=== PATIENT | female | born 1970 | race Caucasian/White ===

== ENCOUNTER 2019-10-11 07:09 | Emergency (ER) | payer SELFPAY ==
[2019-10-11] VITALS (10 sets, daily range): BP systolic 188–243; BP diastolic 110–125; PULSE 65–109; RESP 12–22; TEMP 36.7; O2SAT 92–98; BMI 23.4
--- NOTE | 2019-10-11 07:21 | ECG_ITS ---
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 Measurements Intervals [place] Rate: 66 P: 69 NH: 137 QRS: 63 QRSD: 80 T: 73 QT: 417 QTc: 437 Interpretive Statements SINUS RHYTHM POSSIBLE LEFT ATRIAL ENLARGEMENT [-0.1mV P WAVE IN V1/V2] Compared to ECG 12/30/2018 17:20:07 Sinus tachycardia no longer present ST (T wave) deviation no longer present Electronically Signed On 10-12-2019 19:43:28 CDT by Jaswinder Dick M.D. [id number]
--- NOTE | 2019-10-11 07:21 | XR_ITS ---
WS: [id number] PORTABLE CHEST HISTORY: dyspnea/cough COMPARISON: 12/30/2018 Mild pulmonary hyperinflation is probably due to emphysema. No pneumonia. Normal vasculature. No pleu ral effusion or pneumothorax. Cardiac size: Normal. Mediastinum/Aorta: Normal mediastinum. No osseous abnormality seen. XR/XR chest 1V portable [id number] IMPRESSION: Mild emphysema. No pneumonia.
--- NOTE | 2019-10-11 07:25 | ED_ITS ---
HPI - Extremity Problem General: Chief complaint: Extremity Problem,Nontraumatic Stated complaint: SHOULDER/ ARM PAIN Time Seen by Provider: 10/11/19 07:10 History of Present Illness: HPI Narrative: 48-year-old female presents emergency room with complaint of right upper chest states pain began suddenly this morning she states the pain is in the upper chest initially she states in her shoulder but she moves her arm around in a full range of motion without e xacerbating the pain back during exam I can put her into abduction with external rotation with no significant pain whatsoever. She denies fever. She has had increased cough recently. Onset (ago): hour(s) Pain Consistency: constant Location: right Quality: sharp Radiation: none Relieving factors: nothing Exacerbating factors: nothing Associated symptoms: Reports no associated symptoms; Deny chest pain, fever(s) or rash Review of Systems Const: Denies: fever(s), chills, body aches, change in appetite, fatigue or malaise ENMT: Denies: throat pain, ear or mastoid pain, nasal discharge or nasal congestion Card: Denies: chest pain, edema, dyspnea on exertion or orthopnea Resp: Denies: dyspnea, productive cough or non-productive cough GI: Denies: abdominal pain, nausea, vomiting, hematemesis, coffee ground emesis, diarrhea, constipation, bloating, hematochezia or melena : Denies: flank pain, difficulty voiding, dysuria, urinary frequency or urinary urgency Skin/Breast: Denies: rash or pruritus PFSH ED PFSH: Surgical History (Updated 03/14/19 @ 15:20 by Tray Garcia LPN) History of cholecystectomy Social History (Updated 03/15/19 @ 13:58 by Tray Garcia LPN) Smoking and tobacco status: current every day smoker cigarettes Packs smoked per day: 0.5 Years cigarettes smoked: 13 Quit status (tobacco): has tried quititng Number of times tried to quit tobacco: 1 Second hand smoke exposure: Yes Smoking risk assessment/counseling performed?: Yes Tobacco counseling given: counseling >3 minutes Physical Exam Const: COMMON NORMALS: no acute distress GENERAL APPEARANCE: cooperative and comfortable ORIENTATION/CONSCIOUSNESS: Yes awake, Yes oriented to person, Yes oriented to place and Yes oriented to time HENMT: COMMON NORMALS: normocephalic, atraumatic, hearing grossly normal b ilaterally, external ears normal, EAC's normal, TM's normal bilaterally, Normal nasal mucous membranes and turbinates present, moist oral mucous membranes and oropharynx normal HEAD & SCALP: normocephalic and atraumatic NOSE: Normal nasal mucous membranes and turbinates present EXTERNAL EAR: Yes external ears normal EXTERNAL AUDITORY CANAL: EAC's normal TYMPANIC MEMBRANE: TM's normal bilaterally Eye: COMMON NORMALS: Equal, round and reactive pupils present, EOMs intact bilaterally, conjunctivae normal and no scleral icterus CONJUNCTIVA: Yes conjunctivae normal PUPIL: Yes Equal, round and reactive pupils present Neck/C-Spine: COMMON NORMALS: full ROM, no lymphadenopathy, supple and no JVD Lymph: LYMPHATIC: no lymphadenopathy noted and no lymphedema noted Resp: COMMON NORMALS: normal respiratory effort, No retractions, No use of accessory muscles and clear to auscultation bilaterally AUSCULTATION: clear to auscultation bilaterally Cardio: COMMON NORMALS: no JVD, regular rate, regular rhythm and No murmurs present (Cardio) RATE: regular rate RHYTHM: regular rhythm GI: COMMON NORMALS: Soft to palpation and No hepatosplenomegaly present AUSCULTATION: Yes normoactive bowel sounds PALPATION: Yes Soft to palpation, No Tenderness to palpation present (GI), No Guarding due to palpation present (GI) and Yes No hepatosplenomegaly present Extremity: COMMON NORMALS: normal to inspection, capillary refill normal, no clubbing, cyanosis or edema, no calf tenderness and no pedal edema Neuro: SENSORIUM/ORIENTATION: Yes oriented to person, Yes oriented to place and Yes oriented to time Skin: COMMON NORMALS: no rashes or lesions noted GENERAL SKIN EXAM: no rashes or lesions noted Course Vital Signs: Vital signs: Vital Signs Temperature 98.0 F 10/11/19 07:10 Pulse Rate 77 10/11/19 10:30 Respiratory Rate 17 10/11/19 10:30 Blood Pressure 188/125 10/11/19 10:30 Pulse Oximetry 96 10/11/19 10:30 MDM - Extremity (Nontraumatic) MDM Narrative: Medical decision making narrative: Patient complaining of positional right upper chest pain is affected by deep inspiration as well. At various times through the ER stay both myself and the nurse would check on the patient in her room she would need to be resting quietly or even sleeping but then when she realized someone is in the room she would start crying out in pain very loudly. She was given morphine and Toradol which did seem to have good result relief of pain. CT of the chest does not show pneumothorax pneumonia mass or pulmonary emboli. EKG show normal sinus rhythm labs are normal. Suspect this is more pleuritic in nature I cannot find any objective findings beyond just the clinical history will discharge home have her stop using any ibuprofen and instead use diclofenac. There is an incidental finding of an area of concern on the left breast the radiologist noted per radiology recommendations we will have case management get a mammogram set up. Lab Data: Labs: Lab Results 10/11/19 10/11/19 Range/Units 07:37 07:37 WBC 9.3 (4.0-10.0) 10^3/ uL RBC 4.72 (4.1-5.3) 10^6/u L Hgb 12.5 (11.5-15.3) g/dL Hct 40.6 (37.0-47.0) % MCV 86.0 (81-99) fL MCH 26.5 L (28.0-34.0) pg MCHC 30.8 (30.0-36.0) g/dL RDW 15.2 H (12.1-15.1) % Plt Count 312 (130-400) 10^3/c mm MPV 10.2 (7.4-10.4) fL Neut % (Auto) 70.8 % Lymph % (Auto) 22.3 % Powell % (Auto) 5.1 % Eos % (Auto) 1.4 % Baso % (Auto) 0.2 % Neut # (Auto) 6.55 (1.8-7.7) 10^3/u L Lymph # (Auto) 2.1 (0.8-4.8) 10^3/u L Powell # (Auto) 0.5 (0.2-0.9) 10^3/u L Eos # (Auto) 0.1 (0.0-0.8) 10^3/u L Baso # (Auto) 0.0 (0.0-0.1) 10^3/u L Nucleated RBC % (a uto) 0 % Nucleated RBCs # 0.0 /100WBC Sodium 139 (136-145) mmol/L Potassium 4.0 (3.5-5.1) mmol/L Chloride 106 (98-107) mmol/L Carbon Dioxide 25 (22-29) mmol/L Anion Gap 12.0 (5-19) BUN 11 (6-20) mg/dL Creatinine 0.8 (0.5-0.9) mg/dL GFR Calculation 76.9 L (90-130) mL/min Glucose 108 (65-115) mg/dL Calculated Osmolal ity 285 (285-295) mOsm/k g Calcium 9.4 (8.5-10.5) mg/dL Total Bilirubin 0.2 (0.15-1.2) mg/dL AST 21 (0-32) U/L ALT 17 (0-33) U/L Alkaline Phosphata se 107 H (35-105) IU/L Total Protein 7.4 (6.6-8.7) g/dL Albumin 4.3 (3.5-5.2) g/dL Globulin 3.1 (1.3-4.6) g/dL Discharge Plan Discharge Patient Disposition: Home Clinical Impression: Chest pain, pleuritic, Mass of breast, left Condition: Stable Prescriptions: New diclofenac sodium 75 mg tablet,delayed release (DR/EC) 75 mg PO Q12H PRN (Reason: pain) Qty: 20 RF: 0 Discontinued ibuprofen 200 mg Tablet 400 mg PO PRN RF: 0 No Action ProAir HFA 90 mcg/actuation Hfa Aerosol Inhaler 2 puff INHALATION Q4H PRN (Reason: Shortness Of Breath) RF: 0 Discharge Orders: Discharge Order (Routine); Ordered 10/11/19 Ordered By: Mook Peng Referrals: Yesica Zuniga MD [Primary Care Provider] - Discharge Diet: Advance as tolerated Discharge Activity: Resume usual activity Activity Restrictions/Additional Instructions: Case management will call to get mammogram scheduled Coding Level of Care Code ED Policy Issue Clerk for Chg Fwd Exam Comprehensive
[2019-10-11 07:44] LABS: Basophils % 0.2 %; Eosinophils # 0.1 10^3/uL (0.0-0.8); Eosinophils % 1.4 %; Hematocrit 40.6 % (37.0-47.0); Hemoglobin 12.5 g/dL (11.5-15.3); Lymphocytes # 2.1 10^3/uL (0.8-4.8); Lymphocytes % 22.3 %; Mean Corpuscular HGB Conc 30.8 g/dL (30.0-36.0); Mean Corpuscular Hemoglobin 26.5 pg (28.0-34.0); Mean Platelet Volume 10.2 fL (7.4-10.4); Monocytes # 0.5 10^3/uL (0.2-0.9); Monocytes % 5.1 %; Neutrophils # 6.55 10^3/uL (1.8-7.7); Neutrophils % 70.8 %; Nucleated Red Blood Cells % 0 %; Platelet Count 312 10^3/cmm (130-400); Red Blood Count 4.72 10^6/uL (4.1-5.3); Red Cell Distribution Width 15.2 % (12.1-15.1); White Blood Count 9.3 10^3/uL (4.0-10.0)
[2019-10-11] MEDS: ondansetron 2 mg/ML SDV 2 mL 4 MG IVP (07:45)
[2019-10-11] MEDS: morphine 4 mg/mL SDV 1 mL IVP (07:45)
[2019-10-11] MEDS: sodium chlor 0.9% + KCl 20 mEq 20 MEQ/1,000 ML BAG 125 MEQ IV (07:53)
[2019-10-11 08:06] LABS: Alanine Aminotransferase 17 U/L (0-33); Albumin Level 4.3 g/dL (3.5-5.2); Alkaline Phosphatase 107 IU/L (35-105); Aspartate Amino Transferase 21 U/L (0-32); Blood Urea Nitrogen 11 mg/dL (6-20); Calcium 9.4 mg/dL (8.5-10.5); Carbon Dioxide 25 mmol/L (22-29); Chloride 106 mmol/L (98-107); Globulin 3.1 g/dL (1.3-4.6); Glomerular Filtration Rate 76.9 mL/min (90-130); Glucose 108 mg/dL (65-115); Osmolality Calculated 285 mOsm/kg (285-295); Sodium 139 mmol/L (136-145); Total Bilirubin 0.2 mg/dL (0.15-1.2); Total Protein 7.4 g/dL (6.6-8.7)
--- NOTE | 2019-10-11 08:07 | CT_ITS ---
WS: [id number] CT CHEST ANGIOGRAPHY WITH REFORMATS HISTORY: chest pain/dyspnea TECHNIQUE: Contiguous axial images are obtained through the chest during arterial injection of intrav enous contrast. Images are reconstructed to evaluate the pulmonary arteries. MIP imaging also reviewe d. All CT scans at [facility] use at least one of these dose optimization techniques: aut omated exposure control; mA and/or kV adjustment per patient size (includes targeted exams where dose is matched to clinical indication); or iterative reconstruction. CONTRAST: Omnipaque 300; 95 mL IV. DLP: 550.96 mGy.cm COMPARISON: None available. Good opacification of the pulmonary arteries. No filling defects or pulmonary embolism. Normal-sized pulmonary artery and aorta. Very mild enlargement of the LEFT heart chambers. No mediastinal or hilar adenopathy. Lungs are clear. No mass or pneumonia. No pleural effusion. LEFT vertebral artery arises destructive from the arch. 2.0 cm asymmetry with calcification in the posterior LEFT breast. No prior mammograms is available fo r review. Prior cholecystectomy. No bile duct dilatation. RIGHT adrenal adenoma measures 2.0 cm. Degenerative disc disease with osteophytes at the thoracolumbar junction. No osteoblastic or osteolyt ic disease. CT/CT angio chest PE protcl [id number] IMPRESSION: 1. No pulmonary embolism. 2. Indeterminate LEFT breast mass. No prior mammograms for comparison. Recomme nd diagnostic mammogram evaluation. 3. Prior cholecystectomy. 4. Benign RIGHT adrenal adenoma.
[2019-10-11] MEDS: LORazepam 2 mg/mL INJ 1 mL 0.5 MG IVP (08:44)
[2019-10-11] MEDS: iohexol 350 mg/mL 100 mL Btl IV (10:08)
[2019-10-11] MEDS: ketorolac 60 mg/2 mL INJ IM (10:32)
--- NOTE | 2019-10-11 13:02 | DCPLANNER ---
department store general manager had message to schedule an outpatient mammogram for patient. department store general manager faxed order to centralized scheduling. department store general manager will call for appointment information.
--- NOTE | 2019-10-22 15:28 | DCPLANNER ---
Patient has a mammogram scheduled for Tuesday, October 29, 2019 at 8:00. Centralized scheduling will call patient with appointment information.
--- NOTE | 2019-11-14 08:17 | DCPLANNER ---
Patient had a outpatient mammogram scheduled for 10.28.20 - patient did attend.
== END 2019-10-11 10:52 | disposition home or self-care (01) ==
PROVIDERS: Emergency Provider Family Medicine; PCP Family Medicine
DX: R09.1 Pleurisy (principal); N63.20 Unspecified lump in the left breast, unspecified quadrant; F17.210 Nicotine dependence, cigarettes, uncomplicated
CPT/HCPCS: 12345; 71045; 71275; 80053; 85025; 93005; 96365; 96366; 96372; 96375; 99283; 99284; J1885; J2060; J2270; J2405; Q9967

== ENCOUNTER 2019-10-13 19:46 | Emergency (ER) | payer SELFPAY ==
[2019-10-13 20:47] VITALS: BP 188/104; PULSE 110; RESP 18; TEMP 36.8; O2SAT 97; BMI 23.4
[2019-10-13 22:24] VITALS: PULSE 74
--- NOTE | 2019-10-13 22:29 | ED_ITS ---
HPI - Extremity Problem General: Chief complaint: Extremity Injury, Upper Stated complaint: right arm pain Time Seen by Provider: 10/13/19 22:24 History of Present Illness: HPI Narrative: Patient history of right shoulder pain and right wrist pain she is got lidocaine patches on. Hurts with range of motion and she has some numbness in her left 3 fingers for the last few hours. MD Complaint: extremity pain and joint pain Onset (ago): day(s) Pain Consistency: intermittent Location: right and upper extremity Severity scale (1-10): 4 Quality: aching Radiation: proximal and distal Relieving factors: immobilization Exacerbating factors: range of motion Associated symptoms: Reports no associated symptoms; Deny chest pain, fever(s) or rash Review of Systems Const: Denies: fever(s), chills or body aches Eyes: Denies: change in vision or blurry vision ENMT: Denies: throat pain or nasal congestion Card: Denies: chest pain or dyspnea on exertion Resp: Denies: dyspnea, productive cough or non-productive cough GI: Denies: abdominal pain, nausea or vomiting Musc: Reports: extremity pain and joint pain (Right hand right shoulder) Skin/Breast: Denies: rash Neuro: Denies: headache(s) Psych: Denies: anxiety or depression Yrn/Lymph: Denies: easy bruising PFSH ED PFSH: Surgical History (Updated 03/14/19 @ 15:20 by Tray Garcia LPN) History of cholecystectomy Social History (Updated 03/15/19 @ 13:58 by Tray Garcia LPN) Smoking and tobacco status: current every day smoker cigarettes Packs smoked per day: 0.5 Years cigarettes smoked: 13 Quit status (tobacco): has tried quititng Number of times tried to quit tobacco: 1 Second hand smoke exposure: Yes Smoking risk assessment/counseling performed?: Yes Tobacco counseling given: counseling >3 minutes Physical Exam Const: COMMON NORMALS: no acute distress, average body habitus and patient oriented x3 HENMT: COMMON NORMALS: normocephalic HEAD & SCALP: normal to inspection and normocephalic FACE & SINUS: normal facial exam Eye: COMMON NORMALS: conjunctivae normal GENERAL EYE: appearance normal, both eyes and all related structures CONJUNCTIVA: Yes conjunctivae normal Neck/C-Spine: COMMON NORMALS: no JVD Chest: COMMONS NORMALS: normal inspection of the chest Resp: COMMON NORMALS: normal respiratory effort and clear to auscultation bilaterally AUSCULTATION: clear to auscultation bilaterally Cardio: COMMON NORMALS: no JVD, regular rate and regular rhythm RATE: regular rate RHYTHM: regular rhythm GI: COMMON NORMALS: Normal to inspection, nondistended, normoactive bowel sounds present Extremity: COMMON NORMALS: normal to inspection and full ROM NARRATIVE EXTREMITY EXAM: She has full range of motion does have some tenderness in right shoulder with palpation and able to move that shoulder through all planes. Right wrist able to move that has no tenderness does have positive Tinel sign Neuro: COMMON NORMALS: patient oriented x3 Course Vital Signs: Vital signs: Vital Signs Temperature 98.3 F 10/13/19 20:47 Pulse Rate 74 10/13/19 22:24 Respiratory Rate 18 10/13/19 20:47 Blood Pressure 188/104 10/13/19 20:47 Pulse Oximetry 97 10/13/19 20:47 Discharge Plan Discharge Patient Disposition: Home Clinical Impression: Carpal tunnel syndrome Qualifiers: Laterality: right Qualified Code(s): G56.01 - Carpal tunnel syndrome, right upper limb Arthralgia of shoulder Qualifiers: Laterality: right Qualified Code(s): M25.511 - Pain in right shoulder Condition: Stable Prescriptions: New Medrol (Yonny) 4 mg tablets,dose pack See Rx Instructions .ROUTE .COMPLEX Qty: 21 RF: 0 No Action ProAir HFA 90 mcg/actuation Hfa Aerosol Inhaler 2 puff INHALATION Q4H PRN (Reason: Shortness Of Breath) RF: 0 diclofenac sodium 75 mg tablet,delayed release (DR/EC) 75 mg PO Q12H PRN (Reason: pain) Qty: 20 RF: 0 Discharge Orders: Discharge Order (Routine); Ordered 10/13/19 Ordered By: Arya Webster Discharge Diet: Advance as tolerated Discharge Activity: Increase activity as tolerated Patient Instructions: Carpal Tunnel Syndrome (ED), Arthralgia (ED) Activity Restrictions/Additional Instructions: Follow-up with medical provider as directed. Take medications as prescribed. Return to the ER or your medical provider if condition worsens. Please read and understand discharge instructions. If any questions ask please. By ice to areas that are to have discomfort. Coding Level of Care Code ED Medical Doctor for Andrey Kang
[2019-10-13] MEDS: predniSONE 20 mg Tablet 60 MG PO (22:57)
[2019-10-13 22:59] VITALS: PULSE 86; RESP 18; O2SAT 98
== END 2019-10-13 23:03 | disposition home or self-care (01) ==
PROVIDERS: Emergency Provider Nurse Practitioner Family
DX: G56.01 Carpal tunnel syndrome, right upper limb (principal); M25.511 Pain in right shoulder; F17.210 Nicotine dependence, cigarettes, uncomplicated
CPT/HCPCS: 12345; 99282; 99283; J7512

== ENCOUNTER 2019-10-29 07:47 | Outpatient (CLI) | payer SELFPAY ==
--- NOTE | 2019-10-29 08:00 | MM_ITS ---
WS: [id number] DIAGNOSTIC BILATERAL DIGITAL MAMMOGRAM WITH CAD LEFT breast ultrasound, limited HISTORY: breast mass left, mass seen on recent chest CT 10/11/2019. COMPARISON: 10/11/2019 TECHNIQUE: Bilateral craniocaudad, mediolateral oblique, and mediolateral views are submitted. Spot c ompression LEFT CC Computer aided detection utilized. Breast composition: There are scattered areas of fibroglandular density. Palpable marker corresponds to a partially calcified mass in the upper outer quadrant of the LEFT breast at a middle depth measur ing approximately 1.2 cm in diameter. Margins are partially obscured. No additional suspicious findin gs. LEFT breast ultrasound, limited. Ultrasound directed to the upper outer quadrant. At 1:00, 3 cm from the nipple, there is a hypoechoic mass with partially calcified periphery measuring 1.4 x 0.6 x 1.0 cm. No significant increased vascu larity. MM/[place] [id number] IMPRESSION: BI-RADS: 4-Suspicious Finding-Biopsy Should Be Considered FOLLOW UP: Biopsy Recommended Ultrasound-guided biopsy recommended of the partially calcified mass 1:00 LEFT breast. 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 Biopsy recommended to con firm diagnosis. Notified BAILEY Leos at 10/29/2019 9:41 AM.
--- NOTE | 2019-10-29 08:29 | US_ITS ---
WS: [id number] DIAGNOSTIC BILATERAL DIGITAL MAMMOGRAM WITH CAD LEFT breast ultrasound, limited HISTORY: breast mass left, mass seen on recent chest CT 10/11/2019. COMPARISON: 10/11/2019 TECHNIQUE: Bilateral craniocaudad, mediolateral oblique, and mediolateral views are submitted. Spot c ompression LEFT CC Computer aided detection utilized. Breast composition: There are scattered areas of fibroglandular density. Palpable marker corresponds to a partially calcified mass in the upper outer quadrant of the LEFT breast at a middle depth measur ing approximately 1.2 cm in diameter. Margins are partially obscured. No additional suspicious findin gs. LEFT breast ultrasound, limited. Ultrasound directed to the upper outer quadrant. At 1:00, 3 cm from the nipple, there is a hypoechoic mass with partially calcified periphery measuring 1.4 x 0.6 x 1.0 cm. No significant increased vascu larity. US/US breast LT limited* [id number] IMPRESSION: BI-RADS: 4-Suspicious Finding-Biopsy Should Be Considered FOLLOW UP: Biopsy Recommended Ultrasound-guided biopsy recommended of the partially calcified mass 1:00 LEFT breast. 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 Biopsy recommended to con firm diagnosis. Notified BAILEY Leos at 10/29/2019 9:41 AM.
== END 2019-10-29 07:48 | disposition home or self-care (01) ==
LOC: RADSHAW 07:49
PROVIDERS: PCP Nurse Practitioner; Visit Provider Nurse Practitioner
DX: N63.21 Unspecified lump in the left breast, upper outer quadrant (principal)
CPT/HCPCS: 76642; 77066

== ENCOUNTER → 2019-11-22 13:00 | Outpatient (BNVA) | payer OTHER, SELFPAY | PROVIDERS: PCP Nurse Practitioner; Visit Provider Surgery | DX: Z11.59 Encounter for screening for other viral diseases (principal) | CPT/HCPCS: 87635 ==

== ENCOUNTER 2019-11-28 07:31 | Day surgery (SDC) | payer MEDICAID, SELFPAY ==
[2019-11-27 10:35] VITALS: BMI 24.2
[2019-11-28 07:45] VITALS: BP 158/98; PULSE 96; RESP 18; TEMP 36.3; O2SAT 99
--- NOTE | 2019-11-28 07:57 | US_ITS ---
WS: [id number] ULTRASOUND-GUIDED LEFT BREAST WIRE LOCALIZATION INDICATION: Left breast nodule TECHNIQUE: The procedure including risks benefits and complications were discussed with the patient w ho agreed to proceed. Using sterile technique patient was prepped and draped in usual sterile fashion . After 1% lidocaine, using ultrasound guidance, a 7 cm Kopan's needle was advanced through the left breast nodule at the 1:00 position 3 cm from the nipple. Wire was deployed. No immediate complication s. Surgical specimen demonstrates gross total resection of the left breast nodule with intact wire. US/[place] [id number] IMPRESSION: 1. Uncomplicated wire localization of the left breast nodule at the 1:00 posit ion. 2. Surgical specimen demonstrates gross total resection of the left breast nod ule with intact wire.
--- NOTE | 2019-11-28 07:58 | US_ITS ---
WS: [id number] ULTRASOUND-GUIDED LEFT BREAST WIRE LOCALIZATION INDICATION: Left breast nodule TECHNIQUE: The procedure including risks benefits and complications were discussed with the patient w ho agreed to proceed. Using sterile technique patient was prepped and draped in usual sterile fashion . After 1% lidocaine, using ultrasound guidance, a 7 cm Kopan's needle was advanced through the left breast nodule at the 1:00 position 3 cm from the nipple. Wire was deployed. No immediate complication s. Surgical specimen demonstrates gross total resection of the left breast nodule with intact wire. US/US breast surgical specimen IMPRESSION: 1. Uncomplicated wire localization of the left breast nodule at the 1:00 posit ion. 2. Surgical specimen demonstrates gross total resection of the left breast nod ule with intact wire.
--- NOTE | 2019-11-28 08:02 | ANES.PREANE2 ---
Pre-Anesthetic Assessment Pre-Anesthetic Assessment: Height/Weight: Height 1.5 m Weight 54.431 kg Temp Pulse Resp BP Pulse Ox 97.3 F L 96 18 158/98 99 11/28/19 07:45 11/28/19 07:45 11/28/19 07:45 11/28/19 07:45 11/28/19 07:45 Preop Diagnosis: breast lump Proposed Procedure: Operation Date: 11/28/19 10:00 Proposed Procedures p Left Breast Biopsy Needle Localization(Left) - Jaime Jiménez MD s Left breast Lumpectomy(Left) - Jaime Jiménez MD Familial anesthetic complications: none Was Beta Jenn taken within 24 hours: N/A Last intake: Intake Last Liquid Date 11/27/19 Last Liquid Time 21:00 Last Solid Date 11/27/19 Last Solid Time 17:00 Social: Social History: Tobacco and No alcohol Exam: Pre-Anes Outpt Exam: alert, oriented x 3, clear to auscultation bilaterally and regular rate & rhythm Airway: Cervical ROM: WNL MP: 2 Dentition: Other Pulmonary: Pulmonary: Cough (sometimes gets bronchitis in fall and spring ) Anesthetic Plan: ASA status: 1 Anesthesia: MAC Risk of > 500 ml blood loss (7ml/kg in children): No PFSH Anesthesia PFSH: Medical History (Updated 10/21/19 @ 00:01 by ) Asthma Bipolar disorder, unspecified Migraine Surgical History (Updated 03/14/19 @ 15:20 by Tray Garcia LPN) History of cholecystectomy Family History Other Cancer Diabetes Hypertension Denies family history of Chronic kidney disease (CKD) Stroke Social History Smoking and tobacco status: current every day smoker cigarettes Packs smoked per day: 0.5 Years cigarettes smoked: 13 Quit status (tobacco): has tried quititng Number of times tried to quit tobacco: 1 Second hand smoke exposure: Yes Smoking risk assessment/counseling performed?: Yes Tobacco counseling given: counseling >3 minutes Alcohol intake: never Desire information about alcohol rehabilitation?: No Counseling given: No Desire information about substance/drug rehabilitation?: No Counseling given: No Adopted: No Caregiver/support person: Yes Lives independently: No Household members: friend(s) Housing: House Marital status: Single Number of children: 0 service: No Current occupational status: unemployed History of recent travel: No Current gender identity: Female Data Anesthesia Cardiac Studies: No Data to Display
[2019-11-28] MEDS: sodium chloride 0.9% 1,000 ML 30 ML IV (09:12)
--- NOTE | 2019-11-28 09:32 | W.PM.OPSUD ---
Surgery/Procedure H&P Update DATE OF PROCEDURE: November 28, 2019 DATE H&P PERFORMED: 11/11/18 H&P UPDATE INFORMATION: No changes to prior documentation PREOP DIAGNOSIS: breast lump PLANNED PROCEDURE: Operation Date: 11/28/19 10:00 Proposed Procedures p Left Breast Biopsy Needle Localization(Left) - Jaime Jiménez MD s Left breast Lumpectomy(Left) - Jaime Jiménez MD
--- NOTE | 2019-11-28 09:33 | P.OP_ITS ---
Operative Report Date of procedure: November 28, 2019 Pre-op Diagnosis: Left breast mass/imaging abnormality. Post-op diagnosis: same Procedure Done: Left breast biopsy/lumpectomy following preoperative needle localization. Specimens removed/disposition: 1. Left breast mass with localization wire. Long suture anteriorly, short suture medially. 2. Upper outer edge of biopsy cavity. Pathology: As above. Surgeon: Jaime Jiménez Anesthesia: MAC Estimated blood loss (mL): 5 Complications: None. Condition: stable Disposition: same day Procedure: The patient was brought to the operating room and was placed in a supine position on the operating room table. A monitored anesthetic was induced. The left breast was prepped and draped in a sterile fashion, taking care not to disturb the localization wire which had been placed in radiology preoperatively. A combination of 1% lidocaine and 0.5% bupivacaine with 1- 200,000 parts epinephrine was used for local anesthesia throughout the procedure. A curvilinear incision was carried out in the upper outer aspect of the left breast. Cautery was used to undermine the skin towards the insertion point of the localization wire laterally and the wire was brought into the incision. Dissection was carried out along the wire until some fibrocystic appearing tissue was seen. The hub of the needle was still not visible but dissection was carried out all the way around the fibrocystic appearing tissue using cautery. At the medial edge of the specimen the very tip of the wire could be seen. A firm mass was present in the specimen just medial to this and almost certainly was the lesion in question. The specimen was marked for pathologic orientation with a long suture anteriorly and a short suture medially at the tip of the wire. Palpation of the wound revealed a little bit more firm fibrocystic feeling tissue in the upper outer edge of the biopsy cavity and so another small piece of tissue was taken and sent with the lumpectomy specimen containing the wire. No other abnormalities were seen or felt in the wound. The wound was irrigated with saline. No bleeding was encountered. The skin was reapproximated using a running subcuticular suture of 4-0 Vicryl. Benzoin and Steri-Strips were placed over the incision and a sterile bandage followed. The patient was taken to the recovery area in stable condition postoperatively.
[2019-11-28 10:32] VITALS: BP 83/58; PULSE 59; RESP 12; TEMP 36.7; O2SAT 98
[2019-11-28 10:51] VITALS: BP 125/78; PULSE 61; RESP 16; TEMP 36.7; O2SAT 98
--- NOTE | 2019-11-28 11:00 | ANE.PACU2 ---
Inpatient post-anesthesia follow up: Vital signs: Temperature 98.0 F Pulse Rate 61 Respiratory Rate 16 Blood Pressure 125/78 Pulse Oximetry 98 Oxygen Delivery Me thod Room Air Oxygen Flow Rate Fraction of Inspir ed Oxygen Hydration adequate: Yes Nausea and vomiting: No Pain level: 1 Mental status: Baseline
== END 2019-11-28 11:04 | disposition home or self-care (01) ==
PROVIDERS: PCP Nurse Practitioner; Visit Provider Surgery
PROC: (CPT 19120; principal; 2019-11-28 10:00)
PROC: (CPT 19120; 2019-11-28 10:00)
DX: N63.20 Unspecified lump in the left breast, unspecified quadrant (principal); J45.909 Unspecified asthma, uncomplicated; F17.210 Nicotine dependence, cigarettes, uncomplicated; I10 Essential (primary) hypertension
CPT/HCPCS: 19120; 12345; 19285; J0690; J2704; J3010; J3490; J7030

== ENCOUNTER 2020-04-21 07:08 | Emergency (ER) | payer SELFPAY ==
[2020-04-21] VITALS (7 sets, daily range): BP systolic 115–137; BP diastolic 78–92; PULSE 78–91; RESP 16–20; TEMP 37.3–39.4; O2SAT 94–98; BMI 24.2
--- NOTE | 2020-04-21 07:28 | XRR_ITS ---
PROCEDURE INFORMATION: Exam: XR Chest Exam date and time: 04/21/2020 7:30 AM Age: 49 years old Clinical indication: Cough and fever and shortness of breath TECHNIQUE: Imaging protocol: XR of the chest Views: 1 view. COMPARISON: CR XR chest 1V portable [id number] 10/11/2019 7:42 AM FINDINGS: Lungs: Hyperinflation, without acute airspace disease. Pleural spaces: No pleural effusion. Heart/Mediastinum: No cardiomegaly. Bones/joints: Mild degenerative change. XR/XR chest 1V portable [id number] IMPRESSION: Hyperinflation, without acute airspace or pleural disease.
--- NOTE | 2020-04-21 07:30 | CT_ITS ---
WS: [id number] CT HEAD NONCONTRAST HISTORY: severe headache TECHNIQUE: Contiguous axial imaging performed through the brain in 2.5 mm imaging. Bone and soft tiss ue windows. Sagittal and coronal reformats reviewed. All CT scans at [facility] use at ast one of these dose optimization techniques: automated exposure control; mA and/or kV adjustment pe r patient size (includes targeted exams where dose is matched to clinical indication); or iterative r econstruction. DLP: 1468.6 mGy.cm COMPARISON: 07/13/2016 No acute intracranial hemorrhage, midline shift or mass effect. Mild atrophy and mild chronic microvascular ischemic disease. Ventricles: Normal size with no hydrocephalus. Paranasal sinuses: As visualized are clear. Mastoid air cells: Well pneumatized. Calvarium and scalp: Skull is intact with no soft tissue edema or swelling. CT/CT head wo con* [id number] IMPRESSION: 1. No acute intracranial hemorrhage or edema. 2. Stable mild atrophy and chronic microvascular ischemic disease.
--- NOTE | 2020-04-21 07:30 | ED_ITS ---
HPI - General Adult General: Chief complaint: Abdominal Pain Stated complaint: headache, abd pain Time Seen by Provider: 04/21/20 07:09 History of Present Illness: HPI narrative: Patient is a 49-year-old female who comes to the ED via EMS with fever, headache and abdominal pain. Patient says symptoms started 2 days ago. Symptoms started with a severe headache. She did develop some nausea and has lost her appetite. Endorses photophobia. Headache is located at the top of her head and radiates down into the back of the head. She then started developing some abdominal pain that is centrally located on the abdomen. She also reports having a cough and congestion as well. Today she felt horrible and was hot and diaphoretic. Patient also reports some dysuria and some bilateral flank pain. Associated symptoms: Reports headache(s) and nausea; Deny chest pain, dyspnea, rash, palpitations or vomiting Review of Systems Const: Reports: fever(s); Denies: chills or fatigue Eyes: Denies: change in vision or eye discomfort ENMT: Denies: throat pain, odynophagia, nasal discharge or nasal congestion Card: Denies: chest pain, palpitations, edema, swelling of feet/ankles, dyspnea on exertion or orthopnea Resp: Denies: dyspnea, productive cough or non-productive cough GI: Reports: abdominal pain and nausea; Denies: vomiting, diarrhea, constipation or hematochezia : Reports: flank pain and dysuria; Denies: hematuria Musc: Denies: neck pain, back pain or extremity swelling Skin/Breast: Denies: rash or new lesions Neuro: Reports: headache(s); Denies: numbness in extremities or weakness in extremities [facility] ED PFSH: Medical History Asthma Bipolar disorder, unspecified Migraine Surgical History History of cholecystectomy Family History Other Cancer Diabetes Hypertension Denies family history of Chronic kidney disease (CKD) Stroke Social History Smoking and tobacco status: current every day smoker cigarettes Packs smoked per day: 0.5 Years cigarettes smoked: 13 Quit status (tobacco): has tried quititng Number of times tried to quit tobacco: 1 Second hand smoke exposure: Yes Smoking risk assessment/counseling performed?: Yes Tobacco counseling given: co unseling >3 minutes Alcohol intake: never Desire information about alcohol rehabilitation?: No Counseling given: No Desire information about substance/drug rehabilitation?: No Counseling given: No Adopted: No Caregiver/support person: Yes Lives independently: No Household members: friend(s) Housing: House Marital status: Single Number of children: 0 service: No Current occupational status: unemployed History of recent travel: No Current gender identity: Female Physical Exam Const: COMMON NORMALS: patient oriented x3 and alert GENERAL APPEARANCE: cooperative, comfortable and diaphoretic HENMT: COMMON NORMALS: normocephalic HEAD & SCALP: normocephalic MOUTH: Normal oral and palatal mucosa present THROAT: posterior oropharynx normal and uvula midline Eye: COMMON NORMALS: Equal, round and reactive pupils present and EOMs intact bilaterally PUPIL: Yes Equal, round and reactive pupils present Neck/C-Spine: COMMON NORMALS: supple and no meningeal signs GENERAL: Yes normal visual inspection Resp: COMMON NORMALS: normal respiratory effort, No retractions and No use of accessory muscles AUSCULTATION: wheezes (mild) expiratory wheezes, inspiratory wheezes and throughout Cardio: COMMON NORMALS: regular rate, regular rhythm, S1 normal heart sound present, S2 normal heart sound present, No gallops present (Cardio), No clicks present (Cardio), No murmurs present (Cardio) and Peripheral pulses 2+ throug hout RATE: regular rate RHYTHM: regular rhythm HEART SOUNDS: S1 normal heart sound present and S2 normal heart sound present PERIPHERAL PULSES: Peripheral pulses 2+ throughout GI: COMMON NORMALS: Normal to inspection, nondistended, normoactive bowel sounds present, Soft to palpation, non-tender and no masses PALPATION: Yes Soft to palpation OTHER: Patient has no abdominal tenderness upon palpation in all 4 quadrants. Negative Madrid's point negative McBurney sign and negative Rovsing sign. Back/Pelvis: GENERAL BACK: Yes CVA tenderness CVA tenderness: left Extremity: COMMON NORMALS: normal to inspection Neuro: COMMON NORMALS: patient oriented x3, CN's II-XII intact bilaterally, moves all extremities, no focal motor deficits and no sensory deficits noted SENSORIUM/ORIENTATION: Yes alert MENINGEAL SIGNS: Yes no meningeal signs and No Brudzinski's sign present COORDINATION/BALANCE: sennwk-[id number]-vedr test normal SPEECH: speech normal COORDINATION: [id number] test normal Skin: GENERAL SKIN EXAM: dry skin Course 2 Reevaluation(s): Reevaluation #1: Patient's fever has improved and is now down to 99.1. Patient says she is feeling a lot better. Time: 10:27 Vital Signs: Vital signs: Vital Signs Temperature 99.1 F 04/21/20 10:13 Pulse Rate 78 04/21/20 11:04 Respiratory Rate 16 04/21/20 11:04 Blood Pressure 115/78 04/21/20 11:04 Pulse Oximetry 98 04/21/20 11:04 MDM - General Adult MDM Narrative: Medical decision making narrative: Patient is here headache 49-year-old female comes to the ED with abdominal pain, fever, headache, flank pain and dysuria. Symptoms started 2 days ago. Temp on arrival 103 ?F, BP 128/92, pulse 91, respirations 20, O2 sat 94% on room air. Patient appears in some discomfort and diaphoretic upon exam. She has some left CVA tenderness, but no abdominal tenderness in all 4 quadrants. Lungs had some mild wheezing throughout bilaterally. No meningeal signs and negative Brudzinski sign. White blood cell count 11.3 and the rest of CBC was unremarkable. Sodium 131 and creatinine 1.0 and the rest of CMP was unremarkable. Lactic 0.7, urinalysis showed a UTI. CT of head was ordered because of patient's severe headache. CT of head showed no acute findings. Chest x-ray showed hyperinflation but no other acute findings. CT of the abdomen showed pyelonephritis of left kidney. After patient received 2 L of fluids, Tylenol and Rocephin. Temp went down to 99.1. Patient's symptoms greatly improved and she was feeling a lot better and ready for discharge. Patient was also given a DuoNeb treatment and wheezing improved. Patient stable to go home and diagnosed with pyelonephritis. Patient was discharged on levofloxacin and some Zofran for nausea. Return to ED precautions given, such as no improvement in symptoms after 48 hours of being on antibiotic or if she has any increasing abdominal pain she can return to the ED. She was told to follow-up with her PCP in 5 to 7 days for reevaluation. Patient understood and agreed with plan. Lab Data: Attestation: I reviewed the patient's lab results. Labs: Lab Results 04/21/20 04/21/20 04/21/20 Range/Units 07:50 07:50 07:50 WBC 11.3 H (4.0-10.0) 10^3/ uL RBC 4.07 L (4.1-5.3) 10^6/u L Hgb 11.2 L (11.5-15.3) g/dL Hct 34.9 L (37.0-47.0) % MCV 85.7 (81-99) fL MCH 27.5 L (28.0-34.0) pg MCHC 32.1 (30.0-36.0) g/dL RDW 14.1 (12.1-15.1) % Plt Count 242 (130-400) 10^3/c mm MPV 9.9 (7.4-10.4) fL Neut % (Auto) 84.3 % Lymph % (Auto) 7.7 % [place] % (Auto) 7.5 % Eos % (Auto) 0.1 % Baso % (Auto) 0.1 % Neut # (Auto) 9.49 H (1.8-7.7) 10^3/u L Lymph # (Auto) 0.9 (0.8-4.8) 10^3/u L [place] # (Auto) 0.8 (0.2-0.9) 10^3/u L Eos # (Auto) 0.0 (0.0-0.8) 10^3/u L Baso # (Auto) 0.0 (0.0-0.1) 10^3/u L Nucleated RBC % (a uto) 0 % Nucleated RBCs # 0.0 /100WBC Sodium 131 L (136-145) mmol/L Potassium 3.8 (3.5-5.1) mmol/L Chloride 97 L (98-107) mmol/L Carbon Dioxide 23 (22-29) mmol/L Anion Gap 14.8 (5-19) BUN 10 (6-20) mg/dL Creatinine 1.0 H (0.5-0.9) mg/dL GFR Calculation 59.2 L (90-130) mL/min Glucose 108 (65-115) mg/dL Calculated Osmolal ity 272 L (285-295) mOsm/k g Lactic Acid (0.5-2.2) mmol/L Calcium 8.2 L (8.5-10.5) mg/dL Total Bilirubin 0.3 (0.15-1.2) mg/dL AST 47 H (0-32) U/L ALT 28 (0-33) U/L Alkaline Phosphata se 98 (35-105) IU/L Total Protein 6.4 L (6.6-8.7) g/dL Albumin 3.8 (3.5-5.2) g/dL Globulin 2.6 (1.3-4.6) g/dL Lipase 30 (13-60) U/L HCG, Qual Negative (Negative) Urine Color (Yellow) Urine Appearance (CLEAR) Urine pH (5-7) Ur Specific Gravit y (1.005-1.030) Urine Protein (Negative) Urine Glucose (UA) (Normal) Urine Ketones (Negative) Urine Blood (Negative) Urine Nitrate (Negative) Urine Bilirubin (Negative) Urine Urobilinogen (Negative) mg/dL Ur Leukocyte Ninoska ase (Negative) Urine RBC (0-2) /hpf Urine WBC (0-5) /hpf Ur Squamous Epith Cells (0-5) /hpf Amorphous Sediment Urine Bacteria (NONE) /hpf Hyaline Casts /lpf Other Casts /lpf 04/21/20 04/21/20 Range/Units 07:50 08:23 WBC (4.0-10.0) 10^3/ uL RBC (4.1-5.3) 10^6/u L Hgb (11.5-15.3) g/dL Hct (37.0-47.0) % MCV (81-99) fL MCH (28.0-34.0) pg MCHC (30.0-36.0) g/dL RDW (12.1-15.1) % Plt Count (130-400) 10^3/c mm MPV (7.4-10.4) fL Neut % (Auto) % Lymph % (Auto) % [place] % (Auto) % Eos % (Auto) % Baso % (Auto) % Neut # (Auto) (1.8-7.7) 10^3/u L Lymph # (Auto) (0.8-4.8) 10^3/u L [place] # (Auto) (0.2-0.9) 10^3/u L Eos # (Auto) (0.0-0.8) 10^3/u L Baso # (Auto) (0.0-0.1) 10^3/u L Nucleated RBC % (a uto) % Nucleated RBCs # /100WBC Sodium (136-145) mmol/L Potassium (3.5-5.1) mmol/L Chloride (98-107) mmol/L Carbon Dioxide (22-29) mmol/L Anion Gap (5-19) BUN (6-20) mg/dL Creatinine (0.5-0.9) mg/dL GFR Calculation (90-130) mL/min Glucose (65-115) mg/dL Calculated Osmolal ity (285-295) mOsm/k g Lactic Acid 0.7 (0.5-2.2) mmol/L Calcium (8.5-10.5) mg/dL Total Bilirubin (0.15-1.2) mg/dL AST (0-32) U/L ALT (0-33) U/L Alkaline Phosphata se (35-105) IU/L Total Protein (6.6-8.7) g/dL Albumin (3.5-5.2) g/dL Globulin (1.3-4.6) g/dL Lipase (13-60) U/L HCG, Qual (Negative) Urine Color Yellow (Yellow) Urine Appearance Cloudy (CLEAR) Urine pH 5 (5-7) Ur Specific Gravit y 1.015 (1.005-1.030) Urine Protein 1+ H (Negative) Urine Glucose (UA) Norm (Normal) Urine Ketones Negative (Negative) Urine Blood 2+ H (Negative) Urine Nitrate Positive H (Negative) Urine Bilirubin Neg (Negative) Urine Urobilinogen Norm (Negative) mg/dL Ur Leukocyte Ninoska ase 2+ H (Negative) Urine RBC 10-15 H (0-2) /hpf Urine WBC Too numerous to c nt H (0-5) /hpf Ur Squamous Epith Cells 10-15 H (0-5) /hpf Amorphous Sediment Not Reportable Urine Bacteria 4+ H (NONE) /hpf Hyaline Casts 5-10 H /lpf Other Casts Wbc cast /lpf Imaging Data^: CXR: Attestation: I personally reviewed and interpreted this imaging study as follows: Radiologist's impression: [employer] [place] [address] XRay Report Signed Patient: Trudi Wesley Unit #: [id number] : 1970 Age/Sex: 49 / F ADM Date: 04/21/20 Loc: ER Room/Bed: Attending Dr: Ordering Provider/Ordering MD: Carlton Reyes Date of Service: 04/21/20 Procedure(s): XR chest 1V portable [id number] Accession Number(s): [id number] Report Number: [id number] PROCEDURE INFORMATION: Exam: XR Chest Exam date and time: 04/21/2020 7:30 AM Age: 49 years old Clinical indication: Cough and fever and shortness of breath TECHNIQUE: Imaging protocol: XR of the chest Views: 1 view. COMPARISON: CR XR chest 1V portable [id number] 10/11/2019 7:42 AM FINDINGS: Lungs: Hyperinflation, without acute airspace disease. Pleural spaces: No pleural effusion. Heart/Mediastinum: No cardiomegaly. Bones/joints: Mild degenerative change. XR/XR chest 1V portable [id number] IMPRESSION: Hyperinflation, without acute airspace or pleural disease. Dictated By: Reno Arreguin MD Signed By: Reno Arreguin MD Signed Date/Time: 04/21/20 08 DD/ 0807 CT Head: Attestation: I personally reviewed and interpreted this imaging study as follows: Radiologist's impression: [employer] [address] [place] [address]. [place] [address] CT Scan Report Signed Patient: Trudi Wesley Unit #: [id number] : 1970 Age/Sex: 49 / F ADM Date: 04/21/20 Loc: ER Room/Bed: Attending Dr: Ordering Provider/Ordering MD: Carlton Reyes Date of Service: 04/21/20 Procedure(s): CT head wo con* [id number] Accession Number(s): [id number] Report Number: [id number] WS: [id number] CT HEAD NONCONTRAST HISTORY: severe headache TECHNIQUE: Contiguous axial imaging performed through the brain in 2.5 mm imaging. Bone and soft tissue windows. Sagittal and coronal reformats reviewed. All CT scans at [facility] use at least one of these dose optimization techniques: automated exposure control; mA and/or kV adjustment per patient size (includes targeted exams where dose is matched to clinical indication); or iterative reconstruction. DLP: 1468.6 mGy.cm COMPARISON: 07/13/2016 No acute intracranial hemorrhage, midline shift or mass effect. Mild atrophy and mild chronic microvascular ischemic disease. Ventricles: Normal size with no hydrocephalus. Paranasal sinuses: As visualized are clear. Mastoid air cells: Well pneumatized. Calvarium and scalp: Skull is intact with no soft tissue edema or swelling. CT/CT head wo con* [id number] IMPRESSION: 1. No acute intracranial hemorrhage or edema. 2. Stable mild atrophy and chronic microvascular ischemic disease. Dictated By: Joslyn Kearney DO Signed By: Joslyn Kearney DO Signed Date/Time: 04/21/20 0854 DD/ CT Abd/Pel: Attestation: I personally reviewed and interpreted this imaging study as follows: Radiologist's impression: [address] [address] [address] Scan Report Signed Patient: Trudi Wesley Unit #: [id number] : 1970 Age/Sex: 49 / F ADM Date: 04/21/20 Loc: ER Room/Bed: Attending Dr: Ordering Provider/Ordering MD: Carlton Reyes Date of Service: 04/21/20 Procedure(s): CT abdomen pelvis w con* [id number] Accession Number(s): [id number] Report Number: [id number] WS: [id number] CT ABDOMEN AND PELVIS WITH CONTRAST HISTORY: abdominal pain and nausea TECHNIQUE: Imaging performed of the abdomen and pelvis with IV contrast. Single phase imaging of the abdomen. Coronal and sagittal reformats are submitted. All CT scans at [facility] use at least one of these dose optimization techniques: automated exposure control; mA and/or kV adjustment per patient size (includes targeted exams where dose is matched to clinical indication); or iterative reconstruction. IV CONTRAST: Omnipaque 350; 95 mL IV. Oral contrast: No DLP: 737.25 mGy.cm COMPARISON: 12/21/2016 Lower thorax: Lung bases are clear. Heart is normal size. No hiatal hernia. Liver/biliary system: Normal size liver. There is very slight bile duct dilatation which may be physiologic. Common bile duct is not dilated. Gallbladder: Status post cholecystectomy. Pancreas: Normal. Spleen: Normal. Adrenal glands: Low-attenuation RIGHT adrenal gland mass measures 1.9 x 2.6 cm. Consistent with an adenoma as seen on prior studies. Slightly increased in size since 2011. Normal LEFT adrenal gland. Right kidney: Normal size RIGHT kidney. Nonobstructive 5 mm calcification lower pole. Left kidney: Abnormal LEFT kidney. Kidney is slightly enlarged. Abnormal enhancement in the lower pole. There is decreased enhancement and a moderate amount of perinephric stranding. There is mild dilatation with enhancement of the LEFT ureter. No obstructing stone is identified within the ureter. Aorta: Mild atherosclerosis with no aneurysm. Lymphadenopathy: None. Free fluid: No definite free fluid. GI tract: The appendix is top normal size at 6 mm. There is very minimal muc osal enhancement. No air within the appendix. No significant inflammatory change. Mild fecal retention throughout the colon. Slight increased amount of fluid in the distal small bowel. Abdominal wall: Unremarkable abdominal wall. No hernia. Pelvis: There is a large mass with enhancement centered in the uterus measuring 5.3 x 5.5 x 5.8 cm consistent with a fibroid. LEFT ovarian cyst measures 3.7 x 2.5 cm. Bones: L4 anterolisthesis by 5 mm. Remodeling and flattening of the RIGHT femoral head. The RIGHT acetabulum is vertical. CT/CT abdomen pelvis w con* [id number] IMPRESSION: 1. Moderately severe LEFT pyelonephritis with a focal area of nephritis in the lower pole. 2. Stable RIGHT adrenal adenoma. 3. The appendix is top normal size at 6 mm. At this time cannot confirm acute appendicitis. 4. Large fibroid. 5. LEFT ovarian cyst. 6. Prior cholecystectomy. Dictated By: Joslyn Kearney DO Signed By: Joslyn Kearney DO Signed Date/Time: 04/21/20 1016 DD/ 1004 Discharge Plan Discharge Patient Disposition: Home Clinical Impression: Pyelonephritis Condition: Stable Prescriptions: New Zofran 4 mg tablet 4 mg PO Q8H Qty: 20 RF: 0 levofloxacin 750 mg tablet 750 mg PO DAILY 5 Days Qty: 5 RF: 0 No Action albuterol sulfate [ProAir HFA] 90 mcg/actuation Hfa Aerosol Inhaler 2 puff INHALATION Q4H PRN (Reason: Shortness Of Breath) RF: 0 hydrocodone-acetaminophen 5-325 mg tablet 1 - 2 tab PO Q5H PRN (Reason: pain) Qty: 20 RF: 0 Discharge Orders: Discharge ED (Routine); Ordered 04/21/20 Ordered By: Carlton Reyes Referrals: Selvin Thomas, TRAUMA DIRECTOR-C [Primary Care Provider] - Discharge Diet: Advance as tolerated Discharge Activity: Increase activity as tolerated Patient Instructions: Acute Pyelonephritis (ED) Activity Restrictions/Additional Instructions: Follow-up with medical provider as directed in 7 to 10 days for reevaluation. Take medications as prescribed. Drink plenty of water to flush out infection and do keep hydrated. Take [id number] Tylenol or Motrin for any fevers. Return to the ER or your medical provider if condition worsens. Please read and understand discharge instructions. If any questions, please ask. Coding Level of Care Code ED [facility] P[facility] for Andrey Fwerin Exam Comprehensive
[2020-04-21] MEDS: sodium chloride 0.9% 1,000 ML 999 ML IV ×2 (07:53→09:36)
[2020-04-21] MEDS: acetaminophen 500 mg Tablet 1000 MG PO (07:53)
[2020-04-21 07:56] LABS: Basophils % 0.1 %; Eosinophils % 0.1 %; Hematocrit 34.9 % (37.0-47.0); Hemoglobin 11.2 g/dL (11.5-15.3); Lymphocytes # 0.9 10^3/uL (0.8-4.8); Lymphocytes % 7.7 %; Mean Corpuscular HGB Conc 32.1 g/dL (30.0-36.0); Mean Corpuscular Hemoglobin 27.5 pg (28.0-34.0); Mean Corpuscular Volume 85.7 fL (81-99); Mean Platelet Volume 9.9 fL (7.4-10.4); Monocytes # 0.8 10^3/uL (0.2-0.9); Monocytes % 7.5 %; Neutrophils # 9.49 10^3/uL (1.8-7.7); Neutrophils % 84.3 %; Nucleated Red Blood Cells % 0 %; Platelet Count 242 10^3/cmm (130-400); Red Blood Count 4.07 10^6/uL (4.1-5.3); Red Cell Distribution Width 14.1 % (12.1-15.1); White Blood Count 11.3 10^3/uL (4.0-10.0)
[2020-04-21 08:07] LABS: HCG, Serum Qual Negative (Negative)
[2020-04-21 08:13] LABS: Alanine Aminotransferase 28 U/L (0-33); Albumin Level 3.8 g/dL (3.5-5.2); Alkaline Phosphatase 98 IU/L (35-105); Anion Gap 14.8 (5-19); Aspartate Amino Transferase 47 U/L (0-32); Blood Urea Nitrogen 10 mg/dL (6-20); Calcium 8.2 mg/dL (8.5-10.5); Carbon Dioxide 23 mmol/L (22-29); Chloride 97 mmol/L (98-107); Creatinine Clr Calc Pharmacy 59.1181; Globulin 2.6 g/dL (1.3-4.6); Glomerular Filtration Rate 59.2 mL/min (90-130); Glucose 108 mg/dL (65-115); Lipase 30 U/L (13-60); Osmolality Calculated 272 mOsm/kg (285-295); Potassium 3.8 mmol/L (3.5-5.1); Sodium 131 mmol/L (136-145); Total Bilirubin 0.3 mg/dL (0.15-1.2); Total Protein 6.4 g/dL (6.6-8.7)
[2020-04-21] MEDS: ipratropium-albuterol 3 mL Neb 6 ML INHALATION (08:34)
[2020-04-21 09:13] LABS: Glucose Urine UA Norm (Normal); Protein Urine 1+ (Negative); Specific Gravity, Urine 1.015 (1.005-1.030); Urine Appearance Cloudy (CLEAR); Urine Color Yellow (Yellow); pH Urine 5 (5-7)
[2020-04-21 09:14] LABS: Bilirubin Urine Neg (Negative); Blood Urine 2+ (Negative); Ketones Urine Negative (Negative); Leukocyte Esterase Urine 2+ (Negative); Nitrate Urine Positive (Negative); Urobilinogen Urine Norm (Negative)
[2020-04-21 09:18] LABS: WBC Urine TOO NUMEROUS TO CNT /hpf (0-5)
[2020-04-21 09:19] LABS: Bacteria Urine 4+ /hpf
[2020-04-21 09:20] LABS: Add Urine Culture? Yes; Other Casts Urine WBC CAST /lpf
--- NOTE | 2020-04-21 09:26 | CT_ITS ---
WS: [id number] CT ABDOMEN AND PELVIS WITH CONTRAST HISTORY: abdominal pain and nausea TECHNIQUE: Imaging performed of the abdomen and pelvis with IV contrast. Single phase imaging of the abdomen. Coronal and sagittal reformats are submitted. All CT scans at [facility] use at least one of these dose optimization techniques: automated exposure control; mA and/or kV adjustment per patient size (includes targeted exams where dose is matched to clinical indication); or iterativ e reconstruction. IV CONTRAST: Omnipaque 350; 95 mL IV. Oral contrast: No DLP: 737.25 mGy.cm COMPARISON: 12/21/2016 Lower thorax: Lung bases are clear. Heart is normal size. No hiatal hernia. Liver/biliary system: Normal size liver. There is very slight bile duct dilatation which may be physi ologic. Common bile duct is not dilated. Gallbladder: Status post cholecystectomy. Pancreas: Normal. Spleen: Normal. Adrenal glands: Low-attenuation RIGHT adrenal gland mass measures 1.9 x 2.6 cm. Consistent with an ad enoma as seen on prior studies. Slightly increased in size since 2011. Normal LEFT adrenal gland. Right kidney: Normal size RIGHT kidney. Nonobstructive 5 mm calcification lower pole. Left kidney: Abnormal LEFT kidney. Kidney is slightly enlarged. Abnormal enhancement in the lower dillan e. There is decreased enhancement and a moderate amount of perinephric stranding. There is mild dilat ation with enhancement of the LEFT ureter. No obstructing stone is identified within the ureter. Aorta: Mild atherosclerosis with no aneurysm. Lymphadenopathy: None. Free fluid: No definite free fluid. GI tract: The appendix is top normal size at 6 mm. There is very minimal mucosal enhancement. No air within the appendix. No significant inflammatory change. Mild fecal retention throughout the colon. S light increased amount of fluid in the distal small bowel. Abdominal wall: Unremarkable abdominal wall. No hernia. Pelvis: There is a large mass with enhancement centered in the uterus measuring 5.3 x 5.5 x 5.8 cm co nsistent with a fibroid. LEFT ovarian cyst measures 3.7 x 2.5 cm. Bones: L4 anterolisthesis by 5 mm. Remodeling and flattening of the RIGHT femoral head. The RIGHT lauren tabulum is vertical. CT/CT abdomen pelvis w con* [id number] IMPRESSION: 1. Moderately severe LEFT pyelonephritis with a focal area of nephritis in the lower pole. 2. Stable RIGHT adrenal adenoma. 3. The appendix is top normal size at 6 mm. At this time cannot confirm acute appendicitis. 4. Large fibroid. 5. LEFT ovarian cyst. 6. Prior cholecystectomy.
[2020-04-21] MEDS: cefTRIAXone 2,000 MG in sodium chloride 0.9% (plus) 50 ML 100 MG IV (09:35)
[2020-04-21 09:42] LABS: Lactic Sepsis W/Reflex 0.7 mmol/L (0.5-2.2)
[2020-04-21] MEDS: iohexol 300 mg/mL 100 mL Btl IV (09:56)
== END 2020-04-21 11:06 | disposition home or self-care (01) ==
PROVIDERS: Emergency Provider Physician Assistant; PCP Nurse Practitioner
DX: N12 Tubulo-interstitial nephritis, not specified as acute or chronic (principal); F17.210 Nicotine dependence, cigarettes, uncomplicated
CPT/HCPCS: 70450; 71045; 74177; 80053; 81001; 83605; 83690; 84703; 85025; 87077; 87086; 87186; 94640; 96361; 96365; 99284; J0696; J7030; Q9967

== ENCOUNTER 2021-01-17 16:18 | Emergency (ER) | payer SELFPAY ==
--- NOTE | 2021-01-17 16:20 | CTR_ITS ---
PROCEDURE INFORMATION: Exam: CT Head Without Contrast Exam date and time: 01/17/2021 4:20 PM Age: 50 years old Clinical indication: Pain; Headache not specified; Patient HX: Sudden onset headache TECHNIQUE: Imaging protocol: Computed tomography of the head without contrast. Radiation optimization: All CT scans at this facility use at least one of these dose optimization techniques: automated exposure control; mA and/or kV adjustment per patient size (includes targeted exams where dose is matched to clinical indication); or iterative reconstruction. COMPARISON: CT head wo con* [id number] 04/21/2020 8:24 AM RADIATION DOSE METRICS: Total DLP (mGy-cm): 803.35 FINDINGS: Brain: There is an old right occipital cortical infarct. There is a small old right frontal cortical infarct. No acute infarct. No hemorrhage or extra-axial collection. No mass. Cerebral ventricles: There is no hydrocephalus. Paranasal sinuses: Visualized sinuses are unremarkable. No fluid levels. Mastoid air cells: Visualized mastoid air cells are well aerated. Bones/joints: Unremarkable. No acute fracture. Soft tissues: Unremarkable. CT/CT head wo con* [id number] IMPRESSION: 1. 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 2. No acute intracranial lesion or injury. No change from prior scan. Radiation Dose CTDIVOL = (mGy): DLP = 803.35 (mGy-cm)
[2021-01-17 16:22] VITALS: BMI 25.2
--- NOTE | 2021-01-17 16:24 | CTR_ITS ---
PROCEDURE INFORMATION: Exam: CT Angiography Head With Contrast, Arteriography Exam date and time: 01/17/2021 4:24 PM Age: 50 years old Clinical indication: Patient HX: Sudden onset headache; Additional info: Eval sah TECHNIQUE: Imaging protocol: Computed tomography angiography of the head with contrast. Exam focused on the arteries. 3D rendering (Not supervised by radiologist): MIP and/or 3D reconstructed images were created by the technologist. Radiation optimization: All CT scans at this facility use at least one of these dose optimization techniques: automated exposure control; mA and/or kV adjustment per patient size (includes targeted exams where dose is matched to clinical indication); or iterative reconstruction. Contrast material: VISI 320; Contrast volume: 95 ml; Contrast route: INTRAVENOUS (IV); COMPARISON: CT head wo con* [id number] 01/17/2021 4:21 PM RADIATION DOSE METRICS: Total DLP (mGy-cm): 1519.65 FINDINGS: ANTERIOR CIRCULATION: Right internal carotid artery: There is calcified plaque in the right carotid siphon with moderate stenosis. Right middle cerebral artery: Unremarkable. No occlusion or significant stenosis. No aneurysm. Right anterior cerebral artery: There is a single dominant A2 segment of the anterior cerebral arteries, an azygos variant. No stenosis. No aneurysm. Left internal carotid artery: There is calcified plaque in the left carotid siphon with moderate stenosis. Left middle cerebral artery: Unremarkable. No occlusion or significant stenosis. No aneurysm. Left anterior cerebral artery: Unremarkable. No occlusion or significant stenosis. No aneurysm. POSTERIOR CIRCULATION: Right vertebral artery: Unremarkable. No occlusion or significant stenosis. No aneurysm. Left vertebral artery: Unremarkable. No occlusion or significant stenosis. No aneurysm. Basilar artery: Unremarkable. No occlusion or significant stenosis. No aneurysm. Right posterior cerebral artery: Unremarkable. No occlusion or significant stenosis. No aneurysm. Left posterior cerebral artery: Unremarkable. No occlusion or significant stenosis. No aneurysm. Brain: No definite mass, mass effect, or midline shift. Cerebral ventricles: No ventriculomegaly. Bones/joints: Unremarkable. No acute fracture. Soft tissues: Unremarkable. IMPRESSION: No intracranial stenosis or occlusion. PROCEDURE INFORMATION: Exam: CT Angiography Neck With Contrast Exam date and time: 01/17/2021 4:24 PM Age: 50 years old Clinical indication: Patient HX: Sudden onset headache; Additional info: Eval sah TECHNIQUE: Imaging protocol: Computed tomography angiography of the neck with contrast. 3D rendering (Not supervised by radiologist): MIP and/or 3D reconstructed images were created by the technologist. Radiation optimization: All CT scans at this facility use at least one of these dose optimization techniques: automated exposure control; mA and/or kV adjustment per patient size (includes targeted exams where dose is matched to clinical indication); or iterative reconstruction. Contrast material: VISI 320; Contrast volume: 95 ml; Contrast route: INTRAVENOUS (IV); COMPARISON: CT head wo con* [id number] 01/17/2021 4:21 PM RADIATION DOSE METRICS: Total DLP (mGy-cm): 1519.65 FINDINGS: Right common carotid artery: No stenosis. No dissection or occlusion. Right internal carotid artery: There is calcified plaque in the proximal right internal carotid artery without stenosis. Right external carotid artery: No occlusion or stenosis of the origin. Left common carotid artery: No stenosis. No dissection or occlusion. Left internal carotid artery: There is extensive calcified plaque at the origin of the left internal carotid artery resulting in severe, greater than 70%, stenosis. Left external carotid artery: No occlusion or stenosis of the origin. Right vertebral artery: The right vertebral artery is dominant. No stenosis. No dissection. Left vertebral artery: No stenosis. No dissection or occlusion. Soft tissues: Normal. No significant soft tissue swelling. Bones/joints: No acute fracture. CT/CT angio headneck* [id number] IMPRESSION: 1. Severe, greater than 70%, stenosis at the origin of the left internal carotid artery. 2. No right carotid artery stenosis. 3. No vertebral artery stenosis. REFERENCES: NASCET CRITERIA. The degree of internal carotid artery stenosis is based on NASCET criteria. Normal is no stenosis. Mild is less than 50% stenosis. Moderate is 50-69% stenosis. Severe is 70% to 99% stenosis. Total occlusion is no detectable patent lumen. Radiation Dose CTDIVOL = (mGy): DLP = 1519.65~1519.65 (mGy-cm)
[2021-01-17] MEDS: iodixanol 320 mg/mL 100mL Btl IV (16:37)
--- NOTE | 2021-01-17 17:14 | W.ED.GENADLT ---
HPI - General Adult General: Chief complaint: Headache Stated complaint: HEADACHE Time Seen by Provider: 01/17/21 16:24 History of Present Illness: HPI narrative: Patient is a 50-year-old female with a history of asthma, bipolar disorder and migraine who presents the emergency room with sudden onset of right-sided headache/R sided neck pain x 2 hrs. Patient says the symptoms started at 3 PM when she was walking to her living room. Patient denies any trip or fall. However shortly after onset of headache, patient had numbness in her feet and difficulty speaking. Patient called EMS was brought to the emergency room. On arrival, patient has no complaints of focal weakness or numbness. NIH stroke scale of 0. Patient is distraught and report feeling nauseous. Reports persistence of headache. Denies any associated chest pain, shortness breath palpitation or lightheadedness. Patient denies any recent drug use. Patient has no abdominal complaints including abdominal pain, diarrhea/melena, or complaints at this time. Reports headaches very different from prior migraine. Onset: 2 hrs Duration:2 hrs Location:home Severity:moderate Review of Systems Narrative: Constitutional: No fever, no chills. HEENT: No vision changes CV: No chest pain, no palpitations PULM: no cough, no dyspnea. GI: No abdominal pain, no N/V/D. : No dysuria MSKEL: No muscle pain SKIN: No new rashes, no lesions. NEURO: +headache, no focal weakness. HEME: No visible bruises PSYCH: Normal mood PFSH ED PFSH: Medical History Asthma Bipolar disorder, unspecified Migraine Surgical History History of cholecystectomy Family History Other Cancer Diabetes Hypertension Denies family history of Chronic kidney disease (CKD) Stroke Social History Smoking and tobacco status: current every day smoker cigarettes Packs smoked per day: 0.5 Years cigarettes smoked: 13 Quit status (tobacco): has tried quititng Number of times tried to quit tobacco: 1 Second hand smoke exposure: Yes Smoking risk assessment/counseling performed?: Yes Tobacco counseling given: counseling >3 minutes Alcohol intake: never Desire information about alcohol rehabilitation?: No Counseling given: No Desire information about substance/drug rehabilitation?: No Counseling given: No Adopted: No Caregiver/support person: Yes Lives independently: No Household members: friend(s) Housing: House Marital status: Single Number of children: 0 service: No Current occupational status: unemployed History of recent travel: No Current gender identity: Female Physical Exam Narrative: EXAM NARRATIVE: Head: Atraumatic Eyes: PERRL, conjunctiva without injection ENT: Mucous membrane moist NECK: Supple, ROM intact LUNGS: LCTAB, no crackles/rhonchi CV: RRR ABDOMEN: Soft, nontender in all quadrants EXTREMITY: Normal ROM SKIN: No rash or erythema NEURO: Mental status? Awake, alert, and oriented to self, year, month, location, and situation.? Following simple axial and appendicular commands.? Has appropriate fund of knowledge, comprehension, and insight.? Able to recall and understands pertinent aspects of medical history and current treatment status.? ? Language? Speech is fluent without word-finding difficulties.? 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 ? Cranial nerves? 2,3,4,6: PERRL, EOMI with no nystagmus. 5: Intact sensation to light touch, symmetric? 7: Smile symmetrical, no facial droop.? 8: Hearing grossly intact.? 9,10: Normal palate movement.? 11: Normal strength in trapezius bilaterally 12: Tongue protrudes midline.? ? Motor examination? Normal bulk & tone. Strength as follows (R/L): Delts (5/5), Biceps (5/5), Triceps (5/5), Wrist ext (5/5), hip flexors (5/5), plantarflexors (5/5), dorsiflexors (5/5). Sensation? Light Touch: Grossly intact and equal in upper and lower extremities bilaterally? Romberg: Negative.? Distal joint position sense intact ? Coordination? Pdolih-bk-bgtm-finger movements intact without dysmetria or past-pointing.? Rapid fingertaps: preserved amplitude without decriment.? No tremor, myoclonus or truncal ataxia.? ? Gait/stance? Steady, normal narrow base gait with appropriate arm swing and turning.? Tandem gait without hesitation or loss of balance. PSYCH: Normal mood and affect Course Vital Signs: Vital signs: Vital Signs Pulse Rate 63 01/17/21 20:53 Respiratory Rate 12 01/17/21 20:53 Blood Pressure 143/94 01/17/21 20:53 Pulse Oximetry 100 01/17/21 20:53 MDM - General Adult MDM Narrative: Medical decision making narrative: Patient is a 50-year-old female with history of bipolar disorder, asthma who presents the emergency room with right-sided headache and neck pain x2 hours. On exam, patient is noted to have high blood pressure. The patient received a trial of GI cocktail for headache with symptomatic improvement. CT brain and CTA head and neck did not show any signs of dissection or acute brain bleed given high blood pressure nausea vomiting. Patient received a GI cocktail with symptomatic improvement headache. The present time, do not suspect subarachnoid hemorrhage given onset of symptoms less than 2 hours which should not. Be picked up on CT scan. Patient also did not have a headache that is maximal intensity at onset. Lab work-up within normal limit today. Patient is able to tolerate p.o. without any difficulty in the emergency room. Blood pressure improved without any intervention in the emergency room. Patient was found to have 70% stenosis the origin of the left internal carotid artery. Patient will be started on aspirin 81 mg with close follow-up with Dr. Handy. Nausea/vomiting improved with IVF and medicine. I have given patient follow up with our patient case coordinator to be seen by our outpatient Neurologist Dr. Handy for L ICA vessel stenosis. Patient aware of a call from our patient case coordinator to schedule for appointment(s) and verbalizes understanding of the importance of following up. BP improved after giving 1 dose of hydralazine 20mg. Patient is instructed to follow-up with her primary care provider for adjustment of blood pressure issues. Agrees with plan to do so. Rx aspirin 81mg daily for vessel stenosis Disposition: Discharge. Patient counseled regarding diagnostic impression, treatment plan. Patient given ED strict return precautions to return for continuation, worsening, or development of new symptoms. Instructed to f/u w/ PCP and Neurology regarding symptoms today. Patient verbalized understanding. Lab Data: Labs: Lab Results 01/17/21 01/17/21 01/17/21 17:18 17:18 17:18 WBC 9.5 10^3/uL 10^3/ uL (4.0-10.0) RBC 5.23 10^6/uL 10^6 /uL (4.1-5.3) Hgb 13.1 g/dL g/dL (11.5-15.3) Hct 46.7 % % (37.0-47.0) MCV 89.3 fl fl (81-99) MCH 25.0 pg L pg (28.0-34.0) MCHC 28.1 g/dL L g/dL (30.0-36.0) RDW 14.5 % % (12.1-15.1) Plt Count 328 10^3/cmm 10^3 /cmm (130-400) MPV 9.4 fL fL (7.4-10.4) Neut % (Auto) 71.9 % % Lymph % (Auto) 21.2 % % [place] % (Auto) 5.8 % % Eos % (Auto) 0.5 % % Baso % (Auto) 0.3 % % Neut # (Auto) 6.85 10^3/uL 10^3 /uL (1.8-7.7) Lymph # (Auto) 2.0 10^3/uL 10^3/ uL (0.8-4.8) [place] # (Auto) 0.6 10^3/uL 10^3/ uL (0.2-0.9) Eos # (Auto) 0.1 10^3/uL 10^3/ uL (0.0-0.8) Baso # (Auto) 0.0 10^3/uL 10^3/ uL (0.0-0.1) Nucleated RBC % (a uto) 0 % % Nucleated RBCs # 0.0 /100WBC /100W BC PT INR APTT Sodium 135 mmol/L L mmol /L (136-145) Potassium 3.6 mmol/L mmol/L (3.5-5.1) Chloride 99 mmol/L mmol/L (98-107) Carbon Dioxide 19 mmol/L L mmol/ L (22-29) Anion Gap 20.6 H (5-19) BUN 11 mg/dL mg/dL (6-20) Creatinine 0.8 mg/dL mg/dL (0.5-0.9) GFR Calculation 76.2 mL/min L mL/ min (90-130) Glucose 124 mg/dL H mg/dL (65-115) Calculated Osmolal ity 281 mOsm/kg L mOs m/kg (285-295) Calcium 9.3 mg/dL mg/dL (8.5-10.5) Total Bilirubin 0.3 mg/dL mg/dL (0.15-1.2) AST 18 U/L U/L (0-32) ALT 15 U/L U/L (0-33) Alkaline Phosphata se 114 IU/L H IU/L (35-105) Total Protein 7.1 g/dL g/dL (6.6-8.7) Albumin 4.4 g/dL g/dL (3.5-5.2) Globulin 2.7 g/dL g/dL (1.3-4.6) Lipase 21 U/L U/L (13-60) TSH 1.82 uIU/mL uIU/m L (0.27-4.20) Free T4 1.26 ng/dL ng/dL (0.82-1.77) Ser , Obdluia i-Qnt 1.52 mIU/mL mIU/m L Salicylates < 0.3 mg/dL L mg/ dL (3-10) Urine Opiates Scre en Acetaminophen < 5.0 ug/mL L ug/ mL (10-30) Ur Barbiturates Sc reen Ur Phencyclidine S crn Ur Amphetamines Sc reen U Benzodiazepines Scrn Urine Cocaine Scre en U Marijuana (THC) Screen Blood Type Rho(D) Type Antibody Screen 01/17/21 01/17/21 01/17/21 17:31 17:38 17:38 WBC RBC Hgb Hct MCV MCH MCHC RDW Plt Count MPV Neut % (Auto) Lymph % (Auto) [place] % (Auto) Eos % (Auto) Baso % (Auto) Neut # (Auto) Lymph # (Auto) [place] # (Auto) Eos # (Auto) Baso # (Auto) Nucleated RBC % (a uto) Nucleated RBCs # PT 12.30 SECONDS SEC ONDS (12.1-14.9) INR 0.89 (0.8-1.2) APTT 23.2 SECONDS L SE CONDS (23.9-36.7) Sodium Potassium Chloride Carbon Dioxide Anion Gap BUN Creatinine GFR Calculation Glucose Calculated Osmolal ity Calcium Total Bilirubin AST ALT Alkaline Phosphata se Total Protein Albumin Globulin Lipase TSH Free T4 Ser , Obd[place]ia i-Qnt Salicylates Urine Opiates Scre en Negative ng/mL ng /mL (Negative) Acetaminophen Ur Barbiturates Sc reen Negative ng/mL ng /mL (Negative) Ur Phencyclidine S crn Negative ng/mL ng /mL (Negative) Ur Amphetamines Sc reen Positive ng/mL H ng/mL (Negative) U Benzodiazepines Scrn Negative ng/mL ng /mL (Negative) Urine Cocaine Scre en Negative ng/mL ng /mL (Negative) U Marijuana (THC) Screen Positive ng/mL H ng/mL (Negative) Blood Type O Positive Rho(D) Type Positive Antibody Screen Negative Imaging Data^: Other Imaging: Radiologist's impression: [employer] [id number] Scan ReportSigned Patient: Arley Wesley #: [id number]: 1970Acct#:[id number]/Sex: 50 / FADM Date: 01/17/21Loc: ERRoom/Bed:Attending Dr: Ordering Provider/Ordering MD: You Sales MD Date of Service: 01/17/21 Procedure(s): CT angio headneck* [id number] Accession Number(s): [id number] Report Number: [id number] PROCEDURE INFORMATION: Exam: CT Angiography Head With Contrast, Arteriography Exam date and time: 01/17/2021 4:24 PM Age: 50 years old Clinical indication: Patient HX: Sudden onset headache; Additional info: Eval sah TECHNIQUE: Imaging protocol: Computed tomography angiography of the head with contrast. Exam focused on the arteries. 3D rendering (Not supervised by radiologist): MIP and/or 3D reconstructed images were created by the technologist. Radiation optimization: All CT scans at this facility use at least one of these dose optimization techniques: automated exposure control; mA and/or kV adjustment per patient size (includes targeted exams where dose is matched to clinical indication); or iterative reconstruction. Contrast material: VISI 320; Contrast volume: 95 ml; Contrast route: INTRAVENOUS (IV); COMPARISON: CT head wo con* [id number] 01/17/2021 4:21 PM RADIATION DOSE METRICS: Total DLP (mGy-cm): 1519.65 FINDINGS: ANTERIOR CIRCULATION: Right internal carotid artery: There is calcified plaque in the right carotid siphon with moderate stenosis. Right middle cerebral artery: Unremarkable. No occlusion or significant stenosis. No aneurysm. Right anterior cerebral artery: There is a single dominant A2 segment of the anterior cerebral arteries, an azygos variant. No stenosis. No aneurysm. Left internal carotid artery: There is calcified plaque in the left carotid siphon with moderate stenosis. Left middle cerebral artery: Unremarkable. No occlusion or significant stenosis. No aneurysm. Left anterior cerebral artery: Unremarkable. No occlusion or significant stenosis. No aneurysm. POSTERIOR CIRCULATION: Right vertebral artery: Unremarkable. No occlusion or significant stenosis. No aneurysm. Left vertebral artery: Unremarkable. No occlusion or significant stenosis. No aneurysm. Basilar artery: Unremarkable. No occlusion or significant stenosis. No aneurysm. Right posterior cerebral artery: Unremarkable. No occlusion or significant stenosis. No aneurysm. Left posterior cerebral artery: Unremarkable. No occlusion or significant stenosis. No aneurysm. Brain: No definite mass, mass effect, or midline shift. Cerebral ventricles: No ventriculomegaly. Bones/joints: Unremarkable. No acute fracture. Soft tissues: Unremarkable. IMPRESSION: No intracranial stenosis or occlusion. PROCEDURE INFORMATION: Exam: CT Angiography Neck With Contrast Exam date and time: 01/17/2021 4:24 PM Age: 50 years old Clinical indication: Patient HX: Sudden onset headache; Additional info: Eval sah TECHNIQUE: Imaging protocol: Computed tomography angiography of the neck with contrast. 3D rendering (Not supervised by radiologist): MIP and/or 3D reconstructed images were created by the technologist. Radiation optimization: All CT scans at this facility use at least one of these dose optimization techniques: automated exposure control; mA and/or kV adjustment per patient size (includes targeted exams where dose is matched to clinical indication); or iterative reconstruction. Contrast material: VISI 320; Contrast volume: 95 ml; Contrast route: INTRAVENOUS (IV); COMPARISON: CT head wo con* [id number] 01/17/2021 4:21 PM RADIATION DOSE METRICS: Total DLP (mGy-cm): 1519.65 FINDINGS: Right common carotid artery: No stenosis. No dissection or occlusion. Right internal carotid artery: There is calcified plaque in the proximal right internal carotid artery without stenosis. Right external carotid artery: No occlusion or stenosis of the origin. Left common carotid artery: No stenosis. No dissection or occlusion. Left internal carotid artery: There is extensive calcified plaque at the origin of the left internal carotid artery resulting in severe, greater than 70%, stenosis. Left external carotid artery: No occlusion or stenosis of the origin. Right vertebral artery: The right vertebral artery is dominant. No stenosis. No dissection. Left vertebral artery: No stenosis. No dissection or occlusion. Soft tissues: Normal. No significant soft tissue swelling. Bones/joints: No acute fracture. CT/CT angio headneck* [id number] IMPRESSION: 1. Severe, greater than 70%, stenosis at the origin of the left internal carotid artery. 2. No right carotid artery stenosis. 3. No vertebral artery stenosis. REFERENCES: NASCET CRITERIA. The degree of internal carotid artery stenosis is based on NASCET criteria. Normal is no stenosis. Mild is less than 50% stenosis. Moderate is 50-69% stenosis. Severe is 70% to 99% stenosis. Total occlusion is no detectable patent lumen. Radiation Dose CTDIVOL = (mGy): DLP = 1519.65~1519.65 (mGy-cm) Dictated By:Corey Larkin MDSigned By:Corey Larkin MDSigned Date/Time:01/17/21 1708DD/ [address] [id number] Scan ReportSigned Patient: Arley Wesley #: [id number]: 1970Acct#:[id number]/Sex: 50 / FADM Date: 01/17/21Loc: ERRoom/Bed:Attending Dr: Ordering Provider/Ordering MD: You Sales MD Date of Service: 01/17/21 Procedure(s): CT head wo con* [id number] Accession Number(s): [id number] Report Number: [id number] PROCEDURE INFORMATION: Exam: CT Head Without Contrast Exam date and time: 01/17/2021 4:20 PM Age: 50 years old Clinical indication: Pain; Headache not specified; Patient HX: Sudden onset headache TECHNIQUE: Imaging protocol: Computed tomography of the head without contrast. Radiation optimization: All CT scans at this facility use at least one of these dose optimization techniques: automated exposure control; mA and/or kV adjustment per patient size (includes targeted exams where dose is matched to clinical indication); or iterative reconstruction. COMPARISON: CT head wo con* [id number] 04/21/2020 8:24 AM RADIATION DOSE METRICS: Total DLP (mGy-cm): 803.35 FINDINGS: Brain: There is an old right occipital cortical infarct. There is a small old right frontal cortical infarct. No acute infarct. No hemorrhage or extra-axial collection. No mass. Cerebral ventricles: There is no hydrocephalus. Paranasal sinuses: Visualized sinuses are unremarkable. No fluid levels. Mastoid air cells: Visualized mastoid air cells are well aerated. Bones/joints: Unremarkable. No acute fracture. Soft tissues: Unremarkable. CT/CT head wo con* [id number] IMPRESSION: 1. 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 2. No acute intracranial lesion or injury. No change from prior scan. Radiation Dose CTDIVOL = (mGy): DLP = 803.35 (mGy-cm) Dictated By:Corey Larkin MDSigned By:Corey Larkin MDSigned Date/Time:01/17/211657DD/ 1620 Discharge Plan Discharge Patient Disposition: Home Clinical Impression: Headache, Nausea & vomiting Condition: Stable Prescriptions: New Adult Low Dose Aspirin 81 mg tablet,delayed release (DR/EC) 81 mg PO DAILY 20 Days Qty: 20 RF: 0 Zofran 4 mg tablet 4 mg PO TID PRN (Reason: nausea and vomiting) 4 Days Qty: 12 RF: 0 No Action albuterol sulfate [ProAir HFA] 90 mcg/actuation Hfa Aerosol Inhaler 2 puff INHALATION Q4H PRN (Reason: Shortness Of Breath) RF: 0 hydrocodone-acetaminophen 5-325 mg tablet 1 - 2 tab PO Q5H PRN (Reason: pain) Qty: 20 RF: 0 Zofran 4 mg tablet 4 mg PO Q8H Qty: 20 RF: 0 Discharge Orders: Discharge ED (Routine); Ordered 01/17/21 Ordered By: You Sales Referrals: Selvin Thomas AC[facility] CUTTER-C [Primary Care Provider] - Discharge Diet: Advance as tolerated Discharge Activity: Resume usual activity Patient Instructions: Opioid Safety Activity Restrictions/Additional Instructions: Please come back to the emergency room have any new or concerning complaints, fever or chills, worsening headache, focal weakness, or new concerning complaints. Coding Level of Care Code ED [facility] [employer] Refinisher for Andrey Kang
[2021-01-17 17:26] LABS: Basophils % 0.3 %; Eosinophils # 0.1 10^3/uL (0.0-0.8); Eosinophils % 0.5 %; Hematocrit 46.7 % (37.0-47.0); Hemoglobin 13.1 g/dL (11.5-15.3); Lymphocytes % 21.2 %; Mean Corpuscular HGB Conc 28.1 g/dL (30.0-36.0); Mean Corpuscular Volume 89.3 fl (81-99); Mean Platelet Volume 9.4 fL (7.4-10.4); Monocytes # 0.6 10^3/uL (0.2-0.9); Monocytes % 5.8 %; Neutrophils # 6.85 10^3/uL (1.8-7.7); Neutrophils % 71.9 %; Nucleated Red Blood Cells % 0 %; Platelet Count 328 10^3/cmm (130-400); Red Blood Count 5.23 10^6/uL (4.1-5.3); Red Cell Distribution Width 14.5 % (12.1-15.1); White Blood Count 9.5 10^3/uL (4.0-10.0)
[2021-01-17 17:51] LABS: Amphetamines Screen Urine Positive (Negative); Barbiturates Screen Urine Negative (Negative); Benzodiazepines Screen Urine Negative (Negative); Cocaine Screen Urine Negative (Negative); Opiate Screen Urine Negative (Negative); PCP Screen Urine Negative (Negative); THC Screen Urine Positive (Negative)
[2021-01-17 17:52] LABS: Alanine Aminotransferase 15 U/L (0-33); Albumin Level 4.4 g/dL (3.5-5.2); Alkaline Phosphatase 114 IU/L (35-105); Anion Gap 20.6 (5-19); Aspartate Amino Transferase 18 U/L (0-32); Blood Urea Nitrogen 11 mg/dL (6-20); Calcium 9.3 mg/dL (8.5-10.5); Carbon Dioxide 19 mmol/L (22-29); Chloride 99 mmol/L (98-107); Globulin 2.7 g/dL (1.3-4.6); Glomerular Filtration Rate 76.2 mL/min (90-130); Glucose 124 mg/dL (65-115); Lipase 21 U/L (13-60); Osmolality Calculated 281 mOsm/kg (285-295); Potassium 3.6 mmol/L (3.5-5.1); Sodium 135 mmol/L (136-145); Total Bilirubin 0.3 mg/dL (0.15-1.2); Total Protein 7.1 g/dL (6.6-8.7)
[2021-01-17 18:00] LABS: INR 0.89 (0.8-1.2)
[2021-01-17 18:01] LABS: Partial Thromboplastin Time 23.2 SECONDS (23.9-36.7)
[2021-01-17 18:02] LABS: Free T4 Free Thyroxine 1.26 ng/dL (0.82-1.77); HCG Quantitative 1.52 mIU/mL; Thyroid Stimulating Hormone 1.82 uIU/mL (0.27-4.20)
[2021-01-17] MEDS: sodium chloride 0.9% 1,000 ML 999 ML IV (18:02)
[2021-01-17] MEDS: metoclopramide 5 mg/mL SDV 2 mL IVP (18:02)
[2021-01-17] MEDS: diphenhydrAMINE 50 mg/mL SDV 1mL IVP (18:05)
[2021-01-17] MEDS: ketorolac 30 mg/mL INJ IVP (18:12)
[2021-01-17] MEDS: magnesium sulfate premix 2 GM/50 ML PIGGYBACK IV (18:14)
[2021-01-17 18:15] LABS: Acetaminophen < 5.0 ug/mL (10-30); Salicylate < 0.3 mg/dL (3-10)
[2021-01-17] MEDS: haloperidol inj 5 mg/mL INJ 1 mL IVP (18:40)
[2021-01-17 20:11] VITALS: BP 202/112; PULSE 63; RESP 12; O2SAT 100
[2021-01-17] MEDS: hyDRALAzine 20 mg/mL INJ 1 mL IVP (20:20)
[2021-01-17 20:39] VITALS: BP 143/94
[2021-01-17 20:53] VITALS: BP 143/94; PULSE 63; RESP 12; O2SAT 100
--- NOTE | 2021-01-19 06:19 | DCPLANNER ---
manager office had message to schedule a follow up appointment for patient with Dr. Handy. manager office emailed patients information to the neurology clinic. Patients information will be printed and reviewed. Clinic will call patient with appointment information.
--- NOTE | 2021-02-01 07:11 | DCPLANNER ---
Clinic emailed case making machine operator stating that clinic called and left a message for patient to call clinic back to schedule a follow up appointment.
== END 2021-01-17 20:48 | disposition home or self-care (01) ==
PROVIDERS: Emergency Provider Emergency Medicine; PCP Nurse Practitioner
DX: R51.9 Headache, unspecified (principal); R11.2 Nausea with vomiting, unspecified; F17.210 Nicotine dependence, cigarettes, uncomplicated
CPT/HCPCS: 36415; 51701; 70450; 70496; 70498; 80053; 80306; 80307; 83690; 84439; 84443; 84702; 85025; 85610; 85730; 86850; 86900; 96365; 96375; 99284; J0360; J1200; J1630; J1885; J2765; J3475; J7030; Q9967

== ENCOUNTER → 2021-05-13 09:13 | Outpatient (BNVA) | payer MEDICAID, SELFPAY | PROVIDERS: PCP Nurse Practitioner; Visit Provider Nurse Practitioner | DX: I10 Essential (primary) hypertension (principal); G47.00 Insomnia, unspecified | CPT/HCPCS: 80053; 80061; 81000; 84443 ==

== ENCOUNTER 2021-07-29 20:52 | Emergency (ER) | payer MEDICAID, SELFPAY ==
[2021-07-29 20:58] VITALS: BP 169/108; PULSE 82; RESP 16; TEMP 36.6; O2SAT 98; BMI 25.2
--- NOTE | 2021-07-29 21:06 | CTR_ITS ---
PROCEDURE INFORMATION: Exam: CT Head Without Contrast Exam date and time: 07/29/2021 9:12 PM Age: 50 years old Clinical indication: Stroke-like symptoms; Speech disturbance; Lt upper extremity and lt lower extremity weakness; Additional info: Slurred speech with left sided weakness. Last known well time at approximately 1800. History of stroke three months ago. TECHNIQUE: Imaging protocol: Computed tomography of the head without contrast. Radiation optimization: All CT scans at this facility use at least one of these dose optimization techniques: automated exposure control; mA and/or kV adjustment per patient size (includes targeted exams where dose is matched to clinical indication); or iterative reconstruction. Other technique: STROKE PROTOCOL was implemented. COMPARISON: CT head wo con* [id number] 01/17/2021 4:21 PM RADIATION DOSE METRICS: Total DLP (mGy-cm): 747.99 FINDINGS: Brain: There is some focal encephalomalacia in the right frontal lobe and in the left posterior parietal lobe not significantly changed from previous. Old right occipital infarct is also unchanged. There is no intracranial mass, hemorrhage or edema. Cerebral ventricles: No ventriculomegaly. Paranasal sinuses: Visualized sinuses are unremarkable. No fluid levels. Mastoid air cells: Visualized mastoid air cells are well aerated. Bones/joints: Unremarkable. No acute fracture. Soft tissues: Unremarkable. CT/CT head wo con* [id number] IMPRESSION: 1. 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 2. No acute intracranial finding. ASSESSMENT: ASPECTS ([place] Stroke Program Early CT Score) is 10.
--- NOTE | 2021-07-29 21:06 | ECG_ITS ---
[facility] Test Date: 2021-07-29 Pat Name: Trudi Wesley Department: Room: Gender: Female Telephonic Nurse: : 1970 Requested By: Aleksandar Ledesma Order Number: [id number] Juan Pablo MD: Jaswinder Dick M.D. Measurements Intervals [place] Rate: 92 P: 71 UT: 133 QRS: 64 QRSD: 86 T: 67 QT: 382 QTc: 473 Interpretive Statements SINUS RHYTHM POSSIBLE LEFT ATRIAL ENLARGEMENT [-0.1mV P-WAVE IN V1/V2] Compared to ECG 10/11/2019 07:31:35 No significant changes Electronically Signed On 07-30-2021 17:01:02 CDT by Jaswinder Dick M.D. [id number] f
--- NOTE | 2021-07-29 21:06 | XRR_ITS ---
PROCEDURE INFORMATION: Exam: XR Chest Exam date and time: 07/29/2021 10:13 PM Age: 50 years old Clinical indication: Chest wall pain; Additional info: CVA TECHNIQUE: Imaging protocol: XR of the chest. Views: 1 view. COMPARISON: CR XR chest 1V portable [id number] 04/21/2020 7:27 AM FINDINGS: Lungs: Unremarkable. No consolidation. Pleural spaces: Unremarkable. No pleural effusion. No pneumothorax. Heart/Mediastinum: Unremarkable. No cardiomegaly. Bones/joints: Unremarkable. XR/XR chest 1V portable [id number] IMPRESSION: No acute findings.
--- NOTE | 2021-07-29 21:08 | ED_ITS ---
HPI - Weakness General: Chief complaint: Weakness Stated complaint: STOKE LIKE SYMPTOMS Time Seen by Provider: 07/29/21 21:03 Source: patient Mode of arrival: ambulatory Limitations: no limitations History of Present Illness: 50-year-old female who states that roughly 2 to 3 hours ago started having some numbness down her left side and slurred speech. States she is concerned she may have a stroke. She has no one-sided weakness able ambulate denies any pain anywhere states that she feels funny she also has had a slight headache. Denies any fevers denies any worsening improving factors she is not on any blood thinners. Associated symptoms: Denies chest pain, chills, dysuria, easy bruising, fever(s), nausea or vomiting Review of Systems Const: Denies: fever(s), chills, body aches or change in appetite Eyes: Denies: blurry vision or eye discomfort ENMT: Denies: throat pain or dental pain Card: Denies: chest pain Resp: Denies: dyspnea GI: Denies: abdominal pain, nausea, vomiting or diarrhea : Denies: dysuria Musc: Denies: neck pain or back pain Skin/Breast: Denies: rash Neuro: Reports: numbness in extremities and Slurred speech present Psych: Denies: depression Yrn/Lymph: Denies: easy bruising All/Imm: Denies: urticaria PFSH ED PFSH: Medical History Asthma Bipolar disorder, unspecified Essential hypertension Migraine Surgical History History of cholecystectomy Family History Other Cancer Diabetes Hypertension Denies family history of Chronic kidney disease (CKD) Stroke Social History Smoking and tobacco status: current every day smoker cigarettes Packs smoked per day: 0.5 Years cigarettes smoked: 13 Quit status (tobacco): has tried quititng Number of times tried to quit tobacco: 1 Second hand smoke exposure: Yes Smoking risk assessment/counseling performed?: Yes Tobacco counseling given: counseling >3 minutes Alcohol intake: never Desire information about alcohol rehabilitation?: No Counseling given: No Desire information about substance/drug rehabilitation?: No Counseling given: No Adopted: No Caregiver/support person: Yes Lives independently: No Household members: friend(s) Housing: House Marital status: Single Number of children: 0 service: No Current occupational status: unemployed History of recent travel: No Current gender identity: Female Physical Exam Const: COMMON NORMALS: no acute distress, patient oriented x3 and healthy appearing HENMT: COMMON NORMALS: normocephalic and atraumatic HEAD & SCALP: normocephalic and atraumatic Eye: COMMON NORMALS: Equal, round and reactive pupils present and EOMs intact bilaterally PUPIL: Yes Equal, round and reactive pupils present Neck/C-Spine: COMMON NORMALS: full ROM and supple Chest: COMMONS NORMALS: normal inspection of the chest and normal palpation of entire chest wall Resp: COMMON NORMALS: normal respiratory effort, No retractions, No use of accessory muscles and clear to auscultation bilaterally AUSCULTATION: clear to auscultation bilaterally Cardio: COMMON NORMALS: regular rate, regular rhythm and No murmurs present (Cardio) RATE: regular rate RHYTHM: regular rhythm GI: COMMON NORMALS: Normal to inspection, nondistended, normoactive bowel sounds present, Soft to palpation, non-tender and no masses PALPATION: Yes Soft to palpation Extremity: COMMON NORMALS: normal to inspection and full ROM Neuro: COMMON NORMALS: patient oriented x3 and moves all extremities CRANIAL NERVES: Yes CN normal except as noted Psych: COMMON NORMALS: mental status grossly normal, Normal thought process present and cooperative THOUGHT PROCESS: Normal thought process present Skin: COMMON NORMALS: no rashes or lesions noted and no wounds GENERAL SKIN EXAM: no rashes or lesions noted Course Vital Signs: Vital signs: Vital Signs Temperature 97.8 F 07/29/21 20:58 Pulse Rate 78 07/29/21 23:33 Respiratory Rate 16 07/29/21 23:33 Blood Pressure 157/99 07/29/21 23:33 Pulse Oximetry 95 07/29/21 23:33 MDM - Weakness Medical Decision Making Patient presents here with headache along with some paresthesias that her evaluated by neurology at [facility] who does not believe she is having acute stroke and does not believe she is a tPA candidate her NIH was 1 and is now currently 0 her symptoms of completely resolved she did have a CTA that showed some ICA stenosis in December. I do not believe that she needs admitted at this time for MRI she is to continue take a baby aspirin we will get her follow-up with neurology she is to return if worsening she understands agrees to plan. Lab Data : 07/29/21 22:06 07/29/21 22:06 Radiology Impressions Chest X-Ray 07/29/21 21:06 IMPRESSION: No acute findings. Head CT 07/29/21 21:06 IMPRESSION: 1. 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 2. No acute intracranial finding. ASSESSMENT: ASPECTS (Kay Stroke Program Early CT Score) is 10. Laboratory Results WBC 7.2 10^3/uL (4.0-10.0) 07/29/21 22:06 RBC 3.95 10^6/uL (4.1-5.3) L 07/29/21 22:06 Hgb 8.6 g/dL (11.5-15.3) L 07/29/21 22:06 Hct 28.4 % (37.0-47.0) L 07/29/21 22:06 MCV 71.9 fl (81-99) L 07/29/21 22:06 MCH 21.8 pg (28.0-34.0) L 07/29/21 22:06 MCHC 30.3 g/dL (30.0-36.0) 07/29/21 22:06 RDW 17.6 % (12.1-15.1) H 07/29/21 22:06 Plt Count 346 10^3/cmm (130-400) 07/29/21 22:06 MPV 9.5 fL (7.4-10.4) 07/29/21 22:06 Neut % (Auto) 66.3 % 07/29/21 22:06 Lymph % (Auto) 19.1 % 07/29/21 22:06 [place] % (Auto) 8.8 % 07/29/21 22:06 Eos % (Auto) 5.2 % 07/29/21 22:06 Baso % (Auto) 0.3 % 07/29/21 22:06 Neut # (Auto) 4.75 10^3/uL (1.8-7.7) 07/29/21 22:06 Lymph # (Auto) 1.4 10^3/uL (0.8-4.8) 07/29/21 22:06 [place] # (Auto) 0.6 10^3/uL (0.2-0.9) 07/29/21 22:06 Eos # (Auto) 0.4 10^3/uL (0.0-0.8) 07/29/21 22:06 Baso # (Auto) 0.0 10^3/uL (0.0-0.1) 07/29/21 22:06 Nucleated RBC % (auto) 0 % 07/29/21 22:06 Nucleated RBCs # 0.0 /100WBC 07/29/21 22:06 PT 12.50 SECONDS (12.1-14.9) 07/29/21 22:06 INR 0.90 (0.8-1.2) 07/29/21 22:06 APTT 27.8 SECONDS (23.9-36.7) 07/29/21 22:06 Sodium 140 mmol/L (136-145) 07/29/21 22:06 Potassium 3.5 mmol/L (3.5-5.1) 07/29/21 22:06 Chloride 104 mmol/L (98-107) 07/29/21 22:06 Carbon Dioxide 24 mmol/L (22-29) 07/29/21 22:06 Anion Gap 15.5 (5-19) 07/29/21 22:06 BUN 5 mg/dL (6-20) L 07/29/21 22:06 Creatinine 0.8 mg/dL (0.5-0.9) 07/29/21 22:06 GFR Calculation 76.2 mL/min (90-130) L 07/29/21 22:06 Glucose 103 mg/dL (65-115) 07/29/21 22:06 Calculated Osmolality 288 mOsm/kg (285-295) 07/29/21 22:06 Calcium 8.8 mg/dL (8.5-10.5) 07/29/21 22:06 Total Bilirubin 0.2 mg/dL (0.15-1.2) 07/29/21 22:06 AST 16 U/L (0-32) 07/29/21 22:06 ALT 12 U/L (0-33) 07/29/21 22:06 Alkaline Phosphatase 113 IU/L (35-105) H 07/29/21 22:06 Total Protein 7.2 g/dL (6.6-8.7) 07/29/21 22:06 Albumin 4.1 g/dL (3.5-5.2) 07/29/21 22:06 Globulin 3.1 g/dL (1.3-4.6) 07/29/21 22:06 EKG Data EKG 1: I personally reviewed and interpreted this EKG as follows: EKG interpretation date: 07/29/21 EKG interpretation time: 21:02 Interpretation: nsr hr [address] or t wave abnormalitis qrs 86 qtc 431 Discharge Plan Discharge Patient Disposition: Home Clinical Impression: Headache, Paresthesia Condition: Stable Prescriptions: No Action valsartan [Diovan] 80 mg tablet 80 mg PO DAILY Qty: 30 2RF zolpidem [Ambien] 5 mg tablet 5 mg PO .at bedtime Qty: 30 2RF Discharge Orders: Discharge ED (Routine); Ordered 07/29/21 Ordered By: Aleksandar Ledesma Referrals: Mitzi Handy MD [Physician] - 1-3 days Selvin Thomas FNP-C [Primary Care Provider] - Discharge Diet: Advance as tolerated Discharge Activity: Resume usual activity Patient Instructions: General Headache (ED) Coding Level of Care Code ED Junior Sales Representative for Chg Fwd Exam Comprehensive NIH stroke score NIHSS Level Of Consciousness - 1a: 0 Level Of Consciousness Questions - 1b: Both Correct Level Of Consciousness Commands - 1c: Both Correct Best Gaze - 2: Normal Visual Bass - 3: No Visual Loss Facial Palsy - 4: Normal Motor Arm Right - 5: No Drift Motor Arm Left - 5: No Drift Motor Leg Right - 6: No Drift Motor Leg Left - 6: No Drift Limb Ataxia - 7: Absent Sensory - 8: Normal Best Language - 9: No Aphasia Dysarthia - 10: Mild/Moderate Dysarthia Extinction And Inattention - 11: 0 Score Total Score: 1
[2021-07-29 21:47] VITALS: BP 179/129; PULSE 111; RESP 16; O2SAT 94
[2021-07-29 22:11] LABS: Basophils % 0.3 %; Eosinophils # 0.4 10^3/uL (0.0-0.8); Eosinophils % 5.2 %; Hematocrit 28.4 % (37.0-47.0); Hemoglobin 8.6 g/dL (11.5-15.3); Lymphocytes # 1.4 10^3/uL (0.8-4.8); Lymphocytes % 19.1 %; Mean Corpuscular HGB Conc 30.3 g/dL (30.0-36.0); Mean Corpuscular Hemoglobin 21.8 pg (28.0-34.0); Mean Corpuscular Volume 71.9 fl (81-99); Mean Platelet Volume 9.5 fL (7.4-10.4); Monocytes # 0.6 10^3/uL (0.2-0.9); Monocytes % 8.8 %; Neutrophils # 4.75 10^3/uL (1.8-7.7); Neutrophils % 66.3 %; Nucleated Red Blood Cells % 0 %; Platelet Count 346 10^3/cmm (130-400); Red Blood Count 3.95 10^6/uL (4.1-5.3); Red Cell Distribution Width 17.6 % (12.1-15.1); White Blood Count 7.2 10^3/uL (4.0-10.0)
[2021-07-29 22:23] LABS: Partial Thromboplastin Time 27.8 SECONDS (23.9-36.7)
[2021-07-29 22:29] LABS: Alanine Aminotransferase 12 U/L (0-33); Albumin Level 4.1 g/dL (3.5-5.2); Alkaline Phosphatase 113 IU/L (35-105); Anion Gap 15.5 (5-19); Aspartate Amino Transferase 16 U/L (0-32); Blood Urea Nitrogen 5 mg/dL (6-20); Calcium 8.8 mg/dL (8.5-10.5); Carbon Dioxide 24 mmol/L (22-29); Chloride 104 mmol/L (98-107); Globulin 3.1 g/dL (1.3-4.6); Glomerular Filtration Rate 76.2 mL/min (90-130); Glucose 103 mg/dL (65-115); Osmolality Calculated 288 mOsm/kg (285-295); Potassium 3.5 mmol/L (3.5-5.1); Sodium 140 mmol/L (136-145); Total Bilirubin 0.2 mg/dL (0.15-1.2); Total Protein 7.2 g/dL (6.6-8.7)
[2021-07-29] MEDS: diphenhydrAMINE 50 mg/mL SDV 1mL IVP (23:00)
[2021-07-29] MEDS: metoclopramide 5 mg/mL SDV 2 mL 10 MG IVP (23:00)
[2021-07-29 23:33] VITALS: BP 157/99; PULSE 78; RESP 16; O2SAT 95
--- NOTE | 2021-07-30 11:37 | DCPLANNER ---
Addendum entered by Olena Fox 10/12/21 19:16: Patient had a follow up appointment scheduled with neurology - patient did not attend appointment. Addendum entered by Olena Fox 08/04/21 15:31: Patient has a follow up appointment scheduled for , August 05, [address] at 8:[address] Handy. Clinic will call patient with appointment information. Original Note: manager track had message to schedule a follow up appointment for patient with neurology. manager track sent patients information to the front office staff at neurology. Patients information will be printed and reviewed. Clinic will call patient with appointment information.
[2021-07-31 18:35] LABS: Glucose Point of Care 65 mg/dL (70-110)
== END 2021-07-29 23:33 | disposition home or self-care (01) ==
PROVIDERS: Emergency Provider Emergency Medicine; PCP Nurse Practitioner
DX: R51.9 Headache, unspecified (principal); R20.2 Paresthesia of skin; I10 Essential (primary) hypertension
CPT/HCPCS: 36416; 70450; 71045; 80053; 82962; 85025; 85610; 85730; 93005; 96374; 96375; 99285; J1200; J2765

== ENCOUNTER 2021-07-31 10:52 | Emergency (ER) | payer MEDICAID, SELFPAY ==
[2021-07-31] VITALS (7 sets, daily range): BP systolic 159–184; BP diastolic 80–90; PULSE 74–91; RESP 15–18; TEMP 36.8; O2SAT 93–98; BMI 24.2
--- NOTE | 2021-07-31 11:34 | XRR_ITS ---
PROCEDURE INFORMATION: Exam: XR Chest Exam date and time: 07/31/2021 11:40 AM Age: 50 years old Clinical indication: Shortness of breath; Additional info: SOB TECHNIQUE: Imaging protocol: XR of the chest. Views: 1 view. COMPARISON: CR (CHEST, ) 07/29/2021 10:13 PM FINDINGS: Lungs: Unremarkable. No consolidation. Pleural spaces: Unremarkable. No pleural effusion. No pneumothorax. Heart/Mediastinum: Unremarkable. No cardiomegaly. Bones/joints: Unremarkable. XR/XR chest 1V portable [id number] IMPRESSION: No acute findings.
--- NOTE | 2021-07-31 11:35 | ED_ITS ---
HPI - SOB/Dyspnea General: Chief Complaint: Shortness of Breath/Dyspnea Stated Complaint: SOB Time Seen by Provider: 07/31/21 11:24 Source: patient Mode of arrival: ambulatory Limitations: no limitations History of Present Illness: HPI Narrative: This patient presents to the emergency department because of wheezing and difficulty breathing. She states that the symptoms have been present since her last emergency department visit but have worsened. She relates to me that she has been using her metered-dose inhaler but it is out of medications for the last 2 days. She denies any fevers or chills. She denies any chest pain other than soreness in her chest from coughing. She states she is not been knowingly exposed to infectious disease. She states that she has not had COVID nor is she immunized against COVID. She admits that she is still smokes cigarettes and her she last smoked yesterday. She is never been hospitalized for breathing difficulties, pneumonia etc. She has no history of thromboembolic disease. She relates that she has not taken her aspirin this morning or any of her other medications. She lives with a another individual who she states is not ill. She was recently in the hospital because there was a consideration of whether she might of had a small CVA that was not amenable to any intervention. She states the symptoms have not worsened or changed in any way. MD elicited complaint: shortness of breath and cough Pertinent past history: asthma Context: medication noncompliance Severity: moderate Exacerbating factors: exertion and coughing Relieving factors: bronchodilators Known history of: asthma Associated symptoms: Reports chest congestion; Deny abdominal pain, extremity pain, fever(s), nausea, palpitations, polydipsia, polyuria, syncope or vomiting Treatment prior to arrival: none Related Data: Home oxygen amount: none Review of Systems Const: Denies: fever(s), chills or body aches Eyes: Denies: change in vision or blurry vision ENMT: Denies: throat pain, odynophagia or disequilibrium Card: Denies: palpitations, irregular heart rhythm, edema or syncope Resp: Reports: non-productive cough, wheezing and chest congestion GI: Denies: abdominal pain, nausea, vomiting or hematemesis : Denies: flank pain, difficulty voiding, dysuria or urinary frequency Musc: Denies: neck pain, back pain, extremity pain or extremity swelling Skin/Breast: Denies: rash, pruritus or erythema Neuro: Reports: Slurred speech present; Denies: headache(s), numbness in extremities or weakness in extremities Psych: Reports: anxiety; Denies: depression or mood swings Endo: Denies: polyuria or polydipsia PFSH ED PFSH: Medical History Asthma Bipolar disorder, unspecified Essential hypertension Migraine Surgical History History of cholecystectomy Family History Other Cancer Diabetes Hypertension Denies family history of Chronic kidney disease (CKD) Stroke Social History Smoking and tobacco status: current every day smoker cigarettes Packs smoked per day: 0.5 Years cigarettes smoked: 13 Quit status (tobacco): has tried quititng Number of times tried to quit tobacco: 1 Second hand smoke exposure: Yes Smoking risk assessment/counseling performed?: Yes Tobacco counseling given: counseling >3 minutes Alcohol intake: never Desire information about alcohol rehabilitation?: No Counseling given: No Desire information about substance/drug rehabilitation?: No Counseling given: No Adopted: No Caregiver/support person: Yes Lives independently: No Household members: friend(s) Housing: House Marital status: Single Number of children: 0 service: No Current occupational status: unemployed History of recent travel: No Current gender identity: Female Physical Exam Narrative: EXAM NARRATIVE: Patient makes good eye contact. She appears to be somewhat anxious. She has some dysarthria but that seems to be intermittent and its expression. Her speech is goal-directed and fluent otherwise. Const: COMMON NORMALS: patient oriented x3 and healthy appearing GENERAL APPEARANCE: cooperative HENMT: COMMON NORMALS: normocephalic, atraumatic, Normal nasal mucous membra sylvie and turbinates present, moist oral mucous membranes and oropharynx normal HEAD & SCALP: normocephalic and atraumatic FACE & SINUS: Flattened naso- labial fold present Left NOSE: Normal nasal mucous membranes and turbinates present Eye: COMMON NORMALS: Equal, round and reactive pupils present, EOMs intact bilaterally and conjunctivae normal CONJUNCTIVA: Yes conjunctivae normal PUPIL: Yes Equal, round and reactive pupils present Neck/C-Spine: COMMON NORMALS: full ROM, supple, no JVD, Thyroid normal and No carotid bruits THYROID: Thyroid normal Chest: COMMONS NORMALS: normal inspection of the chest CHEST: Yes tenderness (Inferior anterior chest wall lateral chest wall) Resp: AUSCULTATION: crackles, rhonchi and wheezes expiratory wheezes Cardio: COMMON NORMALS: no JVD, regular rate, regular rhythm and No murmurs present (Cardio) RATE: regular rate RHYTHM: regular rhythm GI: COMMON NORMALS: Normal to inspection, nondistended, normoactive bowel sounds present, Soft to palpation and non-tender PALPATION: Yes Soft to palpation : COMMON NORMALS: Yes no CVA tenderness BLADDER/KIDNEY EXAM: Yes no CVA tenderness Back/Pelvis: COMMON NORMALS: no CVA tenderness, thoracic and lumbar spine normal to inspection and no thoracic nor lumbar tenderness Extremity: COMMON NORMALS: normal to inspection, full ROM, capillary refill normal, no calf tenderness and no pedal edema Neuro: COMMON NORMALS: patient oriented x3, moves all extremities and no sensory deficits noted CRANIAL NERVES: Yes CN normal except as noted and Yes CN VII (facial) Laterality: left Skin: COMMON NORMALS: no rashes or lesions noted, turgor normal and no jaundice GENERAL SKIN EXAM: no rashes or lesions noted and turgor normal Course Reevaluation(s): Reevaluation #1: Patient subjectively feels better. She is hungry and thirsty. Repeat examination reveals improved air movement and less anxious affect. She still has expiratory wheezes bilaterally. We will proceed with a second DuoNeb treatment. Time: 12:49 Reevaluation #2: Patient's received another DuoNeb treatment. She states she feels even more improved than before. Repeat examination reveals her to speak in unfettered speech and no dysarthria noted at this time. Lungs are significantly improved with good air movement she still has a few faint scattered wheezes but markedly improved from before. No other new or focal findings on repeat examination. Discussed continued observation versus trial of home therapy and she prefers the latter. We will go ahead and give her 7-day course of steroids, new metered- dose inhaler as well as 5 days of doxycycline given her history of smoking and her sputum production. She does have a reassuringly clear x-ray and otherwise reassuring laboratories. We also discussed return precautions in detail. Also admonished her to not smoke tobacco. Time: 14:10 Vital Signs: Vital signs: Vital Signs Temperature 98.2 F 07/31/21 11:14 Pulse Rate 91 07/31/21 13:56 Respiratory Rate 16 07/31/21 13:56 Blood Pressure 160/83 07/31/21 12:56 Pulse Oximetry 94 07/31/21 13:56 MDM - SOB/Dyspnea Medical Decision Making Patient with known history of smoking and COPD and asthma presents with increasing symptoms due to her lifestyle habits in addition to being out of her beta agonist. She has responded to therapy in the emergency department and has no worrisome findings on ancillary studies. She prefers to be discharged to home therapy trial. She is stable at this time. Medical Records I reviewed the patient's medical records. Lab Data I reviewed the patient's lab results. : 07/31/21 11:40 07/31/21 11:40 Labs/Radiology: Radiology Impressions Chest X-Ray 07/31/21 11:34 IMPRESSION: No acute findings. Laboratory Results WBC 9.8 10^3/uL (4.0-10.0) 07/31/21 11:40 RBC 3.96 10^6/uL (4.1-5.3) L 07/31/21 11:40 Hgb 8.7 g/dL (11.5-15.3) L 07/31/21 11:40 Hct 28.5 % (37.0-47.0) L 07/31/21 11:40 MCV 72.0 fl (81-99) L 07/31/21 11:40 MCH 22.0 pg (28.0-34.0) L 07/31/21 11:40 MCHC 30.5 g/dL (30.0-36.0) 07/31/21 11:40 RDW 17.6 % (12.1-15.1) H 07/31/21 11:40 Plt Count 308 10^3/cmm (130-400) 07/31/21 11:40 MPV 9.4 fL (7.4-10.4) 07/31/21 11:40 Neut % (Auto) 70.0 % 07/31/21 11:40 Lymph % (Auto) 19.7 % 07/31/21 11:40 [place] % (Auto) 6.7 % 07/31/21 11:40 Eos % (Auto) 2.8 % 07/31/21 11:40 Baso % (Auto) 0.4 % 07/31/21 11:40 Neut # (Auto) 6.87 10^3/uL (1.8-7.7) 07/31/21 11:40 Lymph # (Auto) 1.9 10^3/uL (0.8-4.8) 07/31/21 11:40 [place] # (Auto) 0.7 10^3/uL (0.2-0.9) 07/31/21 11:40 Eos # (Auto) 0.3 10^3/uL (0.0-0.8) 07/31/21 11:40 Baso # (Auto) 0.0 10^3/uL (0.0-0.1) 07/31/21 11:40 Nucleated RBC % (auto) 0 % 07/31/21 11:40 Nucleated RBCs # 0.0 /100WBC 07/31/21 11:40 Sodium 139 mmol/L (136-145) 07/31/21 11:40 Potassium 3.7 mmol/L (3.5-5.1) 07/31/21 11:40 Chloride 103 mmol/L (98-107) 07/31/21 11:40 Carbon Dioxide 24 mmol/L (22-29) 07/31/21 11:40 Anion Gap 15.7 (5-19) 07/31/21 11:40 BUN 7 mg/dL (6-20) 07/31/21 11:40 Creatinine 0.8 mg/dL (0.5-0.9) 07/31/21 11:40 GFR Calculation 76.2 mL/min (90-130) L 07/31/21 11:40 Glucose 89 mg/dL (65-115) 07/31/21 11:40 Calculated Osmolality 285 mOsm/kg (285-295) 07/31/21 11:40 Calcium 8.7 mg/dL (8.5-10.5) 07/31/21 11:40 Discharge Plan Discharge Patient Disposition: Home Clinical Impression: Acute exacerbation of chronic obstructive airways disease Condition: Stable Prescriptions: New prednisone 20 mg tablet 20 mg PO BID 7 Days Qty: 14 0RF albuterol sulfate [ProAir HFA] 90 mcg/actuation HFA aerosol inhaler 2 inh inhalation 6XD PRN (Reason: shortness of breath or wheezing) Qty: 8.5 1RF doxycycline hyclate 100 mg capsule 100 mg PO BID 7 Days Qty: 14 0RF No Action ProAir HFA 90 mcg/actuation Hfa Aerosol Inhaler 2 puff INHALATION Q4H PRN (Reason: Shortness Of Breath) 0RF Diovan 80 mg tablet 80 mg PO QAM 0RF Ambien 5 mg tablet 5 mg PO BEDTIME 0RF Aspir-81 81 mg Tablet,Delayed Release (Dr/Ec) 81 mg PO QAM 0RF Discharge Orders: Discharge ED (Routine); Ordered 07/31/21 Ordered By: Joseph Vera Referrals: Selvin Thomas FNP-C [Primary Care Provider] - 7-10 days Discharge Diet: Usual diet Discharge Activity: Increase activity as tolerated Patient Instructions: Opioid Safety Activity Restrictions/Additional Instructions: Do not smoke cigarettes. Take all the medications we have prescribed and make sure you use your inhaler as prescribed. If your symptoms do not continue to improve or worsen at any time return to this or the nearest emergency department. Coding Level of Care Code ED Canine Enforcement Officer for Andrey Kang Exam Comprehensive
[2021-07-31 11:44] LABS: Basophils % 0.4 %; Eosinophils # 0.3 10^3/uL (0.0-0.8); Eosinophils % 2.8 %; Hematocrit 28.5 % (37.0-47.0); Hemoglobin 8.7 g/dL (11.5-15.3); Lymphocytes # 1.9 10^3/uL (0.8-4.8); Lymphocytes % 19.7 %; Mean Corpuscular HGB Conc 30.5 g/dL (30.0-36.0); Mean Platelet Volume 9.4 fL (7.4-10.4); Monocytes # 0.7 10^3/uL (0.2-0.9); Monocytes % 6.7 %; Neutrophils # 6.87 10^3/uL (1.8-7.7); Nucleated Red Blood Cells % 0 %; Platelet Count 308 10^3/cmm (130-400); Red Blood Count 3.96 10^6/uL (4.1-5.3); Red Cell Distribution Width 17.6 % (12.1-15.1); White Blood Count 9.8 10^3/uL (4.0-10.0)
[2021-07-31] MEDS: sodium chloride 0.9% 500 ML 999 ML IV (11:46)
[2021-07-31] MEDS: ipratropium-albuterol 3 mL Neb INHALATION ×2 (11:48→13:49)
[2021-07-31 12:03] LABS: Anion Gap 15.7 (5-19); Blood Urea Nitrogen 7 mg/dL (6-20); Calcium 8.7 mg/dL (8.5-10.5); Carbon Dioxide 24 mmol/L (22-29); Chloride 103 mmol/L (98-107); Creatinine Clr Calc Pharmacy 73.0944; Glomerular Filtration Rate 76.2 mL/min (90-130); Glucose 89 mg/dL (65-115); Osmolality Calculated 285 mOsm/kg (285-295); Potassium 3.7 mmol/L (3.5-5.1); Sodium 139 mmol/L (136-145)
== END 2021-07-31 14:25 | disposition home or self-care (01) ==
PROVIDERS: Emergency Provider Emergency Medicine; PCP Nurse Practitioner
DX: J44.1 Chronic obstructive pulmonary disease with (acute) exacerbation (principal); F17.210 Nicotine dependence, cigarettes, uncomplicated; Z79.899 Other long term (current) drug therapy
CPT/HCPCS: 71045; 80048; 85025; 94640; 96374; 99284; J2930; J7040

== ENCOUNTER 2021-08-12 16:33 | Inpatient (IN) | payer MEDICAID, SELFPAY ==
[2021-08-12] VITALS (7 sets, daily range): BP systolic 136–176; BP diastolic 65–111; PULSE 63–90; RESP 15–20; TEMP 36.6; O2SAT 96–99; BMI 25.2
--- NOTE | 2021-08-12 16:37 | W.ED.HA ---
Documented by User: Tray Mondragon MD 08/25/21 16:25 HPI - Headache General: Chief Complaint: Neuro Symptoms/Deficit Stated Complaint: diff gait L sided weakness Time Seen by Provider: 08/12/21 16:35 History of Present Illness: Ms. Wesley is a 50-year-old lady with history of hypertension and reported recent history of stroke who presents to the emergency department due to headache with neurologic symptoms. She had symptom onset approximately 1 hour prior to arrival. She describes severe left-sided stabbing throbbing headache associated with gait difficulty and left-sided weakness. Much of the symptoms have improved upon arrival however still endorses roughly 25% of contralateral side sensation in hand and great toe. Headache intensity is moderate to severe. She reports otherwise generalized unwell feeling. Overall course of symptoms has proved. No other specific changes in health, exacerbating, or alleviating factors identified. Onset (ago): hour(s) Onset description: suddenly Location: left Severity: severe Associated symptoms: Reports other Review of Systems General: Reports: 10 or more systems reviewed and unremarkable except in HPI and below PFSH ED PFSH: Medical History Asthma Bipolar disorder, unspecified Essential hypertension Migraine Surgical History History of cholecystectomy Family History Other Cancer Diabetes Hypertension Denies family history of Chronic kidney disease (CKD) Stroke Social History Smoking and tobacco status: current every day smoker cigarettes Packs smoked per day: 0.5 Years cigarettes smoked: 13 Quit status (tobacco): has tried quititng Number of times tried to quit tobacco: 1 Second hand smoke exposure: Yes Smoking risk assessment/counseling performed?: Yes Tobacco counseling given: counseling >3 minutes Alcohol intake: never Desire information about alcohol rehabilitation?: No Counseling given: No Desire information about substance/drug rehabilitation?: No Counseling given: No Adopted: No Caregiver/support person: Yes Lives independently: No Household members: friend(s) Housing: House Marital status: Single Number of children: 0 service: No Current occupational status: unemployed History of recent travel: No Current gender identity: Female Physical Exam Const: COMMON NORMALS: patient oriented x3 and alert GENERAL APPEARANCE: cooperative and well developed HENMT: COMMON NORMALS: normocephalic and atraumatic HEAD & SCALP: normocephalic and atraumatic THROAT: posterior oropharynx normal Eye: COMMON NORMALS: conjunctivae normal CONJUNCTIVA: Yes conjunctivae normal SCLERA: sclerae normal Neck/C-Spine: COMMON NORMALS: supple GENERAL: Yes trachea midline Resp: COMMON NORMALS: normal respiratory effort EFFORT & INSPECTION: Yes able to speak in complete sentences Cardio: COMMON NORMALS: regular rate and regular rhythm RATE: regular rate RHYTHM: regular rhythm GI: COMMON NORMALS: Soft to palpation PALPATION: Yes Soft to palpation and No Tenderness to palpation present (GI) PERCUSSION: normal to percussion Extremity: GENERAL: Yes normal exam except as noted and No edema Neuro: COMMON NORMALS: patient oriented x3, CN's II-XII intact bilaterally, moves all extremities and no focal motor deficits SENSORIUM/ORIENTATION: Yes alert and No Orientation impaired OTHER: Left great toe and left hand subjective sensory changes Psych: COMMON NORMALS: mental status grossly normal and Normal thought process present THOUGHT PROCESS: Normal thought process present Course ED course: - Patient was seen and evaluated by me at bedside - Patient placed on cardiac monitors, IV access obtained - Initial evaluation notable for exam as above. Given improvement in symptoms as well as exam findings with no end process patient is not a tPA candidate. NIHSS currently 1. Additionally patient has presentation with a past month for abnormal neurologic symptoms which would further increase risk of complications. - Labs and xrays personally interpreted by me - migraine cocktail ordered. - Labs notable for leukocytosis of uncertain etiology, microcytic anemia. Metabolic panel with hypokalemia, replenishment ordered. No urinary tract infection. - Imaging notable for no lobar consolidation or pneumothorax on chest x-ray. CT head without contrast without acute pathology other than areas of chronic encephalomalacia. Aspects score 10. CTA ordered. -Patient care handed off to Dr. Ledesma pending completion of ED evaluation including imaging reads. Vital Signs: Vital signs: Vital Signs Temperature 98.6 F 08/15/21 13:25 Pulse Rate 70 08/15/21 12:00 Respiratory Rate 16 08/15/21 08:00 Blood Pressure 140/89 08/15/21 13:25 Pulse Oximetry 98 08/15/21 11:30 MDM - Headache Medical Decision Making 50-year-old lady presenting with strokelike symptoms that have largely improved. Current NIHSS 1 for subjective sensory in the left hand and great toe. Given low NIHSS and improving symptoms patient is not a tPA candidate. Handed off to Dr. Ledesma pending completion of ED evaluation. Patient presents here with headache along with some left-sided weakness. This is likely a migraine variant CT does show some ICA stenosis will admit for an MRI to rule out any stroke. Her headache here is resolved her symptoms are improving here as well. Medical Records I reviewed the patient's medical records. Lab Data I reviewed the patient's lab results. : 08/15/21 05:23 08/15/21 05:23 Radiology Impressions Chest X-Ray 08/12/21 16:40 IMPRESSION: No acute cardiopulmonary disease identified. Head CT 08/12/21 16:40 IMPRESSION: 1. No acute intracranial pathology demonstrated by CT. 2. Areas of chronic encephalomalacia, as above. ASSESSMENT: ASPECTS ([place] Stroke Program Early CT Score) is 10. Head/Neck CTA 08/12/21 18:47 IMPRESSION: Moderate stenosis of the intracranial ICAs bilaterally. IMPRESSION: 1. Moderate 50-69% stenosis of the left proximal ICA. 2. Mild less than 50% stenosis of the right proximal ICA. REFERENCES: NASCET CRITERIA. The degree of internal carotid artery stenosis is based on NASCET criteria. Normal is no stenosis. Mild is less than 50% stenosis. Moderate is 50-69% stenosis. Severe is 70% to 99% stenosis. Total occlusion is no detectable patent lumen. Head MRI 08/13/21 08:00 IMPRESSION: 1. Numerous bilateral small acute lacunar infarcts in multiple distributions. Infarcts in the LEFT cerebellum, bilateral frontal and parietal lobes. Consider central embolic source. 2. Remote infarcts as described within the report. Largest involving the RIGHT occipital lobe with encephalomalacia. 3. No hemorrhage. Laboratory Results WBC 9.7 10^3/uL (4.0-10.0) 08/13/21 05:06 RBC 4.01 10^6/uL (4.1-5.3) L 08/13/21 05:06 Hgb 8.7 g/dL (11.5-15.3) L 08/13/21 05:06 Hct 28.9 % (37.0-47.0) L 08/13/21 05:06 MCV 72.1 fl (81-99) L 08/13/21 05:06 MCH 21.7 pg (28.0-34.0) L 08/13/21 05:06 MCHC 30.1 g/dL (30.0-36.0) 08/13/21 05:06 RDW 18.4 % (12.1-15.1) H 08/13/21 05:06 Plt Count 379 10^3/cmm (130-400) 08/13/21 05:06 MPV 9.7 fL (7.4-10.4) 08/13/21 05:06 Neut % (Auto) 55.3 % 08/13/21 05:06 Lymph % (Auto) 36.5 % 08/13/21 05:06 [place] % (Auto) 6.1 % 08/13/21 05:06 Eos % (Auto) 1.3 % 08/13/21 05:06 Baso % (Auto) 0.1 % 08/13/21 05:06 Neut # (Auto) 5.33 10^3/uL (1.8-7.7) 08/13/21 05:06 Lymph # (Auto) 3.5 10^3/uL (0.8-4.8) 08/13/21 05:06 [place] # (Auto) 0.6 10^3/uL (0.2-0.9) 08/13/21 05:06 Eos # (Auto) 0.1 10^3/uL (0.0-0.8) 08/13/21 05:06 Baso # (Auto) 0.0 10^3/uL (0.0-0.1) 08/13/21 05:06 Nucleated RBC % (auto) 0 % 08/13/21 05:06 Nucleated RBCs # 0.0 /100WBC 08/13/21 05:06 ESR 6 mm/hr (0-15) 08/13/21 05:10 ESR Cancelled 08/13/21 05:10 PT 12.70 SECONDS (12.1-14.9) 08/12/21 17:00 INR 0.93 (0.8-1.2) 08/12/21 17:00 APTT 19.2 SECONDS (23.9-36.7) L 08/12/21 17:00 Sodium 140 mmol/L (136-145) 08/13/21 05:06 Potassium 3.6 mmol/L (3.5-5.1) 08/13/21 05:06 Chloride 105 mmol/L (98-107) 08/13/21 05:06 Carbon Dioxide 27 mmol/L (22-29) 08/13/21 05:06 Anion Gap 11.6 (5-19) 08/13/21 05:06 BUN 13 mg/dL (6-20) 08/13/21 05:06 Creatinine 0.9 mg/dL (0.5-0.9) 08/13/21 05:06 GFR Calculation 66.5 mL/min (90-130) L 08/13/21 05:06 Glucose 93 mg/dL (65-115) 08/13/21 05:06 POC Glucose 121 mg/dL (70-110) H 08/12/21 17:03 Calculated Osmolality 290 mOsm/kg (285-295) 08/13/21 05:06 Calcium 8.9 mg/dL (8.5-10.5) 08/13/21 05:06 Phosphorus 4.2 mg/dL (2.5-4.5) 08/13/21 05:06 Magnesium 1.9 mg/dL (1.7-2.3) 08/13/21 05:06 Total Bilirubin 0.2 mg/dL (0.15-1.2) 08/12/21 17:00 AST 12 U/L (0-32) 08/12/21 17:00 ALT 14 U/L (0-33) 08/12/21 17:00 Alkaline Phosphatase 104 IU/L (35-105) 08/12/21 17:00 C-Reactive Protein 3.0 mg/L (0.0-4.9) 08/13/21 05:06 Total Protein 6.6 g/dL (6.6-8.7) 08/12/21 17:00 Albumin 4.1 g/dL (3.5-5.2) 08/12/21 17:00 Globulin 2.5 g/dL (1.3-4.6) 08/12/21 17:00 TSH 5.01 uIU/mL (0.27-4.20) H 08/13/21 05:06 Free T4 1.13 ng/dL (0.82-1.77) 08/13/21 05:06 Urine Color Yellow (Yellow) 08/12/21 19:01 Urine Appearance Clear (CLEAR) 08/12/21 19:01 Urine pH 6 (5-7) 08/12/21 19:01 Ur Specific [place] 1.010 (1.005-1.030) 08/12/21 19:01 Urine Protein Neg (Negative) 08/12/21 19:01 Urine Glucose (UA) Norm (Normal) 08/12/21 19:01 Urine Ketones Negative (Negative) 08/12/21 19:01 Urine Blood Neg (Negative) 08/12/21 19:01 Urine Nitrate Negative (Negative) 08/12/21 19:01 Urine Bilirubin Neg (Negative) 08/12/21 19:01 Prot Sulfosalicylic Acd Negative (Negative) 08/12/21 19:01 Urine Urobilinogen Norm mg/dL (Negative) 08/12/21 19:01 Ur Leukocyte Esterase Negative (Negative) 08/12/21 19:01 Urine Opiates Screen Negative ng/mL (Negative) 08/12/21 19:01 Ur Barbiturates Screen Negative ng/mL (Negative) 08/12/21 19:01 Ur Phencyclidine Scrn Negative ng/mL (Negative) 08/12/21 19:01 Ur Amphetamines Screen Negative ng/mL (Negative) 08/12/21 19:01 U Benzodiazepines Scrn Negative ng/mL (Negative) 08/12/21 19:01 Urine Cocaine Screen Negative ng/mL (Negative) 08/12/21 19:01 U Marijuana (THC) Screen Positive ng/mL (Negative) H 08/12/21 19:01 Misc Test Reference Cancelled 08/13/21 05:10 Discharge Plan Discharge Patient Disposition: Admitted As Inpatient Admit Provider: Santino Paz Clinical Impression: Headache, Paresthesia, Weakness Condition: Stable Discharge Orders: Discharge Order (Routine); Ordered 08/15/21 Ordered By: Eduardo Osborne Discharge Diet: Cardiac Discharge Activity: Increase activity as tolerated Coding Level of Care Code ED Bilingual Receptionist for Chg Fwd Exam Comprehensive Documented by User: Aleksandar Ledesma MD 08/12/21 21:58 HPI - Headache General: Chief Complaint: Neuro Symptoms/Deficit Stated Complaint: diff gait L sided weakness Time Seen by Provider: 08/12/21 16:35 PFSH ED PFSH: Medical History Asthma Bipolar disorder, unspecified Essential hypertension Migraine Surgical History History of cholecystectomy Family History Other Cancer Diabetes Hypertension Denies family history of Chronic kidney disease (CKD) Stroke Social History Smoking and tobacco status: current every day smoker cigarettes Packs smoked per day: 0.5 Years cigarettes smoked: 13 Quit status (tobacco): has tried quititng Number of times tried to quit tobacco: 1 Second hand smoke exposure: Yes Smoking risk assessment/counseling performed?: Yes Tobacco counseling given: counseling >3 minutes Alcohol intake: never Desire information about alcohol rehabilitation?: No Counseling given: No Desire information about substance/drug rehabilitation?: No Counseling given: No Adopted: No Caregiver/support person: Yes Lives independently: No Household members: friend(s) Housing: House Marital status: Single Number of children: 0 service: No Current occupational status: unemployed History of recent travel: No Current gender identity: Female Course Vital Signs: Vital signs: Vital Signs Temperature 98.6 F 08/15/21 13:25 Pulse Rate 70 08/15/21 12:00 Respiratory Rate 16 08/15/21 08:00 Blood Pressure 140/89 08/15/21 13:25 Pulse Oximetry 98 08/15/21 11:30 MDM - Headache Medical Decision Making Patient presents here with headache along with some left-sided weakness. This is likely a migraine variant CT does show some ICA stenosis will admit for an MRI to rule out any stroke. Her headache here is resolved her symptoms are improving here as well. Lab Data : 08/15/21 05:23 08/15/21 05:23 Radiology Impressions Chest X-Ray 08/12/21 16:40 IMPRESSION: No acute cardiopulmonary disease identified. Head CT 08/12/21 16:40 IMPRESSION: 1. No acute intracranial pathology demonstrated by CT. 2. Areas of chronic encephalomalacia, as above. ASSESSMENT: ASPECTS ([place] Stroke Program Early CT Score) is 10. Head/Neck CTA 08/12/21 18:47 IMPRESSION: Moderate stenosis of the intracranial ICAs bilaterally. IMPRESSION: 1. Moderate 50-69% stenosis of the left proximal ICA. 2. Mild less than 50% stenosis of the right proximal ICA. REFERENCES: NASCET CRITERIA. The degree of internal carotid artery stenosis is based on NASCET criteria. Normal is no stenosis. Mild is less than 50% stenosis. Moderate is 50-69% stenosis. Severe is 70% to 99% stenosis. Total occlusion is no detectable patent lumen. Head MRI 08/13/21 08:00 IMPRESSION: 1. Numerous bilateral small acute lacunar infarcts in multiple distributions. Infarcts in the LEFT cerebellum, bilateral frontal and parietal lobes. Consider central embolic source. 2. Remote infarcts as described within the report. Largest involving the RIGHT occipital lobe with encephalomalacia. 3. No hemorrhage. Laboratory Results WBC 9.7 10^3/uL (4.0-10.0) 08/13/21 05:06 RBC 4.01 10^6/uL (4.1-5.3) L 08/13/21 05:06 Hgb 8.7 g/dL (11.5-15.3) L 08/13/21 05:06 Hct 28.9 % (37.0-47.0) L 08/13/21 05:06 MCV 72.1 fl (81-99) L 08/13/21 05:06 MCH 21.7 pg (28.0-34.0) L 08/13/21 05:06 MCHC 30.1 g/dL (30.0-36.0) 08/13/21 05:06 RDW 18.4 % (12.1-15.1) H 08/13/21 05:06 Plt Count 379 10^3/cmm (130-400) 08/13/21 05:06 MPV 9.7 fL (7.4-10.4) 08/13/21 05:06 Neut % (Auto) 55.3 % 08/13/21 05:06 Lymph % (Auto) 36.5 % 08/13/21 05:06 [place] % (Auto) 6.1 % 08/13/21 05:06 Eos % (Auto) 1.3 % 08/13/21 05:06 Baso % (Auto) 0.1 % 08/13/21 05:06 Neut # (Auto) 5.33 10^3/uL (1.8-7.7) 08/13/21 05:06 Lymph # (Auto) 3.5 10^3/uL (0.8-4.8) 08/13/21 05:06 [place] # (Auto) 0.6 10^3/uL (0.2-0.9) 08/13/21 05:06 Eos # (Auto) 0.1 10^3/uL (0.0-0.8) 08/13/21 05:06 Baso # (Auto) 0.0 10^3/uL (0.0-0.1) 08/13/21 05:06 Nucleated RBC % (auto) 0 % 08/13/21 05:06 Nucleated RBCs # 0.0 /100WBC 08/13/21 05:06 ESR 6 mm/hr (0-15) 08/13/21 05:10 ESR Cancelled 08/13/21 05:10 PT 12.70 SECONDS (12.1-14.9) 08/12/21 17:00 INR 0.93 (0.8-1.2) 08/12/21 17:00 APTT 19.2 SECONDS (23.9-36.7) L 08/12/21 17:00 Sodium 140 mmol/L (136-145) 08/13/21 05:06 Potassium 3.6 mmol/L (3.5-5.1) 08/13/21 05:06 Chloride 105 mmol/L (98-107) 08/13/21 05:06 Carbon Dioxide 27 mmol/L (22-29) 08/13/21 05:06 Anion Gap 11.6 (5-19) 08/13/21 05:06 BUN 13 mg/dL (6-20) 08/13/21 05:06 Creatinine 0.9 mg/dL (0.5-0.9) 08/13/21 05:06 GFR Calculation 66.5 mL/min (90-130) L 08/13/21 05:06 Glucose 93 mg/dL (65-115) 08/13/21 05:06 POC Glucose 121 mg/dL (70-110) H 08/12/21 17:03 Calculated Osmolality 290 mOsm/kg (285-295) 08/13/21 05:06 Calcium 8.9 mg/dL (8.5-10.5) 08/13/21 05:06 Phosphorus 4.2 mg/dL (2.5-4.5) 08/13/21 05:06 Magnesium 1.9 mg/dL (1.7-2.3) 08/13/21 05:06 Total Bilirubin 0.2 mg/dL (0.15-1.2) 08/12/21 17:00 AST 12 U/L (0-32) 08/12/21 17:00 ALT 14 U/L (0-33) 08/12/21 17:00 Alkaline Phosphatase 104 IU/L (35-105) 08/12/21 17:00 C-Reactive Protein 3.0 mg/L (0.0-4.9) 08/13/21 05:06 Total Protein 6.6 g/dL (6.6-8.7) 08/12/21 17:00 Albumin 4.1 g/dL (3.5-5.2) 08/12/21 17:00 Globulin 2.5 g/dL (1.3-4.6) 08/12/21 17:00 TSH 5.01 uIU/mL (0.27-4.20) H 08/13/21 05:06 Free T4 1.13 ng/dL (0.82-1.77) 08/13/21 05:06 Urine Color Yellow (Yellow) 08/12/21 19:01 Urine Appearance Clear (CLEAR) 08/12/21 19:01 Urine pH 6 (5-7) 08/12/21 19:01 Ur Specific [place] 1.010 (1.005-1.030) 08/12/21 19:01 Urine Protein Neg (Negative) 08/12/21 19:01 Urine Glucose (UA) Norm (Normal) 08/12/21 19:01 Urine Ketones Negative (Negative) 08/12/21 19:01 Urine Blood Neg (Negative) 08/12/21 19:01 Urine Nitrate Negative (Negative) 08/12/21 19:01 Urine Bilirubin Neg (Negative) 08/12/21 19:01 Prot Sulfosalicylic Acd Negative (Negative) 08/12/21 19:01 Urine Urobilinogen Norm mg/dL (Negative) 08/12/21 19:01 Ur Leukocyte Esterase Negative (Negative) 08/12/21 19:01 Urine Opiates Screen Negative ng/mL (Negative) 08/12/21 19:01 Ur Barbiturates Screen Negative ng/mL (Negative) 08/12/21 19:01 Ur Phencyclidine Scrn Negative ng/mL (Negative) 08/12/21 19:01 Ur Amphetamines Screen Negative ng/mL (Negative) 08/12/21 19:01 U Benzodiazepines Scrn Negative ng/mL (Negative) 08/12/21 19:01 Urine Cocaine Screen Negative ng/mL (Negative) 08/12/21 19:01 U Marijuana (THC) Screen Positive ng/mL (Negative) H 08/12/21 19:01 Misc Test Reference Cancelled 08/13/21 05:10 Discharge Plan Discharge Patient Disposition: Admitted As Inpatient Admit Provider: Santino Paz Clinical Impression: Headache, Paresthesia, Weakness Condition: Stable Discharge Orders: Discharge Order (Routine); Ordered 08/15/21 Ordered By: Eduardo Osborne Discharge Diet: Cardiac Discharge Activity: Increase activity as tolerated Coding Level of Care Code ED Bilingual Receptionist for Andrey Fwd Exam Comprehensive
--- NOTE | 2021-08-12 16:40 | ECG_ITS ---
[facility] Test Date: 2021-08-12 Pat Name: Trudi Wesley Department: Room: Gender: Female Project Buyer: : 1970 Requested By: Tray Mondragon Order Number: [id number] Juan Pablo MD: Jaswinder Dick M.D. Measurements Intervals [place] Rate: 70 P: 72 [place]: 132 QRS: 74 QRSD: 88 T: 58 QT: 402 QTc: 435 Interpretive Statements SINUS RHYTHM WITH SINUS ARRHYTHMIA POSSIBLE LEFT ATRIAL ENLARGEMENT [-0.1mV P-WAVE IN V1/V2] Compared to ECG 07/29/2021 21:02:26 No significant changes Electronically Signed On 08-12-2021 22:29:36 CDT by Jaswinder Dick M.D. [email or web address]
--- NOTE | 2021-08-12 16:40 | XRR_ITS ---
PROCEDURE INFORMATION: Exam: XR Chest Exam date and time: 08/12/2021 4:53 PM Age: 50 years old Clinical indication: Pain; Other: Headache; Additional info: Stroke like symptoms TECHNIQUE: Imaging protocol: Radiologic exam of the chest. Views: 1 view. COMPARISON: CR (CHEST, ) 07/31/2021 11:40 AM FINDINGS: Lungs: There is no pulmonary vascular congestion. There is no evidence of focal alveolar consolidation. Pleural spaces: There are no pleural effusions. There is no evidence of pneumothorax. Heart/Mediastinum: The cardiac silhouette is within normal limits. Bones/joints: No acute osseous abnormality is identified. XR/XR chest 1V portable [id number] IMPRESSION: No acute cardiopulmonary disease identified.
--- NOTE | 2021-08-12 16:40 | CTR_ITS ---
PROCEDURE INFORMATION: Exam: CT Head Without Contrast Exam date and time: 08/12/2021 4:42 PM Age: 50 years old Clinical indication: Stroke-like symptoms; Additional info: Symptoms of acute stroke TECHNIQUE: Imaging protocol: Computed tomography of the head without contrast. Radiation optimization: All CT scans at this facility use at least one of these dose optimization techniques: automated exposure control; mA and/or kV adjustment per patient size (includes targeted exams where dose is matched to clinical indication); or iterative reconstruction. Other technique: STROKE PROTOCOL was implemented. COMPARISON: CT head wo con* [id number] 07/29/2021 9:12 PM RADIATION DOSE METRICS: Total DLP (mGy-cm): 1448.22 FINDINGS: Brain: Chronic encephalomalacia is seen in the right occipital lobe, right posterior frontal lobe, and at the left frontoparietal junction. No acute intracranial hemorrhage, mass effect or midline shift.No abnormal extra-axial fluid collections are identified. Cerebral ventricles: No hydrocephalus. Paranasal sinuses: The visualized sinuses are unremarkable. Mastoid air cells: There is no mastoid effusion detected. Bones/joints: Unremarkable. No acute fracture. Soft tissues: Unremarkable. Vasculature: Atherosclerotic vascular disease is noted at the level of the skull base. CT/CT head wo con* [id number] IMPRESSION: 1. No acute intracranial pathology demonstrated by CT. 2. Areas of chronic encephalomalacia, as above. ASSESSMENT: ASPECTS ([place] Stroke Program Early CT Score) is 10.
[2021-08-12 17:14] LABS: Basophils % 0.1 %; Eosinophils # 0.1 10^3/uL (0.0-0.8); Eosinophils % 0.6 %; Hematocrit 31.3 % (37.0-47.0); Hemoglobin 9.4 g/dL (11.5-15.3); Lymphocytes # 3.4 10^3/uL (0.8-4.8); Mean Corpuscular Hemoglobin 21.7 pg (28.0-34.0); Mean Corpuscular Volume 72.3 fl (81-99); Mean Platelet Volume 9.9 fL (7.4-10.4); Monocytes # 1.1 10^3/uL (0.2-0.9); Monocytes % 7.4 %; Neutrophils # 10.21 10^3/uL (1.8-7.7); Neutrophils % 68.3 %; Nucleated Red Blood Cells % 0 %; Platelet Count 386 10^3/cmm (130-400); Red Blood Count 4.33 10^6/uL (4.1-5.3); Red Cell Distribution Width 18.4 % (12.1-15.1)
[2021-08-12] MEDS: metoclopramide 5 mg/mL SDV 2 mL 10 MG IVP (17:34)
[2021-08-12] MEDS: sodium chloride 0.9% 1,000 ML 999 ML IV (17:34)
[2021-08-12] MEDS: acetaminophen 1,000 MG/100 ML PIGGYBACK 400 MG IV (17:34)
[2021-08-12] MEDS: diphenhydrAMINE 50 mg/mL SDV 1mL 25 MG IVP (17:34)
[2021-08-12 17:41] LABS: Alanine Aminotransferase 14 U/L (0-33); Albumin Level 4.1 g/dL (3.5-5.2); Alkaline Phosphatase 104 IU/L (35-105); Anion Gap 13.9 (5-19); Aspartate Amino Transferase 12 U/L (0-32); Blood Urea Nitrogen 15 mg/dL (6-20); Calcium 9.7 mg/dL (8.5-10.5); Carbon Dioxide 28 mmol/L (22-29); Chloride 102 mmol/L (98-107); Globulin 2.5 g/dL (1.3-4.6); Glomerular Filtration Rate 58.9 mL/min (90-130); Glucose 102 mg/dL (65-115); Osmolality Calculated 293 mOsm/kg (285-295); Sodium 141 mmol/L (136-145); Total Bilirubin 0.2 mg/dL (0.15-1.2); Total Protein 6.6 g/dL (6.6-8.7)
[2021-08-12 17:44] LABS: Potassium 2.9 mmol/L (3.5-5.1)
[2021-08-12 17:52] LABS: INR 0.93 (0.8-1.2)
[2021-08-12 17:53] LABS: Partial Thromboplastin Time 19.2 SECONDS (23.9-36.7)
[2021-08-12] MEDS: potassium chloride ER 20 mEq Tablet 40 MEQ PO (18:00)
--- NOTE | 2021-08-12 18:47 | CTR_ITS ---
PROCEDURE INFORMATION: Exam: CTA Head With Contrast, Arteriography Exam date and time: 08/12/2021 8:24 PM Age: 50 years old Clinical indication: Weakness; Additional info: Headache, stroke like symptoms TECHNIQUE: Imaging protocol: Computed tomographic angiography of the head with contrast. Exam focused on the arteries. 3D rendering (Not supervised by radiologist): MIP and/or 3D reconstructed images were created by the technologist. Radiation optimization: All CT scans at this facility use at least one of these dose optimization techniques: automated exposure control; mA and/or kV adjustment per patient size (includes targeted exams where dose is matched to clinical indication); or iterative reconstruction. Contrast material: OMNIPAQUE 350; Contrast volume: 75 ml; Contrast route: INTRAVENOUS (IV); COMPARISON: CT angio headneck* [id number] 01/17/2021 4:32 PM RADIATION DOSE METRICS: Total DLP (mGy-cm): 1872.71 FINDINGS: ANTERIOR CIRCULATION: Right internal carotid artery: Calcified plaque causes moderate stenosis of the right intracranial ICA. Right middle cerebral artery: Unremarkable. No occlusion or significant stenosis. No aneurysm. Right anterior cerebral artery: Unremarkable. No occlusion or significant stenosis. No aneurysm. Left internal carotid artery: Calcified plaque causes moderate stenosis of the left intracranial ICA. Left middle cerebral artery: Unremarkable. No occlusion or significant stenosis. No aneurysm. Left anterior cerebral artery: Unremarkable. No occlusion or significant stenosis. No aneurysm. POSTERIOR CIRCULATION: Right vertebral artery: Unremarkable. No occlusion or significant stenosis. No aneurysm. Left vertebral artery: Unremarkable. No occlusion or significant stenosis. No aneurysm. Basilar artery: Unremarkable. No occlusion or significant stenosis. No aneurysm. Right posterior cerebral artery: Unremarkable. No occlusion or significant stenosis. No aneurysm. Left posterior cerebral artery: Unremarkable. No occlusion or significant stenosis. No aneurysm. Brain: No definite mass, mass effect, or midline shift. Cerebral ventricles: No ventriculomegaly. Bones/joints: Unremarkable. No acute fracture. Soft tissues: Unremarkable. PROCEDURE INFORMATION: Exam: CTA Neck With Contrast Exam date and time: 08/12/2021 8:24 PM Age: 50 years old Clinical indication: Weakness; Additional info: Headache, stroke like symptoms TECHNIQUE: Imaging protocol: Computed tomographic angiography of the neck with contrast. 3D rendering (Not supervised by radiologist): MIP and/or 3D reconstructed images were created by the technologist. Radiation optimization: All CT scans at this facility use at least one of these dose optimization techniques: automated exposure control; mA and/or kV adjustment per patient size (includes targeted exams where dose is matched to clinical indication); or iterative reconstruction. Contrast material: OMNIPAQUE 350; Contrast volume: 75 ml; Contrast route: INTRAVENOUS (IV); COMPARISON: CT angio headneck* [id number] 01/17/2021 4:32 PM RADIATION DOSE METRICS: Total DLP (mGy-cm): 1872.71 FINDINGS: Right common carotid artery: No stenosis. No dissection or occlusion. Right internal carotid artery: Calcified plaque causes mild less than 50% stenosis of the right proximal ICA. Right external carotid artery: No occlusion or stenosis of the origin. Left common carotid artery: No stenosis. No dissection or occlusion. Left internal carotid artery: Calcified plaque causes moderate 50-69% stenosis of the left proximal ICA. Left external carotid artery: No occlusion or stenosis of the origin. Right vertebral artery: No stenosis. No dissection or occlusion. Left vertebral artery: No stenosis. No dissection or occlusion. Soft tissues: Normal. No significant soft tissue swelling. Bones/joints: No acute fracture. CT/CT angio headneck* [id number] IMPRESSION: Moderate stenosis of the intracranial ICAs bilaterally. IMPRESSION: 1. Moderate 50-69% stenosis of the left proximal ICA. 2. Mild less than 50% stenosis of the right proximal ICA. REFERENCES: NASCET CRITERIA. The degree of internal carotid artery stenosis is based on NASCET criteria. Normal is no stenosis. Mild is less than 50% stenosis. Moderate is 50-69% stenosis. Severe is 70% to 99% stenosis. Total occlusion is no detectable patent lumen.
[2021-08-12 19:27] LABS: Add Urine Microscopic? NO; Charge for UA Resulting for Rev
[2021-08-12 19:31] LABS: Bilirubin Urine Neg (Negative); Blood Urine Neg (Negative); Glucose Urine UA Norm (Normal); Ketones Urine Negative (Negative); Leukocyte Esterase Urine Negative (Negative); Nitrate Urine Negative (Negative); Protein Urine Neg (Negative); Sulfosalicylic Acid Urine Negative (Negative); Urine Appearance Clear (CLEAR); Urine Color Yellow (Yellow); Urobilinogen Urine Norm (Negative); pH Urine 6 (5-7)
[2021-08-12 19:40] LABS: Amphetamines Screen Urine Negative (Negative); Barbiturates Screen Urine Negative (Negative); Benzodiazepines Screen Urine Negative (Negative); Cocaine Screen Urine Negative (Negative); Opiate Screen Urine Negative (Negative); PCP Screen Urine Negative (Negative); THC Screen Urine Positive (Negative)
[2021-08-12] MEDS: iohexol 350 mg/mL 100 mL Btl IV (20:25)
--- NOTE | 2021-08-12 23:15 | P.HP_ITS ---
Providers/Chief Complaint Admitting Physician: Santino Paz MD Primary Care Provider: JEREMY LeosP-C Chief Complaint: diff gait L sided weakness History of Present Illness Trudi Wesley is a 50 year old female past medical history of hypertension CVA, came in with chief complaint of left-sided headache she rates it as 10 out of 10 in severity, sharp, throbbing. She has history of chronic headache for quite some time, but today it was worse in severity, Currently she denied any chest pain shortness of breath, fever cough, runny nose, visual disturbances, No pain while eating. She has been in the ER multiple times in the last couple of months with similar complaint. Upon arrival in the ER she was worked up for above-mentioned complaint: CT head without contrast: No acute intracranial pathology CTA head and neck: Moderate 50-69% stenosis of the left proximal ICA.Mild less than 50% stenosis of the right proximal ICA.. EKG: SINUS RHYTHM WITH SINUS ARRHYTHMIA. Pertinent labs: WBC 15 H&H 9.4/ 31 , PLT : 386 , serum sodium 141 serum potassium 2.9 BUN / serum creatinine: 15/1 , AST ALT alk phos normal total bilirubin normal. Urinalysis clean, U tox positive for marijuana Review of Systems Const: Denies: fever(s), chills, body aches, change in appetite or diaphoresis Card: Denies: palpitations, edema, swelling of feet/ankles, dyspnea on e xertion, orthopnea or leg pain with exertion Resp: Denies: dyspnea, productive cough, wheezing or pain on inspiration GI: Denies: abdominal pain, nausea, vomiting, diarrhea or constipation : Denies: flank pain Musc: Denies: back pain, extremity pain or extremity swelling Neuro: Reports: headache(s); Denies: difficulty walking or confusion Medications/Allergies Home Medications Medication Instructions Recorded Confirmed Last Taken Type albuterol sulfate 90 mcg/actuation 2 inh INHALATION 6XD PRN #8.5 g 07/31/21 Unknown Rx aerosol inhaler (ProAir HFA) albuterol sulfate 90 mcg/actuation 2 puff INHALATION Q4H PRN 07/31/21 07/31/21 Unknown History aerosol inhaler (ProAir HFA) aspirin 81 mg tablet,delayed 81 mg PO QAM 07/31/21 07/31/21 07/30/21 History release valsartan 80 mg tablet (Diovan) 80 mg PO QAM 07/31/21 07/31/21 07/30/21 History zolpidem 5 mg tablet (Ambien) 5 mg PO BEDTIME 07/31/21 07/31/21 07/30/21 History Allergies Allergy/AdvReac Type Severity Reaction Status Date / Time codeine AdvReac Rash & itch Verified 07/31/21 11:44 Sulfa (Sulfonamide AdvReac Swelling Verified 07/31/21 11:44 Antibiotics) of face PFSH Acute PFSH: Medical History Asthma Bipolar disorder, unspecified Essential hypertension Migraine Surgical History History of cholecystectomy Family History Other Cancer Diabetes Hypertension Denies family history of Chronic kidney disease (CKD) Stroke Social History Smoking and tobacco status: current every day smoker cigarettes Packs smoked per day: 0.5 Years cigarettes smoked: 13 Quit status (tobacco): has tried quititng Number of times tried to quit tobacco: 1 Second hand smoke exposure: Yes Smoking risk assessment/counseling performed?: Yes Tobacco counseling given: counseling >3 minutes Alcohol intake: never Desire information about alcohol rehabilitation?: No Counseling given: No Desire information about substance/drug rehabilitation?: No Counseling given: No Adopted: No Caregiver/support person: Yes Lives independently: No Household members: friend(s) Housing: House Marital status: Single Number of children: 0 service: No Current occupational status: unemployed History of recent travel: No Current gender identity: Female Vitals/I&O/Wt Last Vital Signs Temp 97.9 F 08/12/21 16:52 Pulse 65 08/12/21 22:36 Resp 16 08/12/21 19:07 BP 147/87 08/12/21 22:36 Pulse Ox 98 08/12/21 22:36 08/12/21 08/12/21 08/13/21 14:59 22:59 06:59 Intake Total 1152 / 1152 Balance 1152 / 1152 Weight last 48 hrs Weight 56.699 kg Physical Exam Const: COMMON NORMALS: patient oriented x3 HENMT: COMMON NORMALS: normocephalic and atraumatic HEAD & SCALP: normocephalic and atraumatic Resp: COMMON NORMALS: clear to auscultation bilaterally AUSCULTATION: clear to auscultation bilaterally Cardio: COMMON NORMALS: regular rate, regular rhythm, S1 normal heart sound present, S2 normal heart sound present, No gallops present (Cardio), No murmurs present (Cardio), No rub (Cardio) and Peripheral pulses 2+ throughout RATE: regular rate RHYTHM: regular rhythm HEART SOUNDS: S1 normal heart sound present and S2 normal heart sound present PERIPHERAL PULSES: Peripheral pulses 2+ throughout GI: COMMON NORMALS: Normal to inspection, nondistended, normoactive bowel sounds present, Soft to palpation, non-tender, No hepatosplenomegaly present and no masses AUSCULTATION: Yes normoactive bowel sounds PALPATION: Yes Soft to palpation and Yes No hepatosplenomegaly present RECTAL EXAM: deferred Extremity: COMMON NORMALS: no clubbing, cyanosis or edema and no pedal edema Neuro: COMMON NORMALS: patient oriented x3 Data : 08/12/21 17:00 08/12/21 17:00 A&P Assessment and plan (1) Headache: Status: Acute (2) Essential hypertension: Status: Chronic (3) Leukocytosis: Status: Acute (4) Anemia: Status: Acute (5) Hypokalemia: Status: Acute Plan 50 year old female past medical history of hypertension CVA, came in with chief complaint of headache She has been in the ER multiple times in the last couple of months with similar complaint. Currently she denied any chest pain shortness of breath, fever cough, runny n ose, visual disturbances No pain while eating. Assessment: Recurrent persistent headache Possible GCA History of hypertension History of CVA Plan: Follow MRI head without contrast Continue lisinopril Pain control Neurology follow-up as outpatient CODE STATUS: Full code DVT prophylaxis: On Lovenox Attestations Medical Necessity Statement*: Patient is in hospital for management of severe headache. Time Spent in Patient Care: Greater than 35 minutes (>than 50% of time spent in counselling and/or direct pt care on unit) . Coding Level of Care Code Acute Crane Rigger for [facility] Fwd Exam Detailed Diagnoses Headache R51.9 Essential hypertension I10 Leukocytosis D72.829 Anemia D64.9 Hypokalemia E87.6
[2021-08-12] MEDS: sodium chloride 0.9% 1,000 ML 75 ML IV (23:31)
[2021-08-12] MEDS: ketorolac 10 mg Tablet PO (23:32)
[2021-08-13] VITALS (9 sets, daily range): BP systolic 131–174; BP diastolic 78–98; PULSE 60–82; RESP 14–18; TEMP 36.4–37; O2SAT 92–98
[2021-08-13 05:16] LABS: Basophils % 0.1 %; Eosinophils # 0.1 10^3/uL (0.0-0.8); Eosinophils % 1.3 %; Hematocrit 28.9 % (37.0-47.0); Hemoglobin 8.7 g/dL (11.5-15.3); Lymphocytes # 3.5 10^3/uL (0.8-4.8); Lymphocytes % 36.5 %; Mean Corpuscular HGB Conc 30.1 g/dL (30.0-36.0); Mean Corpuscular Hemoglobin 21.7 pg (28.0-34.0); Mean Corpuscular Volume 72.1 fl (81-99); Mean Platelet Volume 9.7 fL (7.4-10.4); Monocytes # 0.6 10^3/uL (0.2-0.9); Monocytes % 6.1 %; Neutrophils # 5.33 10^3/uL (1.8-7.7); Neutrophils % 55.3 %; Nucleated Red Blood Cells % 0 %; Platelet Count 379 10^3/cmm (130-400); Red Blood Count 4.01 10^6/uL (4.1-5.3); Red Cell Distribution Width 18.4 % (12.1-15.1); White Blood Count 9.7 10^3/uL (4.0-10.0)
[2021-08-13 05:48] LABS: Anion Gap 11.6 (5-19); Blood Urea Nitrogen 13 mg/dL (6-20); Calcium 8.9 mg/dL (8.5-10.5); Carbon Dioxide 27 mmol/L (22-29); Chloride 105 mmol/L (98-107); Glomerular Filtration Rate 66.5 mL/min (90-130); Glucose 93 mg/dL (65-115); Magnesium 1.9 mg/dL (1.7-2.3); Osmolality Calculated 290 mOsm/kg (285-295); Phosphorus 4.2 mg/dL (2.5-4.5); Potassium 3.6 mmol/L (3.5-5.1); Sodium 140 mmol/L (136-145); Thyroid Stimulating Hormone 5.01 uIU/mL (0.27-4.20)
--- NOTE | 2021-08-13 08:00 | MR_ITS ---
WS: [id number] MRI BRAIN WITHOUT CONTRAST HISTORY: Persistent Headache COMPARISON: 09/09/2009, noncontrast CT head 08/12/2021 TECHNIQUE: Diffusion imaging, multiplanar T1, T2 and FLAIR imaging obtained. Numerous bilateral diffusion-weighted infarcts are present in multiple vascular territories. Numerous acute small lacunar infarcts in the LEFT cerebellum. There are additional numerous acute cortical an d subcortical infarcts noted bilaterally above the lateral ventricles. Bilateral frontal and parietal lobe cortical and subcortical lacunar infarcts. No hemorrhage or acute edema. Additional mild small vessel ischemic changes. Prior infarct in the RIGHT frontal cortex. Remote infa rct in the LEFT postcentral gyrus. Prior infarct RIGHT occipital lobe. Ventricles are normal size. No inferior displacement of cerebellar tonsils. Dural venous sinuses and [place] of [place] demonstrate no abnormality on this unenhanced studies. Paranasal sinuses: Clear. Mastoid air cells: Normal. Calvarium and scalp: Intact. MR/MR head wo con* [id number] IMPRESSION: 1. Numerous bilateral small acute lacunar infarcts in multiple distributions. Infarcts in the LEFT cerebellum, bilateral frontal and parietal lobes. Consider central embolic source. 2. Remote infarcts as described within the report. Largest involving the RIGHT occipital lobe with encephalomalacia. 3. No hemorrhage.
[2021-08-13] MEDS: lisinopril 20 mg Tablet 40 MG PO (08:05)
[2021-08-13] MEDS: ketorolac 30 mg/mL INJ IVP ×2 (08:05→20:04)
[2021-08-13] MEDS: ondansetron 2 mg/ML SDV 2 mL 4 MG IVP ×2 (08:05→22:31)
[2021-08-13] MEDS: enoxaparin 40 mg/0.4 mL Syringe SUBCUT (08:08)
[2021-08-13 10:31] LABS: Free T4 Free Thyroxine 1.13 ng/dL (0.82-1.77)
--- NOTE | 2021-08-13 11:17 | USCV_ITS ---
LupilloTrudi daniel Age: 50 Gender: F : 1970 Exam Date: 08/13/2021 13:22 Ordering Phys: Eduardo Osborne MD Technologist: Jazlyn Souza Exam Location: [facility] Indication: CVA Risk Factors: Unknown Previous Vascular Surgery: None Right Brachial BP: / Left Brachial BP: / Right Left Velocity (cm/s) Spectral Plaque Velocity (cm/s) Spectral Plaque Syst/Diast Broadening Syst/Diast Broadening 63.90/ 23.20 Prox CCA 53.60 / 18.90 61.70/ 26.50 Mid CCA 37.10 / 12.40 87.10/ 38.60 Hetro Distal CCA 69.20 / 25.50 Hetro 77.90/ 30.60 Hetro Prox ICA 164.00/ 37.60 Hetro 94.60/ 39.40 Mid ICA 151.90/ 34.90 89.90/ 37.00 Distal ICA 121.90/ 25.50 70.60 Hetro ECA 88.20 Hetro 1.53 ICA/CCA 4.42 Antegrade Vertebral Antegrade 29.60/ 14.50 cm/s 55.70/ 11.60 cm/s [place] Subclavian Tri 83.20 108.0 0 FINDINGS Comparison: none available. Moderate obstructive lesions noted in the left internal carotid artery estimated at 50-79% stenosis. Mild elevation of diastolic velocity also. Mild scattered plaque in the carotid arteries. Mild obstructive lesion noted in the right carotid bulb less than 50%. Bilateral antegrade vertebrall arteries. CONCLUSIONS Left ICA stenosis 50-69%. Right ICA stenosis < 50%. Dr. Joslyn Kearney DO (Electronically Signed) Final Date: 13 August 2021 14:05 S
--- NOTE | 2021-08-13 11:17 | USCV_ITS ---
Lupillo Trudi Age: 50 Gender: F : 1970 Exam Date: 08/13/2021 13:01 Ordering Phys: Eduardo Osborne MD Technologist: Jazlyn Souza [place] [facility] [place]: cva BP: / HR: 66 Rhythm: Sinus Technical Quality: Adequate MEASUREMENTS (Male / Female) Normal Values 2D ECHO LV Diastolic Diameter PLAX 2.8 cm 4.2 - 5.9 / 3.9 - 5.3 cm LV Systolic Diameter PLAX 1.8 cm LV Chamber Size 4.0 cm IVS Diastolic Thickness 1.2 cm 0.6 - 1.0 / 0.6 - 0.9 cm IVS Systolic Thickness 1.5 cm LVPW Diastolic Thickness 1.2 cm 0.6 - 1.0 / 0.6 - 0.9 cm LVPW Systolic Thickness 1.7 cm RV Chamber Size 2.4 cm LVOT Diameter 2.1 cm LV Ejection Fraction 2D Teich 65.6 % LV Ejection Fraction MOD 2C 52.0 % LV Ejection Fraction 2C AL 53.6 % LA Diameter 2.8 cm LA Width 3.1 cm LA Height 3.2 cm RA Width 2.8 cm RA Height 2.7 cm Aorta at Sinotubular Diameter 3.0 cm IVC Diameter 1.6 cm M-MODE Aortic Annulus Diameter 3.1 cm LA Ao Ratio MM 1.0 MV E Point Septal Separation 0.6 cm DOPPLER AV Peak Velocity 183.0 cm/s LVOT Peak Velocity 114.0 cm/s AV Area Cont Eq vti 2.2 cm squared AV Area Cont Eq pk 2.1 cm squared MV Area PHT 3.9 cm squared Mitral E to A Ratio 1.3 MV E' Velocity 51.5 cm/s Mitral E to MV E' Ratio 11.3 Mitral E to LV E' Lateral Ratio 11.9 Mitral E to LV E' Septal Ratio 10.9 TR Peak Velocity 164.6 cm/s TR Peak Gradient 10.8 mmHg TR Mean Velocity 96.9 cm/s TR Mean Gradient 4.6 mmHg TR Velocity Time Integral 33.5 cm TV Peak E Velocity 52.0 cm/s PV Peak Velocity 90.0 cm/s RV Acceleration Time 0.1 s RV Ejection Time 0.3 s RV AcT/ET 0.4 FINDINGS Left Ventricle Normal left ventricular size. LV systolic function is normal with EF of 55-60%. No regional wall motion abnormalities. Diastolic function is normal Right Ventricle The right ventricle is normal in size and function. Right Atrium The right atrium is normal in size. Left Atrium The left atrium is normal in size. Mitral Valve Structurally normal mitral valve without significant stenosis or prolapse. There is mild mitral regurgitation. Aortic Valve Structurally normal aortic valve without significant sclerosis or stenosis. Tricuspid Valve Structurally normal tricuspid valve without significant stenosis or regurgitation. Pulmonary artery systolic pressure is normal. Pulmonic Valve Not well visualized Pericardium Normal pericardium without effusion. Aorta Normal ascending aorta dimension. IVC CONCLUSIONS LV systolic function is normal with EF of 55-60% Diastolic function is normal Mild mitral regurgitation No comparison studies are available Jaswinder Dick MD (Electronically Signed) Final Date: 13 August 2021 15:27 S
[2021-08-13] MEDS: aspirin 81 mg EC Tablet 162 MG PO (12:02)
[2021-08-13] MEDS: acetaminophen 325 mg Tablet 650 MG PO ×2 (12:03→22:31)
[2021-08-13 13:33] LABS: Glucose Point of Care 121 mg/dL (70-110)
--- NOTE | 2021-08-13 14:10 | P.PN_ITS ---
Subjective Subjective: Having some persistence of left side headache. Continued left- sided blurred vision. Denies left-sided chest wall tenderness. Denies jaw claudication. MRI pending during my visit. Vitals/I&O/Wt Last Vital Signs Temp 97.6 F 08/13/21 10:46 Pulse 82 08/13/21 10:46 Resp 18 08/13/21 10:46 BP 131/85 08/13/21 10:46 Pulse Ox 96 08/13/21 10:46 08/12/21 08/13/21 08/13/21 22:59 06:59 14:59 Intake Total 1152 / 1152 240 / 1392 480 / 480 Balance 1152 / 1152 240 / 1392 480 / 480 Weight last 48 hrs Weight 56.699 kg Physical Exam Const: COMMON NORMALS: alert GENERAL APPEARANCE: cooperative ORIENTATION/CONSCIOUSNESS: Yes awake HENMT: COMMON NORMALS: normocephalic, EAC's normal, Normal external nose present and moist oral mucous membranes HEAD & SCALP: normocephalic NOSE: Normal external nose present EXTERNAL AUDITORY CANAL: EAC's normal OTHER: No temporal tenderness or palpable cord. Neck/C-Spine: COMMON NORMALS: no meningeal signs Chest: CHEST: Yes Symmetrical chest wall rise Resp: COMMON NORMALS: clear to auscultation bilaterally AUSCULTATION: clear to auscultation bilaterally Cardio: COMMON NORMALS: regular rate, regular rhythm and No murmurs present (Cardio) RATE: regular rate RHYTHM: regular rhythm GI: COMMON NORMALS: Normal to inspection, nondistended, normoactive bowel sounds present, Soft to palpation and non-tender PALPATION: Yes Soft to palpation Extremity: COMMON NORMALS: no pedal edema Neuro: COMMON NORMALS: moves all extremities SENSORIUM/ORIENTATION: Yes alert MENINGEAL SIGNS: Yes no meningeal signs COORDINATION/BALANCE: [id number] test normal MOTOR EXAM: Pronator motor function not present COORDINATION: [id number] test normal OTHER: Awake and alert, readily following directions. No trouble tracking. Reports vision blurriness on the left. Psych: COMMON NORMALS: mental status grossly normal Skin: COMMON NORMALS: no wounds RASHES: no rashes Data : 08/13/21 05:06 08/13/21 05:06 A&P Assessment and plan (1) Acute CVA (cerebrovascular accident): MRI: Numerous bilateral small acute lacunar infarcts in multiple distributions. Infarcts in the LEFT cerebellum, bilateral frontal and parietal lobes. Consider central embolic source. Assess TTE with bubble study. Carotid Doppler. Aspirin 162 mg. Statin. Hold lisinopril for now. PT assessment. Status: Acute (2) Headache: Left-sided headache, reports also persistent blurred vision of the left side since arriving yesterday. Denies temporal tenderness, no tenderness on palpation, no palpable cord. Denies jaw claudication. Discussed with her additional consideration of GCA, requested ESR, CRP. However, CRP is normal. Also has numerous bilateral acute lacunar infarcts with suspicion of embolic source. GCA likelihood lower, however, cannot exclude something like embolic retinal artery occlusion. We will try to reach out to ophthalmology to see if they may have additional recommendations. Status: Acute (3) Essential hypertension: Status: Chronic (4) Leukocytosis: Status: Acute (5) Anemia: Status: Acute (6) Hypokalemia: Status: Acute Attestations Medical Necessity Statement*: Admission of over 2 midnights is needed versus management of multifocal acute lacunar CVA with concern for embolic etiology. Coding Level of Care Code Acute Outpatient Program Coordinator for [facility] Diagnoses Headache R51.9 Essential hypertension I10 Leukocytosis D72.829 Anemia D64.9 Hypokalemia E87.6 Acute CVA (cerebrovascular accident) I63.9
[2021-08-13] MEDS: sodium chloride 0.9% 1,000 ML 75 ML IV (16:50)
[2021-08-13] MEDS: atorvastatin 40 mg Tablet PO (20:04)
--- NOTE | 2021-08-13 22:38 | PC.NURSE ---
Pt came out of room into the hallway yelachelle. This RN did not hear what patient stated but Nga battery charger was able to calm patient and get to her room. Upon this RN entering pt room pt was wrapped around her IV tubing and IV tape was becoming loose. Pt holding her head and crying. Pt stating I was watching tv and my head just started throbbing and a flash of light. I lost vision in my left eye. I still can't see. IV re secured. Ice pack applied. C/o nausea. Tylenol and zofran administered as ordered. Pt continued to thrash around in the bed getting herself tangled in the IV tubing and continues to be tearful. Pt inconsolable. Dr. Paz made aware of change in pt condition. New order for Haldol 5 mg IV now and reglan 5 mg IVP 30 minutes after administering haldol.
[2021-08-13] MEDS: haloperidol inj 5 mg/mL INJ 1 mL IM (22:55)
[2021-08-13] MEDS: metoclopramide 5 mg/mL SDV 2 mL IVP (23:25)
[2021-08-14] VITALS (9 sets, daily range): BP systolic 106–154; BP diastolic 63–88; PULSE 66–81; RESP 15–19; TEMP 36.6–36.8; O2SAT 90–98
[2021-08-14 05:18] LABS: Basophils % 0.2 %; Eosinophils # 0.3 10^3/uL (0.0-0.8); Eosinophils % 3.1 %; Hematocrit 26.9 % (37.0-47.0); Hemoglobin 8.1 g/dL (11.5-15.3); Lymphocytes # 2.7 10^3/uL (0.8-4.8); Lymphocytes % 33.5 %; Mean Corpuscular HGB Conc 30.1 g/dL (30.0-36.0); Mean Corpuscular Hemoglobin 21.5 pg (28.0-34.0); Mean Corpuscular Volume 71.5 fl (81-99); Mean Platelet Volume 9.7 fL (7.4-10.4); Monocytes # 0.6 10^3/uL (0.2-0.9); Monocytes % 7.1 %; Neutrophils # 4.55 10^3/uL (1.8-7.7); Neutrophils % 55.7 %; Nucleated Red Blood Cells % 0 %; Platelet Count 300 10^3/cmm (130-400); Red Blood Count 3.76 10^6/uL (4.1-5.3); Red Cell Distribution Width 18.2 % (12.1-15.1); White Blood Count 8.2 10^3/uL (4.0-10.0)
[2021-08-14] MEDS: sodium chloride 0.9% 1,000 ML 75 ML IV ×2 (05:30→20:57)
[2021-08-14 05:38] LABS: Anion Gap 11.9 (5-19); Blood Urea Nitrogen 12 mg/dL (6-20); Calcium 8.8 mg/dL (8.5-10.5); Carbon Dioxide 25 mmol/L (22-29); Chloride 106 mmol/L (98-107); Glomerular Filtration Rate 76.2 mL/min (90-130); Glucose 92 mg/dL (65-115); Osmolality Calculated 287 mOsm/kg (285-295); Potassium 3.9 mmol/L (3.5-5.1); Sodium 139 mmol/L (136-145)
[2021-08-14] MEDS: ketorolac 30 mg/mL INJ IVP (08:17)
[2021-08-14] MEDS: enoxaparin 40 mg/0.4 mL Syringe SUBCUT (08:18)
[2021-08-14] MEDS: aspirin 81 mg EC Tablet 162 MG PO (08:18)
--- NOTE | 2021-08-14 12:35 | PM.PN ---
Subjective Subjective: Discussed with her findings of MRI. She tells me today symptomatically she is doing better. Headache has gone away, although did have some overnight. Vision has improved, however. Overall she feels that MRI findings make sense given she has been feeling some vague focal symptoms including some mild dysarthria, some coordination difficulties, in ER had some reported right-sided sensory deficits. Discussed with her TTE, and consideration of LESLIE. Vitals/I&O/Wt Last Vital Signs Temp 98.2 F 08/14/21 04:00 Pulse 78 08/14/21 11:26 Resp 18 08/14/21 11:26 BP 124/72 08/14/21 11:26 Pulse Ox 98 08/14/21 11:26 08/13/21 08/14/21 08/14/21 22:59 06:59 14:59 Intake Total 360 / 1840 950 / 2790 480 / 480 Output Total 1000 / 1000 1000 / 1000 Balance -640 / 840 950 / 1790 -520 / -520 Weight last 48 hrs Weight 56.699 kg Physical Exam Const: COMMON NORMALS: alert GENERAL APPEARANCE: cooperative ORIENTATION/CONSCIOUSNESS: Yes awake HENMT: COMMON NORMALS: normocephalic, EAC's normal, Normal external nose present and moist oral mucous membranes HEAD & SCALP: normocephalic NOSE: Normal external nose present EXTERNAL AUDITORY CANAL: EAC's normal OTHER: No temporal tenderness or palpable cord. Neck/C-Spine: COMMON NORMALS: no meningeal signs Chest: CHEST: Yes Symmetrical chest wall rise Resp: COMMON NORMALS: clear to auscultation bilaterally AUSCULTATION: clear to auscultation bilaterally Cardio: COMMON NORMALS: regular rate, regular rhythm and No murmurs present (Cardio) RATE: regular rate RHYTHM: regular rhythm GI: COMMON NORMALS: Normal to inspection, nondistended, normoactive bowel sounds present, Soft to palpation and non-tender PALPATION: Yes Soft to palpation Extremity: COMMON NORMALS: no pedal edema Neuro: COMMON NORMALS: moves all extremities SENSORIUM/ORIENTATION: Yes alert MENINGEAL SIGNS: Yes no meningeal signs COORDINATION/BALANCE: [id number] test normal MOTOR EXAM: Pronator motor function not present COORDINATION: [id number] test normal OTHER: Awake and alert, readily following directions. No trouble tracking. Resolved vision blurriness on the left. Psych: COMMON NORMALS: mental status grossly normal Skin: COMMON NORMALS: no wounds RASHES: no rashes Data : 08/14/21 04:10 08/14/21 04:10 A&P Assessment and plan (1) Acute CVA (cerebrovascular accident): Discussed with her MRI results, concern for possible central embolic source. Monitoring for A. fib. TTE results reviewed. Appreciate cardiology consultation regarding LESLIE. Consider rn cardiac at discharge. Follow-up with neurology. MRI: Numerous bilateral small acute lacunar infarcts in multiple distributions. Infarcts in the LEFT cerebellum, bilateral frontal and parietal lobes. Consider central embolic source. Assess TTE with bubble study. Carotid Doppler. Aspirin 162 mg. Statin. Hold lisinopril for now. PT assessment. She feels mild dysarthria, ST evaluation. Has not had any trouble with dysphagia. Status: Acute (2) Headache: Left-sided headache, reports also persistent blurred vision of the left side since arriving in ER, today resolved. Denies temporal tenderness, no tenderness on palpation, no palpable cord. Denies jaw claudication. CRP normal. GCA likelihood low. Discussed with her. Consider follow-up with ophthalmology regarding left eye transient blurred vision. Status: Acute (3) Essential hypertension: Status: Chronic (4) Leukocytosis: Status: Acute (5) Anemia: Hemoglobin down at 8.1 with gentle IV hydration. Likely with dehydration component at presentation. Reassess hemoglobin. Check iron panel. Status: Acute (6) Hypokalemia: Status: Acute Attestations Medical Necessity Statement*: Continue admission for assessment management of multifocal CVA, investigation for possible central embolic etiology. 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
[2021-08-14 14:50] LABS: Ferritin 7 ng/mL (15-150); Iron 20 ug/dL (37-145); Percent Saturation 5.8 % (20-50); Total Iron Binding Capacity 344 mcg/dl; Unsaturated Iron Binding 324 ug/dL (112-347)
--- NOTE | 2021-08-14 17:45 | PM.CONSULT ---
Providers/Reason For Consult Consulting Physician/Specialty*: Jaswinder Dick MD/Cardiology Reason for Consult*: Stroke Requesting Physician: Dr Osborne Attending Physician: Eduardo Osborne Primary Care Provider: BAILEY Leos History of Present Illness History of Present Illness Trudi Wesley is a 50 year old female with past medical history of hypertension who presented to the hospital with headaches and blurred vision and has been diagnosed with multiple bilateral acute lacunar infarcts on MRI. Cardiology was consulted to consider transesophageal echocardiogram to look for cardiac source of embolization. Currently she is stable. Denies chest pain or prior cardiac history. EKG showed sinus rhythm Review of Systems Const: Denies: fever(s), chills, body aches, change in appetite or diaphoresis Card: Denies: palpitations, edema, swelling of feet/ankles, dyspnea on exertion, orthopnea or leg pain with exertion Resp: Denies: dyspnea, productive cough, wheezing or pain on inspiration GI: Denies: abdominal pain, nausea, vomiting, diarrhea or constipation : Denies: flank pain Musc: Denies: back pain, extremity pain or extremity swelling Neuro: Reports: headache(s); Denies: difficulty walking or confusion Medications/Allergies Home Medications Medication Instructions Recorded Confirmed Last Taken Type albuterol sulfate 90 mcg/actuation 2 inh INHALATION 6XD PRN #8.5 g 07/31/21 08/13/21 Unknown Rx aerosol inhaler (ProAir HFA) aspirin 81 mg tablet,delayed 81 mg PO QAM 07/31/21 08/13/21 07/30/21 History release valsartan 80 mg tablet (Diovan) 80 mg PO QAM 07/31/21 08/13/21 07/30/21 History zolpidem 5 mg tablet (Ambien) 5 mg PO BEDTIME 07/31/21 08/13/21 07/30/21 History doxycycline hyclate 100 mg capsule 100 mg PO BID 08/13/21 08/13/21 08/11/21 History prednisone 20 mg tablet 20 mg PO BID 08/13/21 08/13/21 08/11/21 History Allergies Allergy/AdvReac Type Severity Reaction Status Date / Time codeine AdvReac Rash & itch Verified 08/13/21 09:46 Sulfa (Sulfonamide AdvReac Swelling Verified 08/13/21 09:46 Antibiotics) of face Current Medications Generic Name Dose Route Start Last Admin Trade Name Freq PRN Reason Stop Dose Admin Acetaminophen 650 mg 08/12/21 23:10 08/13/21 22:31 Acetaminophen 325 Mg Tablet PO 650 mg Q6H PRN Administration Mild/Mod Pain Or Temp >/= 101 Aspirin 162 mg 08/13/21 11:25 08/14/21 08:18 Aspirin 81 Mg Ec Tablet PO 162 mg DAILY LUCAS Administration Atorvastatin Calcium 40 mg 08/13/21 21:00 08/13/21 20:04 Atorvastatin 40 Mg Tablet PO 40 mg BEDTIME LUCAS Administration Enoxaparin Sodium 40 mg 08/13/21 08:00 08/14/21 08:18 Enoxaparin 40 Mg/0.4 Ml Syringe SUBCUT 40 mg Q24H LUCAS Administration Sodium Chloride 1,000 mls @ 75 mls/hr 08/12/21 23:15 08/14/21 05:30 Sodium Chloride 0.9% IV 75 mls/hr .[id number] LUCAS Administration Ketorolac Tromethamine 10 mg 08/12/21 23:10 08/12/21 23:32 Ketorolac 10 Mg Tablet PO 08/17/21 23:09 10 mg Q6H PRN Administration MODERATE PAIN Ketorolac Tromethamine 30 mg 08/12/21 23:10 08/14/21 08:17 Ketorolac 30 Mg/Ml Inj IVP 08/17/21 23:09 30 mg Q6H PRN Administration MODERATE PAIN Lisinopril 40 mg 08/13/21 09:00 08/13/21 08:05 Lisinopril 20 Mg Tablet PO 40 mg DAILY LUCAS Administration Ondansetron HCl 4 mg 08/12/21 23:10 08/13/21 22:31 Ondansetron 2 Mg/Ml Sdv 2 Ml IVP 4 mg Q8H PRN Administration vomiting, or N/V if npo PFSH Acute PFSH: Medical History Asthma Bipolar disorder, unspecified Essential hypertension Migraine Surgical History History of cholecystectomy Family History Other Cancer Diabetes Hypertension Denies family history of Chronic kidney disease (CKD) Stroke Social History Smoking and tobacco status: current every day smoker cigarettes Packs smoked per day: 0.5 Years cigarettes smoked: 13 Quit status (tobacco): has tried quititng Number of times tried to quit tobacco: 1 Second hand smoke exposure: Yes Smoking risk assessment/counseling performed?: Yes Tobacco counseling given: counseling >3 minutes Alcohol intake: never Desire information about alcohol rehabilitation?: No Counseling given: No Desire information about substance/drug rehabilitation?: No Counseling given: No Adopted: No Caregiver/support person: Yes Lives independently: No Household members: friend(s) Housing: House Marital status: Single Number of children: 0 service: No Current occupational status: unemployed History of recent travel: No Current gender identity: Female Vitals/I&O/Wt Last Vital Signs Temp 98.2 F 08/14/21 15:38 Pulse 81 08/14/21 15:38 Resp 18 08/14/21 15:38 BP 122/76 08/14/21 15:38 Pulse Ox 98 08/14/21 15:38 08/14/21 08/14/21 08/14/21 06:59 14:59 22:59 Intake Total 950 / 2790 720 / 720 240 / 960 Output Total 1000 / 1000 Balance 950 / 1790 -280 / -280 240 / -40 Physical Exam Narrative: GENERAL: Patient is alert, awake and oriented x3. [] NECK: No jugular vein distension. [] HEENT: No cyanosis. No icterus. No pallor. [] HEART: Regular S1 and S2. No murmur, rub or gallop. [] LUNGS: Clear to auscultate bilaterally. [] ABDOMEN: Soft, nontender and nondistended. Positive bowel sounds. No guarding, rebound or tenderness. [] CENTRAL NERVOUS SYSTEM: Grossly nonfocal. [] EXTREMITIES: Lower extremities with 1+ edema bilaterally. Pulses palpable in the lower extremities, both dorsalis pedis and posterior tibial. [] Data : 08/15/21 05:23 08/15/21 05:23 A&P Assessment and plan (1) Acute CVA (cerebrovascular accident): Status: Acute (2) Anemia: Status: Acute (3) Essential hypertension: Status: Chronic Plan Patient had presented with on stroke symptoms and MRIs showing acute bilateral lacunar infarcts. Cardiac source is a possibility for embolization. We will plan for transesophageal echocardiogram tomorrow. N.p.o. past midnight. Continue current medications. Anemia work-up per primary team. Thank you for involving us with care of this patient. We will continue to follow. 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
[2021-08-14] MEDS: ketorolac 10 mg Tablet PO (20:55)
[2021-08-14] MEDS: atorvastatin 40 mg Tablet PO (20:56)
[2021-08-15] VITALS (44 sets, daily range): BP systolic 105–194; BP diastolic 52–110; PULSE 54–79; RESP 13–23; TEMP 37; O2SAT 95–100
[2021-08-15] MEDS: cloNIDine 0.1 mg Tablet PO (04:07)
[2021-08-15 05:58] LABS: Basophils % 0.1 %; Eosinophils # 0.3 10^3/uL (0.0-0.8); Eosinophils % 3.9 %; Hematocrit 25.4 % (37.0-47.0); Hemoglobin 7.6 g/dL (11.5-15.3); Lymphocytes % 29.8 %; Mean Corpuscular HGB Conc 29.9 g/dL (30.0-36.0); Mean Corpuscular Hemoglobin 21.6 pg (28.0-34.0); Mean Corpuscular Volume 72.2 fl (81-99); Monocytes # 0.6 10^3/uL (0.2-0.9); Neutrophils # 3.95 10^3/uL (1.8-7.7); Neutrophils % 57.9 %; Nucleated Red Blood Cells % 0 %; Platelet Count 281 10^3/cmm (130-400); Red Blood Count 3.52 10^6/uL (4.1-5.3); Red Cell Distribution Width 18.1 % (12.1-15.1); White Blood Count 6.8 10^3/uL (4.0-10.0)
[2021-08-15 06:26] LABS: Anion Gap 10.2 (5-19); Blood Urea Nitrogen 12 mg/dL (6-20); Calcium 8.7 mg/dL (8.5-10.5); Carbon Dioxide 26 mmol/L (22-29); Chloride 108 mmol/L (98-107); Glomerular Filtration Rate 76.2 mL/min (90-130); Glucose 101 mg/dL (65-115); Osmolality Calculated 290 mOsm/kg (285-295); Potassium 4.2 mmol/L (3.5-5.1); Sodium 140 mmol/L (136-145)
--- NOTE | 2021-08-15 08:19 | ANES.PREANE2 ---
Pre-Anesthetic Assessment Height/Weight: Height 1.5 m Weight 56.699 kg Temp Pulse Resp BP Pulse Ox 97.9 F 56 L 16 130/82 98 08/14/21 19:43 08/15/21 08:15 08/15/21 08:00 08/15/21 08:15 08/15/21 08:15 Preop Diagnosis: CVA LESLIE Familial anesthetic complications: None Was Beta Jenn taken within 24 hours: N/A Was Clonidine taken within 24 hours: N/A Social Tobacco and No alcohol Exam alert, oriented x 3, clear to auscultation bilaterally and regular rate & rhythm Airway Submandibular: within normal limits Cervical ROM: within normal limits Mallampati: Class II Dentition: full History/ROS No significant complaints Pulmonary Asthma CV/HEM Anemia (Hgb 7.6), Hypertension and Peripheral Vascular Disease Carotid doppler study 08/13/21 ?CONCLUSIONS ?Left ICA stenosis 50-69%. ?Right ICA stenosis < 50%. TTE 08/13/21 ?CONCLUSIONS ?LV systolic function is normal with EF of 55-60% ?Diastolic function is normal ?Mild mitral regurgitation ?No comparison studies are available EKG 08/12/21 ?Interpretive Statements SINUS RHYTHM WITH SINUS ARRHYTHMIA POSSIBLE LEFT ATRIAL ENLARGEMENT? [-0.1mV P-WAVE IN V1/V2] Compared to ECG 07/29/2021 21:02:26 No significant changes Electronically Signed On 08-12-2021 22:29:36 CDT by Jaswinder Dick M.D. [email or web address] None reported Hepatic None reported GI None reported Metabolic None reported [facility] [place]x of left breast mass Neuropsych Anxiety, Bipolar, Cerebrovascular Accident (LUE deficit ) and Headache MRI Head 08/13/21 MR/MR head wo con* [id number] IMPRESSION: ? 1.? Numerous bilateral small acute lacunar infarcts in multiple distributions. Infarcts in the LEFT cerebellum, bilateral frontal and parietal lobes. Consider central embolic source. ? 2.? Remote infarcts as described within the report. Largest involving the RIGHT occipital lobe with encephalomalacia. 3.? No hemorrhage. ? Head and Neck CTA 08/12/21 CT/CT angio headneck* [id number] IMPRESSION: Moderate stenosis of the intracranial ICAs bilaterally. ? ? IMPRESSION: 1. Moderate 50-69% stenosis of the left proximal ICA. 2. Mild less than 50% stenosis of the right proximal ICA. ? REFERENCES: NASCET CRITERIA. The degree of internal carotid artery stenosis is based on NASCET criteria. Normal is no stenosis. Mild is less than 50% stenosis. Moderate is 50-69% stenosis. Severe is 70% to 99% stenosis. Total occlusion is no detectable patent lumen. ? Anesthetic Plan ASA status: 3 (50 year old female smoker with hx of asthma, HTN, and carotid stenosis with CVA and concern for embolic source. ) Anesthesia: Anesthesia Evaluation and General Other: We discussed risk and benefits of general anesthesia including PONV, sore throat (sometimes severe), corneal abrasion, positioning and peripheral nerve injuries, life threatening allergic reaction, post operative ICU admission requiring prolonged intubation, stroke, heart attack, , and rare incidences of recall. Patient consents to proceed with general anesthesia. Risk of > 500 ml blood loss (7ml/kg in children): No Medications/Allergies Home Medications Medication Instructions Recorded Confirmed Last Taken Type albuterol sulfate 90 mcg/actuation 2 inh INHALATION 6XD PRN #8.5 g 07/31/21 08/13/21 Unknown Rx aerosol inhaler (ProAir HFA) aspirin 81 mg tablet,delayed 81 mg PO QAM 07/31/21 08/13/21 07/30/21 History release valsartan 80 mg tablet (Diovan) 80 mg PO QAM 07/31/21 08/13/21 07/30/21 History zolpidem 5 mg tablet (Ambien) 5 mg PO BEDTIME 07/31/21 08/13/21 07/30/21 History doxycycline hyclate 100 mg capsule 100 mg PO BID 08/13/21 08/13/21 08/11/21 History prednisone 20 mg tablet 20 mg PO BID 08/13/21 08/13/21 08/11/21 History Allergies Allergy/AdvReac Type Severity Reaction Status Date / Time codeine AdvReac Rash & itch Verified 08/13/21 09:46 Sulfa (Sulfonamide AdvReac Swelling Verified 08/13/21 09:46 Antibiotics) of face Current Medications Generic Name Dose Route Start Last Admin Trade Name Freq PRN Reason Stop Dose Admin Acetaminophen 650 mg 08/12/21 23:10 08/13/21 22:31 Acetaminophen 325 Mg Tablet PO 650 mg Q6H PRN Administration Mild/Mod Pain Or Temp >/= 101 Aspirin 162 mg 08/13/21 11:25 08/14/21 08:18 Aspirin 81 Mg Ec Tablet PO 162 mg DAILY LUCAS Administration Atorvastatin Calcium 40 mg 08/13/21 21:00 08/14/21 20:56 Atorvastatin 40 Mg Tablet PO 40 mg BEDTIME LUCAS Administration Enoxaparin Sodium 40 mg 08/13/21 08:00 08/14/21 08:18 Enoxaparin 40 Mg/0.4 Ml Syringe SUBCUT 40 mg Q24H LUCAS Administration Sodium Chloride 1,000 mls @ 75 mls/hr 08/12/21 23:15 08/14/21 20:57 Sodium Chloride 0.9% IV 75 mls/hr .[id number] LUCAS Administration Ketorolac Tromethamine 10 mg 08/12/21 23:10 08/14/21 20:55 Ketorolac 10 Mg Tablet PO 08/17/21 23:09 10 mg Q6H PRN Administration MODERATE PAIN Ketorolac Tromethamine 30 mg 08/12/21 23:10 08/14/21 08:17 Ketorolac 30 Mg/Ml Inj IVP 08/17/21 23:09 30 mg Q6H PRN Administration MODERATE PAIN Lisinopril 40 mg 08/13/21 09:00 08/13/21 08:05 Lisinopril 20 Mg Tablet PO 40 mg DAILY LUCAS Administration Ondansetron HCl 4 mg 08/12/21 23:10 08/13/21 22:31 Ondansetron 2 Mg/Ml Sdv 2 Ml IVP 4 mg Q8H PRN Administration vomiting, or N/V if npo PFSH Anesthesia Medical History Asthma Bipolar disorder, unspecified Essential hypertension Migraine Surgical History History of cholecystectomy Family History Other Cancer Diabetes Hypertension Denies family history of Chronic kidney disease (CKD) Stroke Social History Smoking and tobacco status: current every day smoker cigarettes Packs smoked per day: 0.5 Years cigarettes smoked: 13 Quit status (tobacco): has tried quititng Number of times tried to quit tobacco: 1 Second hand smoke exposure: Yes Smoking risk assessment/counseling performed?: Yes Tobacco counseling given: counseling >3 minutes Alcohol intake: never Desire information about alcohol rehabilitation?: No Counseling given: No Desire information about substance/drug rehabilitation?: No Counseling given: No Adopted: No Caregiver/support person: Yes Lives independently: No Household members: friend(s) Housing: House Marital status: Single Number of children: 0 service: No Current occupational status: unemployed History of recent travel: No Current gender identity: Female Data Anesthesia : 08/15/21 05:23 08/15/21 05:23 Short CBC 08/14/21 08/15/21 Range/Units 04:10 05:23 WBC 8.2 6.8 (4.0-10.0) 10^3/uL Hgb 8.1 L 7.6 L (11.5-15.3) g/dL Hct 26.9 L 25.4 L (37.0-47.0) % MCV 71.5 L 72.2 L (81-99) fl Plt Count 300 281 (130-400) 10^3/cmm Neut % (Auto) 55.7 57.9 % Neut # (Auto) 4.55 3.95 (1.8-7.7) 10^3/uL BMP 08/14/21 08/15/21 04:10 05:23 Sodium 139 140 Potassium 3.9 4.2 Chloride 106 108 H Carbon Dioxide 25 26 BUN 12 12 Creatinine 0.8 0.8 Glucose 92 101 Calcium 8.8 8.7 Coags 08/13/21 08/13/21 05:06 05:10 ESR Cancelled C-Reactive Protein 3.0 Cardiac Studies: Echocardiogram 08/13/21
--- NOTE | 2021-08-15 09:08 | USCV_ITS ---
Trudi Wesley Age: 50 Gender: F : 1970 Exam Date: 08/15/2021 09:48 Ordering Phys: Jaswinder Dick M.D ([email or web address]) Technologist: Ortiz Shipman [place] [facility] [place]: [place] BP: / HR: Rhythm: Sinus Technical Quality: Good MEASUREMENTS (Male / Female) Normal Values Medications Patient given IV sedation by anesthesia service, for details please refer to the anesthesia report. Complications None Proc. Components After anesthesia getting administered IV sedation, LESLIE probe was introduced. FINDINGS Left Ventricle Normal in size. LV systolic function is normal. Right Ventricle Normal in size and function Right Atrium Grossly normal Left Atrium Normal LA Appendage No left atrial appendage thrombus was seen. IA Septum On bubble study no intracardiac shunt seen Mitral Valve Structurally normal mitral valve.Mild to moderate eccentric mitral regurgitation Aortic Valve Normal. Has mild to moderate aortic regurgitation Tricuspid Valve Normal Pulmonic Valve Pericardium Normal Aorta Mild plaque CONCLUSIONS LV systolic function is normal. RV is normal in size and function. No left atrial appendage thrombus seen. On bubble study, no intracardiac shunt seen. Mild to moderate aortic regurgitation. Mild to moderate eccentric mitral regurgitation. Mild atheroslerotic plaque seen in the aorta Jaswinder Dick MD (Electronically Signed) Final Date: 20 August 2021 09:28 S
[2021-08-15] MEDS: enoxaparin 40 mg/0.4 mL Syringe SUBCUT (09:20)
[2021-08-15] MEDS: sodium chloride 0.9% 1,000 ML 75 ML IV (09:21)
--- NOTE | 2021-08-15 09:47 | W.PM.OPSUD ---
Surgery/Procedure H&P Update DATE OF PROCEDURE: August 15, 2021 DATE H&P PERFORMED: 08/14/21 H&P UPDATE INFORMATION: I have reviewed H&P completed within last 30 days, I have examined patient prior to procedure and No changes to prior documentation PREOP DIAGNOSIS: CVA PRIMARY INDICATION FOR PROCEDURE: CVA PLANNED PROCEDURE: Transesophageal echocardiogram PATIENT REASSESSED PRIOR TO SEDATION, WITH NO CHANGE NOTED: Yes PHYSICAL EXAM: alert, oriented x 3, clear to auscultation bilaterally and regular rate & rhythm
[2021-08-15] MEDS: aspirin 81 mg EC Tablet 162 MG PO (10:49)
--- NOTE | 2021-08-15 11:31 | P.PN_ITS ---
Subjective Subjective: Patient is doing well. No complaints of chest pain or shortness of breath. Underwent LESLIE today that does not show intracardiac shunting or cardiac thrombus Vitals/I&O/Wt Last Vital Signs Temp 97.9 F 08/14/21 19:43 Pulse 56 L 08/15/21 08:15 Resp 16 08/15/21 08:00 BP 130/82 08/15/21 08:15 Pulse Ox 98 08/15/21 08:15 08/14/21 08/15/21 08/15/21 22:59 06:59 14:59 Intake Total 1240 / 1960 930 / 930 Balance 1240 / 960 930 / 930 Physical Exam Narrative: GENERAL: Patient is alert, awake and oriented x3. [] NECK: No jugular vein distension. [] HEENT: No cyanosis. No icterus. No pallor. [] HEART: Regular S1 and S2. No murmur, rub or gallop. [] LUNGS: Clear to auscultate bilaterally. [] ABDOMEN: Soft, nontender and nondistended. Positive bowel sounds. No guarding, rebound or tenderness. [] CENTRAL NERVOUS SYSTEM: Grossly nonfocal. [] EXTREMITIES: Lower extremities with 1+ edema bilaterally. Pulses palpable in the lower extremities, both dorsalis pedis and posterior tibial. [] Data : 08/15/21 05:23 08/15/21 05:23 A&P Assessment and plan (1) Acute CVA (cerebrovascular accident): Status: Acute (2) Anemia: Status: Acute (3) Essential hypertension: Status: Chronic Plan Patient had presented with stroke symptoms and MRIs showing acute bilateral lacunar infarcts. Patient underwent transesophageal echocardiogram that is not for cardiac source of embolization. Continue current medications. Thank you for involving us with care of this patient. Patient was stable to be discharged from cardiac standpoint. Attestations Medical Necessity Statement*: Care expected to cross 2 midnights. 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
--- NOTE | 2021-08-15 11:53 | P.DS_ITS ---
Discharge Providers Date of Admission: 08/13/21 14:31 Date of Discharge: August 15, 2021 Attending Provider at Admission: Santino Paz MD Attending Provider at Discharge: Eduardo Osborne Primary Care Provider: BAILEY Leos Diagnoses at Discharge Discharge Diagnosis (1) Acute CVA (cerebrovascular accident): Status: Acute (2) Anemia: Status: Acute (3) Essential hypertension: Status: Chronic Reason for Visit Reason for Visit: diff gait L sided weakness Hospital Course Hospital Course Pleasant 50-year-old lady with prior CVA, was admitted after presenting with complaint of left-sided headache, left-sided blurry vision, right side paresthesias, mildly slurred speech, some difficulties with coordination. MRI of the brain revealed multifocal bilateral small acute lacunar CVA, left cerebellum, bilateral frontal and parietal lobes. With concern for central embolic source. Remote infarcts including right occipital lobe with encephalomalacia. Additional work-up included CTA head and neck, with moderate stenosis of the intracranial ICAs bilaterally, also noted moderate 50-69% stenosis of left proximal ICA in the neck, mild less than 50% stenosis of right proximal ICA. Carotid duplex ultrasound showed moderate obstructive lesions in left internal carotid artery estimated at 50-79% stenosis. Mild elevation of diastolic velocity. Mild scattered plaque in carotid arteries. Right side less than 50%. Antegrade vertebral arteries. With blurred vision, left-sided headache initially consideration was given to GCA, however, inflammatory markers normal, and no other symptomatology to suggest GCA, and requested for her other symptoms, as well as with as discussed with her consideration of possible embolic phenomenon to the retinal artery, briefly discussed with ophthalmology, at that time ago assessment with recommendation for secondary prevention. Blood pressure medication was held while in the hospital patient received IV hydration. Her symptoms have resolved during hospitalization, including resolution of blurred vision of the left eye. She was evaluated with LESLIE after unremarkable TTE, without evidence of septal defects or intracardiac thrombus. She is set up with event monitor for 21 days. She was continued on aspirin. Started on statin. Plavix is added for 21 days at discharge. She needs to quit smoking. Needs continued optimization of cardiovascular risks. Is also asked to follow-up with neurology and ophthalmology. Of note with some dehydration on presentation, with IV hydration all cell counts decreased. Hemoglobin did come down as low as 7.6, although no obvious bleeding during hospitalization with similar decreases in leukocytes and platelets. Please follow-up blood counts to exclude further decrease, and follow-up regarding work-up for anemia. Incidentally noted subclinical hypothyroidism. Please follow-up. Physical Exam Const: COMMON NORMALS: alert GENERAL APPEARANCE: cooperative ORIENTATION/CONSCIOUSNESS: Yes awake HENMT: COMMON NORMALS: normocephalic, EAC's normal, Normal external nose present and moist oral mucous membranes HEAD & SCALP: normocephalic NOSE: Normal external nose present EXTERNAL AUDITORY CANAL: EAC's normal Neck/C-Spine: COMMON NORMALS: no meningeal signs Chest: CHEST: Yes Symmetrical chest wall rise Resp: COMMON NORMALS: clear to auscultation bilaterally AUSCULTATION: clear to auscultation bilaterally Cardio: COMMON NORMALS: regular rate, regular rhythm and No murmurs present (Cardio) RATE: regular rate RHYTHM: regular rhythm GI: COMMON NORMALS: Normal to inspection, nondistended, normoactive bowel sounds present, Soft to palpation and non-tender PALPATION: Yes Soft to palpation Extremity: COMMON NORMALS: no pedal edema Neuro: COMMON NORMALS: moves all extremities SENSORIUM/ORIENTATION: Yes alert MENINGEAL SIGNS: Yes no meningeal signs Psych: COMMON NORMALS: mental status grossly normal Skin: COMMON NORMALS: no wounds RASHES: no rashes Discharge Data Studies Completed and Pending Completed Studies During Hospitalization Category Date Time Status CT head wo con* [id number] Stat Cat Scan 08/12/21 16:40 Completed CTA head neck [CT angio headneck* [id number]] Stat Cat Scan 08/12/21 18:47 Completed XR chest 1V portable [id number] Stat Exams 08/12/21 16:40 Completed MR head wo con* [id number] Routine MRI 08/13/21 08:00 Completed CV. echo w/w bubble cont [id number] Routine Ultrasound 08/13/21 11:17 Completed US carotid duplex bilateral [CV carotid duplex BI* Ultrasound 08/13/21 11:17 Completed [id number]] Routine Pending at discharge Category Date Time Status Miscellaneous Test Routine Lab 08/13/21 05:10 Received LESLIE [CV. echo transesophageal [id number]] Routine Ultrasound 08/15/21 09:08 Taken Radiology Impressions Chest X-Ray 08/12/21 16:40 IMPRESSION: No acute cardiopulmonary disease identified. Head CT 08/12/21 16:40 IMPRESSION: 1. No acute intracranial pathology demonstrated by CT. 2. Areas of chronic encephalomalacia, as above. ASSESSMENT: ASPECTS (Kay Stroke Program Early CT Score) is 10. Head/Neck CTA 08/12/21 18:47 IMPRESSION: Moderate stenosis of the intracranial ICAs bilaterally. IMPRESSION: 1. Moderate 50-69% stenosis of the left proximal ICA. 2. Mild less than 50% stenosis of the right proximal ICA. REFERENCES: NASCET CRITERIA. The degree of internal carotid artery stenosis is based on NASCET criteria. Normal is no stenosis. Mild is less than 50% stenosis. Moderate is 50-69% stenosis. Severe is 70% to 99% stenosis. Total occlusion is no detectable patent lumen. Head MRI 08/13/21 08:00 IMPRESSION: 1. Numerous bilateral small acute lacunar infarcts in multiple distributions. Infarcts in the LEFT cerebellum, bilateral frontal and parietal lobes. Consider central embolic source. 2. Remote infarcts as described within the report. Largest involving the RIGHT occipital lobe with encephalomalacia. 3. No hemorrhage. Laboratory Results WBC 6.8 10^3/uL (4.0-10.0) 08/15/21 05:23 RBC 3.52 10^6/uL (4.1-5.3) L 08/15/21 05:23 Hgb 7.6 g/dL (11.5-15.3) L 08/15/21 05:23 Hct 25.4 % (37.0-47.0) L 08/15/21 05:23 MCV 72.2 fl (81-99) L 08/15/21 05:23 MCH 21.6 pg (28.0-34.0) L 08/15/21 05:23 MCHC 29.9 g/dL (30.0-36.0) L 08/15/21 05:23 RDW 18.1 % (12.1-15.1) H 08/15/21 05:23 Plt Count 281 10^3/cmm (130-400) 08/15/21 05:23 MPV 10.0 fL (7.4-10.4) 08/15/21 05:23 Neut % (Auto) 57.9 % 08/15/21 05:23 Lymph % (Auto) 29.8 % 08/15/21 05:23 [place] % (Auto) 8.0 % 08/15/21 05:23 Eos % (Auto) 3.9 % 08/15/21 05:23 Baso % (Auto) 0.1 % 08/15/21 05:23 Neut # (Auto) 3.95 10^3/uL (1.8-7.7) 08/15/21 05:23 Lymph # (Auto) 2.0 10^3/uL (0.8-4.8) 08/15/21 05:23 [place] # (Auto) 0.6 10^3/uL (0.2-0.9) 08/15/21 05:23 Eos # (Auto) 0.3 10^3/uL (0.0-0.8) 08/15/21 05:23 Baso # (Auto) 0.0 10^3/uL (0.0-0.1) 08/15/21 05:23 Nucleated RBC % (auto) 0 % 08/15/21 05:23 Nucleated RBCs # 0.0 /100WBC 08/15/21 05:23 ESR Cancelled 08/13/21 05:10 PT 12.70 SECONDS (12.1-14.9) 08/12/21 17:00 INR 0.93 (0.8-1.2) 08/12/21 17:00 APTT 19.2 SECONDS (23.9-36.7) L 08/12/21 17:00 Sodium 140 mmol/L (136-145) 08/15/21 05:23 Potassium 4.2 mmol/L (3.5-5.1) 08/15/21 05:23 Chloride 108 mmol/L (98-107) H 08/15/21 05:23 Carbon Dioxide 26 mmol/L (22-29) 08/15/21 05:23 Anion Gap 10.2 (5-19) 08/15/21 05:23 BUN 12 mg/dL (6-20) 08/15/21 05:23 Creatinine 0.8 mg/dL (0.5-0.9) 08/15/21 05:23 GFR Calculation 76.2 mL/min (90-130) L 08/15/21 05:23 Glucose 101 mg/dL (65-115) 08/15/21 05:23 POC Glucose 121 mg/dL (70-110) H 08/12/21 17:03 Calculated Osmolality 290 mOsm/kg (285-295) 08/15/21 05:23 Calcium 8.7 mg/dL (8.5-10.5) 08/15/21 05:23 Phosphorus 4.2 mg/dL (2.5-4.5) 08/13/21 05:06 Magnesium 1.9 mg/dL (1.7-2.3) 08/13/21 05:06 Iron 20 ug/dL (37-145) L 08/14/21 04:10 TIBC 344 mcg/dl 08/14/21 04:10 % Saturation 5.8 % (20-50) L 08/14/21 04:10 Unsat Iron Binding 324 ug/dL (112-347) 08/14/21 04:10 Ferritin 7 ng/mL (15-150) L 08/14/21 04:10 Total Bilirubin 0.2 mg/dL (0.15-1.2) 08/12/21 17:00 AST 12 U/L (0-32) 08/12/21 17:00 ALT 14 U/L (0-33) 08/12/21 17:00 Alkaline Phosphatase 104 IU/L (35-105) 08/12/21 17:00 C-Reactive Protein 3.0 mg/L (0.0-4.9) 08/13/21 05:06 Total Protein 6.6 g/dL (6.6-8.7) 08/12/21 17:00 Albumin 4.1 g/dL (3.5-5.2) 08/12/21 17:00 Globulin 2.5 g/dL (1.3-4.6) 08/12/21 17:00 TSH 5.01 uIU/mL (0.27-4.20) H 08/13/21 05:06 Free T4 1.13 ng/dL (0.82-1.77) 08/13/21 05:06 Urine Color Yellow (Yellow) 08/12/21 19:01 Urine Appearance Clear (CLEAR) 08/12/21 19:01 Urine pH 6 (5-7) 08/12/21 19:01 Ur Specific [place] 1.010 (1.005-1.030) 08/12/21 19:01 Urine Protein Neg (Negative) 08/12/21 19:01 Urine Glucose (UA) Norm (Normal) 08/12/21 19:01 Urine Ketones Negative (Negative) 08/12/21 19:01 Urine Blood Neg (Negative) 08/12/21 19:01 Urine Nitrate Negative (Negative) 08/12/21 19:01 Urine Bilirubin Neg (Negative) 08/12/21 19:01 Prot Sulfosalicylic Acd Negative (Negative) 08/12/21 19:01 Urine Urobilinogen Norm mg/dL (Negative) 08/12/21 19:01 Ur Leukocyte Esterase Negative (Negative) 08/12/21 19:01 Urine Opiates Screen Negative ng/mL (Negative) 08/12/21 19:01 Ur Barbiturates Screen Negative ng/mL (Negative) 08/12/21 19:01 Ur Phencyclidine Scrn Negative ng/mL (Negative) 08/12/21 19:01 Ur Amphetamines Screen Negative ng/mL (Negative) 08/12/21 19:01 U Benzodiazepines Scrn Negative ng/mL (Negative) 08/12/21 19:01 Urine Cocaine Screen Negative ng/mL (Negative) 08/12/21 19:01 U Marijuana (THC) Screen Positive ng/mL (Negative) H 08/12/21 19:01 Vitals Last Vital Signs Temp 97.9 F 08/14/21 19:43 Pulse 56 L 08/15/21 08:15 Resp 16 08/15/21 08:00 BP 130/82 08/15/21 08:15 Pulse Ox 98 08/15/21 08:15 Discharge Plan Discharge Patient Disposition: Home Condition: Stable Prescriptions: New atorvastatin 40 mg Tablet 40 mg PO BEDTIME Qty: 90 0RF Plavix 75 mg tablet 75 mg PO DAILY Qty: 21 0RF Continued doxycycline hyclate 100 mg capsule 100 mg PO BID 0RF Rx Instructions: for 7 days (rx filled 08/02/21) valsartan [Diovan] 80 mg tablet 80 mg PO QAM 0RF zolpidem [Ambien] 5 mg tablet 5 mg PO BEDTIME 0RF aspirin 81 mg Tablet,Delayed Release (Dr/Ec) 81 mg PO QAM 0RF albuterol sulfate [ProAir HFA] 90 mcg/actuation HFA aerosol inhaler 2 inh inhalation 6XD PRN (Reason: shortness of breath or wheezing) Qty: 8.5 1RF Discontinued prednisone 20 mg tablet 20 mg PO BID 0RF Rx Instructions: for 7 days (rx filled 08/02/21) Discharge Orders: Discharge Order (Routine); Ordered 08/15/21 Ordered By: Eduardo Osborne Other Ambulatory Orders: MCT/Event Monitor 21 Days (Routine) Timeframe: 1 Day Facility: [facility] - Location: Radiology Ordered By: Eduardo Osborne Referrals: [facility] [Provider Group] - 1 week (Multiple CVA) Selvin Thomas FNP-C [Primary Care Provider] - 4-7 days Karl Hidalgo MD [Physician] - 4-7 days Discharge Diet: Cardiac Discharge Activity: Increase activity as tolerated Patient Instructions: Ischemic Stroke (GEN) Activity Restrictions/Additional Instructions: Please stop smoking. Continued smoking will lead to further strokes. Please follow-up with your primary care provider and neurologist regarding multiple small strokes. Concern for embolic etiology of stroke. Please complete event monitor 21 days to check for atrial fibrillation. No blood clot was seen on LESLIE ultrasound of your heart as well as no septal defect. Please continue to optimize risk factors of cardiovascular disease. Please discuss with your primary doctor and neurologist regarding narrowing of the left carotid artery up to 69%On CTA, up to 79% seen on carotid Doppler. (Right side at less than 50% narrowing.). Discuss follow-up, consideration for referral to vascular surgery. Continue aspirin. Take Plavix for 21 days, although this may be extended longer by her neurologist. He was started on cholesterol medication. Please monitor blood pressures 3 times daily at home, write down values to bring to your appointment to help optimize blood pressure control. Please have your primary doctor follow-up your blood counts. You are noted to have anemia, although also had dehydration, and blood counts are decreased with IV fluids. However, if you experience blood in the stool or elsewhere, or dark black stools, hold aspirin and Plavix and seek medical attention. Please have your primary doctor follow-up regarding subclinical hypothyroidism. Please return to the emergency department for worsening symptoms, any new neurologic symptoms, or anything else that you are concerned about and feel needs emergency department evaluation. Discharge Attestations Time Spent in Discharge Care*: greater than 30 min Quality Metrics Clinical Quality Measures [ Cerebrovascular Accident { Contraindication to Antithrombotic: None; antithro mbotic prescribed; Contraindication to Anticoagulation: Overlap treatment not indicated; Contraindication to Statin: None; Statin prescribed;}] Coding Level of Care Code Acute g FW NM note Diagnoses Acute CVA (cerebrovascular accident) I63.9 Anemia D64.9 Essential hypertension I10
[2021-08-20 13:36] LABS: Erythrocyte Sedimentation Rate 6 mm/hr (0-15)
== END 2021-08-15 13:26 | disposition home or self-care (01) | DRG 66 ==
LOC: ER 19:06 → MEDSURG 21:57 → ICU 08-14 23:29
PROVIDERS: Emergency Medicine; Admitting Provider Internal Medicine; Emergency Provider Emergency Medicine; PCP Nurse Practitioner; Visit Provider Internal Medicine
DX: I63.442 Cerebral infarction due to embolism of left cerebellar artery (principal); R47.81 Slurred speech; R20.0 Anesthesia of skin; R29.700 NIHSS score 0; I10 Essential (primary) hypertension; Z86.73 Personal history of transient ischemic attack (TIA), and cerebral infarction without residual deficits; J45.909 Unspecified asthma, uncomplicated; F31.9 Bipolar disorder, unspecified; F17.210 Nicotine dependence, cigarettes, uncomplicated; I65.23 Occlusion and stenosis of bilateral carotid arteries; E87.6 Hypokalemia; D64.9 Anemia, unspecified; E86.0 Dehydration; I08.0 Rheumatic disorders of both mitral and aortic valves; Z79.51 Long term (current) use of inhaled steroids; Z79.82 Long term (current) use of aspirin; E03.8 Other specified hypothyroidism
CPT/HCPCS: 36415; 36416; 70450; 70496; 70498; 70551; 71045; 80048; 80053; 80306; 81003; 82728; 82962; 83540; 83550; 83735; 84100; 84439; 84443; 85025; 85610; 85651; 85730; 86140; 92507; 92523; 93005; 93312; 93320; 93325; 93880; 96365; 96372; 96375; 97166; 99285; C8929; G0378; J1200; J1630; J1650; J1885; J2370; J2405; J2704; J2765; J3475; J7030; Q9967

== ENCOUNTER → 2021-09-23 11:02 | Outpatient (BNVA) | payer MEDICAID, SELFPAY | PROVIDERS: PCP Nurse Practitioner; Visit Provider Nurse Practitioner | DX: I63.9 Cerebral infarction, unspecified (principal); I10 Essential (primary) hypertension; G47.00 Insomnia, unspecified; L30.9 Dermatitis, unspecified; D64.9 Anemia, unspecified | CPT/HCPCS: 80053; 84443; 85025 ==

== ENCOUNTER → 2021-12-14 15:28 | Outpatient (BNVA) | payer MEDICAID, SELFPAY | PROVIDERS: PCP Nurse Practitioner; Visit Provider Nurse Practitioner | DX: D64.9 Anemia, unspecified (principal); E61.1 Iron deficiency; I10 Essential (primary) hypertension; J45.909 Unspecified asthma, uncomplicated; G47.00 Insomnia, unspecified | CPT/HCPCS: 71046; 74018; 80053; 83550; 85025 ==

== ENCOUNTER 2022-01-03 13:47 | Emergency (ER) | payer MEDICAID, SELFPAY ==
[2022-01-03] VITALS (9 sets, daily range): BP systolic 124–191; BP diastolic 77–108; PULSE 64–87; RESP 16; TEMP 36.7; O2SAT 94–100; BMI 25.4
--- NOTE | 2022-01-03 14:59 | ECG_ITS ---
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 Measurements Intervals [place] Rate: 65 P: 66 CO: 137 QRS: 71 QRSD: 82 T: 71 QT: 422 QTc: 442 Interpretive Statements SINUS RHYTHM POSSIBLE LEFT ATRIAL ENLARGEMENT [-0.1mV P-WAVE IN V1/V2] Compared to ECG 08/12/2021 16:57:57 Sinus arrhythmia no longer present Electronically Signed On 01-04-2022 7:09:02 [employer] by Nadiya Zavala M.D. [email or web address]
--- NOTE | 2022-01-03 14:59 | XR_ITS ---
WS: [id number] Exam: XR chest 1V portable [id number] Date/Time of Exam: 01/03/2022 3:07 PM Reason For Exam: chest pain Comparison 12/14/2021. The lungs are hyperinflated and clear. Normal cardiomediastinal silhouette for technique. No pleural effusions. Bony structures are intact. Monitoring leads superimpose the chest. XR/XR chest 1V portable [id number] IMPRESSION: 1. Pulmonary hyperinflation. No acute process.
[2022-01-03] MEDS: aspirin 81 mg Chew Tablet 324 MG PO (15:21)
--- NOTE | 2022-01-03 15:23 | ED_ITS ---
Documented by User: Mook Peng DO 01/06/22 08:23 HPI - Chest Pain General: Chief Complaint: Chest Pain Stated Complaint: chest pain Time Seen by Provider: 01/03/22 14:49 Source: patient Mode of arrival: ambulatory History of Present Illness: 51-year-old female presents to the emergency room with complaints of chest pain radiating to her left arm. She began last night around 9:00 she was at rest at the time. Its waxed and waned throughout the day. She is also noticed a headache and marked elevation of her blood pressure she did take some extra valsartan. She has taken her clopidogrel. Previous notes reviewed she had an MRI that showed multiple small strokes concerning for embolic source no embolic source was found she currently is just on the clopidogrel aspirin and atorvastatin. She has no focal neurologic deficits at this time. MD complaint: chest pain Onset (ago): hour(s) Timing of current episode: episodic Prior episodes: Yes Onset: during rest Pain location: left chest Pain radiation: left arm Severity: moderate Quality: tightness, aching and heaviness Relieving factors: nothing Exacerbating factors: nothing Associated symptoms: Deny abdominal pain, diaphoresis, dyspnea, fever(s), leg edema, nausea, palpitations, sense of impending doom, syncope or vomiting Treatment prior to arrival: none Review of Systems Const: Denies: fever(s) or diaphoresis Card: Denies: palpitations or syncope Resp: Denies: dyspnea GI: Denies: abdominal pain, nausea or vomiting PFS ED PFSH: Medical History Asthma Bipolar disorder, unspecified Essential hypertension Migraine Surgical History History of cholecystectomy Family History Other Cancer Diabetes Hypertension Denies family history of Chronic kidney disease (CKD) Stroke Social History Smoking and tobacco status: current every day smoker cigarettes Packs smoked per day: 0.5 Years cigarettes smoked: 13 Quit status (tobacco): has tried quititng Number of times tried to quit tobacco: 1 Second hand smoke exposure: Yes Smoking risk assessment/counseling performed?: Yes Tobacco counseling given: counseling >3 minutes Alcohol intake: never Desire information about alcohol rehabilitation?: No Counseling given: No Desire information about substance/drug rehabilitation?: No Counseling given: No Adopted: No Caregiver/support person: Yes Lives independently: No Household members: friend(s) Housing: House Marital status: Single Number of children: 0 service: No Current occupational status: unemployed History of recent travel: No Current gender identity: Female Physical Exam Const: GENERAL APPEARANCE: cooperative and comfortable ORIENTATION/CONSCIOUSNESS: Yes awake, Yes oriented to person, Yes oriented to place and Yes oriented to time HENMT: COMMON NORMALS: normocephalic, atraumatic, hearing grossly normal bilaterally, external ears normal, EAC's normal, TM's normal bilaterally, Normal nasal mucous membranes and turbinates present, moist oral mucous membranes and oropharynx normal HEAD & SCALP: normocephalic and atraumatic NOSE: Normal nasal mucous membranes and turbinates present EXTERNAL EAR: Yes external ears normal EXTERNAL AUDITORY CANAL: EAC's normal TYMPANIC MEMBRANE: TM's normal bilaterally Eye: COMMON NORMALS: Equal, round and reactive pupils present, EOMs intact bilaterally, conjunctivae normal and no scleral icterus CONJUNCTIVA: Yes conjunctivae normal PUPIL: Yes Equal, round and reactive pupils present Neck/C-Spine: COMMON NORMALS: full ROM, no lymphadenopathy, supple and no JVD Lymph: LYMPHATIC: no lymphadenopathy noted and no lymphedema noted Resp: COMMON NORMALS: normal respiratory effort, No retractions, No use of accessory muscles and clear to auscultation bilaterally AUSCULTATION: clear to auscultation bilaterally Cardio: COMMON NORMALS: no JVD, regular rate, regular rhythm and No murmurs present (Cardio) RATE: regular rate RHYTHM: regular rhythm GI: COMMON NORMALS: Soft to palpation and No hepatosplenomegaly present AUSCULTATION: Yes normoactive bowel sounds PALPATION: Yes Soft to palpation, No Tenderness to palpation present (GI), No Guarding due to palpation present (GI) and Yes No hepatosplenomegaly present Extremity: COMMON NORMALS: normal to inspection, capillary refill normal, no clubbing, cyanosis or edema, no calf tenderness and no pedal edema Neuro: SENSORIUM/ORIENTATION: Yes oriented to person, Yes oriented to place and Yes oriented to time Skin: COMMON NORMALS: no rashes or lesions noted GENERAL SKIN EXAM: no rashes or lesions noted Course Vital Signs: Vital signs: Vital Signs Temperature 98.1 F 01/03/22 14:18 Pulse Rate 64 01/03/22 19:06 Respiratory Rate 16 01/03/22 19:06 Blood Pressure 144/81 01/03/22 19:06 Pulse Oximetry 100 01/03/22 19:06 Oxygen Delivery Me thod 01/03/22 17:45 MDM - Chest Pain Medical Decision Making Care signed out to Dr. Ledesma at change of shift. See final notes for diagnosis and disposition. Patient presents for chest pain atypical in nature she is well-appearing here initial repeat troponins are normal she is stable for discharge she is to follow-up with PCP and return if worsening. Lab Data 01/03/22 15:24 01/03/22 15:24 Radiology Impressions Chest X-Ray 01/03/22 14:59 IMPRESSION: 1. Pulmonary hyperinflation. No acute process. Laboratory Results WBC 9.8 10^3/uL (4.0-10.0) 01/03/22 15:24 RBC 4.51 10^6/uL (4.1-5.3) 01/03/22 15:24 Hgb 10.5 g/dL (11.5-15.3) L 01/03/22 15:24 Hct 35.7 % (37.0-47.0) L 01/03/22 15:24 MCV 79.2 fl (81-99) L 01/03/22 15:24 MCH 23.3 pg (28.0-34.0) L 01/03/22 15:24 MCHC 29.4 g/dL (30.0-36.0) L 01/03/22 15:24 RDW 23.8 % (12.1-15.1) H 01/03/22 15:24 Plt Count 415 10^3/cmm (130-400) H 01/03/22 15:24 MPV 9.3 fL (7.4-10.4) 01/03/22 15:24 Neut % (Auto) 66.1 % 01/03/22 15:24 Lymph % (Auto) 24.5 % 01/03/22 15:24 [place] % (Auto) 6.3 % 01/03/22 15:24 Eos % (Auto) 2.5 % 01/03/22 15:24 Baso % (Auto) 0.3 % 01/03/22 15:24 Neut # (Auto) 6.47 10^3/uL (1.8-7.7) 01/03/22 15:24 Lymph # (Auto) 2.4 10^3/uL (0.8-4.8) 01/03/22 15:24 [place] # (Auto) 0.6 10^3/uL (0.2-0.9) 01/03/22 15:24 Eos # (Auto) 0.2 10^3/uL (0.0-0.8) 01/03/22 15:24 Baso # (Auto) 0.0 10^3/uL (0.0-0.1) 01/03/22 15:24 Nucleated RBC % (auto) 0 % 01/03/22 15:24 Nucleated RBCs # 0.0 /100WBC 01/03/22 15:24 Sodium 139 mmol/L (136-145) 01/03/22 15:24 Potassium 3.6 mmol/L (3.5-5.1) 01/03/22 15:24 Chloride 103 mmol/L (98-107) 01/03/22 15:24 Carbon Dioxide 25 mmol/L (22-29) 01/03/22 15:24 Anion Gap 14.6 (5-19) 01/03/22 15:24 BUN 10 mg/dL (6-20) 01/03/22 15:24 Creatinine 0.9 mg/dL (0.5-0.9) 01/03/22 15:24 GFR Calculation 66.3 mL/min (90-130) L 01/03/22 15:24 Glucose 82 mg/dL (65-115) 01/03/22 15:24 Calculated Osmolality 286 mOsm/kg (285-295) 01/03/22 15:24 Calcium 9.7 mg/dL (8.5-10.5) 01/03/22 15:24 Total Bilirubin 0.2 mg/dL (0.15-1.2) 01/03/22 15:24 AST 17 U/L (0-32) 01/03/22 15:24 ALT 15 U/L (0-33) 01/03/22 15:24 Alkaline Phosphatase 113 U/L (35-105) H 01/03/22 15:24 Troponin T Baseline 14 ng/L (0-10) H 01/03/22 15:24 Troponin T 120 Minute 15.14 ng/L (0-10) H 01/03/22 17:40 Delta Troponin T 1.14 ABS# (0-10) 01/03/22 17:40 Total Protein 7.3 g/dL (6.6-8.7) 01/03/22 15:24 Albumin 4.3 g/dL (3.5-5.2) 01/03/22 15:24 Globulin 3.0 g/dL (1.3-4.6) 01/03/22 15:24 Discharge Plan Discharge Patient Disposition: Home Clinical Impression: Chest pain Condition: Stable Prescriptions: No Action atorvastatin 40 mg tablet 40 mg PO BEDTIME Qty: 30 2RF Plavix 75 mg tablet 75 mg PO DAILY Qty: 30 2RF albuterol sulfate [ProAir HFA] 90 mcg/actuation HFA aerosol inhaler 2 inh inhalation 6XD PRN (Reason: shortness of breath or wheezing) Qty: 8.5 5RF ferrous gluconate 324 mg (38 mg iron) tablet 324 mg PO DAILY Qty: 30 2RF valsartan-hydrochlorothiazide [Diovan HCT] 160-12.5 mg tablet 1 tab PO DAILY Qty: 30 0RF Rx Instructions: dose increase amitriptyline 25 mg tablet 25 mg PO BEDTIME aspirin 81 mg Tablet,Delayed Release (Dr/Ec) 81 mg PO QAM Discharge Orders: Discharge ED (Routine); Ordered 01/03/22 Ordered By: Aleksandar Ledesma Referrals: Selvin Thomas, RN STAFF-C [Primary Care Provider] - 1-3 days Discharge Diet: Advance as tolerated Discharge Activity: Resume usual activity Patient Instructions: Chest Pain (ED) Coding Level of Care Code ED Concrete Vibrator Operator for Chg Fwd Exam Comprehensive Documented by User: Aleksandar Ledesma MD 01/03/22 19:05 HPI - Chest Pain General: Chief Complaint: Chest Pain Stated Complaint: chest pain Time Seen by Provider: 01/03/22 14:49 PFSH ED PFSH: Medical History Asthma Bipolar disorder, unspecified Essential hypertension Migraine Surgical History History of cholecystectomy Family History Other Cancer Diabetes Hypertension Denies family history of Chronic kidney disease (CKD) Stroke Social History Smoking and tobacco status: current every day smoker cigarettes Packs smoked per day: 0.5 Years cigarettes smoked: 13 Quit status (tobacco): has tried quititng Number of times tried to quit to bacco: 1 Second hand smoke exposure: Yes Smoking risk assessment/counseling performed?: Yes Tobacco counseling given: counseling >3 minutes Alcohol intake: never Desire information about alcohol rehabilitation?: No Counseling given: No Desire information about substance/drug rehabilitation?: No Counseling given: No Adopted: No Caregiver/support person: Yes Lives independently: No Household members: friend(s) Housing: House Marital status: Single Number of children: 0 service: No Current occupational status: unemployed History of recent travel: No Current gender identity: Female Course Vital Signs: Vital signs: Vital Signs Temperature 98.1 F 01/03/22 14:18 Pulse Rate 64 01/03/22 19:06 Respiratory Rate 16 01/03/22 19:06 Blood Pressure 144/81 01/03/22 19:06 Pulse Oximetry 100 01/03/22 19:06 Oxygen Delivery Me thod 01/03/22 17:45 MDM - Chest Pain Medical Decision Making Patient presents for chest pain atypical in nature she is well-appearing here initial repeat troponins are normal she is stable for discharge she is to follow-up with PCP and return if worsening. Lab Data 01/03/22 15:24 01/03/22 15:24 Radiology Impressions Chest X-Ray 01/03/22 14:59 IMPRESSION: 1. Pulmonary hyperinflation. No acute process. Laboratory Results WBC 9.8 10^3/uL (4.0-10.0) 01/03/22 15: RBC 4.51 10^6/uL (4.1-5.3) 01/03/22 15:24 Hgb 10.5 g/dL (11.5-15.3) L 01/03/22 15:24 Hct 35.7 % (37.0-47.0) L 01/03/22 15: MCV 79.2 fl (81-99) L 01/03/22 15:24 MCH 23.3 pg (28.0-34.0) L 01/03/22 15: MCHC 29.4 g/dL (30.0-36.0) L 01/03/22 15: RDW 23.8 % (12.1-15.1) H 01/03/22 15:24 Plt Count 415 10^3/cmm (130-400) H 01/03/22 15: MPV 9.3 fL (7.4-10.4) 01/03/22 15:24 Neut % (Auto) 66.1 % 01/03/22 15: Lymph % (Auto) 24.5 % 01/03/22 15: Os[place] % (Auto) 6.3 % 01/03/22 15: Eos % (Auto) 2.5 % 01/03/22 15:24 Baso % (Auto) 0.3 % 01/03/22 15:24 Neut # (Auto) 6.47 10^3/uL (1.8-7.7) 01/03/22 15: Lymph # (Auto) 2.4 10^3/uL (0.8-4.8) 01/03/22 15:24 [place] # (Auto) 0.6 10^3/uL (0.2-0.9) 01/03/22 15: Eos # (Auto) 0.2 10^3/uL (0.0-0.8) 01/03/22 15:24 Baso # (Auto) 0.0 10^3/uL (0.0-0.1) 01/03/22 15: Nucleated RBC % (auto) 0 % 01/03/22 15: Nucleated RBCs # 0.0 /100WBC 01/03/22 15:24 Sodium 139 mmol/L (136-145) 01/03/22 15:24 Potassium 3.6 mmol/L (3.5-5.1) 01/03/22 15:24 Chloride 103 mmol/L (98-107) 01/03/22 15:24 Carbon Dioxide 25 mmol/L (22-29) 01/03/22 15:24 Anion Gap 14.6 (5-19) 01/03/22 15:24 BUN 10 mg/dL (6-20) 01/03/22 15:24 Creatinine 0.9 mg/dL (0.5-0.9) 01/03/22 15:24 GFR Calculation 66.3 mL/min (90-130) L 01/03/22 15:24 Glucose 82 mg/dL (65-115) 01/03/22 15:24 Calculated Osmolality 286 mOsm/kg (285-295) 01/03/22 15:24 Calcium 9.7 mg/dL (8.5-10.5) 01/03/22 15:24 Total Bilirubin 0.2 mg/dL (0.15-1.2) 01/03/22 15:24 AST 17 U/L (0-32) 01/03/22 15:24 ALT 15 U/L (0-33) 01/03/22 15:24 Alkaline Phosphatase 113 U/L (35-105) H 01/03/22 15:24 Troponin T Baseline 14 ng/L (0-10) H 01/03/22 15:24 Troponin T 120 Minute 15.14 ng/L (0-10) H 01/03/22 17:40 Delta Troponin T 1.14 ABS# (0-10) 01/03/22 17:40 Total Protein 7.3 g/dL (6.6-8.7) 01/03/22 15:24 Albumin 4.3 g/dL (3.5-5.2) 01/03/22 15:24 Globulin 3.0 g/dL (1.3-4.6) 01/03/22 15:24 EKG Data EKG 1: I personally reviewed and interpreted this EKG as follows: EKG interpretation date: 01/03/22 EKG interpretation time: 15:04 Interpretation: nsr hr [address] or t wave abnormalities qrs 82 qtc 434 Discharge Plan Discharge Patient Disposition: Home Clinical Impression: Chest pain Condition: Stable Prescriptions: No Action atorvastatin 40 mg tablet 40 mg PO BEDTIME Qty: 30 2RF Plavix 75 mg tablet 75 mg PO DAILY Qty: 30 2RF albuterol sulfate [ProAir HFA] 90 mcg/actuation HFA aerosol inhaler 2 inh inhalation 6XD PRN (Reason: shortness of breath or wheezing) Qty: 8.5 5RF ferrous gluconate 324 mg (38 mg iron) tablet 324 mg PO DAILY Qty: 30 2RF valsartan-hydrochlorothiazide [Diovan HCT] 160-12.5 mg tablet 1 tab PO DAILY Qty: 30 0RF Rx Instructions: dose increase amitriptyline 25 mg tablet 25 mg PO BEDTIME aspirin 81 mg Tablet,Delayed Release (Dr/Ec) 81 mg PO QAM Discharge Orders: Discharge ED (Routine); Ordered 01/03/22 Ordered By: Aleksandar Ledesma Referrals: Selvin Thomas, RN STAFF-C [Primary Care Provider] - 1-3 days Discharge Diet: Advance as tolerated Discharge Activity: Resume usual activity Patient Instructions: Chest Pain (ED) Coding Level of Care Code ED Concrete Vibrator Operator for Andrey Fwerin Exam Comprehensive
[2022-01-03 15:30] LABS: Basophils % 0.3 %; Eosinophils # 0.2 10^3/uL (0.0-0.8); Eosinophils % 2.5 %; Hematocrit 35.7 % (37.0-47.0); Hemoglobin 10.5 g/dL (11.5-15.3); Lymphocytes # 2.4 10^3/uL (0.8-4.8); Lymphocytes % 24.5 %; Mean Corpuscular HGB Conc 29.4 g/dL (30.0-36.0); Mean Corpuscular Hemoglobin 23.3 pg (28.0-34.0); Mean Corpuscular Volume 79.2 fl (81-99); Mean Platelet Volume 9.3 fL (7.4-10.4); Monocytes # 0.6 10^3/uL (0.2-0.9); Monocytes % 6.3 %; Neutrophils # 6.47 10^3/uL (1.8-7.7); Neutrophils % 66.1 %; Nucleated Red Blood Cells % 0 %; Platelet Count 415 10^3/cmm (130-400); Red Blood Count 4.51 10^6/uL (4.1-5.3); Red Cell Distribution Width 23.8 % (12.1-15.1); White Blood Count 9.8 10^3/uL (4.0-10.0)
[2022-01-03 15:54] LABS: Troponin(5th) Baseline 14 ng/L (0-10)
[2022-01-03 15:56] LABS: Alanine Aminotransferase 15 U/L (0-33); Albumin Level 4.3 g/dL (3.5-5.2); Alkaline Phosphatase 113 U/L (35-105); Anion Gap 14.6 (5-19); Aspartate Amino Transferase 17 U/L (0-32); Blood Urea Nitrogen 10 mg/dL (6-20); Calcium 9.7 mg/dL (8.5-10.5); Carbon Dioxide 25 mmol/L (22-29); Chloride 103 mmol/L (98-107); Glomerular Filtration Rate 66.3 mL/min (90-130); Glucose 82 mg/dL (65-115); Osmolality Calculated 286 mOsm/kg (285-295); Potassium 3.6 mmol/L (3.5-5.1); Sodium 139 mmol/L (136-145); Total Bilirubin 0.2 mg/dL (0.15-1.2); Total Protein 7.3 g/dL (6.6-8.7)
[2022-01-03 18:36] LABS: Troponin 5 2HR 15.14 ng/L (0-10)
[2022-01-03 18:43] LABS: Troponin 5 2HR Delta 1.14 ABS# (0-10)
== END 2022-01-03 19:00 | disposition home or self-care (01) ==
PROVIDERS: Family Medicine; Emergency Provider Emergency Medicine; PCP Nurse Practitioner
DX: R07.9 Chest pain, unspecified (principal); I10 Essential (primary) hypertension
CPT/HCPCS: 71045; 80053; 84484; 85025; 93005; 99285

== ENCOUNTER → 2022-02-04 11:30 | Outpatient (BNVA) | payer MEDICAID, SELFPAY | PROVIDERS: PCP Nurse Practitioner; Visit Provider Nurse Practitioner | DX: D64.9 Anemia, unspecified (principal); E61.1 Iron deficiency | CPT/HCPCS: 80053; 83550; 85025 ==

== ENCOUNTER 2022-03-29 13:45 | Emergency (ER) | payer BC, MEDICAID, SELFPAY ==
[2022-03-29 13:49] VITALS: BP 131/74; PULSE 106; RESP 20; TEMP 36.5; O2SAT 96; BMI 23.4
--- NOTE | 2022-03-29 14:00 | ED_ITS ---
HPI - Skin/Abscess/Foreign Bdy General: Chief complaint: Skin/Abscess/Foreign Body Stated complaint: sob Time Seen by Provider: 03/29/22 13:56 Source: patient Mode of arrival: ambulatory Limitations: no limitations History of Present Illness: Patient is a 51-year-old female presents to ED today with a complaint of left-sided facial swelling and concern for infection. Patient states a few days ago she noticed with what she thought was a pimple . She states this was not abnormal as she has a history of acne. She reportedly tried to pick/poke the lesion and has since noticed significant left-sided facial swelling and pain. Patient is extremely tearful during examination secondary to her discomfort. She denies history of staph or MRSA. MD complaint: abscess/boil Onset (ago): day(s) Tetanus up to date: yes Location: face Severity scale (1-10): 10 Quality: constant Pain Consistency: constant Relieving factors: none Exacerbating factors: none Context: none Associated symptoms: Reports no associated symptoms; Deny chills, fever(s), nausea or vomiting Treatments prior to arrival: attempted to drain pus at home Review of Systems Const: Denies: fever(s), chills, body aches, fatigue or malaise Eyes: Denies: change in vision, blurry vision, photophobia, eye discharge, floaters or seeing flashes ENMT: Reports: sinus pain; Denies: throat pain, odynophagia, hoarseness, mouth pain, swelling of lips/tongue, oral sores, dental pain, ear or mastoid pain, ear discharge, change in hearing, nasal discharge, nasal congestion or epistaxis Card: Denies: chest pain Resp: Denies: dyspnea GI: Denies: nausea or vomiting Musc: Denies: neck pain Skin/Breast: Reports: other (possible facial abscess) Neuro: Denies: headache(s) PFSH ED PFSH: Medical History Asthma Bipolar disorder, unspecified Essential hypertension Migraine Surgical History History of cholecystectomy Family History Other Cancer Diabetes Hypertension Denies family history of Chronic kidney disease (CKD) Stroke Social History Smoking and tobacco status: current every day smoker cigarettes Packs smoked per day: 0.5 Years cigarettes smoked: 13 Quit status (tobacco): has tried quititng Number of times tried to quit tobacco: 1 Second hand smoke exposure: Yes Smoking risk assessment/counseling performed?: Yes Tobacco counseling given: counseling >3 minutes Alcohol intake: never Desire information about alcohol rehabilitation?: No Counseling given: No Desire information about substance/drug rehabilitation?: No Counseling given: No Adopted: No Caregiver/support person: Yes Lives independently: No Household members: friend(s) Housing: House Marital status: Single Number of children: 0 service: No Current occupational status: unemployed History of recent travel: No Current gender identity: Female Physical Exam Const: COMMON NORMALS: patient oriented x3, no limitations, alert and well nourished GENERAL APPEARANCE: in distress (secondary to pain) and disheveled ORIENTATION/CONSCIOUSNESS: Yes awake, Yes oriented to person, Yes oriented to place and Yes oriented to time HENMT: COMMON NORMALS: normocephalic, atraumatic, external ears normal, EAC's normal, TM's normal bilaterally and Normal external nose present HEAD & SCALP: normal to inspection, normocephalic and atraumatic FACE & SINUS: other (pt has signficant swelling and induration overlying L maxillary region) FACE & SINUS IMAGES: 1. significant swelling/induration present; no obvious areas of fluctuance palpable NOSE: Normal external nose present EXTERNAL EAR: Yes external ears normal EXTERNAL AUDITORY CANAL: EAC's normal TYMPANIC MEMBRANE: TM's normal bilaterally MOUTH: Normal oral and palatal mucosa present, lip normal and tongue normal TEETH & GINGIVA: Yes poor dentition (multiple dental caries present ) THROAT: posterior oropharynx normal Eye: GENERAL EYE: appearance normal, both eyes and all related structures Neck/C-Spine: COMMON NORMALS: full ROM, no lymphadenopathy and no meningeal signs GENERAL: Yes normal visual inspection, No anterior neck swelling and No submandibular swelling Resp: COMMON NORMALS: normal respiratory effort and clear to auscultation bilaterally AUSCULTATION: clear to auscultation bilaterally Cardio: COMMON NORMALS: regular rhythm RATE: tachycardic RHYTHM: regular rhythm Neuro: LAURYN COMA SCALE: document GCS findings [place] coma scale eye opening: Spontaneous Lauryn coma scale verbal response: Orientated [place] coma scale motor response: Obey commands Lauryn coma scale total score: 15 COMMON NORMALS: patient oriented x3, CN's II-XII intact bilaterally, moves all extrem ities, no focal motor deficits, no sensory deficits noted and gait normal SENSORIUM/ORIENTATION: Yes alert, Yes oriented to person, Yes oriented to place and Yes oriented to time MENINGEAL SIGNS: Yes no meningeal signs Course Vital Signs: Vital signs: Vital Signs Temperature 97.7 F 03/29/22 13:49 Pulse Rate 81 03/29/22 16:16 Respiratory Rate 16 03/29/22 16:16 Blood Pressure 131/74 03/29/22 13:49 Pulse Oximetry 95 03/29/22 16:16 Oxygen Delivery Me thod 03/29/22 16:16 MDM - Skin/Abscess/Foreign Bdy Medicial Decision Making Patient initially arrived mildly tachycardic but this has resolved. She is not febrile. She has a normal white count with a normal lactate and a normal CRP. CT scan showing facial cellulitis with no drainable abscess. Patient was given IV vancomycin here. I think it is appropriate to trial her on PO antibiotics at home. She was given strict return to ED precautions in regards for worsening infection. Patient made aware of incidental findings on CT scan and will follow up with PCP. Lab Data 03/29/22 14:11 03/29/22 14:[address] 03/29/22 14:04 IMPRESSION: 1. LEFT facial cellulitis extending from the inferior margin of the orbit to the mandible. Associated inflammatory stranding and edema in the underlying subcutaneous soft tissues. 2. No drainable abscess or fluid collection. 3. Paranasal sinuses and mastoid air cells well aerated. 4. Normal posterior nasopharynx. Normal prevertebral fat. 5. No evidence of osteomyelitis. 6. Disc osteophyte complex in the upper cervical spine at C5-C6 with moderate central canal stenosis only partially visualized. This is better visualized on the CTA head neck August 12, 2021 with moderate central canal stenosis and indentation on the cervical cord. Recommend follow-up MRI cervical spine for better anatomic detail. 7. Carotid bulb calcification with at least moderate LEFT carotid bulb/ICA stenosis. This can be followed up with ultrasound. Notified ZEB Louise at 03/29/2022 4:36 PM. Laboratory Results WBC 5.9 10^3/uL (4.0-10.0) 03/29/22 14:11 RBC 4.18 10^6/uL (4.1-5.3) 03/29/22 14:11 Hgb 11.4 g/dL (11.5-15.3) L 03/29/22 14:11 Hct 36.8 % (37.0-47.0) L 03/29/22 14:11 MCV 88.0 fl (81-99) 03/29/22 14:11 MCH 27.3 pg (28.0-34.0) L 03/29/22 14:11 MCHC 31.0 g/dL (30.0-36.0) 03/29/22 14:11 RDW 17.4 % (12.1-15.1) H 03/29/22 14:11 Plt Count 369 10^3/cmm (130-400) 03/29/22 14:11 MPV 9.3 fL (7.4-10.4) 03/29/22 14:11 Neut % (Auto) 53.2 % 03/29/22 14:11 Lymph % (Auto) 34.3 % 03/29/22 14:11 [place] % (Auto) 8.8 % 03/29/22 14:11 Eos % (Auto) 2.9 % 03/29/22 14:11 Baso % (Auto) 0.5 % 03/29/22 14:11 Neut # (Auto) 3.14 10^3/uL (1.8-7.7) 03/29/22 14:11 Lymph # (Auto) 2.0 10^3/uL (0.8-4.8) 03/29/22 14:11 [place] # (Auto) 0.5 10^3/uL (0.2-0.9) 03/29/22 14:11 Eos # (Auto) 0.2 10^3/uL (0.0-0.8) 03/29/22 14:11 Baso # (Auto) 0.0 10^3/uL (0.0-0.1) 03/29/22 14:11 Nucleated RBC % (auto) 0 % 03/29/22 14:11 Nucleated RBCs # 0.0 /100WBC 03/29/22 14:11 Sodium 138 mmol/L (136-145) 03/29/22 14:11 Potassium 4.3 mmol/L (3.5-5.1) 03/29/22 14:11 Chloride 101 mmol/L (98-107) 03/29/22 14:11 Carbon Dioxide 26 mmol/L (22-29) 03/29/22 14:11 Anion Gap 15.3 (5-19) 03/29/22 14:11 BUN 19 mg/dL (6-20) 03/29/22 14:11 Creatinine 1.3 mg/dL (0.5-0.9) H 03/29/22 14:11 GFR Calculation 43.4 mL/min (90-130) L 03/29/22 14:11 Glucose 105 mg/dL (65-115) 03/29/22 14:11 Calculated Osmolality 289 mOsm/kg (285-295) 03/29/22 14:11 Lactic Acid 1.8 mmol/L (0.5-2.2) 03/29/22 14:11 Calcium 9.6 mg/dL (8.5-10.5) 03/29/22 14:11 Total Bilirubin 0.3 mg/dL (0.15-1.2) 03/29/22 14:11 AST 36 U/L (0-32) H 03/29/22 14:11 ALT 25 U/L (0-33) 03/29/22 14:11 Alkaline Phosphatase 115 U/L (35-105) H 03/29/22 14:11 C-Reactive Protein 4.4 mg/L (0.0-4.9) 03/29/22 14:11 Total Protein 7.0 g/dL (6.6-8.7) 03/29/22 14:11 Albumin 4.3 g/dL (3.5-5.2) 03/29/22 14:11 Globulin 2.7 g/dL (1.3-4.6) 03/29/22 14:11 Discharge Plan Discharge Patient Disposition: Home Clinical Impression: Cellulitis of face Condition: Stable Prescriptions: New clindamycin HCl 300 mg capsule 300 mg PO Q6H 7 Days Qty: 28 0RF hydrocodone-acetaminophen 5-325 mg tablet 1 tab PO Q6H PRN (Reason: pain) Qty: 10 0RF No Action Plavix 75 mg tablet 75 mg PO DAILY Qty: 30 2RF atorvastatin 40 mg tablet 40 mg PO BEDTIME Qty: 30 2RF amitriptyline 75 mg tablet 75 mg PO BEDTIME Qty: 30 2RF valsartan-hydrochlorothiazide [Diovan HCT] 80-12.5 mg tablet 1 tab PO DAILY Qty: 30 2RF budesonide-formoterol [Symbicort] 160-4.5 mcg/actuation HFA aerosol inhaler 1 puff inhalation BID Qty: 10.2 2RF albuterol sulfate [ProAir HFA] 90 mcg/actuation HFA aerosol inhaler 2 inh inhalation 6XD PRN (Reason: shortness of breath or wheezing) Qty: 8.5 5RF ferrous gluconate 324 mg (38 mg iron) tablet 324 mg PO DAILY Qty: 30 2RF venlafaxine [Effexor XR] 37.5 mg capsule,extended release 24hr 37.5 mg PO DAILY Qty: 30 1RF aspirin 81 mg Tablet,Delayed Release (Dr/Ec) 81 mg PO QAM Discharge Orders: Discharge ED (Routine); Ordered 03/29/22 Ordered By: Delphine Rock Referrals: Selvin Thomas, SENIOR SAS PROGRAMMER-C [Primary Care Provider] - Patient Instructions: Cellulitis (ED), Opioid Safety, Pain Management Activity Restrictions/Additional Instructions: As we discussed you need to fill your antibiotics and start them immediately. You need to return to the emergency department for worsening facial swelling, pain, drainage, fevers, swelling down into your neck, swelling to your tongue or to the floor of your mouth, difficulty breathing, difficulty swallowing/eating, or controlling secretions, or any other concerns you may have. I hope you begin to feel better soon. Coding Level of Care Code ED Electronics Research Engineer for Andrey Kang
--- NOTE | 2022-03-29 14:04 | CT_ITS ---
WS: [id number] CT FACIAL BONES TECHNIQUE: Contrast-enhanced facial bones with coronal and sagittal reformatted images. CLINICAL INFORMATION: L facial swelling/cellulitis/abscess COMPARISON: None. DLP: 589.[address] scans at [facility] use at least one of these dose optimization techniques: automated e xposure control; mA and/or kV adjustment per patient size (includes targeted exams where dose is matc hed to clinical indication); or iterative reconstruction. FINDINGS: Per history infection originated from a skin lesion. Inflammatory stranding and edema overlying the LEFT facial soft tissues compatible with cellulitis. T his extends from the LEFT inferior orbit to the body of the mandible. Associated inflammatory strandi ng and edema in the subcutaneous fat overlying the LEFT facial soft tissues and mandible. Thickening of the LEFT platysma. No drainable abscess or fluid collection. No destructive changes to indicate os teomyelitis. Chronic appearing periapical lucency involving a LEFT posterior mandibular premolar. Paranasal sinuses and mastoid air cells well aerated. Normal posterior nasopharynx. Normal parapharyn geal fat. [place] tonsils are normal. Submandibular glands are normal. Partially visualized intracra nial contents appear within normal limits. Disc osteophyte complex in the upper cervical spine at C5- C6 with moderate central canal stenosis but only partially visualized. This is better visualized on the CTA head neck August 12, 2021. CT/CT facial bones w con [id number] IMPRESSION: 1. LEFT facial cellulitis extending from the inferior margin of the orbit to t he mandible. Associated inflammatory stranding and edema in the underlying subc utaneous soft tissues. 2. No drainable abscess or fluid collection. 3. Paranasal sinuses and mastoid air cells well aerated. 4. Normal posterior nasopharynx. Normal prevertebral fat. 5. No evidence of osteomyelitis. 6. Disc osteophyte complex in the upper cervical spine at C5-C6 with moderate central canal stenosis only partially visualized. This is better visualized on the CTA head neck August 12, 2021 with moderate central canal stenosis and inden tation on the cervical cord. Recommend follow-up MRI cervical spine for better anatomic detail. 7. Carotid bulb calcification with at least moderate LEFT carotid bulb/ICA stewart nosis. This can be followed up with ultrasound. Notified ZEB Louise at 03/29/2022 4:36 PM.
[2022-03-29 14:31] VITALS: RESP 20
[2022-03-29] MEDS: morphine 4 mg/mL SDV 1 mL IVP (14:31)
[2022-03-29 14:33] LABS: Basophils % 0.5 %; Eosinophils # 0.2 10^3/uL (0.0-0.8); Eosinophils % 2.9 %; Hematocrit 36.8 % (37.0-47.0); Hemoglobin 11.4 g/dL (11.5-15.3); Lymphocytes % 34.3 %; Mean Corpuscular Hemoglobin 27.3 pg (28.0-34.0); Mean Platelet Volume 9.3 fL (7.4-10.4); Monocytes # 0.5 10^3/uL (0.2-0.9); Monocytes % 8.8 %; Neutrophils # 3.14 10^3/uL (1.8-7.7); Neutrophils % 53.2 %; Nucleated Red Blood Cells % 0 %; Platelet Count 369 10^3/cmm (130-400); Red Blood Count 4.18 10^6/uL (4.1-5.3); Red Cell Distribution Width 17.4 % (12.1-15.1); White Blood Count 5.9 10^3/uL (4.0-10.0)
[2022-03-29] MEDS: vancomycin 1,000 MG in sodium chloride 0.9% 250 ML 250 MG IV (14:42)
[2022-03-29 14:57] LABS: Alanine Aminotransferase 25 U/L (0-33); Albumin Level 4.3 g/dL (3.5-5.2); Alkaline Phosphatase 115 U/L (35-105); Anion Gap 15.3 (5-19); Aspartate Amino Transferase 36 U/L (0-32); Blood Urea Nitrogen 19 mg/dL (6-20); C Reactive Protein 4.4 mg/L (0.0-4.9); Calcium 9.6 mg/dL (8.5-10.5); Carbon Dioxide 26 mmol/L (22-29); Chloride 101 mmol/L (98-107); Globulin 2.7 g/dL (1.3-4.6); Glomerular Filtration Rate 43.4 mL/min (90-130); Glucose 105 mg/dL (65-115); Osmolality Calculated 289 mOsm/kg (285-295); Potassium 4.3 mmol/L (3.5-5.1); Sodium 138 mmol/L (136-145); Total Bilirubin 0.3 mg/dL (0.15-1.2)
[2022-03-29 14:58] LABS: Lactic Sepsis W/Reflex 1.8 mmol/L (0.5-2.2)
[2022-03-29 16:16] VITALS: PULSE 81; RESP 16; O2SAT 95
== END 2022-03-29 16:47 | disposition home or self-care (01) ==
PROVIDERS: Emergency Provider Physician Assistant; PCP Nurse Practitioner
DX: L03.211 Cellulitis of face (principal); Z79.82 Long term (current) use of aspirin; I10 Essential (primary) hypertension; F17.210 Nicotine dependence, cigarettes, uncomplicated
CPT/HCPCS: 36415; 70487; 80053; 83605; 85025; 86140; 87040; 96365; 96375; 99285; J2270; J3370; J7050; Q9967

== ENCOUNTER 2022-05-16 06:11 | Outpatient (CLI) | payer OTHER, MEDICAID, SELFPAY ==
--- NOTE | 2022-05-16 06:15 | USCV_ITS ---
Trudi Wesley Age: 51 Gender: F : 1970 Exam Date: 05/16/2022 06:25 Ordering Phys: Selvin Thomas Technologist: CT Exam Location: [facility] Indication: stenosis Risk Factors: Previous Vascular Surgery: Right Brachial BP: / Left Brachial BP: / Right Left Velocity (cm/s) Spectral Plaque Velocity (cm/s) Spectral Plaque Syst/Diast Broadening Syst/Diast Broadening 64.10/ 33.50 Prox CCA 72.00 / 26.50 68.20/ 30.80 Mid CCA 84.90 / 32.00 60.60/ 27.90 Distal CCA 69.30 / 31.30 75.30/ 35.00 Prox ICA 121.00/ 44.50 78.90/ 42.00 Mid ICA 110.70/ 38.80 75.40/ 41.50 Distal ICA 57.40 / 24.30 46.10 ECA 74.30 1.16 ICA/CCA 1.42 Antegrade Vertebral Antegrade 36.80/ 0.00 cm/s 44.70/ 17.10 cm/s Tri Subclavian Tri 61.10 110.4 0 FINDINGS stenosis on left CONCLUSIONS Right ICA stenosis <50%. Moderate atheromatous plaque right carotid bulb/ICA. Left ICA stenosis 50-69% at the lower end of the range.Moderate atheromatous plaque left carotid bulb/ICA. Normal antegrade Doppler flow noted in the right vertebral artery. Normal antegrade Doppler flow noted in the left vertebral artery. Roderick Bundy MD (Electronically Signed) Final Date: 16 May 2022 14:51 S
== END 2022-05-16 06:12 | disposition home or self-care (01) ==
LOC: RAD 06:13
PROVIDERS: PCP Nurse Practitioner; Visit Provider Nurse Practitioner
DX: I65.23 Occlusion and stenosis of bilateral carotid arteries (principal)
CPT/HCPCS: 93880

== ENCOUNTER 2022-07-04 07:45 | Outpatient (CLI) | payer BC, MEDICAID, SELFPAY ==
--- NOTE | 2022-07-04 08:00 | MR_ITS ---
WS: [id number] MRI HEAD WITHOUT CONTRAST TECHNIQUE: Sagittal T1, T2 axial, T2 axial FLAIR, axial and coronal T1 images, axial susceptibility w eighted imaging, axial diffusion weighted images, and coronal T2 images were obtained. CLINICAL INFORMATION: I69.30 - Unspecified sequelae of cerebral infarction COMPARISON: MRI August 13, 2021 FINDINGS: No evidence of restricted diffusion to suggest acute ischemia. Ventricular system and basal cisterns are patent. Moderate to advanced small vessel changes. Moderate parenchymal volume loss worse in the parietal lobes. Normal vascular flow voids at the skull base. No extra-axial fluid collections. Chron ic lacunar infarcts in the bilateral cerebellum. Paranasal sinuses are well aerated. Mastoid air cell s well aerated. Normal posterior nasopharynx and parapharyngeal fat. Disc bulging upper cervical spin e partially visualized C5-C6. No hemosiderin on susceptibly weighted images. Temporal lobes and hippocampal formations are normal i n appearance. Chronic infarcts with encephalomalacia in the RIGHT posterior frontal lobe and frontal parietal junction. Chronic infarct RIGHT occipital lobe with encephalomalacia and gliosis. Small vess el changes have progressed since 2021. Chronic infarcts are similar to previous. MR/MR head wo con* [id number] IMPRESSION: 1. No evidence of restricted diffusion to suggest acute ischemia. 2. Moderate to advanced small vessel changes with moderate parenchymal volume loss. 3. Volume loss worse in the parietal lobes. 4. Chronic lacunar infarcts in the cerebellum bilaterally similar to previous. 5. Chronic infarct with encephalomalacia and gliosis in the RIGHT frontal ashley etal junction and RIGHT occipital lobe. 6. No hemosiderin on susceptibly weighted images. 7. Small vessel changes and volume loss slightly progressed compared to 2021.
== END 2022-07-04 07:46 | disposition home or self-care (01) ==
LOC: RAD 07:49
PROVIDERS: PCP Nurse Practitioner; Visit Provider Nurse Practitioner
DX: I69.30 Unspecified sequelae of cerebral infarction (principal)
CPT/HCPCS: 70551

== ENCOUNTER → 2022-08-29 15:39 | Outpatient (BNVA) | payer MEDICAID, SELFPAY | PROVIDERS: PCP Nurse Practitioner; Visit Provider Nurse Practitioner | DX: D64.9 Anemia, unspecified (principal); I10 Essential (primary) hypertension | CPT/HCPCS: 80053; 80061; 83540; 84443; 85025 ==

== ENCOUNTER → 2022-12-21 10:59 | Outpatient (BNVA) | payer MEDICAID, SELFPAY | PROVIDERS: PCP Nurse Practitioner; Visit Provider Nurse Practitioner | DX: M25.551 Pain in right hip; M48.08 Spinal stenosis, sacral and sacrococcygeal region; M47.894 Other spondylosis, thoracic region; M47.897 Other spondylosis, lumbosacral region; M51.36 Other intervertebral disc degeneration, lumbar region | CPT/HCPCS: 72072; 72100; 73502 ==

== ENCOUNTER → 2023-01-25 15:16 | Outpatient (BNVA) | payer MEDICAID, SELFPAY | PROVIDERS: PCP Nurse Practitioner; Visit Provider Nurse Practitioner | DX: E66.3 Overweight (principal); B00.9 Herpesviral infection, unspecified; J45.909 Unspecified asthma, uncomplicated; I63.9 Cerebral infarction, unspecified; G47.00 Insomnia, unspecified; K21.9 Gastro-esophageal reflux disease without esophagitis; F31.9 Bipolar disorder, unspecified; I10 Essential (primary) hypertension; F41.1 Generalized anxiety disorder; M54.50 Low back pain, unspecified; M79.604 Pain in right leg; E61.1 Iron deficiency; D64.9 Anemia, unspecified; L03.90 Cellulitis, unspecified | CPT/HCPCS: 80053; 80061; 83550; 84443; 85025 ==

== ENCOUNTER 2023-02-23 17:20 | Emergency (ER) | payer MEDICAID, SELFPAY ==
[2023-02-23 17:24] VITALS: BP 108/75; PULSE 103; RESP 16; TEMP 37; O2SAT 99; BMI 27.3
--- NOTE | 2023-02-23 17:25 | XRR_ITS ---
PROCEDURE INFORMATION: Exam: XR Right Hip Exam date and time: 02/23/2023 6:33 PM Age: 52 years old Clinical indication: Injury or trauma; Fall; Blunt trauma (contusions or hematomas); Bilateral; Pelvic region TECHNIQUE: Imaging protocol: Radiologic exam of the right hip. Views: 1 view hip with pelvis when performed. COMPARISON: CR XR hip RT 2-3V wo/w pel* [id number] 12/21/2022 11:02 AM FINDINGS: Bones/joints: Chronic appearing architectural distortion of the right femoral head with flattening of the right femoral head and acetabulum. No acute fracture identified. Soft tissues: Unremarkable. XR/XR hip RT 2-3V wo/w pel* [id number] IMPRESSION: 1. No acute fracture identified. 2. Chronic appearing architectural distortion of the right femoral head with flattening of the right femoral head and acetabulum.
--- NOTE | 2023-02-23 17:30 | ED_ITS ---
HPI - Extremity Problem 2 General: Chief complaint: Extremity Injury, Lower Stated complaint: hip pains right side Time Seen by Provider: 02/23/23 17:30 History of Present Illness: 52-year-old female comes in today with r ight hip pain. 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 Patient has had increased pain and discomfort to the hip over the last 3 days. Patient also reports diarrhea. Patient appears nontoxic. Patient appears in no acute distress. Review of Systems 2 General: Reports: 10 or more systems reviewed and unremarkable except in HPI and below Const: Reports: chills GI: Reports: nausea and diarrhea Musc: Reports: joint pain (Right hip pain) [facility] 2 [facility]: Medical History (Updated 02/23/23 @ 19:02 by JOCELINE Oliva) Overweight (BMI 25.0-29.9) Congenital leg length inequality Generalized anxiety disorder Essential hypertension Asthma Migraine Bipolar disorder, unspecified Surgical History History of cholecystectomy Family History Other Cancer Diabetes Hypertension Denies family history of Chronic kidney disease (CKD) Stroke Social History Smoking and tobacco/nicotine status: current every day tobacco/nicotine user cigarettes Packs smoked per day: 0.5 Years cigarettes smoked: 13 Quit status (tobacco/nicotine): has tried quititng Number of times tried to quit tobacco: 1 Second hand smoke exposure: Yes Alcohol intake: never Substance/Drug Use: unknown Adopted: No Caregiver/support person: Yes Lives independently: No Household members: friend(s) Housing: House Marital status: Single Number of children: 0 service: No Current occupational status: unemployed Do you think of yourself as: Straight/Heterosexual Current gender identity: Female Physical Exam 2 Const: COMMON NORMALS: alert HENMT: COMMON NORMALS: normocephalic HEAD & SCALP: normocephalic Neck/C-Spine: COMMON NORMALS: full ROM Resp: COMMON NORMALS: normal respiratory effort and clear to auscultation bilaterally AUSCULTATION: clear to auscultation bilaterally Cardio: COMMON NORMALS: regular rate and regular rhythm RATE: regular rate RHYTHM: regular rhythm GI: COMMON NORMALS: Soft to palpation and non-tender PALPATION: Yes Soft to palpation Back/Pelvis: LUMBAR SPINE/LOWER BACK: Yes paraspinal muscle tenderness Extremity: RIGHT LOWER EXTREMITY: Yes hip joint (Inguinal tenderness, pain with weightbearing) Neuro: SENSORIUM/ORIENTATION: Yes alert Skin: COMMON NORMALS: turgor normal GENERAL SKIN EXAM: turgor normal Course 2 Vital Signs: Vital signs: Vital Signs Temperature 98.6 F 02/23/23 17:24 Pulse Rate 103 H 02/23/23 17:24 Respiratory Rate 16 02/23/23 17:24 Blood Pressure 108/75 02/23/23 17:24 Pulse Oximetry 99 02/23/23 17:24 Oxygen Delivery Me thod Room Air 02/23/23 17:24 MDM - Extremity (Nontraumatic) Medical Decision Making 52-year-old female comes in today with complaints of right hip pain and general symptoms of fatigue, chills, diarrhea. Patient appears nontoxic. Patient reports symptoms for the last 3 days. On exam patient has decreased range of motion of the right hip and increased pain with weightbearing. Differential diagnosis includes but not limited to bursitis, osteoarthritis, viral syndrome, inflammatory joint disease. X-ray notes a hip dysplasia with some degeneration of the joint. CBC was unremarkable except for anemia. Creatinine was elevated at 1.8. Patient has some chronic kidney disease. Discussed with patient she has been using naproxen and ibuprofen she does endorse its use. Recommended cessation of naproxen and ibuprofen due to her chronic kidney disease. CRP and sed rate were unremarkable. Recommended patient take 10 mg of dexamethasone to help with pain and inflammation. Patient be placed on medication for pain with referral to orthopedist for further evaluation and treatment. Patient stated understanding agreed to plan. Lab Data 02/23/23 18:10 02/23/23 18:10 Laboratory Results WBC 9.17 10^3/uL (3.29-11.43) 02/23/23 18:10 RBC 3.25 10^6/uL (3.85-5.65) L 02/23/23 18:10 Hgb 9.80 g/dL (11.27-16.99) L 02/23/23 18:10 Hct 30.0 % (36-47) L 02/23/23 18:10 MCV 92.3 fl (85-98) 02/23/23 18:10 MCH 30.2 pg (27-33) 02/23/23 18:10 MCHC 32.7 g/dL (30-55) 02/23/23 18:10 RDW 15.4 % (12.1-15.1) H 02/23/23 18:10 Plt Count 373 10^3/cmm (157-399) 02/23/23 18:10 MPV 9.3 fL (7.4-10.4) 02/23/23 18:10 Neut % (Auto) 65.9 % 02/23/23 18:10 Lymph % (Auto) 24.1 % 02/23/23 18:10 Esmeralda % (Auto) 9.3 % 02/23/23 18:10 Eos % (Auto) 0.1 % 02/23/23 18:10 Baso % (Auto) 0.3 % 02/23/23 18:10 Neut # (Auto) 6.04 10^3/uL (1.8-7.7) 02/23/23 18:10 Lymph # (Auto) 2.2 10^3/uL (0.8-4.8) 02/23/23 18:10 Esmeralda # (Auto) 0.9 10^3/uL (0.2-0.9) 02/23/23 18:10 Eos # (Auto) 0.0 10^3/uL (0.0-0.8) 02/23/23 18:10 Baso # (Auto) 0.0 10^3/uL (0.0-0.1) 02/23/23 18:10 Nucleated RBC % (auto) 0 % 02/23/23 18:10 Nucleated RBCs # 0.0 /100WBC 02/23/23 18:10 ESR 10 mm/hr (0-15) 02/23/23 18:10 Sodium 134 mmol/L (136-145) L 02/23/23 18:10 Potassium 3.0 mmol/L (3.5-5.1) L 02/23/23 18:10 Chloride 98 mmol/L (98-107) 02/23/23 18:10 Carbon Dioxide 22 mmol/L (22-29) 02/23/23 18:10 Anion Gap 17.0 (5-19) 02/23/23 18:10 BUN 23 mg/dL (6-20) H 02/23/23 18:10 Creatinine 1.8 mg/dL (0.5-0.9) H 02/23/23 18:10 GFR Calculation 29.7 mL/min (90-130) L 02/23/23 18:10 Glucose 116 mg/dL (65-115) H 02/23/23 18:10 Calculated Osmolality 283 mOsm/kg (285-295) L 02/23/23 18:10 Calcium 9.4 mg/dL (8.5-10.5) 02/23/23 18:10 Total Bilirubin 0.5 mg/dL (0.15-1.2) 02/23/23 18:10 AST 27 U/L (0-32) 02/23/23 18:10 ALT 17 U/L (0-33) 02/23/23 18:10 Alkaline Phosphatase 99 U/L (35-105) 02/23/23 18:10 C-Reactive Protein 5.2 mg/L (0.0-4.9) H 02/23/23 18:10 Total Protein 7.3 g/dL (6.6-8.7) 02/23/23 18:10 Albumin 4.2 g/dL (3.5-5.2) 02/23/23 18:10 Globulin 3.1 g/dL (1.3-4.6) 02/23/23 18:10 Urine Color Yellow (Yellow) 02/23/23 17:59 Urine Appearance Clear (CLEAR) 02/23/23 17:59 Urine pH 5 (5-7) 02/23/23 17:59 Ur Specific Perry 1.020 (1.005-1.030) 02/23/23 17:59 Urine Protein Trace (Negative) 02/23/23 17:59 Urine Glucose (UA) Norm (Normal) 02/23/23 17:59 Urine Ketones 1+ (Negative) H 02/23/23 17:59 Urine Blood 2+ (Negative) H 02/23/23 17:59 Urine Nitrate Negative (Negative) 02/23/23 17:59 Urine Bilirubin 1+ (Negative) H 02/23/23 17:59 Urine Urobilinogen 1 mg/dL (Negative) H 02/23/23 17:59 Ur Leukocyte Esterase Negative (Negative) 02/23/23 17:59 Urine RBC 0-4 /hpf (0-2) H 02/23/23 17:59 Urine WBC 0-4 /hpf (0-5) H 02/23/23 17:59 Ur Squamous Epith Cells 5-10 /hpf (0-5) H 02/23/23 17:59 Amorphous Sediment Not Reportable 02/23/23 17:59 Urine Bacteria 1+ /hpf (NONE) H 02/23/23 17:59 XR interpretation done by ED provider, pending radiology final review Discharge Plan Discharge Patient Disposition: Home Clinical Impression: Hip pain, right Degenerative joint disease of right hip Qualifiers: Osteoarthritis type: unspecified Qualified Code(s): M16.11 - Unilateral primary osteoarthritis, right hip Condition: Stable Prescriptions: New hydrocodone-acetaminophen 5-325 mg tablet 1 tab PO Q6H PRN (Reason: pain) Qty: 10 0RF No Action acarbose 100 mg tablet 100 mg PO TID Qty: 90 5RF Rx Instructions: take before food acyclovir 200 mg capsule 200 mg PO DAILY Qty: 30 5RF albuterol sulfate [ProAir HFA] 90 mcg/actuation HFA aerosol inhaler 2 inh inhalation 6XD PRN (Reason: shortness of breath or wheezing) Qty: 8.5 5RF atorvastatin 40 mg tablet 40 mg PO BEDTIME Qty: 30 5RF budesonide-formoterol [Symbicort] 160-4.5 mcg/actuation HFA aerosol inhaler 2 puff inhalation BID Qty: 10.2 5RF Plavix 75 mg tablet 75 mg PO DAILY Qty: 30 5RF eszopiclone [Lunesta] 3 mg tablet 3 mg PO .in evening Qty: 30 5RF famotidine 40 mg tablet 40 mg PO BID Qty: 60 5RF olanzapine [Zyprexa] 10 mg tablet 10 mg PO DAILY Qty: 30 5RF valsartan-hydrochlorothiazide [Diovan HCT] 80-12.5 mg tablet 1 tab PO DAILY Qty: 30 5RF venlafaxine [Effexor XR] 75 mg capsule,extended release 24hr 75 mg PO QAM Qty: 30 5RF zonisamide [Zonegran] 100 mg capsule 100 mg PO BID Qty: 60 5RF cephalexin 500 mg capsule 500 mg PO TID Qty: 30 0RF mupirocin 2 % ointment 1 applic topical BID Qty: 22 0RF (DME) Shoe lift See Rx Instructions .Route .MEDSUPPLY Qty: 1 0RF Rx Instructions: As directed ferrous gluconate 324 mg (38 mg iron) tablet 324 mg PO DAILY Qty: 30 2RF aspirin 81 mg Tablet,Delayed Release (Dr/Ec) 81 mg PO QAM Discharge Orders: Discharge ED (Routine); Ordered 02/23/23 Ordered By: Zhang Garcia Referrals: Selvin Thomas, FOUNDRY SUPERVISOR-C [Primary Care Provider] - Patient Instructions: Opioid Safety, Pain Management Activity Restrictions/Additional Instructions: Activity as tolerated. Use ice or heat to the area for further pain relief. Drink plenty of water. Follow-up with primary care for further instructions and medication refills. Case management will contact you regarding orthopedic follow-up. You may need to have further discussion regarding hip replacement surgery or injections to help control the pain you are having. Return to ER for new concerns. Coding Level of Care Code ED Bond Trader for Andrey Kang
--- NOTE | 2023-02-23 18:10 | PC.NURSE ---
Blood drawn and sent to lab
[2023-02-23 18:34] LABS: Basophils % 0.3 %; Eosinophils % 0.1 %; Lymphocytes # 2.2 10^3/uL (0.8-4.8); Lymphocytes % 24.1 %; Mean Corpuscular HGB Conc 32.7 g/dL (30-55); Mean Corpuscular Hemoglobin 30.2 pg (27-33); Mean Corpuscular Volume 92.3 fl (85-98); Mean Platelet Volume 9.3 fL (7.4-10.4); Monocytes # 0.9 10^3/uL (0.2-0.9); Monocytes % 9.3 %; Neutrophils # 6.04 10^3/uL (1.8-7.7); Neutrophils % 65.9 %; Nucleated Red Blood Cells % 0 %; Platelet Count 373 10^3/cmm (157-399); Red Blood Count 3.25 10^6/uL (3.85-5.65); Red Cell Distribution Width 15.4 % (12.1-15.1); White Blood Count 9.17 10^3/uL (3.29-11.43)
[2023-02-23 18:37] LABS: Alanine Aminotransferase 17 U/L (0-33); Albumin Level 4.2 g/dL (3.5-5.2); Alkaline Phosphatase 99 U/L (35-105); Aspartate Amino Transferase 27 U/L (0-32); Blood Urea Nitrogen 23 mg/dL (6-20); C Reactive Protein 5.2 mg/L (0.0-4.9); Calcium 9.4 mg/dL (8.5-10.5); Carbon Dioxide 22 mmol/L (22-29); Chloride 98 mmol/L (98-107); Globulin 3.1 g/dL (1.3-4.6); Glomerular Filtration Rate 29.7 mL/min (90-130); Glucose 116 mg/dL (65-115); Osmolality Calculated 283 mOsm/kg (285-295); Sodium 134 mmol/L (136-145); Total Bilirubin 0.5 mg/dL (0.15-1.2); Total Protein 7.3 g/dL (6.6-8.7)
[2023-02-23] MEDS: HYDROcodone-acetaminophen 7.5-325 mg Tablet 1 TAB PO (18:43)
[2023-02-23 18:46] LABS: Add Urine Microscopic? YES; Blood Urine 2+ (Negative); Glucose Urine UA Norm (Normal); Ketones Urine 1+ (Negative); Leukocyte Esterase Urine Negative (Negative); Nitrate Urine Negative (Negative); Protein Urine Trace (Negative); Urine Appearance Clear (CLEAR); Urine Color Yellow (Yellow); pH Urine 5 (5-7)
[2023-02-23 18:47] LABS: Bacteria Urine 1+ /hpf; Bilirubin Urine 1+ (Negative); RBC Urine 0-4 /hpf (0-2); Urobilinogen Urine 1 mg/dL (Negative); WBC Urine 0-4 /hpf (0-5)
[2023-02-23 18:48] LABS: Add Urine Culture? No
[2023-02-23 18:59] LABS: Erythrocyte Sedimentation Rate 10 mm/hr (0-15)
[2023-02-23] MEDS: dexamethasone 10 mg/mL INJ IM (19:15)
[2023-02-23 19:23] VITALS: BP 113/72; PULSE 91; RESP 15; O2SAT 98
--- NOTE | 2023-02-27 08:07 | DCPLANNER ---
Message was sent to ortho on 02/27/23 at 0808 am. Clinic to contact patient
== END 2023-02-23 19:24 | disposition home or self-care (01) ==
PROVIDERS: Emergency Provider Nurse Practitioner Family; PCP Nurse Practitioner
DX: M16.11 Unilateral primary osteoarthritis, right hip (principal); Z79.82 Long term (current) use of aspirin; Z79.02 Long term (current) use of antithrombotics/antiplatelets; I10 Essential (primary) hypertension; F17.210 Nicotine dependence, cigarettes, uncomplicated
CPT/HCPCS: 73502; 80053; 81001; 85025; 85651; 86140; 96372; 99284; J1100

== ENCOUNTER → 2023-04-06 13:53 | Outpatient (BNVA) | payer BC, MEDICAID, SELFPAY | PROVIDERS: PCP Nurse Practitioner; Visit Provider Nurse Practitioner | DX: R73.9 Hyperglycemia, unspecified (principal); F41.1 Generalized anxiety disorder; I10 Essential (primary) hypertension | CPT/HCPCS: 80053; 83036 ==

== ENCOUNTER 2023-04-12 11:50 | Emergency (ER) | payer BC, MEDICAID, SELFPAY ==
[2023-04-12 11:53] VITALS: BP 113/63; PULSE 97; RESP 16; TEMP 36.7; O2SAT 98; BMI 35.2
[2023-04-12] MEDS: HYDROcodone-acetaminophen 10-325 mg Tablet 1 TAB PO (12:18)
[2023-04-12] MEDS: mupirocin oint 22 gm 1 APPLIC TOPICAL (12:19)
--- NOTE | 2023-04-12 12:30 | ED_ITS ---
HPI - Skin/Abscess/Foreign Bdy General: Chief complaint: Skin/Abscess/Foreign Body Stated complaint: rash Time Seen by Provider: 04/12/23 11:58 History of Present Illness: 52-year-old female who presents with a b urned area to her forehead. She states she just scratched it. She states it started out as swelling of her right upper eyelid and she put triple antibiotic ointment on it. She woke up this morning with her forehead area excoriated and painful. She denies fever. Review of Systems Narrative: Negative except for HPI PFSH ED PFSH: Medical History Overweight (BMI 25.0-29.9) Congenital leg length inequality Generalized anxiety disorder Essential hypertension Asthma Migraine Bipolar disorder, unspecified Surgical History History of cholecystectomy Family History Other Cancer Diabetes Hypertension Denies family history of Chronic kidney disease (CKD) Stroke Social History Smoking and tobacco/nicotine status: current every day tobacco/nicotine user cigarettes Packs smoked per day: 0.5 Years cigarettes smoked: 13 Quit status (tobacco/nicotine): has tried quititng Number of times tried to quit tobacco: 1 Second hand smoke exposure: Yes Alcohol intake: never Substance/Drug Use: unknown Adopted: No Caregiver/support person: Yes Lives independently: No Household members: friend(s) Housing: House Marital status: Single Number of children: 0 service: No Current occupational status: unemployed Do you think of yourself as: Straight/Heterosexual Current gender identity: Female Physical Exam Const: OTHER: Patient appears to be in mild distress due to pain. HENMT: OTHER: Excoriated area extending across forehead area above eyebrows approximately 2 cm in height and the width of the forehead extending from the edge of her eyebrows bilaterally. She has erythema, swelling and tenderness of the right upper eyelid. There is no proptosis. There is no abnormality of her extraocular movements. There is no conjunctival injection. There is no fluctuance noted. Neuro: OTHER: Alert and appropriate, moves all extremities Course Vital Signs: Vital signs: Vital Signs Temperature 98.0 F 04/12/23 11:53 Pulse Rate 97 04/12/23 11:53 Respiratory Rate 16 04/12/23 11:53 Blood Pressure 113/63 04/12/23 11:53 Pulse Oximetry 98 04/12/23 11:53 Oxygen Delivery Me thod Room Air 04/12/23 11:53 MDM - Skin/Abscess/Foreign Bdy Medicial Decision Making Patient has an excoriated area on her forehead which appears like a chemical burn. Will apply a Bactroban ointment to the area. Patient's been given 1 dose of Walker in the ED. Will discharge patient with prescription for Bactroban as well as Voltaren to take twice daily as needed for pain No radiology studies performed this visit Discharge Plan Discharge Patient Disposition: Home Clinical Impression: Periorbital cellulitis of right eye, Contact dermatitis Condition: Stable Prescriptions: New mupirocin 2 % ointment 1 applic topical TID Qty: 22 0RF doxycycline hyclate 100 mg tablet 100 mg PO BID 10 Days Qty: 20 0RF diclofenac sodium 50 mg tablet,delayed release (DR/EC) 50 mg PO Q12H Qty: 20 0RF No Action acyclovir 200 mg capsule 200 mg PO DAILY Qty: 30 5RF albuterol sulfate [ProAir HFA] 90 mcg/actuation HFA aerosol inhaler 2 inh inhalation 6XD PRN (Reason: shortness of breath or wheezing) Qty: 8.5 5RF atorvastatin 40 mg tablet 40 mg PO BEDTIME Qty: 30 5RF budesonide-formoterol [Symbicort] 160-4.5 mcg/actuation HFA aerosol inhaler 2 puff inhalation BID Qty: 10.2 5RF Plavix 75 mg tablet 75 mg PO DAILY Qty: 30 5RF famotidine 40 mg tablet 40 mg PO BID Qty: 60 5RF valsartan-hydrochlorothiazide [Diovan HCT] 80-12.5 mg tablet 1 tab PO DAILY Qty: 30 5RF zonisamide [Zonegran] 100 mg capsule 100 mg PO BID Qty: 60 5RF (DME) Shoe lift See Rx Instructions .Route .MEDSUPPLY Qty: 1 0RF Rx Instructions: As directed (DME) HCPCS code E0149 See Rx Instructions .Route .MEDSUPPLY Qty: 1 0RF Rx Instructions: As directed ferrous gluconate 324 mg (38 mg iron) tablet 324 mg PO DAILY Qty: 30 2RF venlafaxine [Effexor XR] 150 mg capsule,extended release 24hr 150 mg PO QAM Qty: 30 2RF dapagliflozin propanediol [Farxiga] 10 mg tablet 10 mg PO QAM Qty: 30 2RF potassium chloride 10 mEq tablet,ER particles/crystals 10 meq PO DAILY Qty: 30 2RF hydrocodone-acetaminophen 5-325 mg tablet 1 tab PO Q6H PRN (Reason: pain) Qty: 10 0RF aspirin 81 mg Tablet,Delayed Release (Dr/Ec) 81 mg PO QAM Discharge Orders: Discharge ED (Routine); Ordered 04/12/23 Ordered By: Marti Kramer Referrals: Selvin Thomas, MECHANICAL MAINTENANCE INSTRUCTOR-C [Primary Care Provider] - Discharge Activity: Increase activity as tolerated Patient Instructions: Opioid Safety, Pain Management Activity Restrictions/Additional Instructions: Wash the affected area twice daily with soap and water. Apply the antibiotic ointment 3 times daily. Take the antibiotics twice daily until gone. You can take the Voltaren twice daily as needed for pain. Avoid scratching or rubbing the area. Return if you have increased redness, increased pain, increased swelling. Follow-up in 1 to 2 weeks with your primary care doctor. Coding Level of Care Code ED Laser Machine Operator for Andrey Kang
== END 2023-04-12 13:15 | disposition home or self-care (01) ==
PROVIDERS: Emergency Provider Emergency Medicine; PCP Nurse Practitioner
DX: L03.213 Periorbital cellulitis (principal); L25.9 Unspecified contact dermatitis, unspecified cause; Z79.82 Long term (current) use of aspirin; Z79.02 Long term (current) use of antithrombotics/antiplatelets; F17.210 Nicotine dependence, cigarettes, uncomplicated; I10 Essential (primary) hypertension
CPT/HCPCS: 99283

== ENCOUNTER 2023-05-06 11:45 | Inpatient (IN) | payer BC, SELFPAY ==
[2023-05-06] VITALS (14 sets, daily range): BP systolic 90–181; BP diastolic 56–148; PULSE 65–112; RESP 16–24; TEMP 36.6–36.8; O2SAT 94–100; BMI 26.2
--- NOTE | 2023-05-06 11:48 | CTR_ITS ---
PROCEDURE INFORMATION: Exam: CT Abdomen And Pelvis Without Contrast Exam date and time: 05/06/2023 12:18 PM Age: 52 years old Clinical indication: Abdominal pain; Prior surgery; Surgery date: 6+ months; Surgery type: Gb TECHNIQUE: Imaging protocol: Computed tomography of the abdomen and pelvis without contrast. Axial, coronal and sagittal reformatted images were created and reviewed. Radiation optimization: All CT scans at this facility use at least one of these dose optimization techniques: automated exposure control; mA and/or kV adjustment per patient size (includes targeted exams where dose is matched to clinical indication); or iterative reconstruction. COMPARISON: CT abdomen pelvis w con* [id number] 04/21/2020 10:07 AM RADIATION DOSE METRICS: Total DLP (mGy-cm): 419.32 FINDINGS: Liver: Diffuse hepatic steatosis. Gallbladder and bile ducts: Status post cholecystectomy. No biliary ductal dilatation. Pancreas: Unremarkable. Spleen: Unremarkable. Adrenal glands: 2.9 x 2.3 cm right adrenal adenoma. Kidneys and ureters: No mass. No radiodense calculi. No hydronephrosis. Stomach and bowel: No bowel wall thickening. No obstruction. No pneumatosis. Appendix: Normal. Intraperitoneal space: No free fluid. No organized fluid collection. No free air. Vasculature: Mild atherosclerotic disease. No aneurysm. Lymph nodes: No pathologically enlarged lymph nodes. Urinary bladder: Unremarkable as visualized. Reproductive: 5 x 3.8 cm left adnexal cystic lesion versus 2 adjacent cysts. Somewhat lobular uterus, likely due to fibroids. Bones/joints: No acute osseous abnormality. Osteopenia. Degenerative changes. Soft tissues: Tiny, fat containing umbilical hernia. CT/CT abdomen pelvis wo con [id number] IMPRESSION: 1. 5 x 3.8 cm left adnexal cystic lesion versus 2 adjacent cysts. If clinically indicated, pelvic ultrasound may be obtained for further evaluation. 2. Additional findings, as above. COMMENTS: Consistent with the [employer]'s Incidental Findings Committee white paper (J Am Vladimir Radiol 2017): For any incidental adrenal lesion greater than or equal to 1 cm but less than or equal to 4 cm classified in this report as benign, likely benign, or containing fat (including classification as an adenoma or myelolipoma), no follow-up imaging is recommended per consensus recommendations based on imaging criteria. Further lab evaluation could be pursued if warranted based on clinical findings.
--- NOTE | 2023-05-06 11:48 | XRR_ITS ---
PROCEDURE INFORMATION: Exam: XR Chest Exam date and time: 05/06/2023 12:13 PM Age: 52 years old Clinical indication: Cough and dyspnea; Additional info: Dyspnea/cough TECHNIQUE: Imaging protocol: Radiologic exam of the chest. Views: 1 view. COMPARISON: CR XR chest 1V portable [id number] 01/03/2022 4:18 PM FINDINGS: Lungs: Unremarkable. No consolidation. Pleural spaces: Unremarkable. No pleural effusion. No pneumothorax. Heart/Mediastinum: Unremarkable. No cardiomegaly. Bones/joints: No acute osseous abnormality. Mild degenerative changes. XR/XR chest 1V portable [id number] IMPRESSION: No acute radiographic findings.
--- NOTE | 2023-05-06 11:48 | ECG_ITS ---
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 Measurements Intervals [place] Rate: 106 P: 72 FL: 146 QRS: 75 QRSD: 90 T: -40 QT: 376 QTc: 502 Interpretive Statements SINUS TACHYCARDIA WITH OCCASIONAL VENTRICULAR PREMATURE COMPLEXES POSSIBLE RIGHT ATRIAL ENLARGEMENT [0.25mV P-WAVE] POSSIBLE LEFT ATRIAL ENLARGEMENT [-0.1mV P-WAVE IN V1/V2] ST DEVIATION AND MODERATE T-WAVE ABNORMALITY, CONSIDER ANTEROLATERAL ISCHEMIA [-0.1+ mV T-WAVE IN V3-V6] ST DEVIATION AND MODERATE T-WAVE ABNORMALITY, CONSIDER INFERIOR ISCHEMIA [-0.1+ mV T-WAVE IN II/aVF] Compared to ECG 01/03/2022 15:04:30 Ventricular premature complex(es) now present T-wave abnormality now present Possible ischemia now present Sinus rhythm no longer present Electronically Signed On 05-07-2023 21:33:34 CDT by Nadiya Zavala M.D. [email or web address], [id number] f
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
[2023-05-06 12:22] LABS: Basophils % 0.1 %; Lymphocytes # 3.2 10^3/uL (0.8-4.8); Lymphocytes % 15.3 %; Mean Corpuscular HGB Conc 34.6 g/dL (30-55); Mean Corpuscular Hemoglobin 29.7 pg (27-33); Mean Corpuscular Volume 85.8 fl (85-98); Mean Platelet Volume 10.4 fL (7.4-10.4); Monocytes # 1.3 10^3/uL (0.2-0.9); Neutrophils # 16.31 10^3/uL (1.8-7.7); Neutrophils % 78.2 %; Nucleated Red Blood Cells % 0 %; Platelet Count 312 10^3/cmm (157-399); Red Blood Count 4.31 10^6/uL (3.85-5.65); Red Cell Distribution Width 16.7 % (12.1-15.1); White Blood Count 20.88 10^3/uL (3.29-11.43)
[2023-05-06 12:44] LABS: Alanine Aminotransferase 19 U/L (0-33); Albumin Level 3.9 g/dL (3.5-5.2); Alkaline Phosphatase 129 U/L (35-105); Aspartate Amino Transferase 30 U/L (0-32); Blood Urea Nitrogen 47 mg/dL (6-20); Calcium 9.6 mg/dL (8.5-10.5); Carbon Dioxide 21 mmol/L (22-29); Chloride 87 mmol/L (98-107); Creatinine Clr Calc Pharmacy 18.7746; Globulin 3.3 g/dL (1.3-4.6); Glomerular Filtration Rate 14.7 mL/min (90-130); Glucose 104 mg/dL (65-115); Lipase 19 U/L (13-60); Osmolality Calculated 279 mOsm/kg (285-295); Sodium 128 mmol/L (136-145); Total Bilirubin 0.4 mg/dL (0.15-1.2); Total Protein 7.2 g/dL (6.6-8.7)
[2023-05-06] MEDS: LORazepam 2 mg/mL INJ 10 mL MDV 1 MG IVP (12:59)
[2023-05-06] MEDS: ondansetron 2 mg/ML SDV 2 mL 4 MG IVP (12:59)
[2023-05-06] MEDS: sodium chloride 0.9% 1,000 ML 999 ML IV (12:59)
[2023-05-06 13:00] LABS: ABG PH Result 7.48 (7.35-7.45); Alveolar-Arterial Oxygen Gradi 2.6 mmHg (5-10); Arterial Blood Gas Hematocrit 37.3 % (37-47); Base Excess ABG -2.7 mmol/L (-2.0-2.0); Blood Gas Operator Identificat GD; Blood Gas Sample Site Brachial, left; Blood Gas Sample Type Arterial; Carboxyhemoglobin 1.8 %THgb (0.4-20.1); HCO3 ABG 19.5 mmol/L (22-26); HGB O2 Sat 96.1 % (95-100); Ionized Calcium Level - ABG 1.2 mmol/L (1.1-1.4); Methemoglobin 0.5 % (0.4-1.5); Oxygen Device ROOM AIR; Oxygen Saturation ABG 98.4; PO2 ABG 95.7 mmHg (80.0-100.0); Potassium Level - ABG 2.7 mmol/L (3.5-5.0); Total Hemoglobin 12.2 g/dL (12-16)
[2023-05-06] MEDS: morphine 4 mg/mL SDV 1 mL IVP (13:02)
[2023-05-06 13:11] LABS: Add Urine Microscopic? NO; Charge for UA Resulting for Rev
[2023-05-06 13:13] LABS: Bilirubin Urine Neg (Negative); Blood Urine Neg (Negative); Glucose Urine UA 1+ (Normal); Ketones Urine Negative (Negative); Leukocyte Esterase Urine Negative (Negative); Nitrate Urine Negative (Negative); Protein Urine Neg (Negative); Specific Gravity, Urine 1.025 (1.005-1.030); Urine Appearance Clear (CLEAR); Urine Color Yellow (Yellow); Urobilinogen Urine Norm (Negative); pH Urine 5 (5-7)
[2023-05-06 13:21] LABS: Amphetamines Screen Urine Positive (Negative); Barbiturates Screen Urine Negative (Negative); Benzodiazepines Screen Urine Positive (Negative); Cocaine Screen Urine Negative (Negative); Opiate Screen Urine Negative (Negative); PCP Screen Urine Negative (Negative); THC Screen Urine Positive (Negative)
[2023-05-06 13:30] LABS: Troponin(5th) Baseline 75 ng/L (0-10)
[2023-05-06 13:43] LABS: Lactic Sepsis W/Reflex 3.6 mmol/L (0.5-2.2)
[2023-05-06 14:33] LABS: Troponin 5 2HR 62.79 ng/L (0-10)
[2023-05-06 14:40] LABS: Troponin 5 2HR Delta -12.21 ABS# (0-10)
--- NOTE | 2023-05-06 14:48 | P.HP_ITS ---
Providers/Chief Complaint 2 Admitting Physician: Manuel Lyons MD Primary Care Provider: Selvin Thomas, BENEFITS ANALYST-C Chief Complaint: sob, not eaten in 5 days History of Present Illness Trudi Wesley is a 52 year old female with a past medical history of CVA, history of drug use, hyperlipidemia, asthma, bipolar disorder, hypertension, who presents [facility] due to multiple complaints, including syncopal episode, shortness of breath, nausea, vomiting, poor appetite, abdominal pain. Patient tells me that currently her biggest complaint is poor appetite, feeling nauseous, abdominal pain, she tells me that hurts all over abdomen, she is felt nauseous she has had vomiting denies any diarrhea no bloody or black stools, no recent history of travel, no history of food poisoning, she is status post cholecystectomy. She also tells me that about a week ago when this all started she tells me she had passed out, she was walking to the bathroom she does not remember what happened, the next and she remembers she was on the floor. She has never passed out before, since then she has felt off, she thinks she hit her head, since then she is felt off, she thinks she might have a concussion, no blurry vision but she just does not feel right, no focal weakness nor slurring of words, does report lightheadedness, she has a superficial abrasion across her forehead from her fall. She also reports shortness of breath with exertion, does report a cough, no hemoptysis, no calf pain, no calf swelling, recent surgeries, no recent immobility. Her urine was positive for methamphetamine use, I confronted about this she tells me that she does not use much, she never injects any drugs. Denies a history of alcoholism. Review of Systems 2 Const: Reports: fever(s), body aches, fatigue and malaise; Denies: chills Eyes: Denies: change in vision Card: Denies: chest pain Resp: Reports: dyspnea GI: Reports: abdominal pain and nausea; Denies: hematemesis, diarrhea, constipation, change in bowel habits, hematochezia or melena Musc: Reports: muscle weakness; Denies: neck pain Skin/Breast: Denies: rash Neuro: Reports: weakness in extremities and dizziness; Denies: headache(s), numbness in extremities, lack of coordination, difficulty walking, frequent falls, vertigo, confusion, Slurred speech present, difficulty communicating thoughts or seizure-like activity Psych: Reports: anxiety Endo: Denies: polyuria Medications/Allergies Home Medications Medication Instructions Recorded Confirmed Last Taken Type ferrous gluconate 324 mg (38 mg 324 mg PO DAILY #30 tabs 11/21/22 05/06/23 05/05/23 Rx iron) tablet acyclovir 200 mg capsule 200 mg PO DAILY #30 caps 01/25/23 05/06/23 Unknown Rx albuterol sulfate 90 mcg/actuation 2 inh inhalation 6XD PRN shortness 01/25/23 05/06/23 Unknown Rx aerosol inhaler (ProAir HFA) of breath or wheezing #8.5 grams atorvastatin 40 mg tablet 40 mg PO BEDTIME #30 tabs 01/25/23 05/06/23 05/05/23 Rx budesonide-formoterol HFA 160 2 puff inhalation BID #10.2 grams 01/25/23 05/06/23 05/05/23 Rx mcg-4.5 mcg/actuation aerosol inhaler (Symbicort) clopidogrel 75 mg tablet (Plavix) 75 mg PO DAILY #30 tabs 01/25/23 05/06/23 05/05/23 Rx famotidine 40 mg tablet 40 mg PO BID #60 tabs 01/25/23 05/06/23 05/05/23 Rx valsartan 80 1 tab PO DAILY #30 tabs 01/25/23 05/06/23 05/05/23 Rx mg-hydrochlorothiazide 12.5 mg tablet (Diovan HCT) zonisamide 100 mg capsule 100 mg PO BID #60 caps 01/25/23 05/06/23 05/05/23 Rx (Zonegran) Shoe lift #1 ea 01/29/23 05/06/23 Unknown Rx HCPCS code E0149 #1 ea 03/08/23 05/06/23 Unknown Rx venlafaxine 150 mg 150 mg PO QAM #30 caps 04/06/23 05/06/23 05/05/23 Rx capsule,extended release 24 hr (Effexor XR) dapagliflozin propanediol 10 mg 10 mg PO QAM #30 tabs 04/09/23 05/06/23 05/05/23 Rx tablet (Farxiga) potassium chloride 10 mEq 10 meq PO DAILY #30 tabs 04/09/23 05/06/23 05/05/23 Rx tablet,extended release(part/cryst) mupirocin 2 % topical ointment 1 applic topical TID #22 grams 04/12/23 05/06/23 05/05/23 Rx Allergies Allergy/AdvReac Type Severity Reaction Status Date / Time codeine AdvReac Rash & itch Verified 05/06/23 12:48 Sulfa (Sulfonamide AdvReac Swelling Verified 05/06/23 12:48 Antibiotics) of face PFSH Acute 2 PFSH: Medical History Overweight (BMI 25.0-29.9) Congenital leg length inequality Generalized anxiety disorder Essential hypertension Asthma Migraine Bipolar disorder, unspecified Surgical History History of cholecystectomy Family History Other Cancer Diabetes Hypertension Denies family history of Chronic kidney disease (CKD) Stroke Social History Smoking and tobacco/nicotine status: current every day tobacco/nicotine user cigarettes Packs smoked per day: 0.5 Years cigarettes smoked: 13 Quit status (tobacco/nicotine): has tried quititng Number of times tried to quit tobacco: 1 Second hand smoke exposure: Yes Alcohol intake: never Substance/Drug Use: unknown Adopted: No Caregiver/support person: Yes Lives independently: No Household members: friend(s) Housing: House Marital status: Single Number of children: 0 service: No Current occupational status: unemployed Do you think of yourself as: Straight/Heterosexual Current gender identity: Female Vitals/I&O/Wt Last Vital Signs Temp 98.0 F 05/06/23 11:48 Pulse 97 05/06/23 13:30 Resp 22 H 05/06/23 13:30 BP 148/70 05/06/23 13:30 Pulse Ox 94 05/06/23 13:30 O2 Del Method Room Air 05/06/23 13:30 Weight last 48 hrs Weight 58.967 kg Physical Exam 2 Const: COMMON NORMALS: no acute distress and patient oriented x3 HENMT: COMMON NORMALS: normocephalic HEAD & SCALP: normocephalic OTHER: Superficial linear abrasion, above the eyebrow, about 10 cm in length, 1 cm thick Eye: COMMON NORMALS: Equal, round and reactive pupils present and EOMs intact bilaterally Neck/C-Spine: COMMON NORMALS: no JVD Resp: COMMON NORMALS: normal respiratory effort, No retractions, No use of accessory muscles and clear to auscultation bilaterally AUSCULTATION: clear to auscultation bilaterally Cardio: COMMON NORMALS: no JVD, regular rate, regular rhythm, S1 normal heart sound present and S2 normal heart sound present RATE: regular rate RHYTHM: regular rhythm HEART SOUNDS: S1 normal heart sound present and S2 normal heart sound present GI: OTHER: Abdomen soft, nondistended, has diffuse tenderness to palpation, no guarding, no rebound, no rigidity, good bowel sounds in all 4 quadrants, no inguinal tenderness : COMMON NORMALS: Yes no CVA tenderness Extremity: COMMON NORMALS: no calf tenderness and no pedal edema Neuro: COMMON NORMALS: patient oriented x3, CN's II-XII intact bilaterally, moves all extremities and no focal motor deficits Psych: COMMON NORMALS: mental status grossly normal Urinary Catheter Management: Cullen: Cath Placed During This Visit: yes Urinary Catheter Date of Insertion: 05/06/23 Urinary Catheter Time of Insertion: 13:35 Data 05/06/23 12:15 05/06/23 12:15 A&P Assessment and plan (1) Abdominal pain: (2) Syncope: (3) Acute kidney injury: (4) Elevated lactic acid level: (5) Leukocytosis: (6) Shortness of breath: (7) Hypokalemia: (8) Acute hyponatremia: (9) NSTEMI (non-ST elevated myocardial infarction): Plan Abdominal pain -CT scan abdomen pelvis - CT/CT abdomen pelvis wo con [id number] IMPRESSION: 1. 5 x 3.8 cm left adnexal cystic lesion versus 2 adjacent cysts. If clinically indicated, pelvic ultrasound may be obtained for further evaluation. 2. Additional findings, as above. -With intractable nausea, vomiting -Could be marijuana hyperemesis syndrome -Serial abdominal exams -Zofran for nausea -Morphine for pain Elevated lactic acid level, ? Workup as below, ? Monitor closely Acute renal failure -On CKD -Likely sec to dehydration -Intractable nausea, vomiting, poor appetite -IV fluids -Monitor urine output, monitor creatinine -CPK Hypokalemia, will replace Hyponatremia, likely hypovolemic hyponatremia will give IV fluids NSTEMI ? No chest pain complaints, ? Serial EKGs, serial troponins, telemetry monitoring Shortness of breath ? Etiology unclear, ? CT of the chest Leukocytosis of undetermined etiology, ? Blood cultures, ? UA within normal limits, ? Chest x-ray within normal limits, ? CT abdomen and pelvis as above could ? CT of the chest ordered, ? Pro-Asad, CRP, sed rate Syncopal episode, ? Cardiac echo, ? Carotid artery ultrasound ? CT of the head, ? Telemetry monitoring ? Neurochecks, aspiration precautions, no NIH stroke scale Full code ? Heparin for DVT prophylaxis Attestations 2 Medical Necessity Statement*: Patient requires hospitalization, inpatient, greater than 2 midnights, due to acute renal failure, elevated lactic acid, abdominal pain, nausea, vomiting, shortness of breath, hypokalemia, methamphetamine use, elevated troponin Diagnoses Abdominal pain R10.9 Syncope R55 Acute kidney injury N17.9 Elevated lactic acid level R79.89 Leukocytosis D72.829 Shortness of breath R06.02 Hypokalemia E87.6 Acute hyponatremia E87.1 NSTEMI (non-ST elevated myocardial infarction) I21.4
--- NOTE | 2023-05-06 15:07 | ECG_ITS ---
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 Measurements Intervals [place] Rate: 97 P: 65 MA: 128 QRS: 76 QRSD: 86 T: 51 QT: 394 QTc: 502 Interpretive Statements SINUS RHYTHM WITH OCCASIONAL ECTOPIC PREMATURE COMPLEXES POSSIBLE LEFT ATRIAL ENLARGEMENT [-0.1mV P-WAVE IN V1/V2] MODERATE T-WAVE ABNORMALITY, CONSIDER LATERAL ISCHEMIA [-0.1+ mV T-WAVE IN I/aVL/V5/V6] MODERATE T-WAVE ABNORMALITY, CONSIDER INFERIOR ISCHEMIA [-0.1+ mV T-WAVE IN II/aVF] Compared to ECG 05/06/2023 11:50:20 Sinus tachycardia no longer present Ventricular premature complex(es) no longer present T-wave abnormality still present Possible ischemia still present Electronically Signed On 05-07-2023 21:47:08 CDT by Nadiya Zavala M.D. [id number]
[2023-05-06 15:13] LABS: INR 0.97 (0.8-1.2)
[2023-05-06 15:15] LABS: Reflex Lactate Order REFLEX LACTIC ORDERD
--- NOTE | 2023-05-06 15:21 | CTR_ITS ---
PROCEDURE INFORMATION: Exam: CT Head Without Contrast Exam date and time: 05/06/2023 4:19 PM Age: 52 years old Clinical indication: Altered mental status/memory loss; Additional info: AMS TECHNIQUE: Imaging protocol: Computed tomography of the head without contrast. Axial, coronal and sagittal reformatted images were created and reviewed. Radiation optimization: All CT scans at this facility use at least one of these dose optimization techniques: automated exposure control; mA and/or kV adjustment per patient size (includes targeted exams where dose is matched to clinical indication); or iterative reconstruction. COMPARISON: MR head wo con* [id number] 07/04/2022 7:59 AM RADIATION DOSE METRICS: Total DLP (mGy-cm): 1037.68 FINDINGS: Brain: Scattered areas of localized encephalomalacia, most notably in the right frontal lobe right occipital lobe and bilateral cerebellum. Subtle, patchy areas of hypoattenuation in the periventricular and subcortical white matter, nonspecific but suggestive of mild chronic small vessel ischemic disease. No CT evidence of acute intracranial hemorrhage or acute territorial infarction. No significant mass effect or midline shift. Basal cisterns patent. Cerebral ventricles: Prominence of the cortical sulci, cisterns and ventricular system, consistent with cerebral and cerebellar volume loss. Paranasal sinuses: Unremarkable. No fluid levels. Mastoid air cells: Grossly unremarkable. Bones/joints: No acute osseous abnormality. Soft tissues: Grossly unremarkable. Vasculature: Calcific atherosclerotic disease in the cavernous internal carotid arteries. CT/CT head wo con* [id number]: 1[address] No CT evidence of acute intracranial pathology. 2. Additional findings, as above.
--- NOTE | 2023-05-06 15:21 | CTR_ITS ---
PROCEDURE INFORMATION: Exam: CT Chest Without Contrast; Diagnostic Exam date and time: 05/06/2023 4:22 PM Age: 52 years old Clinical indication: Shortness of breath; Prior surgery; Surgery date: 6+ months; Surgery type: Gb; Additional info: Shortness of breath, elevated wbc. [place] TECHNIQUE: Imaging protocol: Diagnostic computed tomography of the chest without contrast. Radiation optimization: All CT scans at this facility use at least one of these dose optimization techniques: automated exposure control; mA and/or kV adjustment per patient size (includes targeted exams where dose is matched to clinical indication); or iterative reconstruction. COMPARISON: CT angio chest PE protcl [id number] 10/11/2019 9:59 AM RADIATION DOSE METRICS: Total DLP (mGy-cm): 309.86 FINDINGS: Thyroid: Grossly unremarkable. Lungs: No focal consolidation. No pneumothorax. No evidence of pneumonia. Pleural spaces: No pleural effusion. Heart: No cardiomegaly. No pericardial effusion. Coronary arteries: There are incidental coronary artery calcifications. Mediastinal space: Trachea and airway are grossly patent. No evidence of mediastinal hemorrhage or hematoma. Lymph nodes: No evidence of mediastinal adenopathy. Evaluation for hilar adenopathy is limited by lack of IV contrast. Vasculature: No evidence of aneurysmal dilatation of the thoracic aorta. Evaluation for acute vascular injury or thrombosis is limited by lack of IV contrast. Bones/joints: No evidence of acute fracture or aggressive osseous lesion. Soft tissues: No evidence of fluid collection or hematoma in the superficial soft tissues. Other findings: No evidence of acute abnormality in the upper abdomen. 2.8 cm lipid rich adenoma on the right. Adrenal glands are otherwise unremarkable. CT/CT chest [facility] [id number] IMPRESSION: 1. Lungs are clear.
[2023-05-06 15:29] LABS: NT Pro B Type Natriuretic Pept 1731 pg/mL (0-125); Procalcitonin 0.13 ng/mL (0-0.5)
[2023-05-06] MEDS: heparin 5,000 unit/mL INJ 1 mL 5000 UNIT SUBCUT (16:42)
[2023-05-06] MEDS: lidocaine 1% 5 ML in potassium chloride premix 100 ML 52.5 ML IV (16:42)
[2023-05-06] MEDS: sodium chloride 0.9% 1,000 ML 125 ML IV (16:43)
[2023-05-06 16:57] LABS: Ketone (Acetest) Serum Negative (Negative)
[2023-05-06 17:01] LABS: Erythrocyte Sedimentation Rate 8 mm/hr (0-15)
[2023-05-06] MEDS: pantoprazole 40 mg SDV IVP (17:04)
[2023-05-06] MEDS: morphine 4 mg/mL SDV 1 mL 1 MG IVP (17:05)
[2023-05-06] MEDS: zonisamide 100 MG Capsule PO (17:05)
[2023-05-06 17:15] LABS: C Reactive Protein 8.3 mg/L (0.0-4.9); Chol HDL Ratio 1.88 mg/dL (0.0-4.40); Cholesterol 90 mg/dL (0-200); HDL Cholesterol 48 mg/dL (60-100); LDL Cholesterol Calculated 27 mg/dL (50-129); LDL HDL Ratio 0.56 RATIO (0.00-3.22); Magnesium 1.1 mg/dL (1.7-2.3); Phosphorus 4.1 mg/dL (2.5-4.5); Thyroid Stimulating Hormone 1.37 uIU/mL (0.27-4.20); Triglycerides 74 mg/dL (0-150)
[2023-05-06 17:18] LABS: HIV 1 & 2 Antigen Non-Reactive (Non-Reactiv)
[2023-05-06 17:19] LABS: HIV 1 & 2 Antibody Non-Reactive (Non-Reactiv)
[2023-05-06 17:20] LABS: Hepatitis A Antibody IgM Non-Reactive (Nonreactive); Hepatitis B Core IgM Non-Reactive (Nonreactive); Hepatitis B Surface Antigen Non-Reactive (Nonreactive); Hepatitis C Virus Antibody Non-Reactive (Nonreactive)
[2023-05-06 17:33] LABS: Creatine Phosphokinase 393 U/L (26-192)
[2023-05-06 19:48] LABS: Ammonia 31 umol/L (11-51); Lactic Acid level (Lactate) 1.4 mmol/L (0.5-2.2)
[2023-05-06 19:49] LABS: Troponin 5 6HR 69.79 ng/L (0-10)
[2023-05-06 19:50] LABS: Troponin 5 6HR Delta -5.21 ng/L (0-12)
[2023-05-06] MEDS: atorvastatin 40 mg Tablet PO (20:49)
[2023-05-07] VITALS (11 sets, daily range): BP systolic 87–111; BP diastolic 57–75; PULSE 60–97; RESP 16–20; TEMP 36.3–37.1; O2SAT 95–98
[2023-05-07] MEDS: sodium chloride 0.9% 1,000 ML 125 ML IV ×3 (01:03→17:41)
[2023-05-07] MEDS: morphine 4 mg/mL SDV 1 mL 1 MG IVP ×3 (01:07→20:57)
[2023-05-07] MEDS: heparin 5,000 unit/mL INJ 1 mL 5000 UNIT SUBCUT ×2 (03:02→15:25)
[2023-05-07] MEDS: venlafaxine ER (24HR) 150 mg Capsule PO (05:19)
[2023-05-07 05:44] LABS: Basophils % 0.2 %; Eosinophils % 0.2 %; Hematocrit 29.5 % (36-47); Lymphocytes # 2.7 10^3/uL (0.8-4.8); Lymphocytes % 21.5 %; Mean Corpuscular HGB Conc 33.2 g/dL (30-55); Mean Corpuscular Volume 87.3 fl (85-98); Mean Platelet Volume 10.9 fL (7.4-10.4); Monocytes # 0.9 10^3/uL (0.2-0.9); Monocytes % 6.9 %; Neutrophils # 8.79 10^3/uL (1.8-7.7); Nucleated Red Blood Cells % 0 %; Platelet Count 215 10^3/cmm (157-399); Red Blood Count 3.38 10^6/uL (3.85-5.65); Red Cell Distribution Width 16.5 % (12.1-15.1); White Blood Count 12.39 10^3/uL (3.29-11.43)
[2023-05-07 05:59] LABS: Lactic Sepsis W/Reflex 0.8 mmol/L (0.5-2.2)
--- NOTE | 2023-05-07 06:00 | USCV_ITS ---
Trudi Wesley Age: 52 Gender: F : 1970 Exam Date: 05/07/2023 08:28 Ordering Phys: Manuel Lyons MD Technologist: Eric Desir [place]am Location[place] [facility] [place]ication: ams BP: 136 / 90 HR: 75 Rhythm: Sinus Technical Quality: Adequate MEASUREMENTS (Male / Female) Normal Values 2D ECHO LVOT Diameter 2.0 cm LV Ejection Fraction MOD 2C 85.9 % LV Ejection Fraction 2C AL 85.7 % LA Diameter 3.0 cm RA Systolic Volume 4C AL 12.9 ml RA Systolic Volume 4C MOD 12.5 ml Aorta at Sinotubular Diameter 2.5 cm M-MODE LA Ao Ratio MM 1.1 AV Cusp Separation MM 1.8 cm DOPPLER AV Peak Velocity 152.0 cm/s LVOT Peak Velocity 121.0 cm/s AV Area Cont Eq vti 2.7 cm squared AV Area Cont Eq pk 2.5 cm squared MV Peak Velocity 82.0 cm/s MV Area PHT 6.8 cm squared Mitral E to A Ratio 0.9 TV Peak Velocity 112.5 cm/s TR Peak Velocity 136.0 cm/s TR Peak Gradient 7.4 mmHg TR Mean Velocity 83.0 cm/s TR Mean Gradient 3.5 mmHg TR Velocity Time Integral 22.6 cm PV Peak Velocity 111.0 cm/s FINDINGS Left Ventricle Normal left ventricular size and systolic function, EF of 85%.mild left ventricular hypertrophy. Grade I/IV diastolic dysfunction (abnormal relaxation filling pattern), normal to mildly elevated filling pressures. Right Ventricle Possibly of normal size ejection fraction Right Atrium Possibly of normal size Left Atrium Normal left atrial size. Mitral Valve No gross abnormalities noted Aortic Valve Trace aortic valve regurgitation. Tricuspid Valve Tricuspid valve not well visualized. Pulmonic Valve Pulmonic valve not well visualized. Pericardium No pericardial effusion. Aorta Normal aortic annulus size. IVC Inferior vena cava not visualized. CONCLUSIONS Normal left ventricular size and systolic function, EF of 85%.mild left ventricular hypertrophy. Grade I/IV diastolic dysfunction (abnormal relaxation filling pattern), normal to mildly elevated filling pressures. No gross wall motion abnormalities Trace aortic valve regurgitation. There is no pericardial effusion. Technically difficult study because of the poor ultrasonic window. Dr Nadiya Zavala MD FAC (Electronically Signed) Final Date: 07 May 2023 09:43 S
--- NOTE | 2023-05-07 06:00 | USR_ITS ---
PROCEDURE INFORMATION: Exam: US Duplex Bilateral Extracranial Arteries; Complete; Carotid Arteries Exam date and time: 05/07/2023 7:42 AM Age: 52 years old Clinical indication: Altered mental status/memory loss; Confusion or disorientation; Additional info: AMS TECHNIQUE: Imaging protocol: Real-time duplex ultrasound scan of the bilateral extracranial arteries combining zapata scale, color Doppler and spectral waveform analysis with image documentation. Complete exam. Exam focused on the carotid arteries. COMPARISON: CT angio headneck* [id number] 08/12/2021 8:24 PM FINDINGS: Right common carotid artery: Mild stenosis with no occlusion.. Waveforms are normal. Right internal carotid artery: Mild stenosis with no occlusion. Waveforms are normal. Right ICA/CCA ratio: Within normal limits. Right external carotid artery: No stenosis in the origin. Right vertebral artery: Unremarkable. Antegrade flow. Left common carotid artery: Unremarkable. No occlusion or stenosis. Waveforms are normal. Left internal carotid artery: Moderate stenosis at the left proximal ICA. Left ICA/CCA ratio: Elevated estimated at 2.1. Left external carotid artery: No stenosis in the origin. Left vertebral artery: Unremarkable. Antegrade flow. US/CV carotid duplex BI* [id number] IMPRESSION: Moderate stenosis of the left proximal ICA. REFERENCES: SRU CRITERIA. The degree of internal carotid artery stenosis is based on criteria defined by the Society of Radiologists in Ultrasound (SRU). Normal is no stenosis. Mild is less than 50% stenosis. Moderate is 50-69% stenosis. Severe is greater than 69% stenosis to near occlusion. Near occlusion is a markedly narrowed lumen. Total occlusion is no detectable patent lumen.
[2023-05-07 06:04] LABS: Estmated Average Glucose 117; Hemoglobin A1C 5.7 % (4.0-6.0)
[2023-05-07 06:13] LABS: Alanine Aminotransferase 18 U/L (0-33); Albumin Level 3.2 g/dL (3.5-5.2); Alkaline Phosphatase 112 U/L (35-105); Anion Gap 16.1 (5-19); Aspartate Amino Transferase 40 U/L (0-32); Blood Urea Nitrogen 36 mg/dL (6-20); Calcium 8.5 mg/dL (8.5-10.5); Carbon Dioxide 20 mmol/L (22-29); Chloride 99 mmol/L (98-107); Creatinine Clr Calc Pharmacy 32.0222; Globulin 2.2 g/dL (1.3-4.6); Glomerular Filtration Rate 24.8 mL/min (90-130); Glucose 80 mg/dL (65-115); Magnesium 1.1 mg/dL (1.7-2.3); Osmolality Calculated 281 mOsm/kg (285-295); Phosphorus 2.6 mg/dL (2.5-4.5); Potassium 3.1 mmol/L (3.5-5.1); Sodium 132 mmol/L (136-145); Total Bilirubin 0.6 mg/dL (0.15-1.2); Total Protein 5.4 g/dL (6.6-8.7)
[2023-05-07] MEDS: magnesium sulfate premix 4 GM/100 ML PREMIX IV (08:53)
[2023-05-07] MEDS: clopidogrel 75 mg Tablet PO (08:54)
[2023-05-07] MEDS: potassium chloride ER 20 mEq Tablet 40 MEQ PO (08:54)
[2023-05-07] MEDS: zonisamide 100 MG Capsule PO ×2 (08:54→17:39)
--- NOTE | 2023-05-07 09:35 | PC.OT ---
OT orders received to evaluate and treat. Evaluation to be completed on Monday secondary to weekend protocol.
--- NOTE | 2023-05-07 13:56 | P.PN_ITS ---
Subjective 2 Subjective: Patient was seen this morning, she continues to complain of abdominal pain, but it significantly improved compared to yesterday, no diarrhea, no fevers, no chills, no lightheadedness, no dizziness Vitals/I&O/Wt Last Vital Signs Temp 97.9 F 05/07/23 12:00 Pulse 72 05/07/23 12:00 Resp 18 05/07/23 12:00 BP 93/61 05/07/23 12:00 Pulse Ox 96 05/07/23 11:45 O2 Del Method Room Air 05/07/23 11:45 05/06/23 05/07/23 05/07/23 22:59 06:59 14:59 Intake Total 225 / 1225 1000 / 2225 1437.083 / 1437.083 Output Total 250 / 250 450 / 700 1100 / 1100 Balance -25 / 975 550 / 1525 337.083 / 337.083 Weight last 48 hrs Weight 64.002 kg Weight 61.915 kg Weight 58.967 kg Physical Exam 2 Const: COMMON NORMALS: no acute distress and patient oriented x3 Resp: COMMON NORMALS: normal respiratory effort, No retractions, No use of accessory muscles and clear to auscultation bilaterally AUSCULTATION: clear to auscultation bilaterally Cardio: COMMON NORMALS: regular rate, regular rhythm, S1 normal heart sound present and S2 normal heart sound present RATE: regular rate RHYTHM: r egular rhythm HEART SOUNDS: S1 normal heart sound present and S2 normal heart sound present GI: COMMON NORMALS: Normal to inspection, nondistended, normoactive bowel sounds present and non-tender Extremity: COMMON NORMALS: no pedal edema Neuro: COMMON NORMALS: patient oriented x3 Psych: COMMON NORMALS: mental status grossly normal Urinary Catheter Management: Cullen: Cath Placed During This Visit: yes Reason for Continuing Indwelling Catheter: Accurate Measurement of Urinary Output in Critically Ill Patients Urinary Catheter Date of Insertion: 05/06/23 Urinary Catheter Time of Insertion: 13:35 Data 05/07/23 04:41 05/07/23 04:41 Micro: Microbiology 05/06/23 19:00 Blood Culture - Preliminary Blood SPECIMEN COLLECTED 05/06/23 19:08 Blood Culture - Preliminary Blood SPECIMEN COLLECTED A&P Assessment and plan (1) Abdominal pain: (2) Syncope: (3) Acute kidney injury: (4) Elevated lactic acid level: (5) Leukocytosis: (6) Shortness of breath: (7) Hypokalemia: (8) Acute hyponatremia: (9) NSTEMI (non-ST elevated myocardial infarction): (10) Orthostatic hypotension: Plan Abdominal pain -CT scan abdomen pelvis - CT/CT abdomen pelvis wo con [id number] IMPRESSION: 1. 5 x 3.8 cm left adnexal cystic lesion versus 2 adjacent cysts. If clinically indicated, pelvic ultrasound may be obtained for further evaluation. 2. Additional findings, as above. -With intractable nausea, vomiting -Could be marijuana hyperemesis syndrome -Serial abdominal exams -Zofran for nausea -Morphine for pain Elevated lactic acid level, resolved ? Workup as below, ? Monitor closely Acute renal failure -On CKD -Likely sec to dehydration -Intractable nausea, vomiting, poor appetite -IV fluids -Monitor urine output, monitor creatinine -CPK Hypokalemia, will replace Hyponatremia, likely hypovolemic hyponatremia will give IV fluids Hypomagnesemia, 1.1, will replace NSTEMI ? No chest pain complaints, ? Serial EKGs, serial troponins, telemetry monitoring Shortness of breath ? Etiology unclear, ? CT of the chest no acute findings Leukocytosis of undetermined etiology, ? Blood cultures, ? UA within normal limits, ? Chest x-ray within normal limits, ? CT abdomen and pelvis no acute findings ? CT of the chest no acute findings ? Pro-Asad, CRP, sed rate within normal limits Syncopal episode, likely orthostatic syncope, orthostatic positive ? Cardiac echo, shows mild LVH ? Carotid artery ultrasound mild left proximal ICA stenosis ? CT of the head within normal limits ? Telemetry monitoring ? Neurochecks, aspiration precautions, no NIH stroke scale ? Continue to check orthostatic vitals , continue IV fluids Full code ? Heparin for DVT prophylaxis Attestations 2 Medical Necessity Statement*: Patient requires hospitalization for acute renal failure, hypomagnesemia hypokalemia, with orthostatic syncope Diagnoses Abdominal pain R10.9 Syncope R55 Acute kidney injury N17.9 Elevated lactic acid level R79.89 Leukocytosis D72.829 Shortness of breath R06.02 Hypokalemia E87.6 Acute hyponatremia E87.1 NSTEMI (non-ST elevated myocardial infarction) I21.4 Orthostatic hypotension I95.1
[2023-05-07] MEDS: pantoprazole 40 mg SDV IVP (17:39)
[2023-05-07] MEDS: atorvastatin 40 mg Tablet PO (20:57)
[2023-05-08] VITALS (10 sets, daily range): BP systolic 103–123; BP diastolic 67–82; PULSE 64–87; RESP 16–18; TEMP 36.3–36.7; O2SAT 91–100
[2023-05-08] MEDS: sodium chloride 0.9% 1,000 ML 125 ML IV ×3 (01:45→20:25)
[2023-05-08] MEDS: heparin 5,000 unit/mL INJ 1 mL 5000 UNIT SUBCUT ×2 (03:34→15:14)
[2023-05-08 03:49] LABS: Basophils % 0.3 %; Eosinophils # 0.1 10^3/uL (0.0-0.8); Eosinophils % 0.6 %; Hematocrit 28.1 % (36-47); Lymphocytes # 1.8 10^3/uL (0.8-4.8); Lymphocytes % 22.8 %; Mean Corpuscular Hemoglobin 29.1 pg (27-33); Mean Corpuscular Volume 90.9 fl (85-98); Mean Platelet Volume 10.6 fL (7.4-10.4); Monocytes # 0.7 10^3/uL (0.2-0.9); Monocytes % 8.5 %; Neutrophils % 67.5 %; Nucleated Red Blood Cells % 0 %; Platelet Count 191 10^3/cmm (157-399); Red Blood Count 3.09 10^6/uL (3.85-5.65); Red Cell Distribution Width 16.9 % (12.1-15.1); White Blood Count 7.85 10^3/uL (3.29-11.43)
[2023-05-08 04:15] LABS: Alanine Aminotransferase 15 U/L (0-33); Albumin Level 2.8 g/dL (3.5-5.2); Alkaline Phosphatase 106 U/L (35-105); Anion Gap 10.5 (5-19); Aspartate Amino Transferase 31 U/L (0-32); Blood Urea Nitrogen 19 mg/dL (6-20); Calcium 8.2 mg/dL (8.5-10.5); Carbon Dioxide 22 mmol/L (22-29); Chloride 103 mmol/L (98-107); Creatinine Clr Calc Pharmacy 57.7462; Glomerular Filtration Rate 47.4 mL/min (90-130); Glucose 82 mg/dL (65-115); Osmolality Calculated 275 mOsm/kg (285-295); Phosphorus 2.4 mg/dL (2.5-4.5); Potassium 3.5 mmol/L (3.5-5.1); Sodium 132 mmol/L (136-145); Total Bilirubin 0.2 mg/dL (0.15-1.2); Total Protein 4.8 g/dL (6.6-8.7)
[2023-05-08] MEDS: venlafaxine ER (24HR) 150 mg Capsule PO (05:57)
[2023-05-08] MEDS: clopidogrel 75 mg Tablet PO (08:04)
[2023-05-08] MEDS: zonisamide 100 MG Capsule PO ×2 (08:04→17:57)
--- NOTE | 2023-05-08 09:49 | PC.CHAP ---
Pastoral Care Encounter/Spiritual Assessment Type of Contact [] Declined ruffling hemmer automatic visit [] Patient/Family/Request visit [] Outpatient visit [] Follow-up visit [] Physician referral [] Code/Alert [x] Routine visit [] Staff referral [] Actively dying [] Patient sleeping [] Family support [] [] Out of room [] Palliative care [] [] Receiving care in room [] Pre-surgical visit [] Trauma [] Long length of stay [] ICU visit [] Other: Relational/Emotional Strength [] Patient feels connected with others/family/visitors/staff [] Distress [] Loneliness/isolation [] Abandonment Spirituality of Patient [x] Person of Reba [] Attends Voodoo of their Reba [x] Believes in Prayer [] Reads Bible or Moravian materials [] There are Spiritual issues to be addressed It Teacher Interventions [x] Prayer [x] Active listening [] Non-anxious presence [] Spiritual/emotional support [] Crisis/trauma care [] Spiritual counseling [] Bereavement support [] Provided bereavement packet [x] Provided Bible/devotional materials [] Provided toy/stuffed animal, coloring book to patient or family member [] Provided Communion [] Anointing/[place] [] Salvation [] Completed spiritual assessment [] Other: Impact on Illness or Injury [] Angry [] Fearful [] Anxious [] Often cries [] Exhaustion [] Unable to work [] Unable to attend adventism [] Unable to walk/stand [] Unable to read [] Unable to drive [] Unable to eat/drink [] Unable to sleep [] Unable to be with family [] Patient intubated [] Other: Summary Time spent with patient 5min
[2023-05-08 11:11] LABS: C Reactive Protein 12.5 mg/L (0.0-4.9); Lipase 18 U/L (13-60)
[2023-05-08 11:19] LABS: Procalcitonin 0.09 ng/mL (0-0.5)
--- NOTE | 2023-05-08 11:53 | P.PN_ITS ---
Subjective 2 Subjective: Patient was seen this morning continues to have significant abdominal pain epigastrium, she denies a history of alcoholism, denies a history of pancreatitis in the past, no nausea, no vomiting he is passing gas has not had a bowel movement, she tells me she feels weak all over, no fevers overnight, no chills, Vitals/I&O/Wt Last Vital Signs Temp 98.0 F 05/08/23 11:47 Pulse 65 05/08/23 11:47 Resp 18 05/08/23 11:47 BP 112/69 05/08/23 11:47 Pulse Ox 98 05/08/23 11:47 O2 Del Method Room Air 05/08/23 11:47 05/07/23 05/08/23 05/08/23 22:59 06:59 14:59 Intake Total 1750 / 3187.083 1480 / 4667.083 1120 / 1120 Output Total 700 / 1800 1100 / 2900 Balance 1050 / 1387.083 380 / 2151.311 8401 / 1120 Weight last 48 hrs Weight 65.952 kg Weight 64.002 kg Weight 61.915 kg Physical Exam 2 Const: COMMON NORMALS: no acute distress and patient oriented x3 Resp: COMMON NORMALS: normal respiratory effort, No retractions, No use of accessory muscles and clear to auscultation bilaterally AUSCULTATION: clear to auscultation bilaterally Cardio: COMMON NORMALS: regular rate, regular rhythm, S1 normal heart sound present and S2 normal heart sound present RATE: regular rate RHYTHM: r egular rhythm HEART SOUNDS: S1 normal heart sound present and S2 normal heart sound present GI: COMMON NORMALS: Normal to inspection, nondistended, normoactive bowel sounds present and non-tender Extremity: COMMON NORMALS: no pedal edema Neuro: COMMON NORMALS: patient oriented x3 Psych: COMMON NORMALS: mental status grossly normal Urinary Catheter Management: Cullen: Cath Placed During This Visit: yes Reason for Continuing Indwelling Catheter: Accurate Measurement of Urinary Output in Critically Ill Patients Urinary Catheter Date of Insertion: 05/06/23 Urinary Catheter Time of Insertion: 13:35 Data 05/08/23 02:30 05/08/23 02:30 Micro: Microbiology 05/06/23 19:00 Blood Culture - Preliminary Blood NEGATIVE TO DATE 03/16/24 19:08 Blood Culture - Preliminary Blood NEGATIVE TO DATE A&P Assessment and plan (1) Abdominal pain: (2) Syncope: (3) Acute kidney injury: (4) Elevated lactic acid level: (5) Leukocytosis: (6) Shortness of breath: (7) Hypokalemia: (8) Acute hyponatremia: (9) NSTEMI (non-ST elevated myocardial infarction): (10) Orthostatic hypotension: Plan Abdominal pain -CT scan abdomen pelvis - CT/CT abdomen pelvis wo con [id number] IMPRESSION: 1. 5 x 3.8 cm left adnexal cystic lesion versus 2 adjacent cysts. If clinically indicated, pelvic ultrasound may be obtained for further evaluation. 2. Additional findings, as above. -With intractable nausea, vomiting -Could be marijuana hyperemesis syndrome -Serial abdominal exams -Zofran for nausea -Morphine for pain Elevated lactic acid level, resolved ? Workup as below, ? Monitor closely Acute renal failure, resolving -On CKD -Likely sec to dehydration -Intractable nausea, vomiting, poor appetite -IV fluids -Monitor urine output, monitor creatinine -CPK Hypokalemia, resolved Hyponatremia, likely hypovolemic hyponatremia, resolving Hypomagnesemia, within normal limits NSTEMI ? No chest pain complaints, ? Serial EKGs, serial troponins, telemetry monitoring Shortness of breath ? Etiology unclear, ? CT of the chest no acute findings Leukocytosis of undetermined etiology, resolved ? Blood cultures, ? UA within normal limits, ? Chest x-ray within normal limits, ? CT abdomen and pelvis no acute findings ? CT of the chest no acute findings ? Pro-Asad, CRP, sed rate within normal limits Syncopal episode, likely orthostatic syncope, orthostatic positive, resolving ? Cardiac echo, shows mild LVH ? Carotid artery ultrasound mild left proximal ICA stenosis ? CT of the head within normal limits ? Telemetry monitoring ? Neurochecks, aspiration precautions, no NIH stroke scale ? Continue to check orthostatic vitals , continue IV fluids Full code ? Heparin for DVT prophylaxis Patient continues to have intractable abdominal pain, repeat CT of the abdomen with IV contrast, ordered Pro-Asad, CRP, lipase, continue to monitor closely Attestations 2 Medical Necessity Statement*: Patient requires hospitalization due to persistent abdominal pain requiring further workup Diagnoses Abdominal pain R10.9 Syncope R55 Acute kidney injury N17.9 Elevated lactic acid level R79.89 Leukocytosis D72.829 Shortness of breath R06.02 Hypokalemia E87.6 Acute hyponatremia E87.1 NSTEMI (non-ST elevated myocardial infarction) I21.4 Orthostatic hypotension I95.1
--- NOTE | 2023-05-08 11:53 | CT_ITS ---
WS: [id number] CT ABDOMEN PELVIS TECHNIQUE: Contrast-enhanced CT of the abdomen and pelvis with coronal and sagittal reformatted image s. CLINICAL INFORMATION: severe epigastric pain, N/V COMPARISON: CT 05/06/2023 DLP: 536.[address] scans at [facility] use at least one of these dose optimization techniques: automated e xposure control; mA and/or kV adjustment per patient size (includes targeted exams where dose is matc hed to clinical indication); or iterative reconstruction. FINDINGS: Mild diffuse fatty infiltration of the liver. Prior cholecystectomy. Lung bases are well aerated. Sma ll esophageal hiatal hernia. Distended stomach with air-fluid level. Gastric and duodenal wall enhanc ement can be seen with gastroduodenitis. No evidence of high-grade small or large bowel obstruction. Mild small bowel wall thickening and enhancement in the LEFT upper quadrant can be seen with small gaurav wel enteritis. Cullen catheter. Stable previously described LEFT adnexal cystic lesion. Normal sigmoid colon. Normal appendix in the RIGHT lower quadrant. Celiac and SMA are patent. Normal caliber abdominal aorta. Stab le RIGHT adrenal adenoma. LEFT adrenal gland is normal. Normal renal parenchymal enhancement. No hydr onephrosis. Grade 1 anterolisthesis L4 on L5. Advanced degenerative narrowing and deformity of the RI GHT femoral head unchanged. IMPRESSION: 1. Mild diffuse fatty filtration of the liver. 2. Small esophageal hiatal hernia with fluid distended stomach with air-fluid level. Enhancing stoma ch and duodenum suspicious for gastroduodenitis. 3. Mild enhancement and bowel wall thickening proximal small bowel can be seen with small bowel ente ritis. No evidence of bowel obstruction. 4. Stable LEFT adnexal cyst cystic lesion previously described. 5. Cullen catheter in place. 6. No other acute findings.
[2023-05-08] MEDS: iohexol 350 mg/mL 500 mL Btl (per mL) IV (13:00)
[2023-05-08] MEDS: ciprofloxacin 400 MG/200 ML PREMIX 200 MG IV (15:13)
[2023-05-08] MEDS: metroNIDAZOLE IV 500 MG/100 ML PREMIX 100 MG IV ×2 (16:16→23:35)
[2023-05-08] MEDS: pantoprazole 40 mg SDV IVP (18:32)
[2023-05-08] MEDS: atorvastatin 40 mg Tablet PO (20:24)
[2023-05-08] MEDS: morphine 4 mg/mL SDV 1 mL 1 MG IVP (20:27)
[2023-05-09] VITALS (13 sets, daily range): BP systolic 104–132; BP diastolic 71–90; PULSE 65–82; RESP 16–18; TEMP 36.4–36.6; O2SAT 94–99
[2023-05-09] MEDS: heparin 5,000 unit/mL INJ 1 mL 5000 UNIT SUBCUT ×2 (03:04→14:41)
[2023-05-09] MEDS: ciprofloxacin 400 MG/200 ML PREMIX 200 MG IV ×2 (03:04→14:41)
[2023-05-09 05:10] LABS: Basophils % 0.2 %; Eosinophils % 0.7 %; Hematocrit 27.6 % (36-47); Lymphocytes # 1.4 10^3/uL (0.8-4.8); Lymphocytes % 22.8 %; Mean Corpuscular HGB Conc 32.6 g/dL (30-55); Mean Corpuscular Hemoglobin 29.2 pg (27-33); Mean Corpuscular Volume 89.6 fl (85-98); Mean Platelet Volume 10.2 fL (7.4-10.4); Monocytes # 0.4 10^3/uL (0.2-0.9); Monocytes % 7.3 %; Neutrophils # 4.13 10^3/uL (1.8-7.7); Neutrophils % 68.8 %; Nucleated Red Blood Cells % 0 %; Platelet Count 187 10^3/cmm (157-399); Red Blood Count 3.08 10^6/uL (3.85-5.65); Red Cell Distribution Width 17.1 % (12.1-15.1)
[2023-05-09] MEDS: sodium chloride 0.9% 1,000 ML 125 ML IV (05:45)
[2023-05-09] MEDS: venlafaxine ER (24HR) 150 mg Capsule PO (05:45)
[2023-05-09 05:46] LABS: Alanine Aminotransferase 18 U/L (0-33); Albumin Level 2.7 g/dL (3.5-5.2); Alkaline Phosphatase 131 U/L (35-105); Aspartate Amino Transferase 25 U/L (0-32); Blood Urea Nitrogen 8 mg/dL (6-20); Calcium 8.3 mg/dL (8.5-10.5); Carbon Dioxide 23 mmol/L (22-29); Chloride 107 mmol/L (98-107); Creatinine Clr Calc Pharmacy 70.3923; Globulin 1.9 g/dL (1.3-4.6); Glomerular Filtration Rate 58.5 mL/min (90-130); Glucose 99 mg/dL (65-115); Magnesium 1.5 mg/dL (1.7-2.3); Osmolality Calculated 280 mOsm/kg (285-295); Phosphorus 1.8 mg/dL (2.5-4.5); Sodium 136 mmol/L (136-145); Total Bilirubin 0.2 mg/dL (0.15-1.2); Total Protein 4.6 g/dL (6.6-8.7)
[2023-05-09] MEDS: zonisamide 100 MG Capsule PO ×2 (08:48→17:28)
[2023-05-09] MEDS: metroNIDAZOLE IV 500 MG/100 ML PREMIX 100 MG IV ×3 (08:48→23:38)
[2023-05-09] MEDS: clopidogrel 75 mg Tablet PO (08:48)
[2023-05-09] MEDS: magnesium sulfate premix 2 GM/50 ML PIGGYBACK IV (10:31)
--- NOTE | 2023-05-09 11:30 | P.PN_ITS ---
Subjective 2 Subjective: Patient presents this morning, her abdominal pain has improved, no diarrhea, no fevers, no chills, does continue to complain of weakness, denies any lightheadedness, no dizziness, we discussed her CT scan findings, I placed on antibiotics yesterday afternoon, she seems to be feeling better responding well, Vitals/I&O/Wt Last Vital Signs Temp 97.8 F 05/09/23 09:32 Pulse 76 05/09/23 09:32 Resp 16 05/09/23 09:32 BP 109/71 05/09/23 09:32 Pulse Ox 96 05/09/23 09:32 O2 Del Method Room Air 05/09/23 09:00 05/08/23 05/09/23 05/09/23 22:59 06:59 14:59 Intake Total 1540 / 3020 1300 / 4320 100 / 100 Output Total 1800 / 1800 Balance 1540 / 3020 -500 / 2520 100 / 100 Weight last 48 hrs Weight 66.996 kg Weight 65.952 kg Physical Exam 2 Const: COMMON NORMALS: no acute distress and patient oriented x3 Resp: COMMON NORMALS: normal respiratory effort, No retractions, No use of accessory muscles and clear to auscultation bilaterally AUSCULTATION: clear to auscultation bilaterally Cardio: COMMON NORMALS: regular rate, regular rhythm, S1 normal heart sound present and S2 normal heart sound present RATE: regular rate RHYTHM: r egular rhythm HEART SOUNDS: S1 normal heart sound present and S2 normal heart sound present GI: COMMON NORMALS: Normal to inspection, nondistended, normoactive bowel sounds present and non-tender Extremity: COMMON NORMALS: no pedal edema Neuro: COMMON NORMALS: patient oriented x3 Psych: COMMON NORMALS: mental status grossly normal Urinary Catheter Management: Cullen: Cath Placed During This Visit: yes Reason for Continuing Indwelling Catheter: Accurate Measurement of Urinary Output in Critically Ill Patients Urinary Catheter Date of Insertion: 05/06/23 Urinary Catheter Time of Insertion: 13:35 Data 05/09/23 04:27 05/09/23 04:27 A&P Assessment and plan (1) Abdominal pain: (2) Syncope: (3) Acute kidney injury: (4) Elevated lactic acid level: (5) Leukocytosis: (6) Shortness of breath: (7) Hypokalemia: (8) Acute hyponatremia: (9) NSTEMI (non-ST elevated myocardial infarction): (10) Orthostatic hypotension: (11) Gastroduodenitis: (12) Acute anemia: Plan Abdominal pain, likely secondary to gastroduodenitis -CT scan abdomen pelvis - CT/CT abdomen pelvis wo con [id number] IMPRESSION: 1. 5 x 3.8 cm left adnexal cystic lesion versus 2 adjacent cysts. If clinically indicated, pelvic ultrasound may be obtained for further evaluation. 2. Additional findings, as above. Repeat CT MPRESSION: 1. Mild diffuse fatty filtration of the liver. 2. Small esophageal hiatal hernia with fluid distended stomach with air-fluid level. Enhancing stomach and duodenum suspicious for gastroduodenitis. 3. Mild enhancement and bowel wall thickening proximal small bowel can be seen with small bowel enteritis. No evidence of bowel obstruction. 4. Stable LEFT adnexal cyst cystic lesion previously described. 5. Cullen catheter in place. 6. No other acute findings. -With intractable nausea, vomiting -Could be marijuana hyperemesis syndrome -Serial abdominal exams -Zofran for nausea -Continue ciprofloxacin, Flagyl -Morphine for pain Acute on chronic anemia ? Check hemoglobin, trend, ferritin, iron, Hemoccult stool ? Patient is on Plavix as outpatient ? Will continue to monitor closely Elevated lactic acid level, resolved ? Workup as below, ? Monitor closely Acute renal failure, resolving -On CKD -Likely sec to dehydration -Intractable nausea, vomiting, poor appetite -IV fluids -Monitor urine output, monitor creatinine -CPK Hypokalemia, resolved Hyponatremia, likely hypovolemic hyponatremia, resolving Hypomagnesemia, within normal limits NSTEMI ? No chest pain complaints, ? Serial EKGs, serial troponins, telemetry monitoring Shortness of breath ? Etiology unclear, ? CT of the chest no acute findings Leukocytosis of undetermined etiology, resolved ? Blood cultures, ? UA within normal limits, ? Chest x-ray within normal limits, ? CT abdomen and pelvis no acute findings ? CT of the chest no acute findings ? Pro-Asad, CRP, sed rate within normal limits Syncopal episode, likely orthostatic syncope, orthostatic positive, resolving ? Cardiac echo, shows mild LVH ? Carotid artery ultrasound mild left proximal ICA stenosis ? CT of the head within normal limits ? Telemetry monitoring ? Neurochecks, aspiration precautions, no NIH stroke scale ? Continue to check orthostatic vitals , continue IV fluids Rash across forehead, linear, related to her fall, monitor Full code ? Heparin for DVT prophylaxis Plan for today for gastroduodenitis, continue Cipro and Flagyl, as patient has acute on chronic anemia we will check a ferritin and iron levels consider EGD based on clinical progress, given gastroduodenitis, monitor closely, de-escalate IV fluids Attestations 2 Medical Necessity Statement*: Patient requires hospitalization due to gastroduodenitis, anemia, requiring IV antibiotics, clinical monitoring of hemoglobin, Diagnoses Abdominal pain R10.9 Syncope R55 Acute kidney injury N17.9 Elevated lactic acid level R79.89 Leukocytosis D72.829 Shortness of breath R06.02 Hypokalemia E87.6 Acute hyponatremia E87.1 NSTEMI (non-ST elevated myocardial infarction) I21.4 Orthostatic hypotension I95.1 Gastroduodenitis K29.90 Acute anemia D64.9
[2023-05-09] MEDS: potassium phosphate (mEq K) 40 MEQ in sodium chloride 0.9% (100 ml) 100 ML 27.2699999999999996 MEQ IV (11:37)
[2023-05-09 13:02] LABS: Ferritin 78 ng/mL (15-150); Iron 46 ug/dL (37-145); Percent Saturation 25.5 % (20-50); Total Iron Binding Capacity 180 mcg/dl; Unsaturated Iron Binding 134 ug/dL (112-347)
[2023-05-09] MEDS: pantoprazole 40 mg SDV IVP ×2 (13:50→23:08)
[2023-05-09] MEDS: sucralfate 1 gm/10 mL Oral Liq UDC PO ×2 (13:50→22:56)
[2023-05-09 14:21] LABS: Vitamin B12 289 pg/mL (232-1245)
[2023-05-09 15:50] LABS: Folate Level 5.2 ng/mL (4.8-37.3)
[2023-05-09] MEDS: sodium chloride 0.9% 1,000 ML 50 ML IV (17:28)
[2023-05-09] MEDS: morphine 4 mg/mL SDV 1 mL 1 MG IVP (17:49)
[2023-05-09] MEDS: atorvastatin 40 mg Tablet PO (20:29)
[2023-05-10] VITALS (7 sets, daily range): BP systolic 105–151; BP diastolic 72–100; PULSE 65–82; RESP 15–16; TEMP 36.4–36.7; O2SAT 94–99
[2023-05-10] MEDS: ciprofloxacin 400 MG/200 ML PREMIX 200 MG IV (02:22)
[2023-05-10] MEDS: heparin 5,000 unit/mL INJ 1 mL 5000 UNIT SUBCUT (02:22)
[2023-05-10] MEDS: venlafaxine ER (24HR) 150 mg Capsule PO (05:04)
[2023-05-10 05:13] LABS: Basophils % 0.2 %; Eosinophils # 0.1 10^3/uL (0.0-0.8); Eosinophils % 1.3 %; Hematocrit 27.9 % (36-47); Lymphocytes # 1.4 10^3/uL (0.8-4.8); Lymphocytes % 28.6 %; Mean Corpuscular HGB Conc 32.3 g/dL (30-55); Mean Platelet Volume 10.5 fL (7.4-10.4); Monocytes # 0.4 10^3/uL (0.2-0.9); Monocytes % 9.2 %; Neutrophils # 2.87 10^3/uL (1.8-7.7); Neutrophils % 60.3 %; Nucleated Red Blood Cells % 0 %; Platelet Count 200 10^3/cmm (157-399); White Blood Count 4.76 10^3/uL (3.29-11.43)
[2023-05-10 05:50] LABS: Alanine Aminotransferase 14 U/L (0-33); Albumin Level 2.7 g/dL (3.5-5.2); Alkaline Phosphatase 124 U/L (35-105); Anion Gap 10.3 (5-19); Aspartate Amino Transferase 19 U/L (0-32); Blood Urea Nitrogen 4 mg/dL (6-20); Calcium 8.3 mg/dL (8.5-10.5); Carbon Dioxide 22 mmol/L (22-29); Chloride 109 mmol/L (98-107); Creatinine Clr Calc Pharmacy 70.5352; Globulin 2.2 g/dL (1.3-4.6); Glomerular Filtration Rate 58.5 mL/min (90-130); Glucose 82 mg/dL (65-115); Magnesium 1.5 mg/dL (1.7-2.3); Osmolality Calculated 282 mOsm/kg (285-295); Phosphorus 2.4 mg/dL (2.5-4.5); Potassium 3.3 mmol/L (3.5-5.1); Sodium 138 mmol/L (136-145); Total Bilirubin 0.2 mg/dL (0.15-1.2); Total Protein 4.9 g/dL (6.6-8.7)
--- NOTE | 2023-05-10 09:47 | PM.DCS ---
Discharge Providers Date of Admission: 05/06/23 13:16 Date of Discharge: May 10, 2023 Attending Provider at Admission: Manuel Lyons MD Attending Provider at Discharge: Manuel Lyons MD Primary Care Provider: BAILEY Leos Diagnoses at Discharge Discharge Diagnosis (1) Abdominal pain: Status: Acute (2) Syncope: Status: Acute (3) Acute kidney injury: Status: Acute (4) Elevated lactic acid level: Status: Acute (5) Leukocytosis: Status: Resolved (6) Shortness of breath: Status: Acute (7) Hypokalemia: Status: Chronic (8) Acute hyponatremia: Status: Acute (9) NSTEMI (non-ST elevated myocardial infarction): Status: Acute (10) Orthostatic hypotension: Status: Acute (11) Gastroduodenitis: Status: Acute (12) Acute anemia: Status: Acute Reason for Visit Reason for Visit: sob, not eaten in 5 days Hospital Course Hospital Course Trudi Wesley is a 52 year old female with a past medical history of CVA, history of drug use, hyperlipidemia, asthma, bipolar disorder, hypertension, who presents [facility] due to multiple complaints, including syncopal episode, shortness of breath, nausea, vomiting, poor appetite, abdominal pain. Patient tells me that currently her biggest complaint is poor appetite, feeling nauseous, abdominal pain, she tells me that hurts all over abdomen, she is felt nauseous she has had vomiting denies any diarrhea no bloody or black stools, no recent history of travel, no history of food poisoning, she is status post cholecystectomy. She also tells me that about a week ago when this all started she tells me she had passed out, she was walking to the bathroom she does not remember what happened, the next and she remembers she was on the floor. She has never passed out before, since then she has felt off, she thinks she hit her head, since then she is felt off, she thinks she might have a concussion, no blurry vision but she just does not feel right, no focal weakness nor slurring of words, does report lightheadedness, she has a superficial abrasion across her forehead from her fall. She also reports shortness of breath with exertion, does report a cough, no hemoptysis, no calf pain, no calf swelling, recent surgeries, no recent immobility. Her urine was positive for methamphetamine use, I confronted about this she tells me that she does not use much, she never injects any drugs. Denies a history of alcoholism. Patient presents [facility] for abdominal pain, likely secondary to ggastrodoudenitis, patient received IV fluids, IV antibiotics, overall clinically improved, discharged on 3 remaining days of p.o. antibiotics For patient's acute on chronic anemia, CT scan findings of gastroduodenitis, hemoglobin remained stable, hAs evidence of early iron deficiency anemia, follow-up with general surgery for consideration of EGD and colonoscopy as patient is on Plavix, discharged on Protonix, Carafate For acute renal failure, received IV fluids, resolved secondary to intractable nausea vomiting Received electrolyte replacement for hypokalemia, hypomagnesemia, hypophosphatemia For patient's syncopal episode, cardiac echo shows mild LVH, carotid artery ultrasound shows some mild left proximal ICA stenosis, orthostats improved, instructed to drink plenty electrolyte balanced fluids, follow-up with primary care For left proximal ICA stenosis, follow-up with Dr. Worley Patient has a rash across the forehead, linear, patient is unsure if it is a chemical burn related to acne medication or it could be from her fall, on examination it is linear, 10 cmx 1 cm, has good granulation tissue, no active drainage, continue keep clean and dry, do not apply chemicals, any follow-up with primary care, follow-up with Dr. Esqueda Physical Exam Const: COMMON NORMALS: no acute distress and patient oriented x3 Resp: COMMON NORMALS: normal respiratory effort, No retractions, No use of accessory muscles and clear to auscultation bilaterally AUSCULTATION: clear to auscultation bilaterally Cardio: COMMON NORMALS: regular rate, regular rhythm, S1 normal heart sound present and S2 normal heart sound present RATE: regular rate RHYTHM: regular rhythm HEART SOUNDS: S1 normal heart sound present and S2 normal heart sound present GI: COMMON NORMALS: Normal to inspection, nondistended, normoactive bowel sounds present and non-tender Extremity: COMMON NORMALS: no pedal edema Neuro: COMMON NORMALS: patient oriented x3 Psych: COMMON NORMALS: mental status grossly normal Urinary Catheter Management: Cullen: Cath Placed During This Visit: yes Reason for Continuing Indwelling Catheter: Other Urinary Catheter Date of Insertion: 05/06/23 Urinary Catheter Time of Insertion: 13:35 Discharge Data Studies Completed and Pending Completed Studies During Hospitalization Category Date Time Status CT abdomen pelvis w con* [id number] Routine Cat Scan 05/08/23 11:[address] abdomen pelvis wo con [id number] Stat Cat Scan 05/06/23 11:[address] chest wo con [id number] Routine Cat Scan 05/06/23 15:[address] head wo con* [id number] Routine Cat Scan 05/06/23 15:21 Completed XR chest 1V portable [id number] Stat Exams 05/06/23 11:48 Completed CV carotid duplex BI* [id number] Routine Ultrasound 05/07/23 06:00 Completed CV. echo complete* [id number] Routine Ultrasound 05/07/23 06:00 Completed Pending at discharge Category Date Time Status Blood Culture Routine Lab 05/06/23 19:00 Results C.Diff PCR (Lab) Routine Lab 05/08/23 14:10 Ordered Complete Blood Count w/Auto AM LABS Lab 05/11/23 04:00 Ordered Complete Blood Count w/Auto AM LABS Lab 05/12/23 04:00 Ordered Comprehensive Metabolic Panel AM LABS Lab 05/11/23 04:00 Ordered Comprehensive Metabolic Panel AM LABS Lab 05/12/23 04:00 Ordered Immunochemical Fecal OCB Routine Lab 05/08/23 14:10 Ordered Lactoferrin Routine Lab 05/08/23 14:10 Ordered Magnesium AM LABS Lab 05/11/23 04:00 Ordered Magnesium AM LABS Lab 05/12/23 04:00 Ordered OVA and Parasites, Conc and PE Routine Lab 05/08/23 14:10 Ordered Phosphorus AM LABS Lab 05/11/23 04:00 Ordered Phosphorus AM LABS Lab 05/12/23 04:00 Ordered Salmonella / Shigella / Campy Routine Lab 05/08/23 14:10 Ordered Radiology Impressions Chest X-Ray 05/06/23 11:48 IMPRESSION: No acute radiographic findings. Chest CT 05/06/23 15:21 IMPRESSION: 1. Lungs are clear. Head CT 05/06/23 15:21 IMPRESSION: 1. No CT evidence of acute intracranial pathology. 2. Additional findings, as above. Carotid Doppler Study 05/07/23 06:00 IMPRESSION: Moderate stenosis of the left proximal ICA. REFERENCES: SRU CRITERIA. The degree of internal carotid artery stenosis is based on criteria defined by the Society of Radiologists in Ultrasound (SRU). Normal is no stenosis. Mild is less than 50% stenosis. Moderate is 50-69% stenosis. Severe is greater than 69% stenosis to near occlusion. Near occlusion is a markedly narrowed lumen. Total occlusion is no detectable patent lumen. Laboratory Results WBC 4.76 10^3/uL (3.29-11.43) 05/10/23 04:16 RBC 3.10 10^6/uL (3.85-5.65) L 05/10/23 04:16 Hgb 9.00 g/dL (11.27-16.99) L 05/10/23 04:16 Hct 27.9 % (36-47) L 05/10/23 04:16 MCV 90.0 fl (85-98) 05/10/23 04:16 MCH 29.0 pg (27-33) 05/10/23 04:16 MCHC 32.3 g/dL (30-55) 05/10/23 04:16 RDW 17.0 % (12.1-15.1) H 05/10/23 04:16 Plt Count 200 10^3/cmm (157-399) 05/10/23 04:16 MPV 10.5 fL (7.4-10.4) H 05/10/23 04:16 Neut % (Auto) 60.3 % 05/10/23 04:16 Lymph % (Auto) 28.6 % 05/10/23 04:16 [place] % (Auto) 9.2 % 05/10/23 04:16 Eos % (Auto) 1.3 % 05/10/23 04:16 Baso % (Auto) 0.2 % 05/10/23 04:16 Neut # (Auto) 2.87 10^3/uL (1.8-7.7) 05/10/23 04:16 Lymph # (Auto) 1.4 10^3/uL (0.8-4.8) 05/10/23 04:16 [place] # (Auto) 0.4 10^3/uL (0.2-0.9) 05/10/23 04:16 Eos # (Auto) 0.1 10^3/uL (0.0-0.8) 05/10/23 04:16 Baso # (Auto) 0.0 10^3/uL (0.0-0.1) 05/10/23 04:16 Nucleated RBC % (auto) 0 % 05/10/23 04:16 Nucleated RBCs # 0.0 /100WBC 05/10/23 04:16 ESR 8 mm/hr (0-15) 05/06/23 12:15 PT 13.20 SECONDS (12.1-14.9) 05/06/23 12:15 INR 0.97 (0.8-1.2) 05/06/23 12:15 Specimen Type Arterial 05/06/23 12:35 Sample Site Brachial, left 05/06/23 12:35 ABG pH 7.48 (7.35-7.45) H 05/06/23 12:35 ABG pCO2 26.0 mmHg (35-45) L 05/06/23 12:35 ABG pO2 95.7 mmHg (80.0-100.0) 05/06/23 12:35 ABG HCO3 19.5 mmol/L (22-26) L 05/06/23 12:35 ABG O2 Saturation 98.4 05/06/23 12:35 ABG Base Excess -2.7 mmol/L (-2.0-2.0) L 05/06/23 12:35 Alfonso Test N/a 05/06/23 12:35 A-a O2 Gradient 2.6 mmHg (5-10) L 05/06/23 12:35 Hematocrit 37.3 % (37-47) 05/06/23 12:35 Hgb O2 Saturation 96.1 % (95-100) 05/06/23 12:35 Carboxyhemoglobin 1.8 %THgb (0.4-20.1) 05/06/23 12:35 Methemoglobin 0.5 % (0.4-1.5) 05/06/23 12:35 Total Hemoglobin 12.2 g/dL (12-16) 05/06/23 12:35 Sodium 128.0 mmol/L (131-143) L 05/06/23 12:35 Potassium 2.7 mmol/L (3.5-5.0) L 05/06/23 12:35 Glucose 107.0 mg/dL (70-115) 05/06/23 12:35 Ionized Calcium 1.2 mmol/L (1.1-1.4) 05/06/23 12:35 O2 Delivery Device Room air 05/06/23 12:35 Residential Energy Auditor ID [id number] 05/06/23 12:35 Sodium 138 mmol/L (136-145) 05/10/23 04:16 Potassium 3.3 mmol/L (3.5-5.1) L 05/10/23 04:16 Chloride 109 mmol/L (98-107) H 05/10/23 04:16 Carbon Dioxide 22 mmol/L (22-29) 05/10/23 04:16 Anion Gap 10.3 (5-19) 05/10/23 04:16 BUN 4 mg/dL (6-20) L 05/10/23 04:16 Creatinine 1.0 mg/dL (0.5-0.9) H 05/10/23 04:16 GFR Calculation 58.5 mL/min (90-130) L 05/10/23 04:16 Glucose 82 mg/dL (65-115) 05/10/23 04:16 Estimat Average Glucose 117 05/07/23 04:41 Hemoglobin A1c 5.7 % (4.0-6.0) 05/07/23 04:41 Calculated Osmolality 282 mOsm/kg (285-295) L 05/10/23 04:16 Lactic Acid 0.8 mmol/L (0.5-2.2) 05/07/23 04:41 Lactic Acid (Sepsis) 1.4 mmol/L (0.5-2.2) 05/06/23 19:08 Calcium 8.3 mg/dL (8.5-10.5) L 05/10/23 04:16 Phosphorus 2.4 mg/dL (2.5-4.5) L 05/10/23 04:16 Magnesium 1.5 mg/dL (1.7-2.3) L 05/10/23 04:16 Iron 46 ug/dL (37-145) 05/09/23 04:27 TIBC 180 mcg/dl 05/09/23 04:27 % Saturation 25.5 % (20-50) 05/09/23 04:27 Unsat Iron Binding 134 ug/dL (112-347) 05/09/23 04:27 Ferritin 78 ng/mL (15-150) 05/09/23 04:27 Total Bilirubin 0.2 mg/dL (0.15-1.2) 05/10/23 04:16 AST 19 U/L (0-32) 05/10/23 04:16 ALT 14 U/L (0-33) 05/10/23 04:16 Alkaline Phosphatase 124 U/L (35-105) H 05/10/23 04:16 Ammonia 31 umol/L (11-51) 05/06/23 19:08 Creatine Kinase 393 U/L (26-192) H* 05/06/23 16:03 Troponin T Baseline 75 ng/L (0-10) H 05/06/23 12:15 Troponin T 120 Minute 62.79 ng/L (0-10) H 05/06/23 14:03 Delta Troponin T -12.21 ABS# (0-10) L 05/06/23 14:03 Troponin T Hi Sens 6Hr 69.79 ng/L (0-10) H 05/06/23 19:08 Troponin T Hi Sens 6Hr Delta -5.21 ng/L (0-12) L 05/06/23 19:08 C-Reactive Protein 12.5 mg/L (0.0-4.9) H 05/08/23 02:30 NT-Pro-B Natriuret Pep 1731 pg/mL (0-125) H 05/06/23 14:03 Total Protein 4.9 g/dL (6.6-8.7) L 05/10/23 04:16 Albumin 2.7 g/dL (3.5-5.2) L 05/10/23 04:16 Globulin 2.2 g/dL (1.3-4.6) 05/10/23 04:16 Triglycerides 74 mg/dL (0-150) 05/06/23 16:03 Cholesterol 90 mg/dL (0-200) 05/06/23 16:03 LDL Cholesterol, Calc 27 mg/dL (50-129) L 05/06/23 16:03 HDL Cholesterol 48 mg/dL (60-100) L 05/06/23 16:03 LDL/HDL Ratio 0.56 RATIO (0.00-3.22) 05/06/23 16:03 Cholesterol/HDL Ratio 1.88 mg/dL (0.0-4.40) 05/06/23 16:03 Lipase 18 U/L (13-60) 05/08/23 02:30 Vitamin B12 289 pg/mL (232-1245) 05/09/23 04:27 Folate 5.2 ng/mL (4.8-37.3) 05/09/23 14:29 Procalcitonin 0.09 ng/mL (0-0.5) 05/08/23 02:30 TSH 1.37 uIU/mL (0.27-4.20) 05/06/23 16:03 Urine Color Yellow (Yellow) 05/06/23 13:07 Urine Appearance Clear (CLEAR) 05/06/23 13:07 Urine pH 5 (5-7) 05/06/23 13:07 Ur Specific Outlook 1.025 (1.005-1.030) 05/06/23 13:07 Urine Protein Neg (Negative) 05/06/23 13:07 Urine Glucose (UA) 1+ (Normal) H 05/06/23 13:07 Urine Ketones Negative (Negative) 05/06/23 13:07 Urine Blood Neg (Negative) 05/06/23 13:07 Urine Nitrate Negative (Negative) 05/06/23 13:07 Urine Bilirubin Neg (Negative) 05/06/23 13:07 Urine Urobilinogen Norm mg/dL (Negative) 05/06/23 13:07 Ur Leukocyte Esterase Negative (Negative) 05/06/23 13:07 Urine Opiates Screen Negative ng/mL (Negative) 05/06/23 13:07 Ur Barbiturates Screen Negative ng/mL (Negative) 05/06/23 13:07 Ur Phencyclidine Scrn Negative ng/mL (Negative) 05/06/23 13:07 Ur Amphetamines Screen Positive ng/mL (Negative) H 05/06/23 13:07 U Benzodiazepines Scrn Positive ng/mL (Negative) H 05/06/23 13:07 Urine Cocaine Screen Negative ng/mL (Negative) 05/06/23 13:07 U Marijuana (THC) Screen Positive ng/mL (Negative) H 05/06/23 13:07 Serum Ketones Negative (Negative) 05/06/23 12:15 Hepatitis A IgM Ab Non-reactive (Nonreactive) 05/06/23 12:15 Hep Bs Antigen Non-reactive (Nonreactive) 05/06/23 12:15 Hep B Core IgM Ab Non-reactive (Nonreactive) 05/06/23 12:15 Hepatitis C Antibody Non-reactive (Nonreactive) 05/06/23 12:15 HIV 1&2 Ab & HIV 1 Ag Non-reactive (Non-Reactiv) 05/06/23 12:15 HIV 1&2 Antibody Non-reactive (Non-Reactiv) 05/06/23 12:15 Vitals Last Vital Signs Temp 98.0 F 05/10/23 07:13 Pulse 72 05/10/23 08:16 Resp 16 05/10/23 08:16 BP 118/74 05/10/23 08:00 Pulse Ox 94 05/10/23 08:16 O2 Del Method Room Air 05/10/23 08:16 Discharge Plan Discharge Patient Disposition: Home Condition: Stable Prescriptions: New sucralfate 100 mg/mL Suspension 1 g PO Q12H 30 Days Qty: 600 0RF metronidazole 500 mg tablet 500 mg PO Q8H 3 Days Qty: 9 0RF amlodipine [Norvasc] 10 mg tablet 10 mg PO DAILY 30 Days Qty: 30 0RF ciprofloxacin HCl [Cipro] 500 mg tablet 500 mg PO BID 3 Days Qty: 6 0RF pantoprazole [Protonix] 40 mg tablet,delayed release (DR/EC) 40 mg PO BID 30 Days Qty: 60 0RF Continued acyclovir 200 mg capsule 200 mg PO DAILY Qty: 30 5RF albuterol sulfate [ProAir HFA] 90 mcg/actuation HFA aerosol inhaler 2 inh inhalation 6XD PRN (Reason: shortness of breath or wheezing) Qty: 8.5 5RF atorvastatin 40 mg tablet 40 mg PO BEDTIME Qty: 30 5RF budesonide-formoterol [Symbicort] 160-4.5 mcg/actuation HFA aerosol inhaler 2 puff inhalation BID Qty: 10.2 5RF Plavix 75 mg tablet 75 mg PO DAILY Qty: 30 5RF famotidine 40 mg tablet 40 mg PO BID Qty: 60 5RF zonisamide [Zonegran] 100 mg capsule 100 mg PO BID Qty: 60 5RF (DME) Shoe lift See Rx Instructions .Route .MEDSUPPLY Qty: 1 0RF Rx Instructions: As directed ([facility] [place]) HCPCS code E0149 See Rx Instructions .Route .MEDSUPPLY Qty: 1 0RF Rx Instructions: As directed ferrous gluconate 324 mg (38 mg iron) tablet 324 mg PO DAILY Qty: 30 2RF venlafaxine [Effexor XR] 150 mg capsule,extended release 24hr 150 mg PO QAM Qty: 30 2RF dapagliflozin propanediol [Farxiga] 10 mg tablet 10 mg PO QAM Qty: 30 2RF potassium chloride 10 mEq tablet,ER particles/crystals 10 meq PO DAILY Qty: 30 2RF mupirocin 2 % ointment 1 applic topical TID Qty: 22 0RF Discontinued valsartan-hydrochlorothiazide [Diovan HCT] 80-12.5 mg tablet 1 tab PO DAILY Qty: 30 5RF Discharge Orders: Discharge Order (Routine); Ordered 05/10/23 Ordered By: Manuel Lyons Referrals: Isac Morley MD [Physician] - 2 weeks Selvin Thomas, RESEARCH HYDRAULIC ENGINEER-C [Primary Care Provider] - 05/16/23 1:00 pm ( ) Jeri Esqueda DO [Physician] - 1 month (rash) Zhang Worley MD [Physician] - 1 month Discharge Diet: GI Soft Discharge Activity: Resume usual activity Patient Instructions: Opioid Safety Activity Restrictions/Additional Instructions: - Please abstain from methamphetamine use ? Please abstain from marijuana use, ? Please hydrate well, ? Please take antibiotics as prescribed, ? Please follow-up with general surgery in 2 weeks for consideration of EGD and colonoscopy, ? Please avoid NSAIDs such as ibuprofen ? For your rash please follow-up with Dr. Esqueda ? Please take blood pressure medication as prescribed ? Please hydrate well See primary care provider in 1 week Discharge Attestations Time Spent in Discharge Care*: greater than 30 min Quality Metrics Clinical Quality Measures [ No reported AMI, CVA or VTE this stay] Coding Level of Care Code 25125 Total time (in minutes) for Discharge: 45 Diagnoses Abdominal pain R10.9 Syncope R55 Acute kidney injury N17.9 Elevated lactic acid level R79.89 Leukocytosis D72.829 Shortness of breath R06.02 Hypokalemia E87.6 Acute hyponatremia E87.1 NSTEMI (non-ST elevated myocardial infarction) I21.4 Orthostatic hypotension I95.1 Gastroduodenitis K29.90 Acute anemia D64.9
[2023-05-10] MEDS: magnesium sulfate premix 2 GM/50 ML PIGGYBACK IV (11:40)
[2023-05-10] MEDS: sucralfate 1 gm/10 mL Oral Liq UDC PO (11:40)
[2023-05-10] MEDS: clopidogrel 75 mg Tablet PO (11:40)
[2023-05-10] MEDS: pantoprazole 40 mg SDV IVP (11:40)
[2023-05-10] MEDS: zonisamide 100 MG Capsule PO (11:40)
[2023-05-10] MEDS: metroNIDAZOLE IV 500 MG/100 ML PREMIX 100 MG IV (11:48)
[2023-05-10] MEDS: potassium phosphate (mEq K) 40 MEQ in sodium chloride 0.9% (100 ml) 100 ML 27.2699999999999996 MEQ IV (13:07)
--- NOTE | 2023-05-10 17:51 | PC.NURSE ---
Discharge Note Patient discharged to home via private vehicle accompanied by friend. Discharge instructions reviewed with patient and/or patient support representative. Mobile pharmacy medications and/or prescriptions provided. Belongings/home medications returned.
== END 2023-05-10 16:45 | disposition home or self-care (01) | DRG 392 ==
LOC: ER 13:36 → MEDSURG 14:19
PROVIDERS: Admitting Provider Family Medicine; Emergency Provider Family Medicine; PCP Nurse Practitioner; Visit Provider Family Medicine
DX: K29.90 Gastroduodenitis, unspecified, without bleeding (principal); N17.9 Acute kidney failure, unspecified; E87.1 Hypo-osmolality and hyponatremia; D72.829 Elevated white blood cell count, unspecified; I95.1 Orthostatic hypotension; E87.6 Hypokalemia; E83.42 Hypomagnesemia; Z79.02 Long term (current) use of antithrombotics/antiplatelets; E83.39 Other disorders of phosphorus metabolism; R82.5 Elevated urine levels of drugs, medicaments and biological substances; F17.210 Nicotine dependence, cigarettes, uncomplicated; Z86.73 Personal history of transient ischemic attack (TIA), and cerebral infarction without residual deficits; Z90.49 Acquired absence of other specified parts of digestive tract; R21 Rash and other nonspecific skin eruption; I65.22 Occlusion and stenosis of left carotid artery; D50.9 Iron deficiency anemia, unspecified; D64.9 Anemia, unspecified; E78.5 Hyperlipidemia, unspecified; F31.9 Bipolar disorder, unspecified; F41.1 Generalized anxiety disorder
CPT/HCPCS: 36415; 36600; 51702; 70450; 71045; 71250; 74176; 74177; 80051; 80053; 80061; 80074; 80306; 81003; 82009; 82140; 82330; 82550; 82607; 82728; 82746; 82805; 83036; 83540; 83550; 83605; 83690; 83735; 83880; 84100; 84145; 84443; 84484; 85025; 85610; 85651; 86140; 87040; 87806; 93005; 93306; 93880; 94664; 96361; 96372; 96374; 96375; 97161; 97167; 97535; 99285; C9113; J0744; J1644; J2060; J2270; J2405; J3475; J3480; J3490; J7030; Q9967

== ENCOUNTER → 2023-05-25 15:24 | Outpatient (BNVA) | payer BC, MEDICAID, SELFPAY | PROVIDERS: PCP Nurse Practitioner; Visit Provider Internal Medicine Cardiovascular Disease | DX: R07.9 Chest pain, unspecified (principal); I25.119 Atherosclerotic heart disease of native coronary artery with unspecified angina pectoris; I10 Essential (primary) hypertension; F31.70 Bipolar disorder, currently in remission, most recent episode unspecified; F15.10 Other stimulant abuse, uncomplicated; Z86.73 Personal history of transient ischemic attack (TIA), and cerebral infarction without residual deficits; F17.210 Nicotine dependence, cigarettes, uncomplicated | CPT/HCPCS: 93005 ==

== ENCOUNTER 2023-06-05 08:46 | Outpatient (CLI) | payer BC, MEDICAID, SELFPAY ==
--- NOTE | 2023-06-05 | ECG_ITS ---
[facility] Test Date: 2023-06-05 Pat Name: Trudi Wesley Department: Room: Gender: Female Software Sales Representative: : 1970 Requested By: Nadiya Zavala Order Number: [id number] Juan Pablo MD: Nadiya Zavala M.D. Interpretive Statements NAME OF STUDY: LEXISCAN SESTAMIBI STRESS TEST INDICATION: Chest Pain, PROCEDURE: At the baseline, the EKG revealed normal sinus rhythm with a probable progression. Some nonspecific T wave changes in the anterior leads. The baseline heart was 79 bpm with a blood pressue of 128/97 mm of Hg Lexiscan was infused over a period of 20 seconds. A total of 0.4 milligrams of Lexiscan was infused. The stress phase was continued for a total of 5 minutes. Heart rate at the end of the stress phase was 103 bpm with a blood pressure 119/90 mm of Hg. The EKG at the peak infusion revealed nonspecific T wave changes. Sestamibi was injected 20 seconds after the Lexiscan infusion. Heart rate at the end of the recovery phase was 91 bpm with a blood pressure of 118/76 mm of Hg. CONCLUSION: 1. No significant EKG changes with the LexiScan infusion 2. No LexiScan induced chest pain or cardiac arrhythmia 3. Normal blood pressure and heart rate response 4. Sestamibi/sestamibi perfusion scan pending; see separate report. Electronically Signed On 06-12-2023 9:34:59 CDT by Nadiya Zavala M.D. [email or web address]
[2023-06-05 08:51] VITALS: BP 118/76; PULSE 93; BMI 26.2
--- NOTE | 2023-06-05 08:57 | NMCV_ITS ---
NM marilu perf SPECT r/s* [id number] Trudi Wesley Age: 52 Gender: F : 1970 Exam Date: 06/05/2023 09:36 Ordering Phys: Nadiya Zavala MD ([email or web address]) Technologist: MEENAKSHI Leavitt Exam Location: [facility] Indications: CORONARY ANGIOPLASTY STATUS STRESS TEST Please see separate stress test report in [facility] for full findings IMAGE PROTOCOL Rest/Stress 1 Lexiscan Day Radiopharmaceutical Dose (mCi) Administration Site Administered by Rest: Tc-99m 10.5 IV MEENAKSHI Leavitt Sestamibi Stress:Tc-99m 32.4 IV MEENAKSHI Velez Sestamibi Rest: 05-Jun-2023 60 Discovery 630 Stress: 05-Jun-2023 30 Discovery 630 0.4mg Lexiscan. Images obtained in supine and prone position. SPECT RESULTS Technical Quality: Excellent Raw Data Analysis: Normal Image Corrections: No attenuation or motion correction applied Summed Stress Score: 0 Summed Rest Score: 0 Summed Difference Score: 0 PERFUSION FINDINGS Uniform myocardial tracer uptake with no significant perfusion abnormalities. FUNCTIONAL RESULTS (calculated via Gated SPECT) Stress Image LV EF (%): 61 Stress EDV (mL):54 TID: 0.96 Stress ESV (mL):21 FUNCTIONAL FINDINGS: Segmental wall motion analysis revealing no gross wall motion abnormalities IMPRESSIONS 1. Myocardial perfusion imaging revealing uniform myocardial tracer uptake with no significant perfusion abnormalities 2. Normal LV ejection fraction of 61% 3. LV wall motion analysis revealing no gross wall motion abnormalities. 4. Normal LV volume Low probability for coronary ischemia, based on the above findings Dr Nadiya Zavala MD FACC (Electronically Signed) Final Date: 05 June 2023 16:56 S
[2023-06-05] MEDS: regadenoson 0.4 Mg/5 ml Syringe 0.400000000000000022 MG IVP (11:06)
== END 2023-06-05 08:47 | disposition home or self-care (01) ==
PROVIDERS: PCP Nurse Practitioner; Visit Provider Internal Medicine Cardiovascular Disease
DX: Z98.61 Coronary angioplasty status (principal)
CPT/HCPCS: 36415; 78452; 93017; 96374; A9500; J2785

== ENCOUNTER → 2023-06-13 13:21 | Outpatient (BNVA) | payer BC, MEDICAID, SELFPAY | PROVIDERS: PCP Nurse Practitioner; Visit Provider Nurse Practitioner | DX: B00.9 Herpesviral infection, unspecified (principal); J45.909 Unspecified asthma, uncomplicated; I10 Essential (primary) hypertension; I63.9 Cerebral infarction, unspecified; N18.32 Chronic kidney disease, stage 3b; K21.9 Gastro-esophageal reflux disease without esophagitis; D64.9 Anemia, unspecified; E87.6 Hypokalemia; F41.1 Generalized anxiety disorder; M54.50 Low back pain, unspecified; M79.604 Pain in right leg; G47.00 Insomnia, unspecified; J30.89 Other allergic rhinitis | CPT/HCPCS: 81000 ==

== ENCOUNTER 2023-06-21 09:09 | Day surgery (SDC) | payer BC, MEDICAID, SELFPAY ==
[2023-06-21 09:33] VITALS: BP 122/101; PULSE 93; RESP 17; TEMP 36.2; O2SAT 97; BMI 25.4
--- NOTE | 2023-06-21 09:37 | P.ANESASSM_ITS ---
Pre-Anesthetic Assessment Height/Weight: Height 1.5 m Weight 57.153 kg Temp Pulse Resp BP Pulse Ox O2 Del Method 97.1 F L 93 17 122/101 97 Room Air 06/21/23 09:33 06/21/23 09:33 06/21/23 09:33 06/21/23 09:33 06/21/23 09:33 06/21/23 09:33 Preop Diagnosis: abd pain, diarrhea, reflux Operation Date: 06/21/23 10:30 Proposed Procedures p EGD(Not Applicable) - Melo Blackmon DO s Colonoscopy(Not Applicable) - Melo Blackmon DO Was Beta Jenn taken within 24 hours: N/A Was Clonidine taken within 24 hours: N/A Last intake: Intake Last Liquid Date 06/21/23 Last Liquid Time 08:00 Last Solid Date 06/19/23 Last Solid Time 08:00 Social Tobacco and No alcohol 1/2 pack per day, last cigs this morning pack(s) per day sober 1 month. prior history of methamphetamine and alcohol abuse Exam alert, oriented x 3, clear to auscultation bilaterally and regular rate & rhythm Airway Submandibular: within normal limits Cervical ROM: within normal limits Mallampati: Class I Comments: Comments: missing teeth, poor dentition History/ROS No significant history except as noted Pulmonary Asthma and Chronic Obstructive Pulmonary Disease current smoker CV/HEM Stable Angina, Arrythmia, Coronary Artery Disease, Hypertension and Peripheral Vascular Disease recent stress negative, follows with Dr Zavala cardiology, prior cath with diffuse CAD Chronic Renal Insufficiency Hepatic None reported GI Gastroesophageal Reflux Disease Metabolic Hyperlipidemia [facility]/skel Lower Back Pain Neuropsych Anxiety, Cerebrovascular Accident and Dementia 3 strokes, last was last summer with no residual. patient reports she has dementia Anesthetic Plan ASA status: 3 Anesthesia: Anesthesia Evaluation and MAC Risk of > 500 ml blood loss (7ml/kg in children): Yes, adequate IV access and fluids planned Medications/Allergies Home Medications Medication Instructions Recorded Confirmed Last Taken Type Shoe lift #1 ea 01/29/23 06/13/23 Unknown Rx HCPCS code E0149 #1 ea 03/08/23 06/13/23 Unknown Rx mupirocin 2 % topical ointment 1 applic topical TID #22 grams 04/12/23 06/19/23 05/05/23 Rx nitroglycerin 0.4 mg sublingual 0.4 mg sublingual Q5M PRN chest 04/04/24 04/29/24 Unknown Rx tablet (Nitrostat) pain #30 tabs acyclovir 200 mg capsule 200 mg PO DAILY #30 caps 06/13/23 06/19/23 06/19/23 Rx albuterol sulfate 90 mcg/actuation 2 inh inhalation 6XD PRN shortness 06/13/23 06/19/23 06/19/23 Rx aerosol inhaler (ProAir HFA) of breath or wheezing #8.5 grams amlodipine 5 mg tablet (Norvasc) 5 mg PO DAILY #30 tabs 06/13/23 06/19/23 06/20/23 Rx atorvastatin 40 mg tablet 40 mg PO BEDTIME #30 tabs 06/13/23 06/19/23 06/19/23 Rx budesonide-formoterol HFA 160 2 puff inhalation BID #10.2 grams 06/13/23 06/19/23 06/19/23 Rx mcg-4.5 mcg/actuation aerosol inhaler (Symbicort) clopidogrel 75 mg tablet (Plavix) 75 mg PO DAILY #30 tabs 06/13/23 06/19/23 06/11/23 Rx dapagliflozin propanediol 10 mg 10 mg PO QAM #30 tabs 06/13/23 06/19/23 06/19/23 Rx tablet (Farxiga) eszopiclone 3 mg tablet (Lunesta) 3 mg PO .at bedtime #30 tabs 06/13/23 06/19/23 06/18/23 Rx ferrous gluconate 324 mg (38 mg 324 mg PO DAILY #30 tabs 06/13/23 06/19/23 06/18/23 Rx iron) tablet potassium chloride 10 mEq 10 meq PO DAILY #30 tabs 06/13/23 06/19/23 06/20/23 Rx tablet,extended release(part/cryst) triamcinolone acetonide 55 mcg 2 spray intranasal DAILY #16.9 mL 06/13/23 06/19/23 Unknown Rx nasal spray aerosol venlafaxine 150 mg 150 mg PO QAM #30 caps 06/13/23 06/19/23 06/20/23 Rx capsule,extended release 24 hr (Effexor XR) zonisamide 100 mg capsule 100 mg PO BID #60 caps 06/13/23 06/19/23 06/19/23 Rx (Zonegran) Allergies Allergy/AdvReac Type Severity Reaction Status Date / Time codeine AdvReac Rash & itch Verified 06/19/23 09:23 Sulfa (Sulfonamide AdvReac Swelling Verified 06/19/23 09:23 Antibiotics) of face [facility] Anesthesia Medical History Overweight (BMI 25.0-29.9) Congenital leg length inequality Generalized anxiety disorder Essential hypertension Asthma Migraine Bipolar disorder, unspecified Surgical History History of cholecystectomy Family History Other Cancer Diabetes Hypertension Denies family history of Chronic kidney disease (CKD) Stroke Social History Smoking and tobacco/nicotine status: current every day tobacco/nicotine user cigarettes Packs smoked per day: 0.5 Years cigarettes smoked: 13 Quit status (tobacco/nicotine): has tried quititng Number of times tried to quit tobacco: 1 Second hand smoke exposure: Yes Alcohol intake: never Substance/Drug Use: unknown Adopted: No Caregiver/support person: Yes Lives independently: No Household members: friend(s) Housing: House Marital status: Single Number of children: 0 service: No Current occupational status: unemployed Do you think of yourself as: Straight/Heterosexual Current gender identity: Female Data Anesthesia Cardiac Studies: Echocardiogram 05/07/23 Transesophageal Echocardiogram 08/15/21 Sestamibi Stress Test (Cardiology) 06/04
[2023-06-21] MEDS: sodium chloride 0.9% 1,000 ML 30 ML IV (09:39)
--- NOTE | 2023-06-21 09:52 | ANES.PREANE2 ---
Pre-Anesthetic Assessment Height/Weight: Height 1.5 m Weight 57.153 kg Temp Pulse Resp BP Pulse Ox O2 Del Method 97.1 F L 93 17 122/101 97 Room Air 06/21/23 09:33 06/21/23 09:33 06/21/23 09:33 06/21/23 09:33 06/21/23 09:33 06/21/23 09:33 Preop Diagnosis: abd pain, diarrhea, reflux Operation Date: 06/21/23 10:30 Proposed Procedures p EGD(Not Applicable) - Melo Blackmon DO s Colonoscopy(Not Applicable) - Melo Blackmon DO Last intake: Intake Last Liquid Date 06/21/23 Last Liquid Time 08:00 Last Solid Date 06/19/23 Last Solid Time 08:00 Social Alcohol and Tobacco Exam alert, oriented x 3, clear to auscultation bilaterally and regular rate & rhythm Airway Submandibular: within normal limits Cervical ROM: within normal limits Mallampati: Class I CV/HEM Coronary Artery Disease and Hypertension GI Gastroesophageal Reflux Disease Musc/skel Osteoarthritis/DJD Neuropsych Bipolar and Headache Anesthetic Plan ASA status: 3 Anesthesia: MAC Medications/Allergies Home Medications Medication Instructions Recorded Confirmed Last Taken Type Shoe lift #1 ea 01/29/23 06/13/23 Unknown Rx HCPCS code E0149 #1 ea 03/08/23 06/13/23 Unknown Rx mupirocin 2 % topical ointment 1 applic topical TID #22 grams 04/12/23 06/19/23 05/05/23 Rx nitroglycerin 0.4 mg sublingual 0.4 mg sublingual Q5M PRN chest 05/25/23 06/19/23 Unknown Rx tablet (Nitrostat) pain #30 tabs acyclovir 200 mg capsule 200 mg PO DAILY #30 caps 06/13/23 06/19/23 06/19/23 Rx albuterol sulfate 90 mcg/actuation 2 inh inhalation 6XD PRN shortness 06/13/23 06/19/23 06/19/23 Rx aerosol inhaler (ProAir HFA) of breath or wheezing #8.5 grams amlodipine 5 mg tablet (Norvasc) 5 mg PO DAILY #30 tabs 06/13/23 06/19/23 06/20/23 Rx atorvastatin 40 mg tablet 40 mg PO BEDTIME #30 tabs 06/13/23 06/19/23 06/19/23 Rx budesonide-formoterol HFA 160 2 puff inhalation BID #10.2 grams 06/13/23 06/19/23 06/19/23 Rx mcg-4.5 mcg/actuation aerosol inhaler (Symbicort) clopidogrel 75 mg tablet (Plavix) 75 mg PO DAILY #30 tabs 06/13/23 06/19/23 06/11/23 Rx dapagliflozin propanediol 10 mg 10 mg PO QAM #30 tabs 06/13/23 06/19/23 06/19/23 Rx tablet (Farxiga) eszopiclone 3 mg tablet (Lunesta) 3 mg PO .at bedtime #30 tabs 06/13/23 06/19/23 06/18/23 Rx ferrous gluconate 324 mg (38 mg 324 mg PO DAILY #30 tabs 06/13/23 06/19/23 06/18/23 Rx iron) tablet potassium chloride 10 mEq 10 meq PO DAILY #30 tabs 06/13/23 06/19/23 06/20/23 Rx tablet,extended release(part/cryst) triamcinolone acetonide 55 mcg 2 spray intranasal DAILY #16.9 mL 06/13/23 06/19/23 Unknown Rx nasal spray aerosol venlafaxine 150 mg 150 mg PO QAM #30 caps 06/13/23 06/19/23 06/20/23 Rx capsule,extended release 24 hr (Effexor XR) zonisamide 100 mg capsule 100 mg PO BID #60 caps 06/13/23 06/19/23 06/19/23 Rx (Zonegran) Allergies Allergy/AdvReac Type Severity Reaction Status Date / Time codeine AdvReac Rash & itch Verified 06/19/23 09:23 Sulfa (Sulfonamide AdvReac Swelling Verified 06/19/23 09:23 Antibiotics) of face Current Medications Generic Name Dose Route Start Last Admin Trade Name Freq PRN Reason Stop Dose Admin Sodium Chloride 1,000 mls @ 30 mls/hr 06/21/23 08:15 06/21/23 09:39 Sodium Chloride 0.9% IV 06/22/23 08:14 30 mls/hr .Q24H LUCAS Administration PFSH Anesthesia Medical History Overweight (BMI 25.0-29.9) Congenital leg length inequality Generalized anxiety disorder Essential hypertension Asthma Migraine Bipolar disorder, unspecified Surgical History History of cholecystectomy Family History Other Cancer Diabetes Hypertension Denies family history of Chronic kidney disease (CKD) Stroke Social History Smoking and tobacco/nicotine status: current every day tobacco/nicotine user cigarettes Packs smoked per day: 0.5 Years cigarettes smoked: 13 Quit status (tobacco/nicotine): has tried quititng Number of times tried to quit tobacco: 1 Second hand smoke exposure: Yes Alcohol intake: never Substance/Drug Use: unknown Adopted: No Caregiver/support person: Yes Lives independently: No Household members: friend(s) Housing: House Marital status: Single Number of children: 0 service: No Current occupational status: unemployed Do you think of yourself as: Straight/Heterosexual Current gender identity: Female Data Anesthesia Cardiac Studies: Echocardiogram 05/07/23 Transesophageal Echocardiogram 08/15/21 Sestamibi Stress Test (Cardiology) 06/05/23
--- NOTE | 2023-06-21 10:44 | PM.HP ---
Providers/Chief Complaint Primary Care Provider: BAILEY Leos Chief Complaint: Z12.11 History of Present Illness Trudi Wesley is a 52 year old female Review of Systems General: Reports: 10 or more systems reviewed and unremarkable except in HPI and below Medications/Allergies Home Medications Medication Instructions Recorded Confirmed Last Taken Type Shoe lift #1 ea 01/29/23 06/13/23 Unknown Rx HCPCS code E0149 #1 ea 03/08/23 06/13/23 Unknown Rx mupirocin 2 % topical ointment 1 applic topical TID #22 grams 04/12/23 06/19/23 05/05/23 Rx nitroglycerin 0.4 mg sublingual 0.4 mg sublingual Q5M PRN chest 05/25/23 06/19/23 Unknown Rx tablet (Nitrostat) pain #30 tabs acyclovir 200 mg capsule 200 mg PO DAILY #30 caps 06/13/23 06/19/23 06/19/23 Rx albuterol sulfate 90 mcg/actuation 2 inh inhalation 6XD PRN shortness 06/13/23 06/19/23 06/19/23 Rx aerosol inhaler (ProAir HFA) of breath or wheezing #8.5 grams amlodipine 5 mg tablet (Norvasc) 5 mg PO DAILY #30 tabs 06/13/23 06/19/23 06/20/23 Rx atorvastatin 40 mg tablet 40 mg PO BEDTIME #30 tabs 06/13/23 06/19/23 06/19/23 Rx budesonide-formoterol HFA 160 2 puff inhalation BID #10.2 grams 06/13/23 06/19/23 06/19/23 Rx mcg-4.5 mcg/actuation aerosol inhaler (Symbicort) clopidogrel 75 mg tablet (Plavix) 75 mg PO DAILY #30 tabs 06/13/23 06/19/23 06/11/23 Rx dapagliflozin propanediol 10 mg 10 mg PO QAM #30 tabs 06/13/23 06/19/23 06/19/23 Rx tablet (Farxiga) eszopiclone 3 mg tablet (Lunesta) 3 mg PO .at bedtime #30 tabs 06/13/23 06/19/23 06/18/23 Rx ferrous gluconate 324 mg (38 mg 324 mg PO DAILY #30 tabs 06/13/23 06/19/23 06/18/23 Rx iron) tablet potassium chloride 10 mEq 10 meq PO DAILY #30 tabs 06/13/23 06/19/23 06/20/23 Rx tablet,extended release(part/cryst) triamcinolone acetonide 55 mcg 2 spray intranasal DAILY #16.9 mL 06/13/23 06/19/23 Unknown Rx nasal spray aerosol venlafaxine 150 mg 150 mg PO QAM #30 caps 06/13/23 06/19/23 06/20/23 Rx capsule,extended release 24 hr (Effexor XR) zonisamide 100 mg capsule 100 mg PO BID #60 caps 06/13/23 06/19/23 06/19/23 Rx (Zonegran) Allergies Allergy/AdvReac Type Severity Reaction Status Date / Time codeine AdvReac Rash & itch Verified 06/19/23 09:23 Sulfa (Sulfonamide AdvReac Swelling Verified 06/19/23 09:23 Antibiotics) of face PFSH Acute PFSH: Medical History (Updated 06/21/23 @ 10:44 by Melo Blackmon DO) Overweight (BMI 25.0-29.9) Congenital leg length inequality Generalized anxiety disorder Essential hypertension Asthma Migraine Bipolar disorder, unspecified Surgical History History of cholecystectomy Family History Other Cancer Diabetes Hypertension Denies family history of Chronic kidney disease (CKD) Stroke Social History Smoking and tobacco/nicotine status: current every day tobacco/nicotine user cigarettes Packs smoked per day: 0.5 Years cigarettes smoked: 13 Quit status (tobacco/nicotine): has tried quititng Number of times tried to quit tobacco: 1 Second hand smoke exposure: Yes Alcohol intake: never Substance/Drug Use: unknown Adopted: No Caregiver/support person: Yes Lives independently: No Household members: friend(s) Housing: House Marital status: Single Number of children: 0 service: No Current occupational status: unemployed Do you think of yourself as: Straight/Heterosexual Current gender identity: Female Vitals/I&O/Wt Last Vital Signs Temp 97.1 F L 06/21/23 09:33 Pulse 93 06/21/23 09:33 Resp 17 06/21/23 09:33 BP 122/101 06/21/23 09:33 Pulse Ox 97 06/21/23 09:33 O2 Del Method Room Air 06/21/23 09:33 Weight last 48 hrs Weight 126 lb A&P Assessment and plan (1) Colon cancer screening: (2) Abdominal pain: Plan EGD and colonoscopy Attestations Medical Necessity Statement*: Home Coding Level of Care Code Acute Code for Chg Fwd Diagnoses Colon cancer screening Z12.11 Abdominal pain R10.9
[2023-06-21 11:03] VITALS: BP 96/72; PULSE 80; RESP 14; TEMP 36.3; O2SAT 98
--- NOTE | 2023-06-21 12:15 | ANE.PACU2 ---
Inpatient post-anesthesia follow up: Vital signs: Temperature 97.4 F Pulse Rate 80 Respiratory Rate 14 Blood Pressure 96/72 Pulse Oximetry 98 Oxygen Delivery Me thod Room Air Oxygen Flow Rate Fraction of Inspir ed Oxygen Hydration adequate: Yes Nausea and vomiting: No Pain level: 1 Mental status: Baseline
== END 2023-06-21 11:32 | disposition home or self-care (01) ==
PROVIDERS: PCP Nurse Practitioner; Visit Provider Surgery
PROC: 0DJ08ZZ Inspection of Upper Intestinal Tract, Via Natural or Artificial Opening Endoscopic (ICD-10-PCS; CPT 43235; principal; 2023-06-21 10:30)
PROC: 0DJD8ZZ Inspection of Lower Intestinal Tract, Via Natural or Artificial Opening Endoscopic (ICD-10-PCS; CPT 45378; 2023-06-21 10:30)
DX: Z12.11 Encounter for screening for malignant neoplasm of colon (principal); E66.3 Overweight; K63.3 Ulcer of intestine; F41.1 Generalized anxiety disorder; I10 Essential (primary) hypertension; F17.210 Nicotine dependence, cigarettes, uncomplicated; R10.9 Unspecified abdominal pain; J44.9 Chronic obstructive pulmonary disease, unspecified; I25.10 Atherosclerotic heart disease of native coronary artery without angina pectoris; E78.5 Hyperlipidemia, unspecified; F03.90 Unspecified dementia, unspecified severity, without behavioral disturbance, psychotic disturbance, mood disturbance, and anxiety
CPT/HCPCS: 43239; 45380; 88305; J2704; J3010; J7030

== ENCOUNTER 2023-11-13 00:09 | Emergency (ER) | payer BC, MEDICAID, SELFPAY ==
[2023-11-13 00:13] VITALS: BP 160/113; PULSE 80; RESP 24; TEMP 36.6; O2SAT 100; BMI 25.2
--- NOTE | 2023-11-13 00:30 | XRR_ITS ---
PROCEDURE INFORMATION: Exam: XR Right Hip Exam date and time: 11/13/2023 12:34 AM Age: 53 years old Clinical indication: Right hip; Patient HX: C/O worsening RT hip pain. History of chronic hip pain. ; Additional info: Injury TECHNIQUE: Imaging protocol: Radiologic exam of the right hip. Views: 1 view hip with pelvis when performed. COMPARISON: CT abdomen pelvis w con* [id number] 05/08/2023 12:57 PM FINDINGS: Bones/joints: Severe degenerative changes of the right femoroacetabular joint with AVN/bony remodeling of the femoral head and mild proximal migration of the femur. No acute fracture. Soft tissues: Unremarkable. XR/XR hip RT 2-3V wo/w pel* [id number] IMPRESSION: Severe degenerative changes with AVN/bony remodeling of the femoral head and mild proximal migration of the femur.
[2023-11-13 00:32] VITALS: BP 160/113; PULSE 78; RESP 16; O2SAT 100
--- NOTE | 2023-11-13 00:42 | CTR_ITS ---
PROCEDURE INFORMATION: Exam: CT Right Lower Extremity, Hip Exam date and time: 11/13/2023 1:07 AM Age: 53 years old Clinical indication: Right; Patient HX: C/O worsening RT hip pain. Unable to bear weight. History of chronic hip pain. TECHNIQUE: Imaging protocol: CT of the right lower extremity without contrast was performed. Exam focused on the hip. Radiation optimization: All CT scans at this facility use at least one of these dose optimization techniques: automated exposure control; mA and/or kV adjustment per patient size (includes targeted exams where dose is matched to clinical indication); or iterative reconstruction. COMPARISON: CR (PELVIS, ) 11/13/2023 12:34 AM RADIATION DOSE METRICS: Total DLP (mGy-cm): 396.29 FINDINGS: Bones/joints: Right hip joint effusion. Mild synovitis. Severe degenerative changes of the right femoroacetabular joint with mild AVN and bony remodeling of the femoral head. Mild superolateral migration of the femur. Synovial cysts throughout the acetabular roof. No acute fracture. Soft tissues: Normal. CT/CT hip RT wo con* [id number] IMPRESSION: 1. Severe degenerative changes with mild AVN and bony remodeling of the femoral head. Mild superolateral migration of the femur. 2. Right hip joint effusion with mild synovitis.
--- NOTE | 2023-11-13 00:43 | ED_ITS ---
HPI - Extremity Problem 2 General: Chief complaint: Extremity Injury, Lower Stated complaint: HIP PAIN Time Seen by Provider: 11/13/23 00:27 Source: patient and EMS Mode of arrival: EMS Limitations: no limitations History of Present Illness: 53-year-old female states she has had ch ronic leg pain with a history of Legg- Perthes. She states that she had a fall few weeks ago and had increasing right hip pain since then states tonight the pain is worsened rates it a 9 out of 10 denies any fever states its much worse with movement. Associated symptoms: Deny chest pain, fever(s) or rash Related Data Previous Rx's Medication Instructions Recorded Shoe lift #1 ea 01/29/23 [facility] code E0149 #1 ea 03/08/23 mupirocin 2 % topical ointment 1 applic topical TID #22 grams 04/12/23 nitroglycerin 0.4 mg sublingual 0.4 mg sublingual Q5M PRN chest 05/25/23 tablet (Nitrostat) pain #30 tabs acyclovir 200 mg capsule 200 mg PO DAILY #30 caps 06/13/23 albuterol sulfate 90 mcg/actuation 2 inh inhalation 6XD PRN shortness 06/13/23 aerosol inhaler (ProAir HFA) of breath or wheezing #8.5 grams amlodipine 5 mg tablet (Norvasc) 5 mg PO DAILY #30 tabs 06/13/23 atorvastatin 40 mg tablet 40 mg PO BEDTIME #30 tabs 06/13/23 budesonide-formoterol HFA 160 2 puff inhalation BID #10.2 grams 06/13/23 mcg-4.5 mcg/actuation aerosol inhaler (Symbicort) clopidogrel 75 mg tablet (Plavix) 75 mg PO DAILY #30 tabs 06/13/23 dapagliflozin propanediol 10 mg 10 mg PO QAM #30 tabs 06/13/23 tablet (Farxiga) eszopiclone 3 mg tablet (Lunesta) 3 mg PO .at bedtime #30 tabs 06/13/23 ferrous gluconate 324 mg (38 mg 324 mg PO DAILY #30 tabs 06/13/23 iron) tablet potassium chloride 10 mEq 10 meq PO DAILY #30 tabs 06/13/23 tablet,extended release(part/cryst) triamcinolone acetonide 55 mcg 2 spray intranasal DAILY #16.9 mL 06/13/23 nasal spray aerosol venlafaxine 150 mg 150 mg PO QAM #30 caps 06/13/23 capsule,extended release 24 hr (Effexor XR) zonisamide 100 mg capsule 100 mg PO BID #60 caps 06/13/23 (Zonegran) Allergies Allergy/AdvReac Type Severity Reaction Status Date / Time codeine AdvReac Rash & itch Verified 06/19/23 09:23 Sulfa (Sulfonamide AdvReac Swelling Verified 06/19/23 09:23 Antibiotics) of face Review of Systems 2 Const: Denies: fever(s), chills, body aches or change in appetite ENMT: Denies: throat pain or dental pain Card: Denies: chest pain Resp: Denies: dyspnea GI: Denies: abdominal pain, nausea, vomiting or diarrhea Musc: Reports: extremity pain; Denies: neck pain or back pain Skin/Breast: Denies: rash Neuro: Denies: headache(s) PFSH ED 2 PFSH: Medical History Overweight (BMI 25.0-29.9) Congenital leg length inequality Generalized anxiety disorder Essential hypertension Asthma Migraine Bipolar disorder, unspecified Surgical History History of cholecystectomy Family History Other Cancer Diabetes Hypertension Denies family history of Chronic kidney disease (CKD) Stroke Social History Smoking and tobacco/nicotine status: current every day tobacco/nicotine user cigarettes Packs smoked per day: 0.5 Years cigarettes smoked: 13 Quit status (tobacco/nicotine): has tried quititng Number of times tried to quit tobacco: 1 Second hand smoke exposure: Yes Alcohol intake: never Substance/Drug Use: unknown Adopted: No Caregiver/support person: Yes Lives independently: No Household members: friend(s) Housing: House Marital status: Single Number of children: 0 service: No Current occupational status: unemployed Do you think of yourself as: Straight/Heterosexual Current gender identity: Female Physical Exam 2 Const: COMMON NORMALS: no acute distress, patient oriented x3 and healthy appearing HENMT: COMMON NORMALS: normocephalic and atraumatic HEAD & SCALP: n ormocephalic and atraumatic Neck/C-Spine: COMMON NORMALS: full ROM and supple Chest: COMMONS NORMALS: normal inspection of the chest Resp: COMMON NORMALS: normal respiratory effort Cardio: COMMON NORMALS: regular rate, regular rhythm and No murmurs present (Cardio) RATE: regular rate RHYTHM: regular rhythm GI: COMMON NORMALS: Normal to inspection, nondistended, normoactive bowel sounds present, Soft to palpation, non-tender and no masses PALPATION: Yes Soft to palpation Extremity: NARRATIVE EXTREMITY EXAM: Tenderness to right hip no obvious deformity distal pulses sensation intact Neuro: COMMON NORMALS: patient oriented x3, moves all extremities and no focal motor deficits Psych: COMMON NORMALS: mental status grossly normal, Normal thought process present and cooperative THOUGHT PROCESS: Normal thought process present Skin: COMMON NORMALS: no rashes or lesions noted and no wounds GENERAL SKIN EXAM: no rashes or lesions noted Course 2 Vital Signs: Vital signs: Vital Signs Temperature 98 F 11/13/23 00:13 Pulse Rate 73 11/13/23 01:03 Respiratory Rate 16 11/13/23 00:32 Blood Pressure 132/100 11/13/23 01:03 Pulse Oximetry 99 11/13/23 01:03 Oxygen Delivery Me thod Room Air 11/13/23 00:32 MDM - Extremity (Nontraumatic) Medical Decision Making Patient presents with right hip pain has been chronic in nature CT shows degenerative changes she has no acute fracture we will get her follow-up with orthopedics she is return if worsening she understands agrees to plan Medical Records I reviewed the patient's medical records. Lab Data I reviewed the patient's lab results. 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 Hip CT 11/13/23 00:42 IMPRESSION: 1. Severe degenerative changes with mild AVN and bony remodeling of the femoral head. Mild superolateral migration of the femur. 2. Right hip joint effusion with mild synovitis. Laboratory Results WBC 7.29 10^3/uL (3.29-11.43) 11/13/23 01:35 RBC 3.51 10^6/uL (3.85-5.65) L 11/13/23 01:35 Hgb 10.70 g/dL (11.27-16.99) L 11/13/23 01:35 Hct 33.0 % (36-47) L 11/13/23 01:35 MCV 94.0 fl (85-98) 11/13/23 01:35 MCH 30.5 pg (27-33) 11/13/23 01:35 MCHC 32.4 g/dL (30-55) 11/13/23 01:35 RDW 14.7 % (12.1-15.1) 11/13/23 01:35 Plt Count 321 10^3/cmm (157-399) 11/13/23 01:35 MPV 9.7 fL (7.4-10.4) 11/13/23 01:35 Neut % (Auto) 55.7 % 11/13/23 01:35 Lymph % (Auto) 32.6 % 11/13/23 01:35 Mayes % (Auto) 9.3 % 11/13/23 01:35 Eos % (Auto) 1.9 % 11/13/23 01:35 Baso % (Auto) 0.4 % 11/13/23 01:35 Neut # (Auto) 4.05 10^3/uL (1.8-7.7) 11/13/23 01:35 Lymph # (Auto) 2.4 10^3/uL (0.8-4.8) 11/13/23 01:35 Mayes # (Auto) 0.7 10^3/uL (0.2-0.9) 11/13/23 01:35 Eos # (Auto) 0.1 10^3/uL (0.0-0.8) 11/13/23 01:35 Baso # (Auto) 0.0 10^3/uL (0.0-0.1) 11/13/23 01:35 Nucleated RBC % (auto) 0 % 11/13/23 01:35 Nucleated RBCs # 0.0 /100WBC 11/13/23 01:35 Sodium 138 mmol/L (136-145) 11/13/23 01:35 Potassium 3.4 mmol/L (3.5-5.1) L 11/13/23 01:35 Chloride 102 mmol/L (98-107) 11/13/23 01:35 Carbon Dioxide 23 mmol/L (22-29) 11/13/23 01:35 Anion Gap 16.4 (5-19) 11/13/23 01:35 BUN 14 mg/dL (6-20) 11/13/23 01:35 Creatinine 1.0 mg/dL (0.5-0.9) H 11/13/23 01:35 GFR Calculation 58.2 mL/min (90-130) L 11/13/23 01:35 Glucose 99 mg/dL (65-115) 11/13/23 01:35 Calculated Osmolality 287 mOsm/kg (285-295) 11/13/23 01:35 Calcium 9.3 mg/dL (8.5-10.5) 11/13/23 01:35 Total Bilirubin 0.4 mg/dL (0.15-1.2) 11/13/23 01:35 AST 19 U/L (0-32) 11/13/23 01:35 ALT 14 U/L (0-33) 11/13/23 01:35 Alkaline Phosphatase 107 U/L (35-105) H 11/13/23 01:35 Total Protein 6.6 g/dL (6.6-8.7) 11/13/23 01:35 Albumin 4.1 g/dL (3.5-5.2) 11/13/23 01:35 Globulin 2.5 g/dL (1.3-4.6) 11/13/23 01:35 Ethyl Alcohol < 10 mg/dL (0-10) 11/13/23 01:35 All radiology interpretation(s) finalized by discharge Discharge Plan Discharge Patient Disposition: Home Clinical Impression: Acute right hip pain Condition: Stable Prescriptions: No Action (DME) Shoe lift See Rx Instructions .Route .MEDSUPPLY Qty: 1 0RF Rx Instructions: As directed (DME) [facility] See Rx Instructions .Route .MEDSUPPLY Qty: 1 0RF Rx Instructions: As directed acyclovir 200 mg capsule 200 mg PO DAILY Qty: 30 5RF albuterol sulfate [ProAir HFA] 90 mcg/actuation HFA aerosol inhaler 2 inh inhalation 6XD PRN (Reason: shortness of breath or wheezing) Qty: 8.5 5RF amlodipine [Norvasc] 5 mg tablet 5 mg PO DAILY Qty: 30 5RF atorvastatin 40 mg tablet 40 mg PO BEDTIME Qty: 30 5RF budesonide-formoterol [Symbicort] 160-4.5 mcg/actuation HFA aerosol inhaler 2 puff inhalation BID Qty: 10.2 5RF Plavix 75 mg tablet 75 mg PO DAILY Qty: 30 5RF Hold Instructions: Resume on 06/23/23. dapagliflozin propanediol [Farxiga] 10 mg tablet 10 mg PO QAM Qty: 30 2RF ferrous gluconate 324 mg (38 mg iron) tablet 324 mg PO DAILY Qty: 30 2RF potassium chloride 10 mEq tablet,ER particles/crystals 10 meq PO DAILY Qty: 30 2RF venlafaxine [Effexor XR] 150 mg capsule,extended release 24hr 150 mg PO QAM Qty: 30 2RF zonisamide [Zonegran] 100 mg capsule 100 mg PO BID Qty: 60 5RF eszopiclone [Lunesta] 3 mg tablet 3 mg PO .at bedtime Qty: 30 5RF triamcinolone acetonide 55 mcg aerosol,spray 2 spray intranasal DAILY Qty: 16.9 0RF Rx Instructions: administer into each nostril nitroglycerin [Nitrostat] 0.4 mg tablet, sublingual 0.4 mg sublingual Q5M PRN (Reason: chest pain) Qty: 30 3RF mupirocin 2 % ointment 1 applic topical TID Qty: 22 0RF Discharge Orders: Discharge ED (Routine); Ordered 11/13/23 Ordered By: Aleksandar Ledesma Referrals: Selvin Thomas, [employer] [Primary Care Provider] - 4-7 days Discharge Diet: Advance as tolerated Discharge Activity: Resume usual activity Patient Instructions: Hip Pain (ED) Coding Level of Care Code ED Art Instructor for Andrey Kang
[2023-11-13] MEDS: LORazepam 2 mg/mL INJ 1 mL 0.5 MG IVP (00:56)
[2023-11-13] MEDS: morphine 4 mg/mL SDV 1 mL IVP (00:58)
[2023-11-13] MEDS: dexamethasone 10 mg/mL INJ IVP (01:02)
[2023-11-13 01:03] VITALS: BP 132/100; PULSE 73; O2SAT 99
[2023-11-13 01:39] LABS: Basophils % 0.4 %; Eosinophils # 0.1 10^3/uL (0.0-0.8); Eosinophils % 1.9 %; Lymphocytes # 2.4 10^3/uL (0.8-4.8); Lymphocytes % 32.6 %; Mean Corpuscular HGB Conc 32.4 g/dL (30-55); Mean Corpuscular Hemoglobin 30.5 pg (27-33); Mean Platelet Volume 9.7 fL (7.4-10.4); Monocytes # 0.7 10^3/uL (0.2-0.9); Monocytes % 9.3 %; Neutrophils # 4.05 10^3/uL (1.8-7.7); Neutrophils % 55.7 %; Nucleated Red Blood Cells % 0 %; Platelet Count 321 10^3/cmm (157-399); Red Blood Count 3.51 10^6/uL (3.85-5.65); Red Cell Distribution Width 14.7 % (12.1-15.1); White Blood Count 7.29 10^3/uL (3.29-11.43)
[2023-11-13 01:59] LABS: Alanine Aminotransferase 14 U/L (0-33); Albumin Level 4.1 g/dL (3.5-5.2); Alkaline Phosphatase 107 U/L (35-105); Anion Gap 16.4 (5-19); Aspartate Amino Transferase 19 U/L (0-32); Blood Urea Nitrogen 14 mg/dL (6-20); Calcium 9.3 mg/dL (8.5-10.5); Carbon Dioxide 23 mmol/L (22-29); Chloride 102 mmol/L (98-107); Globulin 2.5 g/dL (1.3-4.6); Glomerular Filtration Rate 58.2 mL/min (90-130); Glucose 99 mg/dL (65-115); Osmolality Calculated 287 mOsm/kg (285-295); Potassium 3.4 mmol/L (3.5-5.1); Sodium 138 mmol/L (136-145); Total Bilirubin 0.4 mg/dL (0.15-1.2); Total Protein 6.6 g/dL (6.6-8.7)
[2023-11-13 02:02] LABS: Alcohol Level < 10 mg/dL (0-10)
[2023-11-13 03:00] VITALS: BP 148/98; PULSE 85; O2SAT 97
--- NOTE | 2023-11-13 09:29 | DCPLANNER ---
messaged ortho for er f/u
== END 2023-11-13 03:01 | disposition home or self-care (01) ==
PROVIDERS: Emergency Provider Emergency Medicine; PCP Nurse Practitioner
DX: M25.551 Pain in right hip (principal); Z79.02 Long term (current) use of antithrombotics/antiplatelets; I10 Essential (primary) hypertension; F17.210 Nicotine dependence, cigarettes, uncomplicated
CPT/HCPCS: 36415; 73502; 73700; 80053; 80307; 85025; 96374; 96375; 99285; J1100; J2060; J2270

== ENCOUNTER 2024-02-11 12:40 | Emergency (ER) | payer BC, MEDICAID, SELFPAY ==
[2024-02-11 13:03] VITALS: BP 137/84; PULSE 85; RESP 16; TEMP 36.7; O2SAT 100
--- NOTE | 2024-02-11 13:50 | CTR_ITS ---
PROCEDURE INFORMATION: Exam: CT Abdomen And Pelvis With Contrast Exam date and time: 02/11/2024 2:07 PM Age: 53 years old Clinical indication: Abdominal pain; Localized; Left upper quadrant (luq); Prior surgery; Surgery date: 6+ months; Surgery type: Gb; Additional info: Abdominal pain and distention, nausea, vomiting TECHNIQUE: Imaging protocol: Computed tomography of the abdomen and pelvis with contrast. Axial, coronal and sagittal reformatted images were created and reviewed. Radiation optimization: All CT scans at this facility use at least one of these dose optimization techniques: automated exposure control; mA and/or kV adjustment per patient size (includes targeted exams where dose is matched to clinical indication); or iterative reconstruction. Contrast material: OMNIPAQUE 350; Contrast volume: 85 ml; Contrast route: INTRAVENOUS (IV); COMPARISON: CT abdomen pelvis w con* [id number] 05/08/2023 12:57 PM RADIATION DOSE METRICS: Total DLP (mGy-cm): 365.93 FINDINGS: Lungs: 7 mm right lower lobe nodular density, new since the prior study. Diaphragm: Small hiatal hernia. Liver: Unremarkable. Gallbladder and biliary ducts: Status post cholecystectomy. No biliary ductal dilatation. Pancreas: Unremarkable. Spleen: Unremarkable. Adrenal glands: 2.6 cm right adrenal adenoma. Kidneys and ureters: No mass. No radiodense calculi. No hydronephrosis. Stomach and bowel: No bowel wall thickening. No obstruction. No pneumatosis. Appendix: Normal. Intraperitoneal space: No free fluid. No organized fluid collection. No free air. Vasculature: [id number] atherosclerotic disease. No aneurysm or dissection. Lymph nodes: No pathologically enlarged lymph nodes. Urinary bladder: Mild circumferential urinary bladder wall thickening, likely secondary to underdistention. Reproductive: Somewhat lobular uterus, likely due to fibroids. 5.2 x 3.6 cm left adnexal cystic lesion, similar to prior. Bones/joints: No acute osseous abnormality. Osteopenia. Degenerative changes. Soft tissues: Unremarkable. CT/CT abdomen pelvis w con* [id number] IMPRESSION: 1. 5.2 x 3.6 cm left adnexal cystic lesion, similar to prior. If clinically indicated, pelvic ultrasound may be obtained for further evaluation. 2. 7 mm right lower lobe nodular density, new since the prior study. For patients at low risk (minimal or absent history of smoking and of other known risk factors), recommend CT Chest at 6-12 months, then consider CT Chest at 18-24 months. For patients at high risk (history of smoking or of other known risk factors), recommend CT Chest at 6-12 months, then [address] Chest at 18-24 months. (Reference: Rafael) 3. Additional findings, as above. REFERENCES: Rafael Vincent, et al. Guidelines for Management of Incidental Pulmonary Nodules Detected on CT Images: From the Fleischner Society 2017. Radiology. 2017;284(1):228-243.
[2024-02-11 14:02] LABS: Basophils % 0.5 %; Eosinophils # 0.3 10^3/uL (0.0-0.8); Eosinophils % 4.1 %; Hematocrit 38.6 % (36-47); Lymphocytes # 1.7 10^3/uL (0.8-4.8); Lymphocytes % 25.2 %; Mean Corpuscular HGB Conc 31.6 g/dL (30-55); Mean Corpuscular Hemoglobin 28.6 pg (27-33); Mean Corpuscular Volume 90.6 fl (85-98); Mean Platelet Volume 9.1 fL (7.4-10.4); Monocytes # 0.4 10^3/uL (0.2-0.9); Monocytes % 6.4 %; Neutrophils % 63.5 %; Nucleated Red Blood Cells % 0 %; Platelet Count 342 10^3/cmm (157-399); Red Blood Count 4.26 10^6/uL (3.85-5.65); Red Cell Distribution Width 15.7 % (12.1-15.1)
[2024-02-11] MEDS: iohexol 350 mg/mL 500 mL Btl (per mL) IV (14:10)
[2024-02-11 14:19] LABS: Alanine Aminotransferase 19 U/L (0-33); Albumin Level 4.1 g/dL (3.5-5.2); Alkaline Phosphatase 158 U/L (35-105); Anion Gap 14.1 (5-19); Aspartate Amino Transferase 18 U/L (0-32); Blood Urea Nitrogen 14 mg/dL (6-20); Calcium 9.8 mg/dL (8.5-10.5); Carbon Dioxide 25 mmol/L (22-29); Chloride 106 mmol/L (98-107); Creatinine Clr Calc Pharmacy 56.5478; Globulin 2.8 g/dL (1.3-4.6); Glomerular Filtration Rate 58.2 mL/min (90-130); Glucose 108 mg/dL (65-115); Lipase 45 U/L (13-60); Osmolality Calculated 293 mOsm/kg (285-295); Potassium 4.1 mmol/L (3.5-5.1); Sodium 141 mmol/L (136-145); Total Bilirubin 0.2 mg/dL (0.15-1.2); Total Protein 6.9 g/dL (6.6-8.7)
[2024-02-11 14:30] VITALS: BP 127/91; PULSE 66; O2SAT 100
[2024-02-11] MEDS: sodium chloride 0.9% 1,000 ML 999 ML IV (14:43)
[2024-02-11 14:44] VITALS: RESP 20
[2024-02-11] MEDS: morphine 4 mg/mL SDV 1 mL IVP (14:44)
[2024-02-11] MEDS: ondansetron 2 mg/ML SDV 2 mL 4 MG IVP (14:45)
[2024-02-11 14:59] LABS: Lactic Sepsis W/Reflex 1.1 mmol/L (0.5-2.2)
[2024-02-11 15:01] LABS: Bilirubin Urine Negative (Negative); Blood Urine Negative (Negative); Glucose Urine UA Negative (Normal); HCG Qualitative Urine. Negative (Negative); Ketones Urine Negative (Negative); Leukocyte Esterase Urine Negative (Negative); Nitrate Urine Negative (Negative); Protein Urine Negative (Negative); Urine Appearance Clear (CLEAR); Urine Color Yellow (Yellow); Urobilinogen Urine 0.2 mg/dL (Negative); pH Urine 7.5 (5-7)
[2024-02-11 15:06] LABS: Add Urine Microscopic? YES; Bacteria Urine None Seen /hpf; Hyaline Casts Urine 0.81 /lpf; RBC Urine 0-2 /hpf (0-2); Specific Gravity, Urine 1.041 (1.005-1.030); Squamous Epithelial Cell Urine 0-5 /hpf (0-5); WBC Urine 0-5 /hpf (0-5)
[2024-02-11 15:07] LABS: Amphetamines Screen Urine Positive (Negative); Barbiturates Screen Urine Negative (Negative); Benzodiazepines Screen Urine Negative (Negative); Cocaine Screen Urine Negative (Negative); Opiate Screen Urine Negative (Negative); PCP Screen Urine Negative (Negative); THC Screen Urine Positive (Negative)
--- NOTE | 2024-02-11 15:18 | ED_ITS ---
HPI - Abdominal Pain 2 General: Chief Complaint: Abdominal Pain Stated Complaint: extended abdomin Time Seen by Provider: 02/11/24 13:20 History of Present Illness: Patient is a 53-year-old female that presents to the emergency department for complaints of abdominal pain and distention. Patient sisters with her reports she found her this morning writhing in pain and crying. Patient is complaining of left-sided abdominal pain. Onset of symptoms 2 to 3 days ago. Patient denies any prior events like this. Patient reports nausea and chills but no vomiting or fevers. Patient denies diarrhea She reports her last bowel movement was today and it was normal She denies blood in her urine or stool Patient's medical history includes hypertension, hyperlipidemia, cardiovascular disease, herpes, substance abuse. Is unclear if she has been taking her medications as prescribed Associated Symptoms: Reports GI cramping; Denies belching, bloating, change in bowel habits, change in stool character, chills, coffee ground emesis, constipation, diarrhea, dysuria, excessive flatus, fever(s), heartburn, hematochezia, hematuria, hematemesis, fecal incontinence, melena, nausea, syncope and vomiting Related Data Previous Rx's Medication Instructions Recorded Shoe lift #1 ea 01/29/23 HCPCS code E0149 #1 ea 03/08/23 mupirocin 2 % topical ointment 1 applic topical TID #22 grams 04/12/23 nitroglycerin 0.4 mg sublingual 0.4 mg sublingual Q5M PRN chest 05/25/23 tablet (Nitrostat) pain #30 tabs acyclovir 200 mg capsule 200 mg PO DAILY #30 caps 06/13/23 albuterol sulfate 90 mcg/actuation 2 inh inhalation 6XD PRN shortness 06/13/23 aerosol inhaler (ProAir HFA) of breath or wheezing #8.5 grams amlodipine 5 mg tablet (Norvasc) 5 mg PO DAILY #30 tabs 06/13/23 atorvastatin 40 mg tablet 40 mg PO BEDTIME #30 tabs 06/13/23 budesonide-formoterol HFA 160 2 puff inhalation BID #10.2 grams 06/13/23 mcg-4.5 mcg/actuation aerosol inhaler (Symbicort) clopidogrel 75 mg tablet (Plavix) 75 mg PO DAILY #30 tabs 06/13/23 dapagliflozin propanediol 10 mg 10 mg PO QAM #30 tabs 06/13/23 tablet (Farxiga) eszopiclone 3 mg tablet (Lunesta) 3 mg PO .at bedtime #30 tabs 06/13/23 ferrous gluconate 324 mg (38 mg 324 mg PO DAILY #30 tabs 06/13/23 iron) tablet potassium chloride 10 mEq 10 meq PO DAILY #30 tabs 06/13/23 tablet,extended release(part/cryst) triamcinolone acetonide 55 mcg 2 spray intranasal DAILY #16.9 mL 06/13/23 nasal spray aerosol venlafaxine 150 mg 150 mg PO QAM #30 caps 06/13/23 capsule,extended release 24 hr (Effexor XR) zonisamide 100 mg capsule 100 mg PO BID #60 caps 06/13/23 (Zonegran) Allergies Allergy/AdvReac Type Severity Reaction Status Date / Time codeine AdvReac Rash & itch Verified 02/11/24 13:09 Sulfa (Sulfonamide AdvReac Swelling Verified 02/11/24 13:09 Antibiotics) of face Review of Systems 2 Const: Denies: fever(s) or chills Card: Denies: syncope GI: Reports: GI cramping; Denies: nausea, vomiting, hematemesis, coffee ground emesis, heartburn, diarrhea, constipation, bloating, belching, excessive flatus, fecal incontinence, change in bowel habits, change in stool character, hematochezia or melena : Denies: dysuria or hematuria PFSH ED 2 PFSH: Medical History Overweight (BMI 25.0-29.9) Congenital leg length inequality Generalized anxiety disorder Essential hypertension Asthma Migraine Bipolar disorder, unspecified Surgical History History of cholecystectomy Family History Other Cancer Diabetes Hypertension Denies family history of Chronic kidney disease (CKD) Stroke Social History Smoking and tobacco/nicotine status: current every day tobacco/nicotine user cigarettes Packs smoked per day: 0.5 Years cigarettes smoked: 13 Quit status (tobacco/nicotine): has tried quititng Number of times tried to quit tobacco: 1 Second hand smoke exposure: Yes Alcohol intake: never Substance/Drug Use: unknown Adopted: No Caregiver/support person: Yes Lives independently: No Household members: friend(s) Housing: House Marital status: Single Number of children: 0 service: No Current occupational status: unemployed Do you think of yourself as: Straight/Heterosexual Current gender identity: Female Physical Exam 2 Const: COMMON NORMALS: no acute distress, patient oriented x3 and alert G ENERAL APPEARANCE: cooperative ORIENTATION/CONSCIOUSNESS: Yes awake, Yes oriented to person, Yes oriented to place and Yes oriented to time HENMT: COMMON NORMALS: normocephalic and atraumatic HEAD & SCALP: n ormocephalic and atraumatic FACE & SINUS: normal facial exam MOUTH: Normal oral and palatal mucosa present THROAT: posterior oropharynx normal Eye: COMMON NORMALS: Equal, round and reactive pupils present, EOMs intact bilaterally, conjunctivae normal and no scleral icterus GENERAL EYE: a ppearance normal, both eyes and all related structures ALIGNMENT: Yes alignment normal PERIORBITAL: periorbital findings normal CONJUNCTIVA: Yes conjunctivae normal PUPIL: Yes Equal, round and reactive pupils present Neck/C-Spine: COMMON NORMALS: full ROM GENERAL: Yes normal visual inspection Lymph: LYMPHATIC: no lymphadenopathy noted Chest: COMMONS NORMALS: normal inspection of the chest Breast/axilla inspection: Yes no chest deformity, asymmetry, normal contours, no nodules, masses, tenderness Resp: COMMON NORMALS: normal respiratory effort, No retractions, No use of accessory muscles and clear to auscultation bilaterally EFFORT & INSPECTION: Yes able to speak in complete sentences and Yes symmetric chest movement A USCULTATION: clear to auscultation bilaterally Cardio: COMMON NORMALS: regular rate, regular rhythm and Peripheral pulses 2+ throughout RATE: regular rate RHYTHM: regular rhythm PERIPHERAL PULSES: Peripheral pulses 2+ throughout GI: COMMON NORMALS: Normal to inspection, nondistended, normoactive bowel sounds present, Soft to palpation, non-tender and No hepatosplenomegaly present INSPECTION: Yes normal to inspection AUSCULTATION: Yes normoactive bowel sounds PALPATION: Yes Soft to palpation and Yes No hepatosplenomegaly present RECTAL EXAM: deferred Extremity: COMMON NORMALS: normal to inspection GENERAL: Yes normal exam except as noted Neuro: COMMON NORMALS: patient oriented x3 SENSORIUM/ORIENTATION: Yes alert, Yes oriented to person, Yes oriented to place and Yes oriented to time CRANIAL NERVES: Yes CN normal except as noted Psych: COMMON NORMALS: mental status grossly normal, Normal thought process present, cooperative, activity/motor behavior normal, denies homicidal ideation and denies suicidal ideation THOUGHT PROCESS: Normal thought process present Skin: COMMON NORMALS: no rashes or lesions noted, no wounds and turgor normal GENERAL SKIN EXAM: no rashes or lesions noted and turgor normal Course 2 Vital Signs: Vital signs: Vital Signs Temperature 98.1 F 02/11/24 13:03 Pulse Rate 80 02/11/24 16:00 Respiratory Rate 20 H 02/11/24 14:44 Blood Pressure 137/85 02/11/24 16:00 Pulse Oximetry 99 02/11/24 16:00 Oxygen Delivery Me thod Room Air 02/11/24 16:00 MDM - Abdominal Pain Medical Decision Making Differential diagnosis includes constipation, diverticulitis, peritonitis, pancreatitis, gastroenteritis. Patient arrived with reports of abdominal pain?left sided abdominal pain started 3 days ago. She underwent laboratory and radiographic evaluation. Laboratory evaluation included CBC, CMP, lipase, lactic acid urinalysis and urine drug screen. She has no leukocytosis or anemias. She has no electrolyte abnormalities. Her creatinine is 1.0 which is about baseline for her. Has been normal lipase and a lactic acid is normal. Her hCG is negative Her urinalysis reveals no evidence of hematuria or infection. Her urine drug screen is positive for marijuana and amphetamines. The CT of her abdomen pelvis reveals adrenal adenoma in the left adnexal cyst that is unchanged for greater than 12 months. She does have a new 7 mm right lower lobe nodule. I reviewed the findings with the patient. Her sister, who had sought out a private discussion about her growing concerns for the patient was not present in the room when we reviewed the findings. I did advise patient that the sister was prompting evaluation for more care at home. Have advised the patient that she needs to follow-up with her primary care doctor to arrange any in-home services that she may need long-term. I am going to advise patient to return to the emergency department for new, concerning, worsening symptoms. At this time no further diagnostics are warranted though Lab Data 02/11/24 13:56 02/11/24 13:56 Labs/Radiology: Radiology Impressions Abdomen/Pelvis CT 02/11/24 13:50 IMPRESSION: 1. 5.2 x 3.6 cm left adnexal cystic lesion, similar to prior. If clinically indicated, pelvic ultrasound may be obtained for further evaluation. 2. 7 mm right lower lobe nodular density, new since the prior study. For patients at low risk (minimal or absent history of smoking and of other known risk factors), recommend CT Chest at 6-12 months, then consider CT Chest at 18-24 months. For patients at high risk (history of smoking or of other known risk factors), recommend CT Chest at 6-12 months, then [address] Chest at 18-24 months. (Reference: Rafael) 3. Additional findings, as above. REFERENCES: Rafael Vincent, et al. Guidelines for Management of Incidental Pulmonary Nodules Detected on CT Images: From the Fleischner Society 2017. Radiology. 2017;284(1):228-243. Laboratory Results WBC 6.60 10^3/uL (3.29-11.43) 02/11/24 13:56 RBC 4.26 10^6/uL (3.85-5.65) 02/11/24 13:56 Hgb 12.20 g/dL (11.27-16.99) 02/11/24 13:56 Hct 38.6 % (36-47) 02/11/24 13:56 MCV 90.6 fl (85-98) 02/11/24 13:56 MCH 28.6 pg (27-33) 02/11/24 13:56 MCHC 31.6 g/dL (30-55) 02/11/24 13:56 RDW 15.7 % (12.1-15.1) H 02/11/24 13:56 Plt Count 342 10^3/cmm (157-399) 02/11/24 13:56 MPV 9.1 fL (7.4-10.4) 02/11/24 13:56 Neut % (Auto) 63.5 % 02/11/24 13:56 Lymph % (Auto) 25.2 % 02/11/24 13:56 Howard % (Auto) 6.4 % 02/11/24 13:56 Eos % (Auto) 4.1 % 02/11/24 13:56 Baso % (Auto) 0.5 % 02/11/24 13:56 Neut # (Auto) 4.20 10^3/uL (1.8-7.7) 02/11/24 13:56 Lymph # (Auto) 1.7 10^3/uL (0.8-4.8) 02/11/24 13:56 Howard # (Auto) 0.4 10^3/uL (0.2-0.9) 02/11/24 13:56 Eos # (Auto) 0.3 10^3/uL (0.0-0.8) 02/11/24 13:56 Baso # (Auto) 0.0 10^3/uL (0.0-0.1) 02/11/24 13:56 Nucleated RBC % (auto) 0 % 02/11/24 13:56 Nucleated RBCs # 0.0 /100WBC 02/11/24 13:56 Sodium 141 mmol/L (136-145) 02/11/24 13:56 Potassium 4.1 mmol/L (3.5-5.1) 02/11/24 13:56 Chloride 106 mmol/L (98-107) 02/11/24 13:56 Carbon Dioxide 25 mmol/L (22-29) 02/11/24 13:56 Anion Gap 14.1 (5-19) 02/11/24 13:56 BUN 14 mg/dL (6-20) 02/11/24 13:56 Creatinine 1.0 mg/dL (0.5-0.9) H 02/11/24 13:56 GFR Calculation 58.2 mL/min (90-130) L 02/11/24 13:56 Glucose 108 mg/dL (65-115) 02/11/24 13:56 Calculated Osmolality 293 mOsm/kg (285-295) 02/11/24 13:56 Lactic Acid 1.1 mmol/L (0.5-2.2) 02/11/24 14:26 Calcium 9.8 mg/dL (8.5-10.5) 02/11/24 13:56 Total Bilirubin 0.2 mg/dL (0.15-1.2) 02/11/24 13:56 AST 18 U/L (0-32) 02/11/24 13:56 ALT 19 U/L (0-33) 02/11/24 13:56 Alkaline Phosphatase 158 U/L (35-105) H 02/11/24 13:56 Total Protein 6.9 g/dL (6.6-8.7) 02/11/24 13:56 Albumin 4.1 g/dL (3.5-5.2) 02/11/24 13:56 Globulin 2.8 g/dL (1.3-4.6) 02/11/24 13:56 Lipase 45 U/L (13-60) 02/11/24 13:56 HCG, Qual Negative (Negative) 02/11/24 14:48 Urine Color Yellow (Yellow) 02/11/24 14:48 Urine Appearance Clear (CLEAR) 02/11/24 14:48 Urine pH 7.5 (5-7) 02/11/24 14:48 Ur Specific [place] 1.041 (1.005-1.030) H 02/11/24 14:48 Urine Protein Negative (Negative) 02/11/24 14:48 Urine Glucose (UA) Negative (Normal) 02/11/24 14:48 Urine Ketones Negative (Negative) 02/11/24 14:48 Urine Blood Negative (Negative) 02/11/24 14:48 Urine Nitrate Negative (Negative) 02/11/24 14:48 Urine Bilirubin Negative (Negative) 02/11/24 14:48 Urine Urobilinogen 0.2 mg/dL (Negative) 02/11/24 14:48 Ur Leukocyte Esterase Negative (Negative) 02/11/24 14:48 Urine RBC 0-2 /hpf (0-2) 02/11/24 14:48 Urine WBC 0-5 /hpf (0-5) 02/11/24 14:48 Ur Squamous Epith Cells 0-5 /hpf (0-5) 02/11/24 14:48 Amorphous Sediment Not Reportable 02/11/24 14:48 Urine Bacteria None seen /hpf (NONE) 02/11/24 14:48 Hyaline Casts 0.81 /lpf 02/11/24 14:48 Urine Opiates Screen Negative ng/mL (Negative) 02/11/24 14:48 Ur Barbiturates Screen Negative ng/mL (Negative) 02/11/24 14:48 Ur Phencyclidine Scrn Negative ng/mL (Negative) 02/11/24 14:48 Ur Amphetamines Screen Positive ng/mL (Negative) H 02/11/24 14:48 U Benzodiazepines Scrn Negative ng/mL (Negative) 02/11/24 14:48 Urine Cocaine Screen Negative ng/mL (Negative) 02/11/24 14:48 U Marijuana (THC) Screen Positive ng/mL (Negative) H 02/11/24 14:48 All radiology interpretation(s) finalized by discharge Discharge Plan Discharge Patient Disposition: Home Clinical Impression: Amphetamine use, Abdominal pain Condition: Stable Prescriptions: No Action (DME) Shoe lift See Rx Instructions .Route .MEDSUPPLY Qty: 1 0RF Rx Instructions: As directed (DME) HCPCS code E0149 See Rx Instructions .Route .MEDSUPPLY Qty: 1 0RF Rx Instructions: As directed acyclovir 200 mg capsule 200 mg PO DAILY Qty: 30 5RF albuterol sulfate [ProAir HFA] 90 mcg/actuation HFA aerosol inhaler 2 inh inhalation 6XD PRN (Reason: shortness of breath or wheezing) Qty: 8.5 5RF amlodipine [Norvasc] 5 mg tablet 5 mg PO DAILY Qty: 30 5RF atorvastatin 40 mg tablet 40 mg PO BEDTIME Qty: 30 5RF budesonide-formoterol [Symbicort] 160-4.5 mcg/actuation HFA aerosol inhaler 2 puff inhalation BID Qty: 10.2 5RF Plavix 75 mg tablet 75 mg PO DAILY Qty: 30 5RF Hold Instructions: Resume on 06/23/23. dapagliflozin propanediol [Farxiga] 10 mg tablet 10 mg PO QAM Qty: 30 2RF ferrous gluconate 324 mg (38 mg iron) tablet 324 mg PO DAILY Qty: 30 2RF potassium chloride 10 mEq tablet,ER particles/crystals 10 meq PO DAILY Qty: 30 2RF venlafaxine [Effexor XR] 150 mg capsule,extended release 24hr 150 mg PO QAM Qty: 30 2RF zonisamide [Zonegran] 100 mg capsule 100 mg PO BID Qty: 60 5RF eszopiclone [Lunesta] 3 mg tablet 3 mg PO .at bedtime Qty: 30 5RF triamcinolone acetonide 55 mcg aerosol,spray 2 spray intranasal DAILY Qty: 16.9 0RF Rx Instructions: administer into each nostril nitroglycerin [Nitrostat] 0.4 mg tablet, sublingual 0.4 mg sublingual Q5M PRN (Reason: chest pain) Qty: 30 3RF mupirocin 2 % ointment 1 applic topical TID Qty: 22 0RF Discharge Orders: Discharge ED (Routine); Ordered 02/11/24 Ordered By: Florentino Parra Referrals: Selvin Thomas, PATIENT ACCESS MANAGER-C [Primary Care Provider] - Discharge Diet: Advance as tolerated Discharge Activity: Resume usual activity Patient Instructions: Abdominal Pain (ED), Opioid Safety, Pain Management Activity Restrictions/Additional Instructions: Please return to the emergency department for new, concerning, worsening symptoms Monitor your symptoms closely You need to follow-up with your primary care physician about the new pulmonary nodule that was identified on CT imaging. We also need to follow-up with your primary care doctor regarding the adrenal adenoma present on CT. I have sent a referral for gynecology evaluation. Case management should call about setting up gynecology follow-up Coding Level of Care Code ED Airport Guide for Andrey Kang
[2024-02-11 16:00] VITALS: BP 137/85; PULSE 80; O2SAT 99
[2024-02-11 16:20] VITALS: BP 160/96; PULSE 74; O2SAT 99
--- NOTE | 2024-02-12 07:58 | DCPLANNER ---
messaged pcp for er f/u
== END 2024-02-11 16:25 | disposition home or self-care (01) ==
PROVIDERS: Emergency Provider Nurse Practitioner; PCP Nurse Practitioner
DX: R10.9 Unspecified abdominal pain (principal); F15.10 Other stimulant abuse, uncomplicated; F17.210 Nicotine dependence, cigarettes, uncomplicated; I10 Essential (primary) hypertension
CPT/HCPCS: 36415; 74177; 80053; 80306; 81001; 81025; 83605; 83690; 85025; 96361; 96374; 96375; 99285; J2270; J2405; J7030

== ENCOUNTER 2024-03-29 13:34 | Emergency (ER) | payer BC, MEDICAID, SELFPAY ==
[2024-03-29] VITALS (10 sets, daily range): BP systolic 165–207; BP diastolic 103–133; PULSE 84–97; RESP 12–20; TEMP 36.4; O2SAT 96–100; BMI 24.2
--- NOTE | 2024-03-29 13:37 | XR_ITS ---
WS: [id number] Portable AP upright chest, 03/29/2024 Clinical Data: chest pain Comparison: Portable chest, 05/06/2023 Findings: No nodules, masses or effusions are seen. The heart is normal. The pulmonary vascularity is not increased. No pneumonia or pneumothorax is seen. There are monitor leads on the chest wall. There are cholecystectomy clips in the right upper quadrant. XR/XR chest 1V portable [id number] Impression: Negative chest.
--- NOTE | 2024-03-29 13:40 | ECG_ITS ---
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
--- NOTE | 2024-03-29 13:50 | W.ED.ABDPA2 ---
HPI - Abdominal Pain General: Chief Complaint: Abdominal Pain Stated Complaint: epigastric pain Time Seen by Provider: 03/29/24 13:49 History of Present Illness: 53-year-old female presents emergency room with epigastric pain. Took several shots of fireball just prior to coming in complaining of epigastric discomfort. She denies any hematochezia melena hematemesis or coffee-ground emesis she has had some diarrhea but she states that is typical for her. No fever sweats or chills or productive cough no flulike symptoms Associated Symptoms: Denies chills, dysuria and fever(s) Related Data Home Medications ?Medication ?Instructions ?Recorded ?Confirmed albuterol sulfate 90 mcg/actuation 2 inh inhalation 6XD PRN shortness 03/31/24 03/31/24 aerosol inhaler (Ventolin HFA) of breath or wheezing Previous Rx's ?Medication ?Instructions ?Recorded Shoe lift #1 ea 01/29/23 HCPCS code E0149 #1 ea 03/08/23 nitroglycerin 0.4 mg sublingual 0.4 mg sublingual Q5M PRN chest 05/25/23 tablet (Nitrostat) pain #30 tabs DME: Walker #1 ea 03/14/24 acyclovir 200 mg capsule 200 mg PO DAILY #30 caps 03/14/24 amlodipine 5 mg tablet (Norvasc) 5 mg PO DAILY #30 tabs 03/14/24 atorvastatin 40 mg tablet 40 mg PO BEDTIME #30 tabs 03/14/24 budesonide-formoterol HFA 160 2 puff inhalation BID #10.2 grams 03/14/24 mcg-4.5 mcg/actuation aerosol inhaler (Symbicort) clopidogrel 75 mg tablet (Plavix) 75 mg PO DAILY #30 tabs 03/14/24 dapagliflozin propanediol 10 mg 10 mg PO QAM #30 tabs 03/14/24 tablet (Farxiga) eszopiclone 3 mg tablet (Lunesta) 3 mg PO .at bedtime #30 tabs 03/14/24 ferrous gluconate 324 mg (38 mg 324 mg PO DAILY #30 tabs 03/14/24 iron) tablet potassium chloride 10 mEq 10 meq PO DAILY #30 tabs 03/14/24 tablet,extended release(part/cryst) venlafaxine 150 mg 150 mg PO QAM #30 caps 03/14/24 capsule,extended release 24 hr (Effexor XR) zonisamide 100 mg capsule 100 mg PO BID #60 caps 03/14/24 (Zonegran) omeprazole 20 mg capsule,delayed 20 mg PO BID 10 days #20 caps 03/29/24 release amoxicillin 875 mg-potassium 1 tab PO BID #10 tabs 04/02/24 clavulanate 125 mg tablet Allergies Allergy/AdvReac Type Severity Reaction Status Date / Time codeine AdvReac Rash & itch Verified 03/14/24 13:06 Sulfa (Sulfonamide AdvReac Swelling Verified 03/14/24 13:06 Antibiotics) of face Review of Systems Const: Denies: fever(s) or chills Card: Denies: chest pain Resp: Denies: dyspnea GI: Denies: abdominal pain : Denies: dysuria, urinary frequency or urinary urgency Musc: Denies: neck pain or back pain Skin/Breast: Denies: rash PFSH ED PFSH: Medical History (Updated 04/03/24 @ 00:01 by JAN Crowley) Hypertensive urgency Gastroenteritis Alcohol withdrawal Alcohol use Acute alcoholic gastritis Amphetamine use Abdominal pain Elevated lactic acid level Hypokalemia Nausea & vomiting Methamphetamine use Herpes simplex Vascular abnormality of brain Recurrent cerebrovascular accidents (CVAs) Acute CVA (cerebrovascular accident) Overweight (BMI 25.0-29.9) Congenital leg length inequality Generalized anxiety disorder Essential hypertension Asthma Migraine Bipolar disorder, unspecified Surgical History History of cholecystectomy Family History Other Cancer Diabetes Hypertension Denies family history of Chronic kidney disease (CKD) Stroke Social History Smoking and tobacco/nicotine status: current every day tobacco/nicotine user cigarettes Packs smoked per day: 0.5 Years cigarettes smoked: 13 Quit status (tobacco/nicotine): has tried quititng Number of times tried to quit tobacco: 1 Second hand smoke exposure: Yes Alcohol intake: never Substance/Drug Use: unknown Adopted: No Caregiver/support person: Yes Lives independently: No Household members: friend(s) Housing: House Marital status: Single Number of children: 0 service: No Current occupational status: unemployed Do you think of yourself as: Straight/Heterosexual Current gender identity: Female Physical Exam Const: COMMON NORMALS: no acute distress GENERAL APPEARANCE: cooperative and comfortable ORIENTATION/CONSCIOUSNESS: Yes awake, Yes oriented to person, Yes oriented to place and Yes oriented to time HENMT: COMMON NORMALS: normocephalic, atraumatic and hearing grossly normal bilaterally HEAD & SCALP: normocephalic and atraumatic Resp: COMMON NORMALS: normal respiratory effort, No retractions, No use of accessory muscles and clear to auscultation bilaterally AUSCULTATION: clear to auscultation bilaterally Cardio: COMMON NORMALS: regular rate, regular rhythm and No murmurs present (Cardio) RATE: regular rate RHYTHM: regular rhythm GI: COMMON NORMALS: Soft to palpation and No hepatosplenomegaly present AUSCULTATION: Yes normoactive bowel sounds PALPATION: Yes Soft to palpation, No Tenderness to palpation present (GI), No Guarding due to palpation present (GI) and Yes No hepatosplenomegaly present Extremity: COMMON NORMALS: normal to inspection, capillary refill normal, no clubbing, cyanosis or edema, no calf tenderness and no pedal edema Neuro: SENSORIUM/ORIENTATION: Yes oriented to person, Yes oriented to place and Yes oriented to time Skin: COMMON NORMALS: no rashes or lesions noted GENERAL SKIN EXAM: no rashes or lesions noted Course Vital Signs: Vital signs: Vital Signs Temperature 97.6 F 03/29/24 13:46 Pulse Rate 92 03/29/24 18:26 Respiratory Rate 18 03/29/24 18:26 Blood Pressure 177/133 03/29/24 18:26 Pulse Oximetry 97 03/29/24 18:26 Oxygen Delivery Me thod Room Air 03/29/24 14:23 MDM - Abdominal Pain Medical Decision Making Improved after medications given patient was crying out chronically and restless in the bed. Abdominal exam did not show any acute findings CT of the abdomen was also negative for anything acute did show some gastritis suspect is alcoholic gastritis related to her recent shots. She also has positive for methamphetamine. Her symptoms improved after treating her anxiety. Suspect this is related to the combination of amphetamines and alcohol. Discussed with the patient the importance of abstaining from both drugs and alcohol. Will start her on omeprazole. Follow-up with primary care return if has worsening symptoms Lab Data 03/29/24 14:11 03/29/24 14:11 Labs/Radiology: Radiology Impressions Chest X-Ray 03/29/24 13:37 Impression: Negative chest. Abdomen/Pelvis CT 03/29/24 14:00 IMPRESSION: 1. No free air or free fluid identified. 2. New antral and proximal duodenal asymmetric wall thickening suggesting gastritis. No definite ulcer is identified. There is additional proximal jejunal wall thickening which also suggests viral enteritis. 3. Prior cholecystectomy. 4. No free fluid in the pelvis. 5. LEFT adnexal cystic mass. Cyst as increased in size since 2017. Consider follow-up transvaginal pelvic ultrasound exam as an outpatient. 6. Long-term stability RIGHT adrenal adenoma. 7. Fibroid uterus. 8. Advanced degenerative arthropathy RIGHT hip joint. Laboratory Results WBC 10.16 10^3/uL (3.29-11.43) 03/29/24 14:11 RBC 5.21 10^6/uL (3.85-5.65) 03/29/24 14:11 Hgb 14.80 g/dL (11.27-16.99) 03/29/24 14:11 Hct 46.7 % (36-47) 03/29/24 14:11 MCV 89.6 fl (85-98) 03/29/24 14:11 MCH 28.4 pg (27-33) 03/29/24 14:11 MCHC 31.7 g/dL (30-55) 03/29/24 14:11 RDW 15.5 % (12.1-15.1) H 03/29/24 14:11 Plt Count 353 10^3/cmm (157-399) 03/29/24 14:11 MPV 9.6 fL (7.4-10.4) 03/29/24 14:11 Neut % (Auto) 73.1 % 03/29/24 14:11 Lymph % (Auto) 21.9 % 03/29/24 14:11 [place] % (Auto) 2.5 % 03/29/24 14:11 Eos % (Auto) 1.9 % 03/29/24 14:11 Baso % (Auto) 0.5 % 03/29/24 14:11 Neut # (Auto) 7.44 10^3/uL (1.8-7.7) 03/29/24 14:11 Lymph # (Auto) 2.2 10^3/uL (0.8-4.8) 03/29/24 14:11 [place] # (Auto) 0.3 10^3/uL (0.2-0.9) 03/29/24 14:11 Eos # (Auto) 0.2 10^3/uL (0.0-0.8) 03/29/24 14:11 Baso # (Auto) 0.1 10^3/uL (0.0-0.1) 03/29/24 14:11 Nucleated RBC % (auto) 0 % 03/29/24 14:11 Nucleated RBCs # 0.0 /100WBC 03/29/24 14:11 Sodium 136 mmol/L (136-145) 03/29/24 14:11 Potassium 3.2 mmol/L (3.5-5.1) L 03/29/24 14:11 Chloride 99 mmol/L (98-107) 03/29/24 14:11 Carbon Dioxide 19 mmol/L (22-29) L 03/29/24 14:11 Anion Gap 21.2 (5-19) H 03/29/24 14:11 BUN 6 mg/dL (6-20) 03/29/24 14:11 Creatinine 0.8 mg/dL (0.5-0.9) 03/29/24 14:11 GFR Calculation 75.3 mL/min (90-130) L 03/29/24 14:11 Glucose 113 mg/dL (65-115) 03/29/24 14:11 Calculated Osmolality 280 mOsm/kg (285-295) L 03/29/24 14:11 Calcium 9.9 mg/dL (8.5-10.5) 03/29/24 14:11 Total Bilirubin 0.2 mg/dL (0.15-1.2) 03/29/24 14:11 AST 30 U/L (0-32) 03/29/24 14:11 ALT 18 U/L (0-33) 03/29/24 14:11 Alkaline Phosphatase 169 U/L (35-105) H 03/29/24 14:11 Ammonia 22 umol/L (11-51) 03/29/24 16:59 Troponin T Baseline 18 ng/L (0-10) H 03/29/24 14:11 Troponin T 120 Minute 14.52 ng/L (0-10) H 03/29/24 16:59 Delta Troponin T -3.48 ABS# (0-10) L 03/29/24 16:59 Total Protein 7.6 g/dL (6.6-8.7) 03/29/24 14:11 Albumin 4.5 g/dL (3.5-5.2) 03/29/24 14:11 Globulin 3.1 g/dL (1.3-4.6) 03/29/24 14:11 Lipase 25 U/L (13-60) 03/29/24 14:11 Urine Color Yellow (Yellow) 03/29/24 15:19 Urine Appearance Clear (CLEAR) 03/29/24 15:19 Urine pH 8.0 (5-7) A 03/29/24 15:19 Ur Specific [place] 1.025 (1.005-1.030) 03/29/24 15:19 Urine Protein Negative (Negative) 03/29/24 15:19 Urine Glucose (UA) Negative (Normal) 03/29/24 15:19 Urine Ketones Negative (Negative) 03/29/24 15:19 Urine Blood Negative (Negative) 03/29/24 15:19 Urine Nitrate Negative (Negative) 03/29/24 15:19 Urine Bilirubin Negative (Negative) 03/29/24 15:19 Urine Urobilinogen 0.2 mg/dL (Negative) 03/29/24 15:19 Ur Leukocyte Esterase Trace (Negative) A 03/29/24 15:19 Urine RBC 0-2 /hpf (0-2) 03/29/24 15:19 Urine WBC 6-10 /hpf (0-5) 03/29/24 15:19 Ur Squamous Epith Cells 6-10 /hpf (0-5) 03/29/24 15:19 Amorphous Sediment Not Reportable 03/29/24 15:19 Urine Bacteria 1+ /hpf (NONE) H 03/29/24 15:19 Hyaline Casts 1.62 /lpf 03/29/24 15:19 Salicylates < 0.3 mg/dL (3-10) L 03/29/24 16:59 Urine Opiates Screen Positive ng/mL (Negative) H 03/29/24 15:19 Ur Barbiturates Screen Negative ng/mL (Negative) 03/29/24 15:19 Ur Phencyclidine Scrn Negative ng/mL (Negative) 03/29/24 15:19 Ur Amphetamines Screen Positive ng/mL (Negative) H 03/29/24 15:19 U Benzodiazepines Scrn Negative ng/mL (Negative) 03/29/24 15:19 Urine Cocaine Screen Negative ng/mL (Negative) 03/29/24 15:19 U Marijuana (THC) Screen Positive ng/mL (Negative) H 03/29/24 15:19 Ethyl Alcohol 54 mg/dL (0-10) H 03/29/24 16:59 All radiology interpretation(s) finalized by discharge Discharge Plan Discharge Patient Disposition: Home Clinical Impression: Acute alcoholic gastritis, Methamphetamine abuse Condition: Stable Prescriptions: New omeprazole 20 mg capsule,delayed release(DR/EC) 20 mg PO BID 10 Days Qty: 20 0RF No Action (DME) Shoe lift See Rx Instructions .Route .MEDSUPPLY Qty: 1 0RF Rx Instructions: As directed (DME) HCPCS code E0149 See Rx Instructions .Route .MEDSUPPLY Qty: 1 0RF Rx Instructions: As directed nitroglycerin [Nitrostat] 0.4 mg tablet, sublingual 0.4 mg sublingual Q5M PRN (Reason: chest pain) Qty: 30 3RF acyclovir 200 mg capsule 200 mg PO DAILY Qty: 30 5RF budesonide-formoterol [Symbicort] 160-4.5 mcg/actuation HFA aerosol inhaler 2 puff inhalation BID Qty: 10.2 5RF amlodipine [Norvasc] 5 mg tablet 5 mg PO DAILY Qty: 30 5RF atorvastatin 40 mg tablet 40 mg PO BEDTIME Qty: 30 5RF dapagliflozin propanediol [Farxiga] 10 mg tablet 10 mg PO QAM Qty: 30 5RF eszopiclone [Lunesta] 3 mg tablet 3 mg PO .at bedtime Qty: 30 5RF ferrous gluconate 324 mg (38 mg iron) tablet 324 mg PO DAILY Qty: 30 2RF potassium chloride 10 mEq tablet,ER particles/crystals 10 meq PO DAILY Qty: 30 2RF venlafaxine [Effexor XR] 150 mg capsule,extended release 24hr 150 mg PO QAM Qty: 30 2RF zonisamide [Zonegran] 100 mg capsule 100 mg PO BID Qty: 60 5RF (DME) DME: Walker Unit See Rx Instructions .ROUTE .MEDSUPPLY Qty: 1 0RF Rx Instructions: Code E0143 and E0156 walker 4 wheels and seat Plavix 75 mg tablet 75 mg PO DAILY Qty: 30 5RF albuterol sulfate [Ventolin HFA] 90 mcg/actuation HFA aerosol inhaler 2 inh inhalation 6XD PRN (Reason: shortness of breath or wheezing) amoxicillin-pot clavulanate 875-125 mg tablet 1 tab PO BID Qty: 10 0RF Discharge Orders: Discharge ED (Routine); Ordered 03/29/24 Ordered By: Mook Peng Referrals: Selvin Thomas, BILINGUAL TEACHER AIDE-C [Primary Care Provider] - Discharge Diet: Clear Liquid Discharge Activity: Increase activity as tolerated Patient Instructions: Abuse of Alcohol (ED), Methamphetamine Use Disorder (ED), Opioid Safety, Pain Management Activity Restrictions/Additional Instructions: Thank you for choosing [facility] for your healthcare needs today. It is very important that you follow up as instructed or that you return to the Emergency Department should you have concerns or if your condition changes or worsens in any way. You are seen in the emergency room with complaint of abdominal pain after drinking several shots of hard liquor. CT shows evidence of irritation to the stomach wall and duodenum. Your symptoms are likely due to acute alcoholic gastritis from drinking the straight hard liquor. Additionally he had recently done methamphetamines which likely complicated the picture. The remainder of your labs did not show any acute there is no other acute pathology on the CT. Recommend that you not use methamphetamines or consume alcohol. You should follow-up with [facility] [place] to seek out assistance for substance abuse Print Language: Cape Verdean Coding Level of Care Code ED Safety Analyst for Andrey Kang
--- NOTE | 2024-03-29 14:00 | CT_ITS ---
WS: [id number] CT ABDOMEN AND PELVIS WITH CONTRAST HISTORY: Severe LEFT upper abdominal pain with nausea and vomiting. TECHNIQUE: Imaging performed of the abdomen and pelvis with IV contrast. Single phase imaging of the abdomen. Coronal and sagittal reformats are submitted. All CT scans at [facility] use at least one of these dose optimization techniques: automated exposure control; mA and/or kV adjustment per patient size (includes targeted exams where dose is matched to clinical indication); or iterative reconstruction. IV CONTRAST: Omnipaque 350; 100 mL IV. Oral contrast: None DLP: 331.32 mGy.cm COMPARISON: 02/11/2024 Lower thorax: 6 mm noncalcified nodule at the RIGHT lung base new since 05/06/2023 and stable since 02/11/2024. Heart is normal size. Small hiatal hernia. Liver/biliary system: Normal size liver. No intrahepatic duct dilatation. Normal portal vein. Gallbladder: Prior cholecystectomy. Pancreas: Normal size pancreas and pancreatic duct. No adjacent inflammation. Spleen: Normal size spleen. No mass or infarct. Adrenal glands: Long-term stability RIGHT adrenal gland mass measures 2.5 x 2.2 cm. Similar in size to the study from 2017. Adenoma likely due to the Hounsfield units on the noncontrast 2017 study. Normal LEFT adrenal gland. Right kidney: Normal. Left kidney: Normal. Aorta: Mild atherosclerosis aorta. No dissection or aneurysm. Normal opacification of the mesenteric arteries. Lymphadenopathy: None. Free fluid: None. GI tract: Moderate fluid distention of the stomach. There is air in the stomach but does not appear to be pneumatosis. Towards the antrum and proximal duodenum there is wall thickening and increased intraluminal fluid. This is a new finding since 02/11/2024. No small bowel dilatation. No colon obstruction. There is mild diffuse constipation. Mild fluid distention of the proximal jejunum. There are a few tiny foci of air extending into the wall of the jejunum but favor this is probably air trapped in the folds. Cannot confirm pneumatosis. No colon obstruction. Normal appendix. Abdominal wall: Unremarkable abdominal wall. No hernia. Pelvis: No free fluid or adenopathy within the pelvis. Normal urinary bladder. Bulbous uterus consistent with fibroids. LEFT adnexal cystic mass measures 5.6 x 3.4 cm which has been present on multiple prior exams. Bones: Advanced RIGHT hip degenerative arthropathy. Slight lateral subluxation of the abnormal RIGHT hip contour. CT/CT abdomen pelvis w con* [id number] IMPRESSION: 1. No free air or free fluid identified. 2. New antral and proximal duodenal asymmetric wall thickening suggesting christine ritis. No definite ulcer is identified. There is additional proximal jejunal wa ll thickening which also suggests viral enteritis. 3. Prior cholecystectomy. 4. No free fluid in the pelvis. 5. LEFT adnexal cystic mass. Cyst as increased in size since 2017. Consider fo llow-up transvaginal pelvic ultrasound exam as an outpatient. 6. Long-term stability RIGHT adrenal adenoma. 7. Fibroid uterus. 8. Advanced degenerative arthropathy RIGHT hip joint.
[2024-03-29 14:16] LABS: Basophils # 0.1 10^3/uL (0.0-0.1); Basophils % 0.5 %; Eosinophils # 0.2 10^3/uL (0.0-0.8); Eosinophils % 1.9 %; Hematocrit 46.7 % (36-47); Lymphocytes # 2.2 10^3/uL (0.8-4.8); Lymphocytes % 21.9 %; Mean Corpuscular HGB Conc 31.7 g/dL (30-55); Mean Corpuscular Hemoglobin 28.4 pg (27-33); Mean Corpuscular Volume 89.6 fl (85-98); Mean Platelet Volume 9.6 fL (7.4-10.4); Monocytes # 0.3 10^3/uL (0.2-0.9); Monocytes % 2.5 %; Neutrophils # 7.44 10^3/uL (1.8-7.7); Neutrophils % 73.1 %; Nucleated Red Blood Cells % 0 %; Platelet Count 353 10^3/cmm (157-399); Red Blood Count 5.21 10^6/uL (3.85-5.65); Red Cell Distribution Width 15.5 % (12.1-15.1); White Blood Count 10.16 10^3/uL (3.29-11.43)
[2024-03-29] MEDS: ondansetron 2 mg/ML SDV 2 mL 4 MG IVP (14:27)
[2024-03-29] MEDS: morphine 4 mg/mL SDV 1 mL IVP ×2 (14:27→17:04)
[2024-03-29 14:39] LABS: Troponin(5th) Baseline 18 ng/L (0-10)
[2024-03-29 14:40] LABS: Alanine Aminotransferase 18 U/L (0-33); Albumin Level 4.5 g/dL (3.5-5.2); Alkaline Phosphatase 169 U/L (35-105); Aspartate Amino Transferase 30 U/L (0-32); Blood Urea Nitrogen 6 mg/dL (6-20); Calcium 9.9 mg/dL (8.5-10.5); Carbon Dioxide 19 mmol/L (22-29); Chloride 99 mmol/L (98-107); Creatinine Clr Calc Pharmacy 70.6847; Globulin 3.1 g/dL (1.3-4.6); Glomerular Filtration Rate 75.3 mL/min (90-130); Glucose 113 mg/dL (65-115); Lipase 25 U/L (13-60); Osmolality Calculated 280 mOsm/kg (285-295); Sodium 136 mmol/L (136-145); Total Bilirubin 0.2 mg/dL (0.15-1.2); Total Protein 7.6 g/dL (6.6-8.7)
[2024-03-29 14:41] LABS: Anion Gap 21.2 (5-19); Potassium 3.2 mmol/L (3.5-5.1)
[2024-03-29] MEDS: iohexol 350 mg/mL 500 mL Btl (per mL) IV (14:51)
[2024-03-29] MEDS: lidocaine 2% viscous 15 ML, aluminum-mag hydrox-simethicon 30 ML, sucralfate oral liq 1 GM PO (15:32)
[2024-03-29] MEDS: pantoprazole 40 mg SDV 80 MG IVP (15:32)
--- NOTE | 2024-03-29 16:43 | ECG_ITS ---
[facility] [place] Test Date: 2024-03-29 Pat Name: Trudi Wesley Department: Room: Gender: Female Rn Acute Dialysis: : 1970 Requested By: Delphine Rock Order Number: [id number] Reading MD: JEFFREY ACOSTA Measurements Intervals [place] Rate: 71 P: 67 MN: 152 QRS: 76 QRSD: 82 T: 75 QT: 410 QTc: 447 Interpretive Statements SINUS RHYTHM POSSIBLE LEFT ATRIAL ENLARGEMENT [-0.1mV P-WAVE IN V1/V2] Compared to ECG 03/29/2024 13:40:53 No significant changes Electronically Signed On 03-31-2024 21:11:01 FRUIT OR NUT PICKER by JEFFREY ACOSTA [email or web address]
[2024-03-29] MEDS: haloperidol inj 5 mg/mL INJ 1 mL 2.5 MG IVP (17:04)
[2024-03-29] MEDS: LORazepam 2 mg/mL INJ 1 mL 1 MG IVP (17:04)
[2024-03-29 17:22] LABS: Bilirubin Urine Negative (Negative); Blood Urine Negative (Negative); Glucose Urine UA Negative (Normal); Ketones Urine Negative (Negative); Leukocyte Esterase Urine Trace (Negative); Nitrate Urine Negative (Negative); Protein Urine Negative (Negative); Specific Gravity, Urine 1.025 (1.005-1.030); Urine Appearance Clear (CLEAR); Urine Color Yellow (Yellow); Urobilinogen Urine 0.2 mg/dL (Negative)
[2024-03-29 17:25] LABS: Add Urine Microscopic? YES; Bacteria Urine 1+ /hpf; Hyaline Casts Urine 1.62 /lpf; RBC Urine 0-2 /hpf (0-2)
[2024-03-29 17:25] LABS: Troponin 5 2HR 14.52 ng/L (0-10)
[2024-03-29 17:26] LABS: Ammonia 22 umol/L (11-51)
[2024-03-29 17:27] LABS: Troponin 5 2HR Delta -3.48 ABS# (0-10)
[2024-03-29 17:29] LABS: Amphetamines Screen Urine Positive (Negative); Barbiturates Screen Urine Negative (Negative); Benzodiazepines Screen Urine Negative (Negative); Cocaine Screen Urine Negative (Negative); Opiate Screen Urine Positive (Negative); PCP Screen Urine Negative (Negative); THC Screen Urine Positive (Negative)
[2024-03-29 17:36] LABS: Alcohol Level 54 mg/dL (0-10); Salicylate < 0.3 mg/dL (3-10)
== END 2024-03-29 18:27 | disposition home or self-care (01) ==
PROVIDERS: Physician Assistant; Emergency Provider Family Medicine; PCP Nurse Practitioner
DX: K29.20 Alcoholic gastritis without bleeding (principal); F15.10 Other stimulant abuse, uncomplicated
CPT/HCPCS: 36415; 71045; 74177; 80053; 80306; 80307; 81001; 82140; 83690; 84484; 85025; 93005; 96374; 96375; 96376; 99285; J1630; J2060; J2270; J2405; J2470

== ENCOUNTER 2024-03-31 11:00 | Inpatient (IN) | payer BC, SELFPAY ==
[2024-03-31] VITALS (33 sets, daily range): BP systolic 124–212; BP diastolic 81–144; PULSE 75–113; RESP 6–41; TEMP 36.6; O2SAT 93–100; BMI 24.2
[2024-03-31] MEDS: famotidine 20 mg/2 mL INJ 40 MG IVP (11:27)
[2024-03-31] MEDS: sodium chloride 0.9% 1,000 ML 999 ML IV (11:27)
[2024-03-31] MEDS: LORazepam 2 mg/mL INJ 1 mL 1 MG IVP ×2 (11:27→13:53)
[2024-03-31 11:33] LABS: Basophils % 0.5 %; Eosinophils # 0.1 10^3/uL (0.0-0.8); Eosinophils % 1.1 %; Hematocrit 45.2 % (36-47); Lymphocytes # 2.3 10^3/uL (0.8-4.8); Lymphocytes % 25.9 %; Mean Corpuscular HGB Conc 32.1 g/dL (30-55); Mean Corpuscular Hemoglobin 28.2 pg (27-33); Mean Corpuscular Volume 87.9 fl (85-98); Mean Platelet Volume 9.7 fL (7.4-10.4); Monocytes # 0.4 10^3/uL (0.2-0.9); Monocytes % 4.8 %; Neutrophils # 5.98 10^3/uL (1.8-7.7); Neutrophils % 67.5 %; Nucleated Red Blood Cells % 0 %; Platelet Count 387 10^3/cmm (157-399); Red Blood Count 5.14 10^6/uL (3.85-5.65); Red Cell Distribution Width 15.5 % (12.1-15.1); White Blood Count 8.87 10^3/uL (3.29-11.43)
[2024-03-31 11:39] LABS: Ketone (Acetest) Serum Negative (Negative)
[2024-03-31 11:41] LABS: HCG, Serum Qual Negative (Negative)
[2024-03-31 11:45] LABS: Lactic Sepsis W/Reflex 3.7 mmol/L (0.5-2.2)
[2024-03-31 11:46] LABS: Alanine Aminotransferase 15 U/L (0-33); Albumin Level 4.1 g/dL (3.5-5.2); Alkaline Phosphatase 152 U/L (35-105); Anion Gap 20.9 (5-19); Aspartate Amino Transferase 19 U/L (0-32); Blood Urea Nitrogen 14 mg/dL (6-20); Calcium 10.1 mg/dL (8.5-10.5); Carbon Dioxide 19 mmol/L (22-29); Chloride 99 mmol/L (98-107); Creatinine Clr Calc Pharmacy 56.5478; Globulin 3.3 g/dL (1.3-4.6); Glomerular Filtration Rate 58.2 mL/min (90-130); Glucose 106 mg/dL (65-115); Lipase 33 U/L (13-60); Magnesium 1.9 mg/dL (1.7-2.3); Osmolality Calculated 283 mOsm/kg (285-295); Sodium 136 mmol/L (136-145); Total Bilirubin 0.2 mg/dL (0.15-1.2); Total Protein 7.4 g/dL (6.6-8.7)
[2024-03-31 11:47] LABS: Alcohol Level < 10 mg/dL (0-10)
[2024-03-31 11:48] LABS: Potassium 2.9 mmol/L (3.5-5.1)
[2024-03-31] MEDS: magnesium sulfate premix 2 GM/50 ML PIGGYBACK IV (12:25)
[2024-03-31] MEDS: lidocaine 1% 5 ML in potassium chloride premix 100 ML 26.25 ML IV ×3 (12:25→23:36)
--- NOTE | 2024-03-31 12:27 | PC.NURSE ---
PATIENT UNABLE TO TOLERATE POTASSIUM WITH LIDO. ATTEMPTED TO RUN AT SLOWER RATE WITH NS 0.9% BUT PATIENT WAS SCREAMING AND REQUESTING TO STOP. PROVIDER NOTIFIED AND VERBALIZED TO STOP POTASSIUM.
--- NOTE | 2024-03-31 12:42 | CTR_ITS ---
PROCEDURE INFORMATION: Exam: CT Abdomen And Pelvis With Contrast Exam date and time: 03/31/2024 12:57 PM Age: 53 years old Clinical indication: Abdominal pain; Prior surgery; Surgery date: 6+ months; Surgery type: Gb; Additional info: Abdominal pain, fever TECHNIQUE: Imaging protocol: Computed tomography of the abdomen and pelvis with contrast. Radiation optimization: All CT scans at this facility use at least one of these dose optimization techniques: automated exposure control; mA and/or kV adjustment per patient size (includes targeted exams where dose is matched to clinical indication); or iterative reconstruction. Contrast material: OMNI 350; Contrast volume: 80 ml; Contrast route: INTRAVENOUS (IV); COMPARISON: 1. CT abdomen pelvis w con* [id number] 03/29/2024 2:[address] abdomen pelvis w con* [id number] 04/21/2020 10:07 AM RADIATION DOSE METRICS: Total DLP (mGy-cm): 330.54 FINDINGS: Lungs: There is a noncalcified pulmonary nodule in the right lower lobe visible on series 3, image 13 measuring 7 mm. Liver: The liver is normal. Gallbladder and biliary ducts: The gallbladder is absent. There is ectasia of the common bile duct and central intrahepatic ducts. Pancreas: The pancreas is unremarkable. Spleen: The spleen is unremarkable. Adrenal glands: 2.7 cm right adrenal nodule. Kidneys and ureters: The kidneys are unremarkable. No hydronephrosis or stones. No ureteral dilation. Stomach and bowel: The stomach is moderately fluid distended. There is decreased gastric mucosal hyperemia compared to 03/29/2024. There is decreased duodenal and small bowel hyperemia since 03/29/2024. There is decreased proximal small bowel wall thickening since 03/29/2024. The small bowel is nondilated. There is mild mucosal thickening in the ascending and transverse colon. Evaluation of bowel wall thickness is limited in the ascending and transverse colon due to luminal nondistention. Appendix: The appendix is normal. Intraperitoneal space: There is no free air or significant intraperitoneal free fluid. Vasculature: There is moderate aortic atherosclerotic disease. The portal, splenic and superior mesenteric veins are patent. Lymph nodes: There is no lymphadenopathy in the retroperitoneum, mesentery, pelvis or inguinal regions. Urinary bladder: The urinary bladder is distended and thin walled. Reproductive: There is a 5.6 x 3.5 cm simple left adnexal cyst which is stable since 02/11/2024. Bones/joints: There is mild degenerative disease in the lumbar spine. Soft tissues: There is a partly exophytic leiomyoma at the uterine fundus. The abdominal wall is intact. CT/CT abdomen pelvis w con* [id number] IMPRESSION: 1. Decreased gastroenteritis since 03/29/2024. 2. Persistent mild mucosal thickening in the ascending and transverse colon. Evaluation is limited by luminal decompression. Mild colitis is possible. 3. 5.6 cm left adnexal cyst. Ultrasound follow-up in 6-12 months is recommended. (Reference: Kg) 4. 7 mm right lower lobe pulmonary nodule is stable since 02/11/2024 and new since 04/21/2020. For patients at low risk (minimal or absent history of smoking and of other known risk factors), recommend CT Chest at 6-12 months, then consider CT Chest at 18-24 months. For patients at high risk (history of smoking or of other known risk factors), recommend CT Chest at 6-12 months, then CT Chest at 18-24 months. (Reference: Rafael) 5. Stable 2.7 cm right adrenal nodule since 04/21/2020 consistent with a benign lipid rich adenoma. No follow-up imaging is necessary. REFERENCES: 1. Kg et al. Management of Incidental Adnexal Findings on CT and MRI: A White Paper of the ACR Incidental Findings Committee, J Am Vladimir Radiol. 2020 Mar;17(2):248-254. 2. Rafael Vincent, et al. Guidelines for Management of Incidental Pulmonary Nodules Detected on CT Images: From the Fleischner Society 2017. Radiology. 2017;284(1):228-243.
--- NOTE | 2024-03-31 12:53 | W.ED.ABDPA2 ---
HPI - Abdominal Pain General: Chief Complaint: ER Hold Stated Complaint: abd pain Time Seen by Provider: 03/31/24 11:04 History of Present Illness: This patient is a 53-year-old presenting with abdominal pain. She reports that she has been having severe abdominal pain for a few days. She was seen here yesterday for the same pain and was diagnosed with alcoholic gastritis. She says that now she is vomiting and cannot keep anything down. The pain is worse although the location and character of the same as they were on her prior visit. She does admit to having a history of daily alcohol use but has not had a drink in the last 2 days. She also admits to a history of marijuana and methamphetamine but was somewhat evasive about the timing of her last usage. She has a history of hypertension and hypercholesterolemia based on looking at her prior chart. She was not able to tell me what medication she took or what they were for. She did have a CT scan done yesterday that had some nonspecific findings which will be discussed further in the medical decision making section. She reports that her only abdominal surgery was gallbladder. Related Data Home Medications ?Medication ?Instructions ?Recorded ?Confirmed albuterol sulfate 90 mcg/actuation 2 inh inhalation 6XD PRN shortness 03/31/24 03/31/24 aerosol inhaler (Ventolin HFA) of breath or wheezing Previous Rx's ?Medication ?Instructions ?Recorded Shoe lift #1 ea 01/29/23 [facility] code E0149 #1 ea 03/08/23 nitroglycerin 0.4 mg sublingual 0.4 mg sublingual Q5M PRN chest 05/25/23 tablet (Nitrostat) pain #30 tabs DME: Walker #1 ea 03/14/24 acyclovir 200 mg capsule 200 mg PO DAILY #30 caps 03/14/24 amlodipine 5 mg tablet (Norvasc) 5 mg PO DAILY #30 tabs 03/14/24 atorvastatin 40 mg tablet 40 mg PO BEDTIME #30 tabs 03/14/24 budesonide-formoterol HFA 160 2 puff inhalation BID #10.2 grams 03/14/24 mcg-4.5 mcg/actuation aerosol inhaler (Symbicort) clopidogrel 75 mg tablet (Plavix) 75 mg PO DAILY #30 tabs 03/14/24 dapagliflozin propanediol 10 mg 10 mg PO QAM #30 tabs 03/14/24 tablet (Farxiga) eszopiclone 3 mg tablet (Lunesta) 3 mg PO .at bedtime #30 tabs 03/14/24 ferrous gluconate 324 mg (38 mg 324 mg PO DAILY #30 tabs 03/14/24 iron) tablet potassium chloride 10 mEq 10 meq PO DAILY #30 tabs 03/14/24 tablet,extended release(part/cryst) venlafaxine 150 mg 150 mg PO QAM #30 caps 03/14/24 capsule,extended release 24 hr (Effexor XR) zonisamide 100 mg capsule 100 mg PO BID #60 caps 03/14/24 (Zonegran) omeprazole 20 mg capsule,delayed 20 mg PO BID 10 days #20 caps 03/29/24 release Allergies Allergy/AdvReac Type Severity Reaction Status Date / Time codeine AdvReac Rash & itch Verified 03/14/24 13:06 Sulfa (Sulfonamide AdvReac Swelling Verified 03/14/24 13:06 Antibiotics) of face PFSH ED PFSH: Medical History (Updated 03/31/24 @ 17:25 by Samra Vivas MD) Methamphetamine use Herpes simplex Vascular abnormality of brain Recurrent cerebrovascular accidents (CVAs) Acute CVA (cerebrovascular accident) Overweight (BMI 25.0-29.9) Congenital leg length inequality Generalized anxiety disorder Essential hypertension Asthma Migraine Bipolar disorder, unspecified Surgical History History of cholecystectomy Family History Other Cancer Diabetes Hypertension Denies family history of Chronic kidney disease (CKD) Stroke Social History Smoking and tobacco/nicotine status: current every day tobacco/nicotine user cigarettes Packs smoked per day: 0.5 Years cigarettes smoked: 13 Quit status (tobacco/nicotine): has tried quititng Number of times tried to quit tobacco: 1 Second hand smoke exposure: Yes Alcohol intake: never Substance/Drug Use: unknown Adopted: No Caregiver/support person: Yes Lives independently: No Household members: friend(s) Housing: House Marital status: Single Number of children: 0 service: No Current occupational status: unemployed Do you think of yourself as: Straight/Heterosexual Current gender identity: Female Physical Exam Const: COMMON NORMALS: patient oriented x3 and alert EXAM LIMITATIONS: other limitations (Anxious and complaining of severe pain) GENERAL APPEARANCE: cooperative HENMT: HEAD & SCALP: normal to inspection FACE & SINUS: normal facial exam Eye: GENERAL EYE: appearance normal, both eyes and all related structures Neck/C-Spine: COMMON NORMALS: supple, no meningeal signs and no JVD Chest: COMMONS NORMALS: normal inspection of the chest Resp: COMMON NORMALS: normal respiratory effort, No use of accessory muscles and clear to auscultation bilaterally AUSCULTATION: clear to auscultation bilaterally Cardio: COMMON NORMALS: no JVD, regular rate, regular rhythm and No murmurs present (Cardio) RATE: regular rate RHYTHM: regular rhythm GI: OTHER: Severely tender to even light palpation. Particularly so in the upper quadrants. Unable to appreciate bowel sounds. No rebound. Voluntary guarding. Back/Pelvis: COMMON NORMALS: thoracic and lumbar spine normal to inspection Extremity: COMMON NORMALS: normal to inspection Neuro: COMMON NORMALS: patient oriented x3, moves all extremities, no focal motor deficits and no sensory deficits noted SENSORIUM/ORIENTATION: Yes alert MENINGEAL SIGNS: Yes no meningeal signs Psych: COMMON NORMALS: mental status grossly normal, cooperative and normal affect Skin: NARRATIVE SKIN EXAM: There is a sore on her face that appears to be not healing well. Her skin is somewhat diffusely but mildly erythematous Course Vital Signs: Vital signs: Vital Signs Temperature 98 F 03/31/24 11:02 Pulse Rate 88 03/31/24 17:15 Respiratory Rate 18 03/31/24 11:02 Blood Pressure 145/106 03/31/24 17:15 Pulse Oximetry 99 03/31/24 17:15 Oxygen Delivery Me thod Room Air 03/31/24 17:15 MDM - Abdominal Pain Medical Decision Making Patient presenting with severe abdominal pain. Yesterday her CT showed some air in the stomach and in the jejunum which was thought to be not intraluminal but rather in the folds. There was some thickening in the gastric area. These are nonspecific findings however given her ill appearance today I plan to repeat the CT. Labs were also obtained and she does have lactic of 3.7. Her CO2 was low. This could be related to an alcoholic ketoacidosis, ischemic bowel, sepsis. All of these possible etiologies will be addressed urgently. This patient was given IV fluids, antibiotics, repeat CT was done. The CT did not show any new concerning findings. Potassium was replaced as it was 2.9. She had quite a bit of difficulty tolerating the IV potassium. Her magnesium was 1.9 and was also replaced. Given that she is unable to tolerate p.o. and has persistently elevated blood pressure she was admitted to the hospital. She was started on a Cardene drip after treatment with Ativan and labetalol did not bring her pressures down at all. She will need to be managed for the possibility of ongoing alcohol withdrawal as well. Lab Data 03/31/24 11:24 03/31/24 11:24 Labs/Radiology: Radiology Impressions Abdomen/Pelvis CT 03/31/24 12:42 IMPRESSION: 1. Decreased gastroenteritis since 03/29/2024. 2. Persistent mild mucosal thickening in the ascending and transverse colon. Evaluation is limited by luminal decompression. Mild colitis is possible. 3. 5.6 cm left adnexal cyst. Ultrasound follow-up in 6-12 months is recommended. (Reference: Kg) 4. 7 mm right lower lobe pulmonary nodule is stable since 02/11/2024 and new since 04/21/2020. For patients at low risk (minimal or absent history of smoking and of other known risk factors), recommend CT Chest at 6-12 months, then consider CT Chest at 18-24 months. For patients at high risk (history of smoking or of other known risk factors), recommend CT Chest at 6-12 months, then CT Chest at 18-24 months. (Reference: Rafael) 5. Stable 2.7 cm right adrenal nodule since 04/21/2020 consistent with a benign lipid rich adenoma. No follow-up imaging is necessary. REFERENCES: 1. Kg et al. Management of Incidental Adnexal Findings on CT and MRI: A White Paper of the ACR Incidental Findings Committee, J Am Vladimir Radiol. 2020 Mar;17(2):248-254. 2. Rafael Vincent et al. Guidelines for Management of Incidental Pulmonary Nodules Detected on CT Images: From the Fleischner Society 2017. Radiology. 2017;284(1):228-243. Chest X-Ray 03/31/24 13:01 IMPRESSION: No acute findings. Laboratory Results WBC 8.87 10^3/uL (3.29-11.43) 03/31/24 11:24 RBC 5.14 10^6/uL (3.85-5.65) 03/31/24 11:24 Hgb 14.50 g/dL (11.27-16.99) 03/31/24 11:24 Hct 45.2 % (36-47) 03/31/24 11:24 MCV 87.9 fl (85-98) 03/31/24 11:24 MCH 28.2 pg (27-33) 03/31/24 11:24 MCHC 32.1 g/dL (30-55) 03/31/24 11:24 RDW 15.5 % (12.1-15.1) H 03/31/24 11:24 Plt Count 387 10^3/cmm (157-399) 03/31/24 11:24 MPV 9.7 fL (7.4-10.4) 03/31/24 11:24 Neut % (Auto) 67.5 % 03/31/24 11:24 Lymph % (Auto) 25.9 % 03/31/24 11:24 [place] % (Auto) 4.8 % 03/31/24 11:24 Eos % (Auto) 1.1 % 03/31/24 11:24 Baso % (Auto) 0.5 % 03/31/24 11:24 Neut # (Auto) 5.98 10^3/uL (1.8-7.7) 03/31/24 11:24 Lymph # (Auto) 2.3 10^3/uL (0.8-4.8) 03/31/24 11:24 [place] # (Auto) 0.4 10^3/uL (0.2-0.9) 03/31/24 11:24 Eos # (Auto) 0.1 10^3/uL (0.0-0.8) 03/31/24 11:24 Baso # (Auto) 0.0 10^3/uL (0.0-0.1) 03/31/24 11:24 Nucleated RBC % (auto) 0 % 03/31/24 11:24 Nucleated RBCs # 0.0 /100WBC 03/31/24 11:24 Sodium 136 mmol/L (136-145) 03/31/24 11:24 Potassium 2.9 mmol/L (3.5-5.1) L 03/31/24 11:24 Chloride 99 mmol/L (98-107) 03/31/24 11:24 Carbon Dioxide 19 mmol/L (22-29) L 03/31/24 11:24 Anion Gap 20.9 (5-19) H 03/31/24 11:24 BUN 14 mg/dL (6-20) 03/31/24 11:24 Creatinine 1.0 mg/dL (0.5-0.9) H 03/31/24 11:24 GFR Calculation 58.2 mL/min (90-130) L 03/31/24 11:24 Glucose 106 mg/dL (65-115) 03/31/24 11:24 Calculated Osmolality 283 mOsm/kg (285-295) L 03/31/24 11:24 Lactic Acid 3.7 mmol/L (0.5-2.2) H 03/31/24 11:24 Lactic Acid (Sepsis) 2.8 mmol/L (0.5-2.2) H 03/31/24 14:04 Calcium 10.1 mg/dL (8.5-10.5) 03/31/24 11:24 Magnesium 1.9 mg/dL (1.7-2.3) 03/31/24 11:24 Total Bilirubin 0.2 mg/dL (0.15-1.2) 03/31/24 11:24 AST 19 U/L (0-32) 03/31/24 11:24 ALT 15 U/L (0-33) 03/31/24 11:24 Alkaline Phosphatase 152 U/L (35-105) H 03/31/24 11:24 Total Protein 7.4 g/dL (6.6-8.7) 03/31/24 11:24 Albumin 4.1 g/dL (3.5-5.2) 03/31/24 11:24 Globulin 3.3 g/dL (1.3-4.6) 03/31/24 11:24 Lipase 33 U/L (13-60) 03/31/24 11:24 Procalcitonin 0.05 ng/mL (0-0.5) 03/31/24 11:24 HCG, Qual Negative (Negative) 03/31/24 11:24 Urine Color Yellow (Yellow) 03/31/24 13:17 Urine Appearance Clear (CLEAR) 03/31/24 13:17 Urine pH 7.5 (5-7) 03/31/24 13:17 Ur Specific [place] 1.014 (1.005-1.030) 03/31/24 13:17 Urine Protein Negative (Negative) 03/31/24 13:17 Urine Glucose (UA) Negative (Normal) 03/31/24 13:17 Urine Ketones Negative (Negative) 03/31/24 13:17 Urine Blood Negative (Negative) 03/31/24 13:17 Urine Nitrate Negative (Negative) 03/31/24 13:17 Urine Bilirubin Negative (Negative) 03/31/24 13:17 Urine Urobilinogen 0.2 mg/dL (Negative) 03/31/24 13:17 Ur Leukocyte Esterase Trace (Negative) A 03/31/24 13:17 Urine RBC 0-2 /hpf (0-2) 03/31/24 13:17 Urine WBC 11-20 /hpf (0-5) H 03/31/24 13:17 Ur Squamous Epith Cells 11-20 /hpf (0-5) H 03/31/24 13:17 Amorphous Sediment Not Reportable 03/31/24 13:17 Urine Bacteria 1+ /hpf (NONE) H 03/31/24 13:17 Hyaline Casts 0.81 /lpf 03/31/24 13:17 Urine Opiates Screen Positive ng/mL (Negative) H 03/31/24 13:17 Ur Barbiturates Screen Negative ng/mL (Negative) 03/31/24 13:17 Ur Phencyclidine Scrn Negative ng/mL (Negative) 03/31/24 13:17 Ur Amphetamines Screen Positive ng/mL (Negative) H 03/31/24 13:17 U Benzodiazepines Scrn Positive ng/mL (Negative) H 03/31/24 13:17 Urine Cocaine Screen Negative ng/mL (Negative) 03/31/24 13:17 U Marijuana (THC) Screen Positive ng/mL (Negative) H 03/31/24 13:17 Ethyl Alcohol < 10 mg/dL (0-10) 03/31/24 11:24 Serum Ketones Negative (Negative) 03/31/24 11:24 HIV 1&2 Ab & HIV 1 Ag Non-reactive (Non-Reactiv) 03/31/24 11:24 HIV 1&2 Antibody Non-reactive (Non-Reactiv) 03/31/24 11:24 All radiology interpretation(s) finalized by discharge Discharge Plan Discharge Patient Disposition: Admitted As Inpatient Admit Provider: Lawrence Renteria Clinical Impression: Nausea & vomiting, Hypokalemia, Elevated lactic acid level, Acute alcoholic gastritis, Alcohol withdrawal, Hypertensive urgency Condition: Stable Coding Level of Care Code ED Retail Operations Specialist for Andrey Kang
[2024-03-31] MEDS: iohexol 350 mg/mL 500 mL Btl (per mL) IV (12:57)
--- NOTE | 2024-03-31 13:01 | XRR_ITS ---
PROCEDURE INFORMATION: Exam: XR Chest Exam date and time: 03/31/2024 1:32 PM Age: 53 years old Clinical indication: Other: Abd pain; Prior surgery; Surgery date: 6+ months; Surgery type: Gb; Additional info: Possible sepsis TECHNIQUE: Imaging protocol: Radiologic exam of the chest. Views: 1 view. COMPARISON: CR XR chest 1V portable [id number] 03/29/2024 2:15 PM FINDINGS: Lungs: Lungs are clear. Pleural spaces: There is no pleural effusion or pneumothorax. Heart/Mediastinum: Cardiomediastinal contours are unremarkable. Bones/joints: Bones are unremarkable. XR/XR chest 1V portable [id number] IMPRESSION: No acute findings.
[2024-03-31 13:14] LABS: Reflex Lactate Order REFLEX LACTIC ORDERD
--- NOTE | 2024-03-31 13:15 | ECG_ITS ---
[facility] Test Date: 2024-03-31 Pat Name: Trudi Wesley Department: Room: Gender: Female [employer] Lab[employer]: : 1970 Requested By: Samra Bolaños Order Number: [id number] Reading MD: JEFFREY ACOSTA Measurements Intervals [place] Rate: 96 P: 72 DC: 111 QRS: 73 QRSD: 86 T: 58 QT: 396 QTc: 502 Interpretive Statements SINUS RHYTHM WITH SHORT DC INTERVAL WITH OCCASIONAL ECTOPIC PREMATURE COMPLEXES MODERATE ST DEPRESSION [0.05+ mV ST DEPRESSION] Compared to ECG 03/29/2024 16:43:25 Short DC interval now present ST (T wave) deviation now present Electronically Signed On 03-31-2024 21:06:16 [employer]IG[employer] HELPER by JEFFREY ACOSTA [email or web address]
[2024-03-31 13:25] LABS: Bilirubin Urine Negative (Negative); Blood Urine Negative (Negative); Glucose Urine UA Negative (Normal); Ketones Urine Negative (Negative); Leukocyte Esterase Urine Trace (Negative); Nitrate Urine Negative (Negative); Protein Urine Negative (Negative); Specific Gravity, Urine 1.014 (1.005-1.030); Urine Appearance Clear (CLEAR); Urine Color Yellow (Yellow); Urobilinogen Urine 0.2 mg/dL (Negative); pH Urine 7.5 (5-7)
[2024-03-31 13:31] LABS: Add Urine Microscopic? YES; Bacteria Urine 1+ /hpf; Hyaline Casts Urine 0.81 /lpf; RBC Urine 0-2 /hpf (0-2)
[2024-03-31] MEDS: LACTATED RINGERS 1088.62 ML IV (13:53)
[2024-03-31] MEDS: piperacillin-tazobactam 4.5 GM in sodium chloride 0.9% (plus) 50 ML IV (13:53)
[2024-03-31] MEDS: labetalol 5 mg/mL SDV 20mL 20 MG IVP (14:02)
[2024-03-31 14:32] LABS: Lactic Acid level (Lactate) 2.8 mmol/L (0.5-2.2)
[2024-03-31] MEDS: vancomycin 1,500 MG/300 ML PIGGYBACK 200 MG IV (14:32)
[2024-03-31 14:38] LABS: Amphetamines Screen Urine Positive (Negative); Barbiturates Screen Urine Negative (Negative); Benzodiazepines Screen Urine Positive (Negative); Cocaine Screen Urine Negative (Negative); Opiate Screen Urine Positive (Negative); PCP Screen Urine Negative (Negative); THC Screen Urine Positive (Negative)
--- NOTE | 2024-03-31 16:25 | PM.HP ---
Providers/Chief Complaint Admitting Physician: Lawrence Renteria MD Primary Care Provider: Selvin Thomas, [employer] Chief Complaint: abd pain History of Present Illness Trudi Wesley is a 53 year old female with past medical history of IV drug use, alcoholism, bipolar disorder, hypertension, multiple CVAs in the past who presents to the ER today because of abdominal pain getting worse over last 3 days, nausea and vomiting with episodes of diarrhea since yesterday. Patient has presented with similar complaints yesterday as well and was found to have gastroenteritis on abdominal CT and was discharged home with oral hydration. She presents back today because of worsening abdominal pain. Denies any chest pain, difficulty in breathing. In the ER found to have a blood pressure of more than 200 systolic. Review of Systems General: Reports: 10 or more systems reviewed and unremarkable except in HPI and below Const: Denies: fever(s), chills, body aches, change in appetite, change in weight, malaise, night sweats, diaphoresis, change in sleep pattern, daytime sleepiness or snoring Eyes: Denies: change in vision, blurry vision, photophobia, eye discomfort or eye discharge ENMT: Denies: throat pain, enlarged tonsils, hoarseness, mouth pain, oral sores, dry mouth, tinnitus, nasal congestion or post nasal drip Card: Denies: chest pain, palpitations, irregular heart rhythm, edema, swelling of feet/ankles, lightheadedness, syncope, pre-syncope, dyspnea on exertion, orthopnea, leg pain with exertion or acrocyanosis Resp: Denies: dyspnea, productive cough, non-productive cough, wheezing, stridor, pain on inspiration, change in phlegm color, hemoptysis or chest congestion GI: Denies: abdominal pain, nausea, vomiting, hematemesis, coffee ground emesis, dysphagia, heartburn, diarrhea, constipation, bloating, GI cramping, change in bowel habits, pain on defecation, hematochezia or melena : Denies: flank pain, dysuria, urinary frequency, urinary urgency, urinary hesitancy, nocturia or hematuria Musc: Denies: neck pain, back pain, extremity pain, joint pain, joint swelling, joint redness, joint stiffness or limited range of motion Neuro: Denies: headache(s), numbness in extremities, weakness in extremities, sensory changes, lack of coordination, difficulty walking, frequent falls, dizziness, vertigo, confusion, Slurred speech present, difficulty communicating thoughts or seizure-like activity Psych: Denies: anxiety, depression, mood swings, panic attacks, hopelessness or irritability Endo: Denies: polyuria, polydipsia, tired all the time, cold intolerance, excessive sweating, flushing or heat intolerance Yrn/Lymph: Denies: easy bruising or easy bleeding All/Imm: Denies: tongue swelling, facial swelling or acute wheezing Medications/Allergies Home Medications ?Medication ?Instructions ?Recorded ?Confirmed ?Last Taken ?Type Shoe lift #1 ea 01/29/23 03/31/24 Unknown Rx [facility]PCS code E0149 #1 ea 03/08/23 03/31/24 Unknown Rx nitroglycerin 0.4 mg sublingual 0.4 mg sublingual Q5M PRN chest 05/25/23 03/31/24 Unknown Rx tablet (Nitrostat) pain #30 tabs DME: Walker #1 ea 03/14/24 03/31/24 Unknown Rx acyclovir 200 mg capsule 200 mg PO DAILY #30 caps 03/14/24 03/31/24 03/31/24 Rx amlodipine 5 mg tablet (Norvasc) 5 mg PO DAILY #30 tabs 03/14/24 03/31/24 03/31/24 Rx atorvastatin 40 mg tablet 40 mg PO BEDTIME #30 tabs 03/14/24 03/31/24 03/30/24 Rx budesonide-formoterol HFA 160 2 puff inhalation BID #10.2 grams 03/14/24 03/31/24 03/31/24 Rx mcg-4.5 mcg/actuation aerosol inhaler (Symbicort) clopidogrel 75 mg tablet (Plavix) 75 mg PO DAILY #30 tabs 03/14/24 03/31/24 03/31/24 Rx dapagliflozin propanediol 10 mg 10 mg PO QAM #30 tabs 03/14/24 03/31/24 03/31/24 Rx tablet (Farxiga) eszopiclone 3 mg tablet (Lunesta) 3 mg PO .at bedtime #30 tabs 03/14/24 03/31/24 Unknown Rx ferrous gluconate 324 mg (38 mg 324 mg PO DAILY #30 tabs 03/14/24 03/31/24 Unknown Rx iron) tablet potassium chloride 10 mEq 10 meq PO DAILY #30 tabs 03/14/24 03/31/24 03/31/24 Rx tablet,extended release(part/cryst) venlafaxine 150 mg 150 mg PO QAM #30 caps 03/14/24 03/31/24 03/31/24 Rx capsule,extended release 24 hr (Effexor XR) zonisamide 100 mg capsule 100 mg PO BID #60 caps 03/14/24 03/31/24 03/31/24 Rx (Zonegran) omeprazole 20 mg capsule,delayed 20 mg PO BID 10 days #20 caps 03/29/24 03/31/24 Unknown Rx release albuterol sulfate 90 mcg/actuation 2 inh inhalation 6XD PRN shortness 03/31/24 03/31/24 03/31/24 History aerosol inhaler (Ventolin HFA) of breath or wheezing Allergies Allergy/AdvReac Type Severity Reaction Status Date / Time codeine AdvReac Rash & itch Verified 03/14/24 13:06 Sulfa (Sulfonamide AdvReac Swelling Verified 03/14/24 13:06 Antibiotics) of face PFSH Acute PFSH: Medical History (Updated 03/31/24 @ 16:46 by Lawrence Renteria MD) Methamphetamine use Herpes simplex Vascular abnormality of brain Recurrent cerebrovascular accidents (CVAs) Acute CVA (cerebrovascular accident) Overweight (BMI 25.0-29.9) Congenital leg length inequality Generalized anxiety disorder Essential hypertension Asthma Migraine Bipolar disorder, unspecified Surgical History History of cholecystectomy Family History Other Cancer Diabetes Hypertension Denies family history of Chronic kidney disease (CKD) Stroke Social History Smoking and tobacco/nicotine status: current every day tobacco/nicotine user cigarettes Packs smoked per day: 0.5 Years cigarettes smoked: 13 Quit status (tobacco/nicotine): has tried quititng Number of times tried to quit tobacco: 1 Second hand smoke exposure: Yes Alcohol intake: never Substance/Drug Use: unknown Adopted: No Caregiver/support person: Yes Lives independently: No Household members: friend(s) Housing: House Marital status: Single Number of children: 0 service: No Current occupational status: unemployed Do you think of yourself as: Straight/Heterosexual Current gender identity: Female Vitals/I&O/Wt Last Vital Signs Temp 98 F 03/31/24 11:02 Pulse 75 03/31/24 14:25 Resp 18 03/31/24 11:02 BP 191/114 03/31/24 14:25 Pulse Ox 93 03/31/24 14:25 O2 Del Method Room Air 03/31/24 14:25 03/31/24 03/31/24 03/31/24 06:59 14:59 22:59 Intake Total 50.875 / 50.875 Balance 50.875 / 50.875 Weight last 48 hrs Weight 54.431 kg Physical Exam Narrative: General: Acute distress because of abdominal pain, AOx3, dehydrated HEENT: PERRLA, pupils bilaterally equal and reactive Chest: Normal vesicular breath sounds, no added sounds, equal good air entry bilaterally CVS: S1-S2 regular, no murmurs, no tachycardia, no gallops, no rubs Abdomen: Soft, nontender, no organomegaly, bowel sounds present Neuro: No focal deficits, no facial deformity, AO x3, power 5/5 in all limbs Data 03/31/24 11:24 03/31/24 11:24 Micro: Microbiology 03/31/24 14:04 Blood Culture - Preliminary Blood SPECIMEN COLLECTED A&P Assessment and plan (1) Hypertensive urgency: (2) Acute alcoholic gastritis: (3) Abdominal pain: (4) Nausea & vomiting: (5) Gastroenteritis: (6) Alcohol withdrawal: (7) Hypokalemia: (8) Amphetamine use: (9) Elevated lactic acid level: (10) Bipolar disorder, unspecified: Qualifiers: Active/Remission status: in remission of unspecified degree Qualified Code(s): F31.70 - Bipolar disorder, currently in remission, most recent episode unspecified (11) Generalized anxiety disorder: (12) Alcohol use: Plan 53-year-old with past medical history of alcohol and amphetamine abuse, multiple CVAs presents to the ER today because of abdominal pain, nausea and vomiting with diarrhea found to have gastroenteritis on CT abdomen pelvis, elevated lactate with elevated blood pressures. Hypertensive urgency: Has history of multiple CVAs in the past. Goal blood pressure less than 140/90 MAG. Also has a component of alcohol withdrawal. Nicardipine drip. Wean accordingly. Start on clonidine patch. IV hydralazine 10 mg every 4 hours as needed. Once patient is able to tolerate orally will start on oral medications. Abdominal pain with nausea and vomiting: Also have diarrhea. Concerns for gastroenteritis and alcoholic gastritis. Check stool studies. Elevated lactate. Banana bag followed by D5 half NS with 20 of IV potassium at 50 cc/h. Watch for refeeding syndrome. IV Zosyn. IV Protonix 40 mg every 12 hourly. Zofran as needed. Blood cultures. Alcohol withdrawal: Alcohol level yesterday 54. Today less than 10. Concerns for alcohol withdrawal. CIWA protocol. Precedex drip. Hypokalemia: Replace with 80 mg IV. Getting with IV fluids. Monitor every 8 hours. Amphetamine use: Urine drug screen positive for amphetamines. States she last used amphetamines 1 week ago. Check hepatitis panel, blood culture, HIV. Continue other chronic oral medications. Analgesia: Morphine 1 mg every 4 hours as needed Glycemic control: Not needed Nutrition: Clear liquid diet CODE STATUS: Full code. Sister will be the DPOA. PUD prophylaxis: Protonix DVT prophylaxis: Heparin 5000 Q12 hourly. Discharge planning: Back home once patient is clinically better Continue with care at ICU This documentation was created by [employer] tick sewer software. Every effort was made to ensure accuracy of tick sewer. Any obvious errors or omissions should be clarified with the author of the document. PDMP PDMP Reviewed: Not Reviewed Attestations Medical Necessity Statement*: Admission for more than 2 midnights for management of hypertensive emergency, abdominal pain with nausea and vomiting with concerns for gastroenteritis, alcoholic gastritis in a patient with chronic alcoholism, amphetamine use currently in withdrawals Critical Care Time: The high probability of a clinically significant, sudden or life threatening deterioration of the patient's [cardiac, GI, neurological] system(s) required my full and direct attention, intervention and personal management. The critical care time is as shown. This time is in addition to time spent performing any reported procedures but includes the following: [x] Data and vital sign review and interpretation [x] Patient assessment, examination and intervention [x] Documentation [x] Medication orders and management Coding Level of Care Code Acute Code for [facility] Fwd Diagnoses Hypertensive urgency I16.0 Acute alcoholic gastritis K29.20 Abdominal pain R10.9 Nausea & vomiting R11.2 Gastroenteritis K52.9 Alcohol withdrawal F10.939 Hypokalemia E87.6 Amphetamine use F15.90 Elevated lactic acid level R79.89 Bipolar affective disorder in remission F31.70 Active/Remission status: in remission of unspecified degree Generalized anxiety disorder F41.1 Alcohol use F10.90
[2024-03-31] MEDS: dextrose 5%-sod chloride 0.45% 1,000 ML 50 ML IV (16:40)
[2024-03-31] MEDS: nicardipine 20 MG/200 ML PREMIX 50 MG IV (16:40)
[2024-03-31] MEDS: pantoprazole 40 mg SDV IVP (16:40)
[2024-03-31 16:59] LABS: Procalcitonin 0.05 ng/mL (0-0.5)
[2024-03-31 17:18] LABS: HIV 1 & 2 Antibody Non-Reactive (Non-Reactiv); HIV 1 & 2 Antigen Non-Reactive (Non-Reactiv)
[2024-03-31 17:27] LABS: Iron 37 ug/dL (37-145); Percent Saturation 9.9 % (20-50); Thyroid Stimulating Hormone 4.74 uIU/mL (0.27-4.20); Total Iron Binding Capacity 373 mcg/dl; Unsaturated Iron Binding 336 ug/dL (112-347)
[2024-03-31 17:40] LABS: Hepatitis A Antibody IgM Non-Reactive (Nonreactive); Hepatitis B Core AB, Total Non-Reactive (Nonreactive); Hepatitis B Surface AB < 3.5 (11.5-1000); Hepatitis B Surface Antigen Non-Reactive (Nonreactive); Hepatitis C Virus Antibody Non-Reactive (Nonreactive)
[2024-03-31] MEDS: folic acid 1 MG, multivitamin inj 10 ML, thiamine 100 MG in sodium chloride 0.9% 1,000 ML 252.8 MG IV (18:04)
[2024-03-31] MEDS: cloNIDine 0.1 mg/24 hr Patch 1 PATCH TRANSDERMA (18:04)
[2024-03-31] MEDS: zonisamide 100 MG Capsule PO (18:12)
[2024-03-31] MEDS: thiamine 100 mg/mL 2mL SDV IM (18:12)
[2024-03-31] MEDS: docusate sodium 100 mg Capsule PO (18:13)
[2024-03-31 18:19] LABS: Vitamin B12 329 pg/mL (232-1245)
[2024-03-31] MEDS: hyDRALAzine 20 mg/mL INJ 1 mL 10 MG IVP (20:13)
[2024-03-31 21:38] LABS: Glucose Point of Care 124 mg/dL (70-110)
[2024-03-31] MEDS: atorvastatin 40 mg Tablet PO (21:59)
--- NOTE | 2024-03-31 22:00 | PC.NURSE ---
Maintenance Fluids Patient receiving 40 meq KCL IV with another 40 meq KCL to be administered following completion of first bag. Maintenance fluid of D5-1/2NS with 20 KCL ordered at 50 ml/hr. Dr. Haley contacted and order received to start fluids after the total of 80 meq KCL administered. Precedex drip ordered; patient's ciwaa score 6. Precedex not started; Dr. Haley aware.
[2024-03-31] MEDS: piperacillin-tazobactam 3.375 GM in sodium chloride 0.9% (plus) 50 ML IV (22:37)
[2024-03-31] MEDS: nicardipine 20 MG/200 ML PREMIX 25 MG IV (23:39)
[2024-04-01] VITALS (48 sets, daily range): BP systolic 86–166; BP diastolic 51–114; PULSE 73–141; RESP 11–38; TEMP 36.8–37.4; O2SAT 71–99; BMI 20.7
[2024-04-01] MEDS: vancomycin 500 MG in sodium chloride 0.9% (plus) 100 ML 200 MG IV ×2 (00:18→12:02)
--- NOTE | 2024-04-01 02:07 | PC.NURSE ---
Indigestion Patient complaining of heart burn. Dr. Haley contacted and order received for GI cocktail.
[2024-04-01] MEDS: lidocaine 2% viscous 15 ML, aluminum-mag hydrox-simethicon 30 ML, sucralfate oral liq 1 GM PO (02:17)
[2024-04-01] MEDS: D5-NS 0.45% + KCL 20 mEq 20 MEQ/1,000 ML BAG 50 MEQ IV (04:37)
[2024-04-01] MEDS: pantoprazole 40 mg SDV IVP ×2 (04:37→15:40)
[2024-04-01] MEDS: venlafaxine ER (24HR) 150 mg Capsule PO (05:31)
[2024-04-01] MEDS: hyDRALAzine 25 mg Tablet PO ×3 (05:31→20:25)
[2024-04-01 05:42] LABS: Basophils % 0.2 %; Hematocrit 48.9 % (36-47); Lymphocytes # 2.1 10^3/uL (0.8-4.8); Lymphocytes % 9.1 %; Mean Corpuscular HGB Conc 32.7 g/dL (30-55); Mean Corpuscular Hemoglobin 28.1 pg (27-33); Mean Corpuscular Volume 85.8 fl (85-98); Mean Platelet Volume 9.2 fL (7.4-10.4); Monocytes # 0.9 10^3/uL (0.2-0.9); Monocytes % 3.9 %; Neutrophils # 20.04 10^3/uL (1.8-7.7); Neutrophils % 86.4 %; Nucleated Red Blood Cells % 0 %; Platelet Count 492 10^3/cmm (157-399); Red Cell Distribution Width 15.6 % (12.1-15.1)
[2024-04-01] MEDS: piperacillin-tazobactam 3.375 GM in sodium chloride 0.9% (plus) 50 ML IV ×3 (06:01→23:58)
[2024-04-01 06:04] LABS: Alanine Aminotransferase 13 U/L (0-33); Albumin Level 4.4 g/dL (3.5-5.2); Alkaline Phosphatase 168 U/L (35-105); Anion Gap 20.5 (5-19); Aspartate Amino Transferase 18 U/L (0-32); Blood Urea Nitrogen 9 mg/dL (6-20); Calcium 10.1 mg/dL (8.5-10.5); Carbon Dioxide 17 mmol/L (22-29); Chloride 98 mmol/L (98-107); Creatinine Clr Calc Pharmacy 70.6847; Globulin 3.5 g/dL (1.3-4.6); Glomerular Filtration Rate 75.3 mL/min (90-130); Glucose 158 mg/dL (65-115); Magnesium 1.7 mg/dL (1.7-2.3); Osmolality Calculated 276 mOsm/kg (285-295); Phosphorus 1.9 mg/dL (2.5-4.5); Potassium 3.5 mmol/L (3.5-5.1); Sodium 132 mmol/L (136-145); Total Bilirubin 0.4 mg/dL (0.15-1.2); Total Protein 7.9 g/dL (6.6-8.7)
[2024-04-01 06:06] LABS: Lactic Sepsis W/Reflex 1.4 mmol/L (0.5-2.2)
[2024-04-01 06:17] LABS: Folate Level 14.4 ng/mL (4.8-37.3)
[2024-04-01 06:41] LABS: Procalcitonin 0.06 ng/mL (0-0.5)
--- NOTE | 2024-04-01 07:46 | PC.NURSE ---
Hydralazine Dr. Haley on unit at 0500. Orders received to stop cardene drip and start 25 mg PO hydralazine TID with first dose now. Physician to place further medications.
--- NOTE | 2024-04-01 08:39 | PHA.VACGOAL ---
Vancomycin Goal - Goal Vancomycin Goal:: 15-20 mg/L Vancomycin Indication:: Other - Therapy Current therapy:: Pip/Tazo Day of therpy:: Day []of [] . Actual body weight (kg): 102 lb 8 oz - Data Labs: WBC 23.20 10^3/uL (3.29-11.43) H 04/01/24 05:31 RBC 5.70 10^6/uL (3.85-5.65) H 04/01/24 05:31 Hgb 16.00 g/dL (11.27-16.99) 04/01/24 05:31 Hct 48.9 % (36-47) H 04/01/24 05:31 MCV 85.8 fl (85-98) 04/01/24 05:31 MCH 28.1 pg (27-33) 04/01/24 05:31 MCHC 32.7 g/dL (30-55) 04/01/24 05:31 RDW 15.6 % (12.1-15.1) H 04/01/24 05:31 Sodium 132 mmol/L (136-145) L 04/01/24 05:31 Potassium 3.5 mmol/L (3.5-5.1) 04/01/24 05:31 Chloride 98 mmol/L (98-107) 04/01/24 05:31 Carbon Dioxide 17 mmol/L (22-29) L 04/01/24 05:31 Anion Gap 20.5 (5-19) H 04/01/24 05:31 BUN 9 mg/dL (6-20) 04/01/24 05:31 Creatinine 0.8 mg/dL (0.5-0.9) 04/01/24 05:31 GFR Calculation 75.3 mL/min (90-130) L 04/01/24 05:31 Last dialysis session:: N/A Treatment plan:: new consult Regimen:: LOADING DOSE OF 1500 MG X 1 GIVEN MAINTENANCE DOSE OF 500 MG Q12H Follow up:: WILL CONTINUE TO MONITOR AND FOLLOW UP DAILY
[2024-04-01] MEDS: multivitamin therapeutic Tablet 1 TAB PO (08:47)
[2024-04-01] MEDS: clopidogrel 75 mg Tablet PO (08:47)
[2024-04-01] MEDS: zonisamide 100 MG Capsule PO ×2 (08:47→17:27)
[2024-04-01] MEDS: thiamine 100 mg Tablet PO (08:48)
[2024-04-01] MEDS: folic acid 1 mg Tablet PO (08:48)
--- NOTE | 2024-04-01 09:03 | PM.PN ---
Subjective Subjective: Cardene drip turned off Blood pressure stable Optimize oral antibiotics regimen Patient doing well No active emesis Can be transferred out of ICU to [facility] Vitals/I&O/Wt Last Vital Signs Temp 98.3 F 04/01/24 04:45 Pulse 116 H 04/01/24 07:30 Resp 18 04/01/24 07:30 BP 108/89 04/01/24 06:45 Pulse Ox 96 04/01/24 07:00 O2 Del Method Room Air 04/01/24 04:45 03/31/24 04/01/24 04/01/24 22:59 06:59 14:59 Intake Total 616.667 / 588.222 8897.450 / 2668.992 Output Total 600 / 600 1025 / 1625 Balance 16.667 / 67.542 976.450 / 1043.992 Weight last 48 hrs Weight 46.493 kg Weight 54.431 kg Weight 54.431 kg Physical Exam Narrative: Dehydrated Mild epigastric tenderness Hemodynamically stable Tachycardia Awake and alert No sign of meningitis S1, S2 tachycardia Currently on room air No active focal deficit Data 04/01/24 05:31 04/01/24 05:31 Micro: Microbiology 04/01/24 05:31 Blood Culture - Preliminary Blood SPECIMEN COLLECTED 03/31/24 14:04 Blood Culture - Preliminary Blood SPECIMEN COLLECTED A&P Assessment and plan (1) Hypertensive urgency: (2) Acute alcoholic gastritis: (3) Abdominal pain: (4) Nausea & vomiting: (5) Gastroenteritis: (6) Alcohol withdrawal: (7) Hypokalemia: (8) Amphetamine use: (9) Elevated lactic acid level: (10) Bipolar disorder, unspecified: Qualifiers: Active/Remission status: in remission of unspecified degree Qualified Code(s): F31.70 - Bipolar disorder, currently in remission, most recent episode unspecified (11) Generalized anxiety disorder: (12) Alcohol use: Plan 53-year-old with past medical history of alcohol and amphetamine abuse, multiple CVAs presents to the ER today because of abdominal pain, nausea and vomiting with diarrhea found to have gastroenteritis on CT abdomen pelvis, elevated lactate with elevated blood pressures. Hypertensive urgency: Improved: Cardene drip turned off: Optimize antihypertensive regimen Alcohol withdrawal symptoms: No active worsening Colitis: Continue antibiotics No active emesis Advance diet to full liquid No active emesis, discontinue IV fluids, discontinue Precedex Alcohol-induced gastritis continue Protonix Patient lives with her sister, stating that at a libertarian she took all these recreational drugs otherwise she does not use it on daily basis PDMP PDMP Reviewed: Not Reviewed Attestations Medical Necessity Statement*: Transfer out of ICU to [facility] Diagnoses Hypertensive urgency I16.0 Acute alcoholic gastritis K29.20 Abdominal pain R10.9 Nausea & vomiting R11.2 Gastroenteritis K52.9 Alcohol withdrawal F10.939 Hypokalemia E87.6 Amphetamine use F15.90 Elevated lactic acid level R79.89 Bipolar affective disorder in remission F31.70 Active/Remission status: in remission of unspecified degree Generalized anxiety disorder F41.1 Alcohol use F10.90
--- NOTE | 2024-04-01 15:30 | PC.NURSE ---
patient reported increased right flank pain throughout shift and increasing lethargy. bp low despite levo at max, blood running per order, plan per Dr. Connell to transfer to [facility] in [place] via air, family at bedside and notfied report called to [facility] approximately 1430 patient left with airevac approximately 1500 heading to [facility] MICU bed 11
[2024-04-01] MEDS: pantoprazole DR 40 mg Tablet 20 MG PO (20:25)
[2024-04-01] MEDS: atorvastatin 40 mg Tablet PO (20:25)
[2024-04-01] MEDS: lisinopril 10 mg Tablet PO (20:25)
[2024-04-01] MEDS: amlodipine 5 mg Tablet PO (20:25)
[2024-04-01] MEDS: potassium chloride ER 10 mEq Tablet PO (20:25)
[2024-04-01 20:34] LABS: Glucose Point of Care 114 mg/dL (70-110)
[2024-04-01] MEDS: sodium chloride 0.9% 500 ML 999 ML IV (23:18)
[2024-04-02] VITALS (15 sets, daily range): BP systolic 68–122; BP diastolic 48–70; PULSE 62–95; RESP 14–26; TEMP 36.7; O2SAT 92–95
[2024-04-02] MEDS: sodium chloride 0.9% 500 ML 999 ML IV (01:53)
[2024-04-02] MEDS: pantoprazole 40 mg SDV IVP (04:05)
[2024-04-02 05:32] LABS: Basophils % 0.3 %; Eosinophils # 0.1 10^3/uL (0.0-0.8); Eosinophils % 0.5 %; Hematocrit 40.8 % (36-47); Lymphocytes # 2.9 10^3/uL (0.8-4.8); Lymphocytes % 31.4 %; Mean Corpuscular HGB Conc 31.6 g/dL (30-55); Mean Corpuscular Hemoglobin 28.2 pg (27-33); Mean Corpuscular Volume 89.1 fl (85-98); Mean Platelet Volume 9.6 fL (7.4-10.4); Monocytes # 0.5 10^3/uL (0.2-0.9); Monocytes % 5.8 %; Neutrophils % 61.7 %; Nucleated Red Blood Cells % 0 %; Platelet Count 332 10^3/cmm (157-399); Red Blood Count 4.58 10^6/uL (3.85-5.65); Red Cell Distribution Width 15.9 % (12.1-15.1); White Blood Count 9.26 10^3/uL (3.29-11.43)
[2024-04-02 06:01] LABS: Alanine Aminotransferase 9 U/L (0-33); Albumin Level 3.6 g/dL (3.5-5.2); Alkaline Phosphatase 123 U/L (35-105); Anion Gap 16.8 (5-19); Aspartate Amino Transferase 13 U/L (0-32); Blood Urea Nitrogen 11 mg/dL (6-20); Calcium 9.5 mg/dL (8.5-10.5); Carbon Dioxide 20 mmol/L (22-29); Chloride 103 mmol/L (98-107); Creatinine Clr Calc Pharmacy 48.3011; Globulin 2.5 g/dL (1.3-4.6); Glomerular Filtration Rate 58.2 mL/min (90-130); Glucose 92 mg/dL (65-115); Magnesium 1.8 mg/dL (1.7-2.3); Osmolality Calculated 281 mOsm/kg (285-295); Phosphorus 2.7 mg/dL (2.5-4.5); Potassium 3.8 mmol/L (3.5-5.1); Sodium 136 mmol/L (136-145); Total Bilirubin 0.5 mg/dL (0.15-1.2); Total Protein 6.1 g/dL (6.6-8.7)
[2024-04-02] MEDS: piperacillin-tazobactam 3.375 GM in sodium chloride 0.9% (plus) 50 ML IV (06:16)
[2024-04-02] MEDS: venlafaxine ER (24HR) 150 mg Capsule PO (06:19)
[2024-04-02] MEDS: potassium chloride ER 10 mEq Tablet PO (08:42)
[2024-04-02] MEDS: clopidogrel 75 mg Tablet PO (08:42)
[2024-04-02] MEDS: thiamine 100 mg Tablet PO (08:42)
[2024-04-02] MEDS: pantoprazole DR 40 mg Tablet 20 MG PO (08:42)
[2024-04-02] MEDS: folic acid 1 mg Tablet PO (08:42)
[2024-04-02] MEDS: multivitamin therapeutic Tablet 1 TAB PO (08:43)
[2024-04-02] MEDS: amlodipine 5 mg Tablet PO (08:43)
[2024-04-02] MEDS: zonisamide 100 MG Capsule PO (08:43)
[2024-04-02 08:49] LABS: Glucose Point of Care 89 mg/dL (70-110)
--- NOTE | 2024-04-02 09:15 | P.DS_ITS ---
Discharge Providers Date of Admission: 03/31/24 15:07 Date of Discharge: April 02, 2024 Attending Provider at Admission: Lawrence Renteria MD Attending Provider at Discharge: Juan Haley MD Primary Care Provider: BAILEY Leos Diagnoses at Discharge Discharge Diagnosis (1) Hypertensive urgency: Status: Acute (2) Acute alcoholic gastritis: Status: Acute (3) Abdominal pain: Status: Acute (4) Nausea & vomiting: Status: Acute (5) Gastroenteritis: Status: Acute (6) Alcohol withdrawal: Status: Acute (7) Hypokalemia: Status: Acute (8) Amphetamine use: Status: Acute (9) Elevated lactic acid level: Status: Acute (10) Bipolar disorder, unspecified: Status: Chronic Qualifiers: Active/Remission status: in remission of unspecified degree Qualified Code(s): F31.70 - Bipolar disorder, currently in remission, most recent episode unspecified (11) Generalized anxiety disorder: Status: Chronic (12) Alcohol use: Status: Acute Reason for Visit Reason for Visit: abd pain Hospital Course Hospital Course 53-year-old female who was admitted for management evaluation of hypertensive urgency related to polysubstance abuse, alcoholism, she was put on Cardene drip which was weaned off in 24 hours, she was monitored in ICU, she did not show any focal deficits, patient was diagnosed with colitis, she received antibiotics during hospitalization, patient did not experience any loose stools, C. difficile sample was not collected because her stools were well-formed, she remained afebrile, she started tolerating her regular diet, I have asked her to continue using her amlodipine, with aggressive antihypertensive regimen her blood pressure dropped this morning, she is tolerating diet, able to walk around without any difficulty, hemodynamically stable, I will discharge her on Augmentin 5-day course. Patient is endorsing to taking recreational drugs at a democrat. Stating that she lives with her sister and does not take recreational drugs on daily basis. No coffee-ground emesis, hemoglobin stayed stable. Patient not showing signs of withdrawal at the time of discharge. Physical Exam Narrative: Awake and alert Signs of dehydration improving Blood pressure stable GCS 15 Tolerating diet Discharge Data Studies Completed and Pending Completed Studies During Hospitalization Category Date Time Status CT abdomen pelvis w con* [id number] Urgent Cat Scan 03/31/24 12:42 Completed XR chest 1V portable [id number] Stat Exams 03/31/24 13:01 Completed Pending at discharge Category Date Time Status Blood Culture Stat Lab 03/31/24 14:04 Results C.Diff PCR (Lab) Routine Lab 03/31/24 16:51 Ordered Complete Blood Count w/Auto AM LABS Lab 04/03/24 04:00 Ordered Comprehensive Metabolic Panel AM LABS Lab 04/03/24 04:00 Ordered Immunochemical Fecal OCB Routine Lab 03/31/24 16:51 Ordered Lactoferrin Routine Lab 03/31/24 16:51 Ordered Magnesium AM LABS Lab 04/03/24 04:00 Ordered OVA and Parasites, Conc and PE Routine Lab 03/31/24 17:39 Ordered Phosphorus AM LABS Lab 04/03/24 04:00 Ordered Salmonella / Shigella / Campy Routine Lab 03/31/24 17:39 Ordered Radiology Impressions Abdomen/Pelvis CT 03/31/24 12:42 IMPRESSION: 1. Decreased gastroenteritis since 03/29/2024. 2. Persistent mild mucosal thickening in the ascending and transverse colon. Evaluation is limited by luminal decompression. Mild colitis is possible. 3. 5.6 cm left adnexal cyst. Ultrasound follow-up in 6-12 months is recommended. (Reference: Kg) 4. 7 mm right lower lobe pulmonary nodule is stable since 02/11/2024 and new since 04/21/2020. For patients at low risk (minimal or absent history of smoking and of other known risk factors), recommend CT Chest at 6-12 months, then consider CT Chest at 18-24 months. For patients at high risk (history of smoking or of other known risk factors), recommend CT Chest at 6-12 months, then CT Chest at 18-24 months. (Reference: Rafael) 5. Stable 2.7 cm right adrenal nodule since 04/21/2020 consistent with a benign lipid rich adenoma. No follow-up imaging is necessary. REFERENCES: 1. Kg et al. Management of Incidental Adnexal Findings on CT and MRI: A White Paper of the ACR Incidental Findings Committee, J Am Vladimir Radiol. 2020 Mar;17(2):248-254. 2. Rafael Vincent, et al. Guidelines for Management of Incidental Pulmonary Nodules Detected on CT Images: From the Fleischner Society 2017. Radiology. 2017;284(1):228-243. Chest X-Ray 03/31/24 13:01 IMPRESSION: No acute findings. Laboratory Results WBC 9.26 10^3/uL (3.29-11.43) 04/02/24 04:39 RBC 4.58 10^6/uL (3.85-5.65) 04/02/24 04:39 Hgb 12.90 g/dL (11.27-16.99) 04/02/24 04:39 Hct 40.8 % (36-47) 04/02/24 04:39 MCV 89.1 fl (85-98) 04/02/24 04:39 MCH 28.2 pg (27-33) 04/02/24 04:39 MCHC 31.6 g/dL (30-55) 04/02/24 04:39 RDW 15.9 % (12.1-15.1) H 04/02/24 04:39 Plt Count 332 10^3/cmm (157-399) D 04/02/24 04:39 MPV 9.6 fL (7.4-10.4) 04/02/24 04:39 Neut % (Auto) 61.7 % 04/02/24 04:39 Lymph % (Auto) 31.4 % 04/02/24 04:39 Steele % (Auto) 5.8 % 04/02/24 04:39 Eos % (Auto) 0.5 % 04/02/24 04:39 Baso % (Auto) 0.3 % 04/02/24 04:39 Neut # (Auto) 5.70 10^3/uL (1.8-7.7) 04/02/24 04:39 Lymph # (Auto) 2.9 10^3/uL (0.8-4.8) 04/02/24 04:39 Steele # (Auto) 0.5 10^3/uL (0.2-0.9) 04/02/24 04:39 Eos # (Auto) 0.1 10^3/uL (0.0-0.8) 04/02/24 04:39 Baso # (Auto) 0.0 10^3/uL (0.0-0.1) 04/02/24 04:39 Nucleated RBC % (auto) 0 % 04/02/24 04:39 Nucleated RBCs # 0.0 /100WBC 04/02/24 04:39 Sodium 136 mmol/L (136-145) 04/02/24 04:39 Potassium 3.8 mmol/L (3.5-5.1) 04/02/24 04:39 Chloride 103 mmol/L (98-107) 04/02/24 04:39 Carbon Dioxide 20 mmol/L (22-29) L 04/02/24 04:39 Anion Gap 16.8 (5-19) 04/02/24 04:39 BUN 11 mg/dL (6-20) 04/02/24 04:39 Creatinine 1.0 mg/dL (0.5-0.9) H 04/02/24 04:39 GFR Calculation 58.2 mL/min (90-130) L 04/02/24 04:39 Glucose 92 mg/dL (65-115) 04/02/24 04:39 POC Glucose 89 mg/dL (70-110) 04/02/24 08:34 Calculated Osmolality 281 mOsm/kg (285-295) L 04/02/24 04:39 Lactic Acid 1.4 mmol/L (0.5-2.2) 04/01/24 05:31 Lactic Acid (Sepsis) 2.8 mmol/L (0.5-2.2) H 03/31/24 14:04 Calcium 9.5 mg/dL (8.5-10.5) 04/02/24 04:39 Phosphorus 2.7 mg/dL (2.5-4.5) 04/02/24 04:39 Magnesium 1.8 mg/dL (1.7-2.3) 04/02/24 04:39 Iron 37 ug/dL (37-145) 03/31/24 11:24 TIBC 373 mcg/dl 03/31/24 11:24 % Saturation 9.9 % (20-50) L 03/31/24 11:24 Unsat Iron Binding 336 ug/dL (112-347) 03/31/24 11:24 Total Bilirubin 0.5 mg/dL (0.15-1.2) 04/02/24 04:39 AST 13 U/L (0-32) 04/02/24 04:39 ALT 9 U/L (0-33) 04/02/24 04:39 Alkaline Phosphatase 123 U/L (35-105) H 04/02/24 04:39 Total Protein 6.1 g/dL (6.6-8.7) L D 04/02/24 04:39 Albumin 3.6 g/dL (3.5-5.2) 04/02/24 04:39 Globulin 2.5 g/dL (1.3-4.6) 04/02/24 04:39 Lipase 33 U/L (13-60) 03/31/24 11:24 Vitamin B12 329 pg/mL (232-1245) 03/31/24 11:24 Folate 14.4 ng/mL (4.8-37.3) 04/01/24 05:31 Procalcitonin 0.06 ng/mL (0-0.5) 04/01/24 05:31 TSH 4.74 uIU/mL (0.27-4.20) H 03/31/24 11:24 HCG, Qual Negative (Negative) 03/31/24 11:24 Urine Color Yellow (Yellow) 03/31/24 13:17 Urine Appearance Clear (CLEAR) 03/31/24 13:17 Urine pH 7.5 (5-7) 03/31/24 13:17 Ur Specific [place] 1.014 (1.005-1.030) 03/31/24 13:17 Urine Protein Negative (Negative) 03/31/24 13:17 Urine Glucose (UA) Negative (Normal) 03/31/24 13:17 Urine Ketones Negative (Negative) 03/31/24 13:17 Urine Blood Negative (Negative) 03/31/24 13:17 Urine Nitrate Negative (Negative) 03/31/24 13:17 Urine Bilirubin Negative (Negative) 03/31/24 13:17 Urine Urobilinogen 0.2 mg/dL (Negative) 03/31/24 13:17 Ur Leukocyte Esterase Trace (Negative) A 03/31/24 13:17 Urine RBC 0-2 /hpf (0-2) 03/31/24 13:17 Urine WBC 11-20 /hpf (0-5) H 03/31/24 13:17 Ur Squamous Epith Cells 11-20 /hpf (0-5) H 03/31/24 13:17 Amorphous Sediment Not Reportable 03/31/24 13:17 Urine Bacteria 1+ /hpf (NONE) H 03/31/24 13:17 Hyaline Casts 0.81 /lpf 03/31/24 13:17 Urine Opiates Screen Positive ng/mL (Negative) H 03/31/24 13:17 Ur Barbiturates Screen Negative ng/mL (Negative) 03/31/24 13:17 Ur Phencyclidine Scrn Negative ng/mL (Negative) 03/31/24 13:17 Ur Amphetamines Screen Positive ng/mL (Negative) H 03/31/24 13:17 U Benzodiazepines Scrn Positive ng/mL (Negative) H 03/31/24 13:17 Urine Cocaine Screen Negative ng/mL (Negative) 03/31/24 13:17 U Marijuana (THC) Screen Positive ng/mL (Negative) H 03/31/24 13:17 Ethyl Alcohol < 10 mg/dL (0-10) 03/31/24 11:24 Serum Ketones Negative (Negative) 03/31/24 11:24 Hepatitis A IgM Ab Non-reactive (Nonreactive) 03/31/24 11:24 Hep Bs Antigen Non-reactive (Nonreactive) 03/31/24 11:24 Hep Bs Antibody < 3.5 (11.5-1000) L 03/31/24 11:24 Hep B Core Total Ab Non-reactive (Nonreactive) 03/31/24 11:24 Hepatitis C Antibody Non-reactive (Nonreactive) 03/31/24 11:24 HIV 1&2 Ab & HIV 1 Ag Non-reactive (Non-Reactiv) 03/31/24 11:24 HIV 1&2 Antibody Non-reactive (Non-Reactiv) 03/31/24 11:24 Vitals Last Vital Signs Temp 98.0 F 04/02/24 04:39 Pulse 62 04/02/24 08:00 Resp 15 04/02/24 08:00 BP 122/67 04/02/24 08:00 Pulse Ox 92 04/02/24 08:00 O2 Del Method Room Air 04/01/24 04:45 Discharge Plan Discharge Patient Disposition: Home Condition: Stable Prescriptions: New amoxicillin-pot clavulanate 875-125 mg tablet 1 tab PO BID Qty: 10 0RF Continued (DME) Shoe lift See Rx Instructions .Route .MEDSUPPLY Qty: 1 0RF Rx Instructions: As directed (DME) HCPCS code E0149 See Rx Instructions .Route .MEDSUPPLY Qty: 1 0RF Rx Instructions: As directed nitroglycerin [Nitrostat] 0.4 mg tablet, sublingual 0.4 mg sublingual Q5M PRN (Reason: chest pain) Qty: 30 3RF acyclovir 200 mg capsule 200 mg PO DAILY Qty: 30 5RF budesonide-formoterol [Symbicort] 160-4.5 mcg/actuation HFA aerosol inhaler 2 puff inhalation BID Qty: 10.2 5RF amlodipine [Norvasc] 5 mg tablet 5 mg PO DAILY Qty: 30 5RF atorvastatin 40 mg tablet 40 mg PO BEDTIME Qty: 30 5RF dapagliflozin propanediol [Farxiga] 10 mg tablet 10 mg PO QAM Qty: 30 5RF eszopiclone [Lunesta] 3 mg tablet 3 mg PO .at bedtime Qty: 30 5RF ferrous gluconate 324 mg (38 mg iron) tablet 324 mg PO DAILY Qty: 30 2RF potassium chloride 10 mEq tablet,ER particles/crystals 10 meq PO DAILY Qty: 30 2RF venlafaxine [Effexor XR] 150 mg capsule,extended release 24hr 150 mg PO QAM Qty: 30 2RF zonisamide [Zonegran] 100 mg capsule 100 mg PO BID Qty: 60 5RF (DME) DME: Walker Unit See Rx Instructions .ROUTE .MEDSUPPLY Qty: 1 0RF Rx Instructions: Code E0143 and E0156 walker 4 wheels and seat Plavix 75 mg tablet 75 mg PO DAILY Qty: 30 5RF omeprazole 20 mg capsule,delayed release(DR/EC) 20 mg PO BID 10 Days Qty: 20 0RF albuterol sulfate [Ventolin HFA] 90 mcg/actuation HFA aerosol inhaler 2 inh inhalation 6XD PRN (Reason: shortness of breath or wheezing) Discharge Orders: Discharge Order (Routine); Ordered 04/02/24 Ordered By: Juan Haley Referrals: Crisis Stabilization [Other] (7 days/week 8am-6pm) [facility] [Outside] (? Follow up as a walk in at [facility], walk in hours are Monday-Monday from 7:30AM-3:00PM, first come, first seen. Once you do this assessment you will be referred for appropriate services.) Selvin Thomas, [facility] [Primary Care Provider] - Discharge Diet: Regular Patient Instructions: Opioid Safety Discharge Attestations Time Spent in Discharge Care*: greater than 30 min Quality Metrics Clinical Quality Measures [ No reported AMI, CVA or VTE this stay] Coding Level of Care Code Acute Code for Chg Fwd Diagnoses Hypertensive urgency I16.0 Acute alcoholic gastritis K29.20 Abdominal pain R10.9 Nausea & vomiting R11.2 Gastroenteritis K52.9 Alcohol withdrawal F10.939 Hypokalemia E87.6 Amphetamine use F15.90 Elevated lactic acid level R79.89 Bipolar affective disorder in remission F31.70 Active/Remission status: in remission of unspecified degree Generalized anxiety disorder F41.1 Alcohol use F10.90
--- NOTE | 2024-04-02 12:04 | PC.NURSE ---
All dc instructions educated to patient
--- NOTE | 2024-04-02 12:21 | PC.NURSE ---
iv D/C patient out of facility transported home by family,
== END 2024-04-02 12:22 | disposition home or self-care (01) | DRG 392 ==
LOC: ER 13:10 → ICU 17:00
PROVIDERS: Admitting Provider Student in an Organized Health Care Education/Training Program; Emergency Provider Emergency Medicine; PCP Nurse Practitioner; Visit Provider Internal Medicine
DX: K29.20 Alcoholic gastritis without bleeding (principal); F10.239 Alcohol dependence with withdrawal, unspecified; E87.20 Acidosis, unspecified; I16.0 Hypertensive urgency; K52.9 Noninfective gastroenteritis and colitis, unspecified; E87.6 Hypokalemia; F15.10 Other stimulant abuse, uncomplicated; F12.90 Cannabis use, unspecified, uncomplicated; F31.70 Bipolar disorder, currently in remission, most recent episode unspecified; F41.1 Generalized anxiety disorder; E78.00 Pure hypercholesterolemia, unspecified; Z79.02 Long term (current) use of antithrombotics/antiplatelets; Z86.73 Personal history of transient ischemic attack (TIA), and cerebral infarction without residual deficits; F17.210 Nicotine dependence, cigarettes, uncomplicated; E86.0 Dehydration; R00.0 Tachycardia, unspecified
CPT/HCPCS: 36415; 36416; 71045; 74177; 80053; 80306; 80307; 81001; 82009; 82607; 82746; 82962; 83540; 83550; 83605; 83690; 83735; 84100; 84145; 84443; 84703; 85025; 86705; 86706; 86709; 86803; 87040; 87340; 87806; 93005; 94664; 96365; 96366; 96367; 96372; 96374; 96375; 96376; 99285; J0360; J2060; J2470; J2543; J3370; J3411; J3475; J3480; J3490; J7030; J7040; J7120; J7799

== ENCOUNTER 2024-04-04 12:15 | Outpatient (CLI) | payer BC, MEDICAID, SELFPAY ==
--- NOTE | 2024-04-04 12:45 | US_ITS ---
WS: [id number] US pelv w/transvag [id number] HISTORY: N94.9 - Unspecified condition associated with female lizbet... COMPARISON: CT 03/31/2024, 03/29/2024 Uterus: 6.9 cm x 4.6 cm x 3.4 cm. Small caliber anteverted, heterogeneous uterus. Lobular heterogeneous contour to the entire uterus. This is consistent with a fibroid uterus. Largest fibroid is toward the posterior fundal portion of the uterus and measures 2.9 x 2.9 x 2.7 cm. The endometrium is being displaced anteriorly. Endometrium: 0.2 cm. Endometrium is being displaced anteriorly by the large fibroid. Right ovary: RIGHT ovary is not identified. No adnexal mass. Left ovary: Septated cystic mass is noted within the LEFT adnexa. This is probably ovarian in etiology. No adjacent ovarian tissue is identified. The entire cyst measures 6.1 x 3.3 x 5.9 cm. No color Doppler is noted within the septation. No solid component or debris. No mural nodules within the cysts. No free fluid in the cul-de-sac. US/US pelv w/transvag [id number] IMPRESSION: 1. O-RADS 2; almost certainly benign. LEFT ovarian septated cyst. Cyst has bee n described on multiple prior CT evaluations with slight increase in size recen tly. Due to the increase in size suggest follow-up with gynecology. Otherwise r epeat ultrasound can be performed at 12 and 24 months from the initial ultrasou nd. To document continued stability. 2. Fibroid uterus. Largest fibroid measures 2.9 x 2.9 x 2.7 cm. 3. Endometrium is being significantly displaced by the largest fibroid.
== END 2024-04-04 12:16 | disposition home or self-care (01) ==
PROVIDERS: PCP Nurse Practitioner; Visit Provider Nurse Practitioner
DX: N94.9 Unspecified condition associated with female genital organs and menstrual cycle (principal); N83.202 Unspecified ovarian cyst, left side; D25.9 Leiomyoma of uterus, unspecified; R93.89 Abnormal findings on diagnostic imaging of other specified body structures; N85.4 Malposition of uterus
CPT/HCPCS: 76830; 76856

== ENCOUNTER → 2024-12-26 15:43 | Outpatient (BNVA) | payer BC, MEDICAID, SELFPAY | PROVIDERS: PCP Nurse Practitioner; Visit Provider Obstetrics & Gynecology | DX: Z12.4 Encounter for screening for malignant neoplasm of cervix (principal); N83.209 Unspecified ovarian cyst, unspecified side | CPT/HCPCS: 86304; 87624 ==